=== PATIENT | female | born 1945 | race Caucasian/White ===

== ENCOUNTER → 2016-12-03 | Outpatient (CLI) | payer MEDICARE ==
[~2016-12-03] MED LIST: ALLE10TA2 PO; BENA25CA2 PO; BIOT50004 PO; CENT1TAB PO; CYCL10TA PO; HYDR-2808 PO; LEVO25TA5 PO; MELATONIN PO; NEUR300C PO; SYMB16INH INH; VITA-171 PO; VITA400C28 PO; [UNRECOGNIZED DRUG - OTHER] PO; [UNRECOGNIZED DRUG - OTHER] PO
--- NOTE | 2016-12-03 12:08 | REP ---
Right foot series: Four views. History: Foot injury. Findings: Overall mineralization pattern is normal. Achilles and plantar calcaneal spurring is noted. There is minimal midfoot spurring. Some bunion change is seen at the first MTP joint. No fracture or subluxation is seen. Impression: No fracture noted. Heel spurring. Signed by Karan Lockett MD 12/03/2016 02:05 P
== END ==
LOC: M WUC 10:25
PROVIDERS: ATTEND Physician Assistant
DX: M79.671 Pain in right foot (principal)

== ENCOUNTER → 2017-07-05 | Outpatient (CLI) | payer OTHER ==
--- NOTE | 2017-07-05 12:25 | REPMRS ---
Patient History The patient states she had a clinical breast exam in 07/12 Family history of breast cancer in maternal aunt at age 50 or over. 2 benign cyst aspirations of the left breast, 2005. Digital Woman Screen Mammo: July 05, 2017 - Exam #: [id number] Bilateral CC and MLO view(s) were taken. Technologist: Tami Ordonez, Technologist Prior study comparison: July 05, 2016, left breast digital mammo diagnostic unilateral, performed at [facility]. June 27, 2016, digital woman screen mammo performed at [facility]. FINDINGS: There are scattered fibroglandular densities. There is a fairly symmetric fibroglandular pattern in both breasts. There has been no interval development of masses, areas of architectural distortion or clusters of microcalcifications typical of malignancy. ASSESSMENT: BI-RADS/ACR category 2 mammogram. Benign finding(s). Recommendation Routine screening mammogram of both breasts in 1 year (for women over age 40). This mammogram was interpreted with the aid of an FDA-approved computer-aided dectection system. Electronically Signed By: Jh Elder MD 07/05/17 [id number]
== END ==
LOC: M WHC 10:41
PROVIDERS: ATTEND Physician Assistant
DX: Z12.31 Encounter for screening mammogram for malignant neoplasm of breast (principal)

== ENCOUNTER → 2019-04-24 | Outpatient (CLI) | payer MEDICARE ==
[~2019-04-24] MED LIST changes: -ALLE10TA2 PO; +LORA-753 PO
--- NOTE | 2019-04-24 15:16 | REPMRS ---
Patient History The patient states she had a clinical breast exam in 03/2019. Family history of breast cancer at age 50 or over in maternal aunt. 2 benign cyst aspirations of the left breast, 2005. No Hormone Replacement Therapy 3D TOMOSYNTHESIS WAS PERFORMED. Digital Woman Screen Mammo: April 24, 2019 - Exam #: [id number] Bilateral CC and MLO view(s) were taken. Technologist: Anyi Vela, Technologist Prior study comparison: July 05, 2017, digital woman screen mammo performed at [facility]. July 05, 2016, left breast digital mammo diagnostic unilateral, performed at [facility]. FINDINGS: There are scattered fibroglandular densities. There is a fairly symmetric fibroglandular pattern in both breasts. There has been no interval development of masses, areas of architectural distortion or clusters of microcalcifications typical of malignancy. Assessment: BI-RADS/ACR category 2 mammogram. Benign Findings. Recommendation Routine screening mammogram of both breasts in 1 year (for women over age 40). This mammogram was interpreted with the aid of an FDA-approved computer-aided dectection system. Electronically Signed By: Jh Elder MD 04/24/19 [id number]
== END ==
LOC: M WHC 14:12
PROVIDERS: ATTEND Nurse Practitioner Family
DX: Z12.31 Encounter for screening mammogram for malignant neoplasm of breast (principal); Z92.89 Personal history of other medical treatment
CPT/HCPCS: 77063; 77067; G0101

== ENCOUNTER → 2020-09-02 | Outpatient (CLI) | payer MEDICARE ==
[~2020-09-02] MED LIST changes: +CYCL-707 PO; -CYCL10TA PO; -HYDR-2808 PO; +HYDR-4429 PO
--- NOTE | 2020-09-07 16:42 | REP ---
CT CHEST WITHOUT CONTRAST HISTORY: Other nonspecific abnormal finding of lung field. COMPARISON: Chest x-ray 11/22/2019. CT study 12/06/2019. CT FINDINGS: There is no evidence of pleural or pericardial effusion. Scattered normal size mediastinal lymph nodes are seen unchanged. There is granulomatous lymph node calcification of the right hilus. There is a calcified granuloma in the right lower lobe. There are a few granulomatous calcifications in the spleen. Normal adrenal glands. Visualized upper abdominal structures are otherwise unremarkable. The bilateral lower lobe infiltrates seen on the 12/06/2019 prior study are improved. There is some pleural parenchymal fibrosis in each lung base, right a little more so than left. There is some lingular fibroatelectatic change unchanged from the prior study. There is a stable perifissural nodule in the minor fissure measuring 6 mm in diameter. There is some peripheral subpleural fibrosis in the apices. Areas of bronchiectasis and bronchial wall thickening are seen in the upper lobes bilaterally unchanged. No endobronchial disease is seen. IMPRESSION: Changes consistent with mild bronchiectasis. Improved inflammatory changes in the lower lobes. Fibrotic changes are noted. There is a stable perifissural nodule along the minor fissure. Old granulomatous changes. MTDD
== END ==
LOC: M RAD 13:34
PROVIDERS: ATTEND Physician Assistant
DX: R91.8 Other nonspecific abnormal finding of lung field (principal)

== ENCOUNTER → 2021-04-28 | Outpatient (CLI) | payer MEDICARE ==
--- NOTE | 2021-04-28 14:55 | REPMRS ---
Patient History The patient states she had a clinical breast exam in April2021. Family history of breast cancer at age 50 or over in maternal aunt. 2 benign cyst aspirations of the left breast, 2005. No Hormone Replacement Therapy Patient states no breast complaints. Patient has signed the [facility] history sheet. Digital Woman Screen Mammo: April 28, 2021 - Exam #: [id number] Bilateral CC and MLO view(s) were taken. Technologist: Tami Ordonez, Technologist Prior study comparison: April 24, 2019, bilateral digital woman screen mammo performed at [facility]. July 05, 2017, digital woman screen mammo performed at [facility]. FINDINGS: There are scattered fibroglandular densities. Screening. Digital screening (2D) mammography was performed bilaterally in the CC and MLO projections. Additionally, breast tomosynthesis (3D mammography) was performed bilaterally in the CC and MLO projections. Todays exam was compared to the prior exams. By history, the patient has no complaints of a palpable breast abnormality or other significant breast complaints. The breasts are unchanged in size and shape. There are no maddie-soft tissue densities or spiculated masses. There is no internal architectural distortion. Once again, stable benign appearing calcifications are seen.There are no suspicious maddie-calcific clusters. Skin thickening or nipple retraction is not present. IMPRESSION: BI-RADS Category 2- Benign Findings. There is no evidence of malignant alteration of the breasts. Followup examination recommended in one year. The Volpara volumetric breast density category is B, there are scattered areas of fibroglandular density. This mammogram was [facility],an FDA approved computer aided detection system for mammography. The lifetime Tyrer-Cuzick score is 3.7 % Negative x-ray reports should not delay surgical consultation if a dominant or clinically suspicious mass is present. Not all breast cancers can be identified by mammography. Therefore, we recommend that you continue to perform regular breast self-examination and physical examination and then promptly contact your physician of any concerns or changes. Adenosis and dense breasts may obscure an underlying neoplasm. Assessment: BI-RADS/ACR category 2 mammogram. Benign Findings. Recommendation Routine screening mammogram of both breasts in 1 year. Electronically Signed By: Philip Patterson DO 04/28/21 [id number]
== END ==
LOC: M WHC 13:42
PROVIDERS: ATTEND Nurse Practitioner Women's Health
DX: Z01.419 Encounter for gynecological examination (general) (routine) without abnormal findings (principal); Z12.31 Encounter for screening mammogram for malignant neoplasm of breast; Z86.018 Personal history of other benign neoplasm; R92.1 Mammographic calcification found on diagnostic imaging of breast
CPT/HCPCS: 77063; 77067; G0101

== ENCOUNTER → 2021-12-13 | Outpatient (CLI) | payer MEDICARE | LOC: M WUC 09:43 | PROVIDERS: ATTEND Physician Assistant | DX: J44.1 Chronic obstructive pulmonary disease with (acute) exacerbation (principal); R06.02 Shortness of breath; R53.83 Other fatigue ==

== ENCOUNTER 2022-03-13 18:42 | Inpatient (IN) | payer MEDICARE ==
[~2022-03-13] VITALS: Ht 165.1 cm; Wt 81.8 kg
[2022-03-13 19:46] LABS: VENOUS O2 SATURATION 96.3 % (60.0-80.0); VENOUS PARTIAL PRESSURE CO2 50.9 mmHg (38.0-50.0); VENOUS PH 7.402 UNITS (7.330-7.430); VENOUS TOTAL CO2 32.5 MEQ/L (24.0-28.0)
[2022-03-13 19:50] LABS: BASO % 0.2 % (0.0-1.0); EOS # 0.1 10^3/uL (0.0-0.5); HEMATOCRIT 37.2 % (36.0-47.0); HEMOGLOBIN 12.5 g/dl (12.0-15.5); LYMPH # 0.9 10^3/uL (1.5-5.0); LYMPH % 6.9 % (24.0-44.0); MEAN CORPUSCULAR HEMOGLOBIN 33.2 pg (27.0-33.0); MEAN CORPUSCULAR HGB CONC 33.6 g/dl (32.0-36.5); MEAN CORPUSCULAR VOLUME 98.7 fl (80.0-96.0); MONO # 0.5 10^3/uL (0.0-0.8); MONO % 3.9 % (2.0-8.0); NEUTROPHILS # 10.8 10^3/uL (1.5-8.5); NEUTROPHILS % 87.6 % (36.0-66.0); PLATELET COUNT, AUTOMATED 282 10^3/uL (150-450); RED BLOOD COUNT 3.77 10^6/uL (4.00-5.40); WHITE BLOOD COUNT 12.4 10^3/uL (4.0-10.0)
[2022-03-13] MEDS ORDERED: HYDR-4514 PO (19:58)
[2022-03-13 20:15] LABS: ALBUMIN 3.4 GM/DL (3.2-5.2); ALT/SGPT 23 U/L (12-78); BILIRUBIN,DIRECT 0.2 MG/DL (0.0-0.2); BILIRUBIN,TOTAL 0.5 MG/DL (0.2-1.0); BLOOD UREA NITROGEN 10 MG/DL (7-18); CALCIUM LEVEL 9.5 MG/DL (8.8-10.2); CARBON DIOXIDE LEVEL 30 MEQ/L (21-32); CHLORIDE LEVEL 102 MEQ/L (98-107); GLOMERULAR FILTRATION RATE > 60.0 (>39); GLUCOSE, FASTING 142 MG/DL (70-100); NT-PRO BNP 159 PG/ML (<450); POTASSIUM SERUM 3.9 MEQ/L (3.5-5.1); SODIUM LEVEL 138 MEQ/L (136-145); TOTAL PROTEIN 6.6 GM/DL (6.4-8.2)
[2022-03-13 20:17] LABS: MB/CK RELATIVE INDEX 3.45 (< OR =4)
[2022-03-13] MEDS: COMBIVENT RESPIMAT 100-20MCG INHALER 4GM INH SCH ×3 (20:33→21:19)
[2022-03-13 21:12] LABS: CK-MB VALUE MASS < 1.0 NG/ML (<3.6); CPK CREATINE PHOSPHOKINASE 32 U/L (26-192); MB/CK RELATIVE INDEX 3.12 (< OR =4)
[2022-03-13] MEDS ORDERED: VITA100093 PO (22:47)
[2022-03-13] MEDS ORDERED: ALBU8.5H INH (22:47)
[2022-03-13] MEDS ORDERED: MELA10CA6 PO (22:47)
[2022-03-13] MEDS ORDERED: IPRA0.00 NEB (22:47)
[2022-03-13] MEDS ORDERED: INCR1INH INH (22:49)
[2022-03-13] MEDS ORDERED: HOME MED LIST COMPLETE! XX SCH (22:50)
[2022-03-13] MEDS ORDERED: LevoFLOXacin 500 MG TABLET PO SCH (23:25)
[2022-03-13] MEDS ORDERED: ACETAMINOPHEN TAB 650MG DOSE (2X325MG) PO PRN (23:25)
[2022-03-13] MEDS ORDERED: NS 1,000 ML IV SCH (23:25)
[2022-03-13] MEDS ORDERED: CYCLOBENZAPRINE 10MG TABLET PO SCH (23:25)
[2022-03-13] MEDS ORDERED: ALBUTEROL 90 MCG/ACT 8GM HFA INHALER INH PRN (23:25)
[2022-03-13] MEDS: GABAPENTIN 300 MG CAP PO SCH (23:51)
[2022-03-14] MEDS: methylPREDNISolone 125MG 2ML VIAL IV SCH ×2 (00:11→08:00)
[2022-03-14] MEDS: IPRATROPIUM 0.5MG/ALBUTEROL 2.5MG INH SOL UD 3ML (DUONEB) NEB SCH ×3 (01:56→14:12)
[2022-03-14] MEDS ORDERED: LEVOTHYROXINE 25MCG TABLET (0.025MG) PO SCH (06:00)
[2022-03-14 07:27] LABS: BLOOD UREA NITROGEN 9 MG/DL (7-18); CALCIUM LEVEL 9.3 MG/DL (8.8-10.2); CARBON DIOXIDE LEVEL 31 MEQ/L (21-32); CHLORIDE LEVEL 104 MEQ/L (98-107); CREATININE FOR GFR 0.48 MG/DL (0.55-1.30); GLOMERULAR FILTRATION RATE > 60.0 (>39); GLUCOSE, FASTING 187 MG/DL (70-100); POTASSIUM SERUM 3.9 MEQ/L (3.5-5.1); SODIUM LEVEL 139 MEQ/L (136-145)
[2022-03-14 07:29] LABS: BASO % 0.1 % (0.0-1.0); HEMATOCRIT 36.3 % (36.0-47.0); HEMOGLOBIN 12.5 g/dl (12.0-15.5); LYMPH # 0.3 10^3/uL (1.5-5.0); LYMPH % 3.5 % (24.0-44.0); MEAN CORPUSCULAR HEMOGLOBIN 33.5 pg (27.0-33.0); MEAN CORPUSCULAR HGB CONC 34.4 g/dl (32.0-36.5); MEAN CORPUSCULAR VOLUME 97.3 fl (80.0-96.0); MONO # 0.1 10^3/uL (0.0-0.8); MONO % 0.5 % (2.0-8.0); NEUTROPHILS # 9.1 10^3/uL (1.5-8.5); NEUTROPHILS % 95.6 % (36.0-66.0); PLATELET COUNT, AUTOMATED 289 10^3/uL (150-450); RED BLOOD COUNT 3.73 10^6/uL (4.00-5.40); WHITE BLOOD COUNT 9.5 10^3/uL (4.0-10.0)
[2022-03-14] MEDS ORDERED: SYMBICORT 160/4.5MCG INHALER 6GM INH SCH (08:00)
[2022-03-14] MEDS: GABAPENTIN 300 MG CAP PO SCH (08:15)
[2022-03-14 08:40] VITALS: BP 156/89
[2022-03-14] MEDS ORDERED: HEPARIN SOD (PORCINE) 5000UNITS/ML 1ML VIAL/SYRINGE SC SCH (09:00)
[2022-03-14] MEDS ORDERED: PRED20TA PO (11:29)
[2022-03-14] MEDS ORDERED: LEVO500T4 PO (11:29)
[2022-03-14 14:00] VITALS: BP 164/90
[2022-03-14] MEDS ORDERED: PRED10TA2 PO (14:34)
[2022-03-14] MEDS ORDERED: LEVA12INH INH (14:34)
[2022-03-14] MEDS ORDERED: IPRA2IN NEB (14:34)
[2022-03-15] MEDS ORDERED: methylPREDNISolone 125MG 2ML VIAL IV SCH (09:00)
== END 2022-03-14 18:10 | disposition home or self-care (01) | DRG 189 ==
LOC: M ED 18:42 → EDBD 18:42 → M ED INP 23:22 → ENRESERV 03-14 08:04 → M MS5PR 03-14 08:40
PROVIDERS: ADMIT Internal Medicine; ATTEND Internal Medicine
DX: J96.21 Acute and chronic respiratory failure with hypoxia (principal); J44.1 Chronic obstructive pulmonary disease with (acute) exacerbation; E03.9 Hypothyroidism, unspecified; M54.59 Other low back pain; J47.9 Bronchiectasis, uncomplicated; J84.10 Pulmonary fibrosis, unspecified; Z79.899 Other long term (current) drug therapy; Z66 Do not resuscitate; Z87.891 Personal history of nicotine dependence; R91.1 Solitary pulmonary nodule

== ENCOUNTER 2022-04-24 05:22 | Inpatient (IN) | payer MEDICARE ==
[~2022-04-24] VITALS: Ht 165.1 cm; Wt 82.7 kg
[~2022-04-24 05:22] MED LIST changes: +ALBU8.5H INH; +GABAPENTIN 300 MG CAP PO ONE; +HYDR-4514 PO; +INCR1INH INH; +IPRA0.00 NEB; +IPRA2IN NEB; +LEVA12INH INH; +LEVO500T4 PO; +MELA10CA6 PO; +PRED10TA2 PO; +PRED20TA PO; +VITA100093 PO
[2022-04-24 05:44] LABS: BASO # 0.1 10^3/uL (0.0-0.2); BASO % 0.2 % (0.0-1.0); EOS # 0.1 10^3/uL (0.0-0.5); EOS % 0.2 % (0.0-3.0); HEMATOCRIT 40.2 % (36.0-47.0); HEMOGLOBIN 13.1 g/dl (12.0-15.5); LYMPH # 1.2 10^3/uL (1.5-5.0); LYMPH % 5.1 % (24.0-44.0); MEAN CORPUSCULAR HGB CONC 32.6 g/dl (32.0-36.5); MEAN CORPUSCULAR VOLUME 101.3 fl (80.0-96.0); MONO # 1.2 10^3/uL (0.0-0.8); MONO % 5.3 % (2.0-8.0); NEUTROPHILS # 20.2 10^3/uL (1.5-8.5); NEUTROPHILS % 88.8 % (36.0-66.0); PLATELET COUNT, AUTOMATED 309 10^3/uL (150-450); RED BLOOD COUNT 3.97 10^6/uL (4.00-5.40); WHITE BLOOD COUNT 22.8 10^3/uL (4.0-10.0)
[2022-04-24 06:14] LABS: ALBUMIN 3.7 GM/DL (3.2-5.2); ALT/SGPT 25 U/L (12-78); BILIRUBIN,DIRECT 0.1 MG/DL (0.0-0.2); BILIRUBIN,TOTAL 0.3 MG/DL (0.2-1.0); BLOOD UREA NITROGEN 10 MG/DL (7-18); CALCIUM LEVEL 9.9 MG/DL (8.8-10.2); CARBON DIOXIDE LEVEL 38 MEQ/L (21-32); CHLORIDE LEVEL 102 MEQ/L (98-107); CK-MB VALUE MASS 4.7 NG/ML (<3.6); CREATININE FOR GFR 0.54 MG/DL (0.55-1.30); GLOMERULAR FILTRATION RATE > 60.0 (>39); GLUCOSE, FASTING 145 MG/DL (70-100); MB/CK RELATIVE INDEX 5.6 (< OR =4); NT-PRO BNP 224 PG/ML (<450); POTASSIUM SERUM 4.2 MEQ/L (3.5-5.1); SODIUM LEVEL 143 MEQ/L (136-145); TOTAL PROTEIN 7.5 GM/DL (6.4-8.2)
[2022-04-24] MEDS ORDERED: IPRATROPIUM 0.5MG/ALBUTEROL 2.5MG INH SOL UD 3ML (DUONEB) NEB ONE (06:20)
[2022-04-24] MEDS ORDERED: NS 500 ML IV ONE (06:20)
[2022-04-24 06:41] LABS: ABG BASE EXCESS 5.9 (-2.0-2.0); ABG HCO3 32.9 MEQ/L (22.0-26.0); ABG O2 SATURATION 87.1 % (95.0-99.0); ABG PARTIAL PRESSURE CO2 58.2 mmHg (35.0-45.0); ABG PARTIAL PRESSURE O2 51.1 mmHg (75.0-100.0); ABG STANDARD HCO3 29.6 MEQ/L (22.0-26.0); ABG TOTAL CO2 34.7 MEQ/L (23.0-31.0)
[2022-04-24] MEDS ORDERED: ISOVUE-370 76% 100ML VIAL As Ordered ONE (06:42)
[2022-04-24 07:09] LABS: CK-MB VALUE MASS 4.5 NG/ML (<3.6); MB/CK RELATIVE INDEX 5.06 (< OR =4)
[2022-04-24] MEDS ORDERED: LevoFLOXacin IV 750 MG in IV 1 EA IV ONE (08:20)
[2022-04-24] MEDS ORDERED: LEVALBUTEROL 1.25 MG/0.5 ML CONCENTRATE NEB INH PRN (09:10)
[2022-04-24 10:00] VITALS: BP 138/82
[2022-04-24] MEDS ORDERED: IPRA2IN NEB (10:23)
[2022-04-24] MEDS ORDERED: LEVA1.25 NEB (10:23)
[2022-04-24] MEDS ORDERED: HOME MED LIST COMPLETE! XX SCH (10:25)
[2022-04-24 10:30] VITALS: BP 138/72
[2022-04-24 10:33] LABS: THYROID STIMULATING HORMONE 0.898 uIU/ML (0.358-3.740); THYROXINE (T4) 10.4 UG/DL (4.5-12.0)
[2022-04-24] MEDS ORDERED: methylPREDNISolone 125MG 2ML VIAL IV ONE (10:45)
[2022-04-24] MEDS: LEVALBUTEROL 1.25 MG/0.5 ML CONCENTRATE NEB INH SCH ×3 (11:21→19:40)
[2022-04-24] MEDS: BUDESONIDE 180MCG INHALER (PULMICORT FLEXHALER) INH SCH ×2 (11:43→19:41)
[2022-04-24] MEDS: ISOSORBIDE DIN. (ISORDIL) 20 MG TAB PO SCH ×2 (12:00→18:11)
[2022-04-24] MEDS ORDERED: ENOXAPARIN 40MG/0.4ML SYRINGE (J1650 PER 10MG) SC ONE (12:30)
[2022-04-24] MEDS: guaiFENesin ER 600 MG TAB PO SCH ×2 (12:41→21:02)
[2022-04-24] MEDS: OMEPRAZOLE 20MG CAP PO SCH (12:41)
[2022-04-24] MEDS: LACTOBACILLUS ACIDOPHILUS CAP (BACID) PO SCH ×3 (12:41→21:02)
[2022-04-24] MEDS ORDERED: **hydrALAZINE HCL** 25 MG TAB PO PRN (12:55)
[2022-04-24] MEDS ORDERED: ANEXSIA, NORCO 7.5MG/325MG TABLET(HYDROCODONE/APAP) PO ONE (13:30)
[2022-04-24] MEDS ORDERED: cloNIDine 0.2 MG TAB PO ONE (13:30)
[2022-04-24 14:00] VITALS: BP 134/78
[2022-04-24] MEDS: VITAMIN D 1,000 INTERNATIONAL UNITS TABLET PO SCH (14:16)
[2022-04-24] MEDS ORDERED: GABAPENTIN 300 MG CAP PO ONE (14:25)
[2022-04-24] MEDS: methylPREDNISolone 125MG 2ML VIAL IV SCH (18:11)
[2022-04-24 20:21] VITALS: BP 115/63
[2022-04-24] MEDS: LORATADINE 10 MG TAB PO SCH (21:02)
[2022-04-24] MEDS: GABAPENTIN 300 MG CAP PO SCH (21:02)
[2022-04-24] MEDS: CYCLOBENZAPRINE 10MG TABLET PO SCH (21:02)
[2022-04-25] MEDS: ISOSORBIDE DIN. (ISORDIL) 20 MG TAB PO SCH ×5 (00:32→23:57)
[2022-04-25] MEDS: methylPREDNISolone 125MG 2ML VIAL IV SCH ×3 (02:35→18:35)
[2022-04-25] MEDS: LEVALBUTEROL 1.25 MG/0.5 ML CONCENTRATE NEB INH SCH ×7 (04:00→23:38)
[2022-04-25 05:11] VITALS: BP 124/86
[2022-04-25] MEDS: LevoFLOXacin 750 MG TABLET PO SCH (06:00)
[2022-04-25] MEDS: LEVOTHYROXINE 25MCG TABLET (0.025MG) PO SCH (06:00)
[2022-04-25] MEDS: BUDESONIDE 180MCG INHALER (PULMICORT FLEXHALER) INH SCH ×3 (07:50→19:51)
[2022-04-25] MEDS: LACTOBACILLUS ACIDOPHILUS CAP (BACID) PO SCH ×4 (08:15→20:09)
[2022-04-25] MEDS: GABAPENTIN 300 MG CAP PO SCH ×3 (08:15→20:09)
[2022-04-25] MEDS: guaiFENesin ER 600 MG TAB PO SCH ×2 (08:15→20:09)
[2022-04-25] MEDS: VITAMIN D 1,000 INTERNATIONAL UNITS TABLET PO SCH (08:15)
[2022-04-25] MEDS: ENOXAPARIN 40MG/0.4ML SYRINGE (J1650 PER 10MG) SC SCH (08:16)
[2022-04-25] MEDS: OMEPRAZOLE 20MG CAP PO SCH (08:16)
[2022-04-25 13:29] LABS: BASO % 0.1 % (0.0-1.0); HEMATOCRIT 36.3 % (36.0-47.0); HEMOGLOBIN 11.7 g/dl (12.0-15.5); LYMPH # 0.6 10^3/uL (1.5-5.0); LYMPH % 2.5 % (24.0-44.0); MEAN CORPUSCULAR HGB CONC 32.2 g/dl (32.0-36.5); MEAN CORPUSCULAR VOLUME 99.2 fl (80.0-96.0); MONO # 0.8 10^3/uL (0.0-0.8); MONO % 3.4 % (2.0-8.0); NEUTROPHILS # 20.8 10^3/uL (1.5-8.5); NEUTROPHILS % 92.9 % (36.0-66.0); PLATELET COUNT, AUTOMATED 373 10^3/uL (150-450); RED BLOOD COUNT 3.66 10^6/uL (4.00-5.40); WHITE BLOOD COUNT 22.4 10^3/uL (4.0-10.0)
[2022-04-25 13:48] LABS: BLOOD UREA NITROGEN 15 MG/DL (7-18); CALCIUM LEVEL 9.3 MG/DL (8.8-10.2); CARBON DIOXIDE LEVEL 35 MEQ/L (21-32); CHLORIDE LEVEL 98 MEQ/L (98-107); CREATININE FOR GFR 0.84 MG/DL (0.55-1.30); GLOMERULAR FILTRATION RATE > 60.0 (>39); GLUCOSE, FASTING 130 MG/DL (70-100); POTASSIUM SERUM 3.5 MEQ/L (3.5-5.1); SODIUM LEVEL 136 MEQ/L (136-145)
[2022-04-25 14:00] VITALS: BP 144/71
[2022-04-25 19:55] VITALS: BP 143/75
[2022-04-25] MEDS: CYCLOBENZAPRINE 10MG TABLET PO SCH (20:09)
[2022-04-25] MEDS: LORATADINE 10 MG TAB PO SCH (20:09)
[2022-04-26] MEDS: methylPREDNISolone 125MG 2ML VIAL IV SCH ×3 (03:21→19:14)
[2022-04-26] MEDS: LEVALBUTEROL 1.25 MG/0.5 ML CONCENTRATE NEB INH SCH ×5 (04:49→19:33)
[2022-04-26 06:02] VITALS: BP 134/65
[2022-04-26] MEDS: LevoFLOXacin 750 MG TABLET PO SCH (06:36)
[2022-04-26] MEDS: ISOSORBIDE DIN. (ISORDIL) 20 MG TAB PO SCH (06:36)
[2022-04-26] MEDS: LEVOTHYROXINE 25MCG TABLET (0.025MG) PO SCH (06:36)
[2022-04-26] MEDS: BUDESONIDE 180MCG INHALER (PULMICORT FLEXHALER) INH SCH ×2 (07:18→19:33)
[2022-04-26] MEDS: ENOXAPARIN 40MG/0.4ML SYRINGE (J1650 PER 10MG) SC SCH (10:03)
[2022-04-26] MEDS: guaiFENesin ER 600 MG TAB PO SCH ×2 (10:04→20:21)
[2022-04-26] MEDS: LACTOBACILLUS ACIDOPHILUS CAP (BACID) PO SCH ×4 (10:04→20:20)
[2022-04-26] MEDS: VITAMIN D 1,000 INTERNATIONAL UNITS TABLET PO SCH (10:05)
[2022-04-26] MEDS: GABAPENTIN 300 MG CAP PO SCH ×3 (10:05→20:21)
[2022-04-26] MEDS: OMEPRAZOLE 20MG CAP PO SCH (10:06)
[2022-04-26 14:00] VITALS: BP 158/79
[2022-04-26 20:10] VITALS: BP 155/80
[2022-04-26] MEDS: LORATADINE 10 MG TAB PO SCH (20:20)
[2022-04-26] MEDS: CYCLOBENZAPRINE 10MG TABLET PO SCH (20:20)
[2022-04-26] MEDS: ANEXSIA, NORCO 7.5MG/325MG TABLET(HYDROCODONE/APAP) PO PRN (20:21)
[2022-04-27] MEDS: LEVALBUTEROL 1.25 MG/0.5 ML CONCENTRATE NEB INH SCH ×7 (00:05→23:54)
[2022-04-27] MEDS: methylPREDNISolone 125MG 2ML VIAL IV SCH ×3 (04:02→21:19)
[2022-04-27] MEDS: LEVOTHYROXINE 25MCG TABLET (0.025MG) PO SCH (05:59)
[2022-04-27] MEDS: LevoFLOXacin 750 MG TABLET PO SCH (05:59)
[2022-04-27 06:00] VITALS: BP 147/79
[2022-04-27 07:23] LABS: HEMATOCRIT 38.8 % (36.0-47.0); HEMOGLOBIN 12.4 g/dl (12.0-15.5); MEAN CORPUSCULAR HEMOGLOBIN 32.1 pg (27.0-33.0); MEAN CORPUSCULAR VOLUME 100.5 fl (80.0-96.0); PLATELET COUNT, AUTOMATED 394 10^3/uL (150-450); RED BLOOD COUNT 3.86 10^6/uL (4.00-5.40); WHITE BLOOD COUNT 18.4 10^3/uL (4.0-10.0)
[2022-04-27 07:31] LABS: BLOOD UREA NITROGEN 19 MG/DL (7-18); CALCIUM LEVEL 9.7 MG/DL (8.8-10.2); CARBON DIOXIDE LEVEL 33 MEQ/L (21-32); CHLORIDE LEVEL 101 MEQ/L (98-107); CREATININE FOR GFR 0.71 MG/DL (0.55-1.30); GLOMERULAR FILTRATION RATE > 60.0 (>39); GLUCOSE, FASTING 152 MG/DL (70-100); POTASSIUM SERUM 3.6 MEQ/L (3.5-5.1); SODIUM LEVEL 140 MEQ/L (136-145)
[2022-04-27] MEDS: BUDESONIDE 180MCG INHALER (PULMICORT FLEXHALER) INH SCH ×2 (07:33→21:14)
[2022-04-27] MEDS: VITAMIN D 1,000 INTERNATIONAL UNITS TABLET PO SCH (08:29)
[2022-04-27] MEDS: guaiFENesin ER 600 MG TAB PO SCH ×2 (08:29→21:17)
[2022-04-27] MEDS: LACTOBACILLUS ACIDOPHILUS CAP (BACID) PO SCH ×4 (08:29→21:16)
[2022-04-27] MEDS: GABAPENTIN 300 MG CAP PO SCH ×3 (08:30→21:17)
[2022-04-27] MEDS: ENOXAPARIN 40MG/0.4ML SYRINGE (J1650 PER 10MG) SC SCH (08:30)
[2022-04-27] MEDS: OMEPRAZOLE 20MG CAP PO SCH (08:30)
[2022-04-27 14:00] VITALS: BP 140/68
[2022-04-27 20:00] VITALS: BP 157/86
[2022-04-27 21:01] VITALS: BP 164/84
[2022-04-27] MEDS ORDERED: **hydrALAZINE** 10 MG TAB PO PRN (21:10)
[2022-04-27] MEDS: LORATADINE 10 MG TAB PO SCH (21:17)
[2022-04-27] MEDS: CYCLOBENZAPRINE 10MG TABLET PO SCH (21:17)
[2022-04-27] MEDS: ANEXSIA, NORCO 7.5MG/325MG TABLET(HYDROCODONE/APAP) PO PRN (21:19)
[2022-04-28 00:34] VITALS: BP_SYST 152; BP_SYST 157; BP_DIAS 74; BP_DIAS 86
[2022-04-28] MEDS: LEVALBUTEROL 1.25 MG/0.5 ML CONCENTRATE NEB INH SCH ×6 (03:38→23:48)
[2022-04-28 05:17] VITALS: BP 155/86
[2022-04-28] MEDS: LEVOTHYROXINE 25MCG TABLET (0.025MG) PO SCH (05:33)
[2022-04-28 06:23] LABS: HEMATOCRIT 37.6 % (36.0-47.0); HEMOGLOBIN 12.4 g/dl (12.0-15.5); MEAN CORPUSCULAR HEMOGLOBIN 32.9 pg (27.0-33.0); MEAN CORPUSCULAR VOLUME 99.7 fl (80.0-96.0); PLATELET COUNT, AUTOMATED 332 10^3/uL (150-450); RED BLOOD COUNT 3.77 10^6/uL (4.00-5.40); WHITE BLOOD COUNT 13.1 10^3/uL (4.0-10.0)
[2022-04-28 06:42] LABS: INR 0.9; PROTHROMBIN TIME 12.6 SECONDS (12.7-14.5)
[2022-04-28 06:43] LABS: PARTIAL THROMBOPLASTIN TIME 25.8 SECONDS (25.9-37.0)
[2022-04-28 06:52] LABS: BLOOD UREA NITROGEN 19 MG/DL (7-18); CALCIUM LEVEL 8.7 MG/DL (8.8-10.2); CARBON DIOXIDE LEVEL 33 MEQ/L (21-32); CHLORIDE LEVEL 99 MEQ/L (98-107); CREATININE FOR GFR 0.77 MG/DL (0.55-1.30); GLOMERULAR FILTRATION RATE > 60.0 (>39); GLUCOSE, FASTING 170 MG/DL (70-100); POTASSIUM SERUM 3.9 MEQ/L (3.5-5.1); SODIUM LEVEL 138 MEQ/L (136-145)
[2022-04-28] MEDS: BUDESONIDE 180MCG INHALER (PULMICORT FLEXHALER) INH SCH ×2 (07:32→20:23)
[2022-04-28] MEDS: GABAPENTIN 300 MG CAP PO SCH ×3 (07:49→20:12)
[2022-04-28] MEDS: VITAMIN D 1,000 INTERNATIONAL UNITS TABLET PO SCH (07:49)
[2022-04-28] MEDS: OMEPRAZOLE 20MG CAP PO SCH (07:49)
[2022-04-28] MEDS: guaiFENesin ER 600 MG TAB PO SCH ×2 (07:49→20:12)
[2022-04-28] MEDS: LACTOBACILLUS ACIDOPHILUS CAP (BACID) PO SCH ×4 (07:49→20:11)
[2022-04-28] MEDS: methylPREDNISolone 125MG 2ML VIAL IV SCH (07:50)
[2022-04-28] MEDS: ENOXAPARIN 40MG/0.4ML SYRINGE (J1650 PER 10MG) SC SCH (07:51)
[2022-04-28 10:15] VITALS: BP 150/74
[2022-04-28] MEDS ORDERED: CEPACOL LOZENGE PO PRN (12:20)
[2022-04-28] MEDS: NYSTATIN 500,000 U/5 ML SUSP UDC PO SCH ×2 (12:46→17:06)
[2022-04-28 14:00] VITALS: BP 146/74
[2022-04-28 19:33] VITALS: BP 150/82
[2022-04-28] MEDS: LORATADINE 10 MG TAB PO SCH (20:11)
[2022-04-28] MEDS: predniSONE 20 MG TAB PO SCH (20:11)
[2022-04-28] MEDS: CYCLOBENZAPRINE 10MG TABLET PO SCH (20:12)
[2022-04-28] MEDS: ANEXSIA, NORCO 7.5MG/325MG TABLET(HYDROCODONE/APAP) PO PRN (20:13)
[2022-04-29] MEDS: NYSTATIN 500,000 U/5 ML SUSP UDC PO SCH ×3 (00:52→12:16)
[2022-04-29] MEDS: LEVALBUTEROL 1.25 MG/0.5 ML CONCENTRATE NEB INH SCH ×4 (05:07→15:27)
[2022-04-29 05:09] VITALS: BP_SYST 154; BP_SYST 160; BP_DIAS 82; BP_DIAS 94
[2022-04-29] MEDS: LEVOTHYROXINE 25MCG TABLET (0.025MG) PO SCH (05:50)
[2022-04-29 07:20] LABS: HEMATOCRIT 37.8 % (36.0-47.0); HEMOGLOBIN 12.6 g/dl (12.0-15.5); MEAN CORPUSCULAR HEMOGLOBIN 32.7 pg (27.0-33.0); MEAN CORPUSCULAR HGB CONC 33.3 g/dl (32.0-36.5); MEAN CORPUSCULAR VOLUME 98.2 fl (80.0-96.0); PLATELET COUNT, AUTOMATED 336 10^3/uL (150-450); RED BLOOD COUNT 3.85 10^6/uL (4.00-5.40); WHITE BLOOD COUNT 12.9 10^3/uL (4.0-10.0)
[2022-04-29 07:44] LABS: BLOOD UREA NITROGEN 19 MG/DL (7-18); CALCIUM LEVEL 9.2 MG/DL (8.8-10.2); CARBON DIOXIDE LEVEL 36 MEQ/L (21-32); CHLORIDE LEVEL 99 MEQ/L (98-107); CREATININE FOR GFR 0.61 MG/DL (0.55-1.30); GLOMERULAR FILTRATION RATE > 60.0 (>39); GLUCOSE, FASTING 134 MG/DL (70-100); POTASSIUM SERUM 3.7 MEQ/L (3.5-5.1); SODIUM LEVEL 140 MEQ/L (136-145)
[2022-04-29] MEDS: BUDESONIDE 180MCG INHALER (PULMICORT FLEXHALER) INH SCH (07:44)
[2022-04-29 09:10] VITALS: BP 159/86
[2022-04-29] MEDS: VITAMIN D 1,000 INTERNATIONAL UNITS TABLET PO SCH (09:10)
[2022-04-29] MEDS: predniSONE 20 MG TAB PO SCH (09:10)
[2022-04-29] MEDS: OMEPRAZOLE 20MG CAP PO SCH (09:10)
[2022-04-29] MEDS: GABAPENTIN 300 MG CAP PO SCH (09:10)
[2022-04-29] MEDS: LACTOBACILLUS ACIDOPHILUS CAP (BACID) PO SCH ×2 (09:10→12:16)
[2022-04-29] MEDS: guaiFENesin ER 600 MG TAB PO SCH (09:10)
[2022-04-29] MEDS: ENOXAPARIN 40MG/0.4ML SYRINGE (J1650 PER 10MG) SC SCH (09:11)
[2022-04-29] MEDS ORDERED: AMOX875T2 PO (12:41)
[2022-04-29] MEDS ORDERED: NYST50SS PO (12:41)
[2022-04-29] MEDS ORDERED: PRED20TA PO ×2 (12:41)
[2022-04-29] MEDS ORDERED: AMLO1TAB25 PO (12:41)
[2022-04-29 14:00] VITALS: BP 154/84
== END 2022-04-29 17:04 | disposition home health service (06) | DRG 191 ==
LOC: M ED 05:22 → M ED INP 08:59 → ENRESERV 10:00 → M MSPAV 10:30
PROVIDERS: ADMIT General Practice; ATTEND Family Medicine
DX: J44.1 Chronic obstructive pulmonary disease with (acute) exacerbation (principal); J96.11 Chronic respiratory failure with hypoxia; B37.0 Candidal stomatitis; J96.12 Chronic respiratory failure with hypercapnia; I16.0 Hypertensive urgency; I10 Essential (primary) hypertension; J84.10 Pulmonary fibrosis, unspecified; E03.9 Hypothyroidism, unspecified; Z79.899 Other long term (current) drug therapy; E66.9 Obesity, unspecified; Z68.30 Body mass index [BMI] 30.0-30.9, adult

== ENCOUNTER → 2023-01-12 | Outpatient (CLI) | payer OTHER ==
[~2023-01-12] MED LIST changes: +ACET650T61 PO; +AMLO1TAB25 PO; +AMOX875T2 PO; +BENA25CA4 PO; +DIGO0.123 PO; +DILT120C78 PO; +ELIQ5TAB PO; +FERR325T3 PO; -GABAPENTIN 300 MG CAP PO ONE; +LEVA1.25 NEB; +LEVO1TAB39 PO; -LEVO500T4 PO; +MAGN400C PO; +MUCI1TAB16 PO; +NYST-38 PO; +OYST1TAB PO; +SPIR-10 PO
== END ==
LOC: M PLAIMG 14:13
PROVIDERS: ATTEND Physician Assistant
DX: R91.8 Other nonspecific abnormal finding of lung field (principal)

== ENCOUNTER 2023-01-13 08:03 | Observation (INO) | payer OTHER ==
[~2023-01-13] VITALS: Ht 165.1 cm; Wt 83.9 kg
[~2023-01-13 08:03] MED LIST changes: -ACET650T61 PO; -BENA25CA4 PO; -DIGO0.123 PO; -DILT120C78 PO; -ELIQ5TAB PO; -FERR325T3 PO; -MAGN400C PO; -MUCI1TAB16 PO; -OYST1TAB PO; -SPIR-10 PO
[2023-01-13] MEDS ORDERED: DIGOXIN INJ 0.5 MG/2 ML AMP IV STA (08:15)
[2023-01-13] MEDS ORDERED: APIXABAN 5 MG TAB (ELIQUIS) PO ONE (08:15)
[2023-01-13] MEDS ORDERED: FUROSEMIDE 40MG/4ML VIAL IV ONE (08:15)
[2023-01-13 08:31] LABS: BASO # 0.1 10^3/uL (0.0-0.2); BASO % 0.3 % (0.0-1.0); EOS % 0.2 % (0.0-3.0); HEMATOCRIT 37.9 % (36.0-47.0); HEMOGLOBIN 12.1 g/dl (12.0-15.5); LYMPH # 0.9 10^3/uL (1.5-5.0); LYMPH % 4.3 % (24.0-44.0); MEAN CORPUSCULAR HEMOGLOBIN 31.9 pg (27.0-33.0); MEAN CORPUSCULAR HGB CONC 31.9 g/dl (32.0-36.5); MONO % 5.3 % (2.0-8.0); NEUTROPHILS # 17.5 10^3/uL (1.5-8.5); NEUTROPHILS % 89.3 % (36.0-66.0); PLATELET COUNT, AUTOMATED 442 10^3/uL (150-450); RED BLOOD COUNT 3.79 10^6/uL (4.00-5.40); WHITE BLOOD COUNT 19.6 10^3/uL (4.0-10.0)
[2023-01-13 08:32] LABS: ABG HCO3 28.4 MEQ/L (22.0-26.0); ABG O2 SATURATION 96.9 % (95.0-99.0); ABG PARTIAL PRESSURE CO2 57.6 mmHg (35.0-45.0); ABG PARTIAL PRESSURE O2 94.7 mmHg (75.0-100.0); ABG STANDARD HCO3 25.3 MEQ/L (22.0-26.0); ABG TOTAL CO2 30.1 MEQ/L (23.0-31.0)
[2023-01-13] MEDS: IPRATROPIUM 0.5MG/ALBUTEROL 2.5MG INH SOL UD 3ML (DUONEB) NEB PRN ×3 (08:37→09:58)
[2023-01-13 09:01] LABS: CK-MB VALUE MASS 2.4 NG/ML (<3.6)
[2023-01-13 09:03] LABS: ALBUMIN 3.6 G/DL (3.2-5.2); ALKALINE PHOSPHATASE 96 U/L (46-116); ALT/SGPT 16 U/L (7.0-40); AST/SGOT 18 U/L (<34); BILIRUBIN,DIRECT 0.2 MG/DL (<0.4); BILIRUBIN,TOTAL 0.5 MG/DL (0.3-1.2); BLOOD UREA NITROGEN 7 MG/DL (9-23); CALCIUM LEVEL 9.4 MG/DL (8.3-10.6); CARBON DIOXIDE LEVEL 34 MMOL/L (20-31); CHLORIDE LEVEL 95 MMOL/L (98-107); CREATININE FOR GFR 0.51 MG/DL (0.55-1.30); DIGOXIN LEVEL 0.6 NG/ML (0.8-2.0); GLOMERULAR FILTRATION RATE > 60.0 (>39); GLUCOSE, FASTING 159 MG/DL (74-106); POTASSIUM SERUM 4.3 MMOL/L (3.5-5.1); SODIUM LEVEL 135 MMOL/L (136-145); TOTAL PROTEIN 6.5 G/DL (5.7-8.2)
[2023-01-13 09:05] LABS: FREE T4 1.06 NG/DL (0.89-1.76)
[2023-01-13 09:06] LABS: THYROID STIMULATING HORMONE 3.811 uIU/ML (0.55-4.78)
[2023-01-13 09:07] LABS: CPK CREATINE PHOSPHOKINASE 68 U/L (34-145); MB/CK RELATIVE INDEX 3.52 (< OR =4)
[2023-01-13] MEDS ORDERED: cefTRIAXone SOD 1 GM in D5W MINI-BAG PLUS 50 ML IV ONE (09:25)
[2023-01-13] MEDS ORDERED: DOXYCYCLINE HYCLATE 100MG TABLET PO ONE (09:25)
[2023-01-13] MEDS ORDERED: ACET650T61 PO (10:31)
[2023-01-13] MEDS ORDERED: SPIR-10 PO (10:32)
[2023-01-13] MEDS ORDERED: BENA25CA4 PO (10:32)
[2023-01-13] MEDS ORDERED: MAGN400C PO (10:32)
[2023-01-13] MEDS ORDERED: MUCI1TAB16 PO (10:32)
[2023-01-13] MEDS ORDERED: DILT120C78 PO (10:32)
[2023-01-13] MEDS ORDERED: DIGO0.123 PO (10:32)
[2023-01-13] MEDS ORDERED: FERR325T3 PO (10:32)
[2023-01-13] MEDS ORDERED: OYST1TAB PO (10:32)
[2023-01-13] MEDS ORDERED: ELIQ5TAB PO (10:32)
[2023-01-13] MEDS ORDERED: HOME MED LIST COMPLETE! XX SCH (10:40)
[2023-01-13] MEDS: MULTIVITAMINS/MINERALS THERAP 1 TAB PO SCH (11:47)
[2023-01-13] MEDS: SPIRONOLACTONE 12.5MG PER 1/2 TABLET PO SCH (11:48)
[2023-01-13] MEDS: OYSTER SHELL CALCIUM 500 MG TAB PO SCH (11:48)
[2023-01-13] MEDS: guaiFENesin ER 600 MG TAB PO SCH ×2 (11:48→20:41)
[2023-01-13] MEDS: VITAMIN D 1,000 INTERNATIONAL UNITS TABLET PO SCH (11:49)
[2023-01-13] MEDS: MAGNESIUM OXIDE 400MG TAB (MAG-OX) PO SCH (11:49)
[2023-01-13] MEDS: methylPREDNISolone 40MG 1ML VIAL IV SCH ×2 (11:49→20:40)
[2023-01-13] MEDS: IPRATROPIUM 0.5MG/ALBUTEROL 2.5MG INH SOL UD 3ML (DUONEB) INH SCH ×4 (12:00→23:58)
[2023-01-13 12:11] LABS: INR 1.42; PROTHROMBIN TIME 17.6 SECONDS (12.5-14.5)
[2023-01-13 12:25] LABS: IRON (FE) 23 UG/DL (50-170); PERCENT SATURATION 8.6 % (13.2-45.0); TOTAL IRON BINDING CAPACITY 266 UG/DL (250-425)
[2023-01-13 12:27] LABS: FOLATE > 24.00 NG/ML (>5.4); MAGNESIUM LEVEL 1.6 MG/DL (1.8-2.4)
[2023-01-13 12:28] LABS: FERRITIN 997.5 NG/ML (7.3-270.7); VITAMIN B12 LEVEL 1018 PG/ML (211-911)
[2023-01-13 16:25] VITALS: BP 150/94
[2023-01-13] MEDS: GABAPENTIN 300 MG CAP PO SCH ×2 (17:40→20:41)
[2023-01-13] MEDS: SYMBICORT 160/4.5MCG INHALER 6GM INH SCH (20:22)
[2023-01-13] MEDS: APIXABAN 5 MG TAB (ELIQUIS) PO SCH (20:40)
[2023-01-13] MEDS: ACETAMINOPHEN 650MG ER TAB (TYLENOL ARTHRITIS) PO SCH (20:40)
[2023-01-13] MEDS: DOXYCYCLINE HYCLATE 100MG TABLET PO SCH (20:40)
[2023-01-13] MEDS: RAMELTEON 8 MG TAB (ROZEREM) PO SCH (20:41)
[2023-01-13] MEDS: CYCLOBENZAPRINE 10MG TABLET PO SCH (20:41)
[2023-01-13 20:42] VITALS: BP 144/64
[2023-01-14] VITALS (7 sets, daily range): BP systolic 117–141; BP diastolic 60–67; O2SAT 96
[2023-01-14] MEDS: IPRATROPIUM 0.5MG/ALBUTEROL 2.5MG INH SOL UD 3ML (DUONEB) INH SCH ×6 (04:08→23:45)
[2023-01-14 04:09] LABS: HEMOGLOBIN 11.1 g/dl (12.0-15.5); LYMPH # 0.6 10^3/uL (1.5-5.0); LYMPH % 5.1 % (24.0-44.0); MEAN CORPUSCULAR HEMOGLOBIN 31.4 pg (27.0-33.0); MEAN CORPUSCULAR HGB CONC 31.7 g/dl (32.0-36.5); MEAN CORPUSCULAR VOLUME 98.9 fl (80.0-96.0); MONO # 0.2 10^3/uL (0.0-0.8); MONO % 2.1 % (2.0-8.0); NEUTROPHILS # 10.6 10^3/uL (1.5-8.5); NEUTROPHILS % 92.4 % (36.0-66.0); PLATELET COUNT, AUTOMATED 365 10^3/uL (150-450); RED BLOOD COUNT 3.54 10^6/uL (4.00-5.40); WHITE BLOOD COUNT 11.5 10^3/uL (4.0-10.0)
[2023-01-14 04:53] LABS: BLOOD UREA NITROGEN 9 MG/DL (9-23); CARBON DIOXIDE LEVEL 38 MMOL/L (20-31); CHLORIDE LEVEL 94 MMOL/L (98-107); CREATININE FOR GFR 0.53 MG/DL (0.55-1.30); GLOMERULAR FILTRATION RATE > 60.0 (>39); GLUCOSE, FASTING 151 MG/DL (74-106); POTASSIUM SERUM 4.2 MMOL/L (3.5-5.1); SODIUM LEVEL 136 MMOL/L (136-145)
[2023-01-14] MEDS: methylPREDNISolone 40MG 1ML VIAL IV SCH ×2 (05:35→12:15)
[2023-01-14] MEDS: LEVOTHYROXINE 25MCG TABLET (0.025MG) PO SCH (05:35)
[2023-01-14] MEDS: SYMBICORT 160/4.5MCG INHALER 6GM INH SCH ×2 (07:54→20:45)
[2023-01-14] MEDS ORDERED: FERROUS SULFATE 325MG TAB PO SCH ×2 (09:00)
[2023-01-14] MEDS ORDERED: AZITHROMYCIN 250MG TABLET PO SCH (09:00)
[2023-01-14] MEDS ORDERED: ASCORBIC ACID 500 MG TAB PO SCH (09:00)
[2023-01-14] MEDS: DOXYCYCLINE HYCLATE 100MG TABLET PO SCH ×2 (09:09→20:25)
[2023-01-14] MEDS: OYSTER SHELL CALCIUM 500 MG TAB PO SCH (09:09)
[2023-01-14] MEDS: ACETAMINOPHEN 650MG ER TAB (TYLENOL ARTHRITIS) PO SCH ×2 (09:09→20:24)
[2023-01-14] MEDS: MULTIVITAMINS/MINERALS THERAP 1 TAB PO SCH (09:10)
[2023-01-14] MEDS: GABAPENTIN 300 MG CAP PO SCH ×3 (09:10→20:25)
[2023-01-14] MEDS: SPIRONOLACTONE 12.5MG PER 1/2 TABLET PO SCH (09:10)
[2023-01-14] MEDS: guaiFENesin ER 600 MG TAB PO SCH ×2 (09:10→20:25)
[2023-01-14] MEDS: MAGNESIUM OXIDE 400MG TAB (MAG-OX) PO SCH ×3 (09:11→20:25)
[2023-01-14] MEDS: APIXABAN 5 MG TAB (ELIQUIS) PO SCH ×2 (09:11→20:25)
[2023-01-14] MEDS: DIGOXIN 0.125 MG TAB PO SCH (09:11)
[2023-01-14] MEDS: VITAMIN D 1,000 INTERNATIONAL UNITS TABLET PO SCH (09:11)
[2023-01-14] MEDS ORDERED: cefTRIAXone SOD 1 GM in D5W MINI-BAG PLUS 50 ML IV SCH (10:00)
[2023-01-14] MEDS ORDERED: DOXYCYCLINE HYCLATE 100MG TABLET PO SCH (10:55)
[2023-01-14] MEDS ORDERED: DOXY100T PO (12:29)
[2023-01-14] MEDS ORDERED: ASCO50TA PO (12:29)
[2023-01-14] MEDS ORDERED: PRED20TA PO (12:29)
[2023-01-14] MEDS ORDERED: FERR325T3 PO (12:29)
[2023-01-14] MEDS: predniSONE 20 MG TAB PO SCH (15:19)
[2023-01-14] MEDS: CYCLOBENZAPRINE 10MG TABLET PO SCH (20:24)
[2023-01-14] MEDS: RAMELTEON 8 MG TAB (ROZEREM) PO SCH (20:25)
[2023-01-14] MEDS: AUGMENTIN 875 MG TAB PO SCH (20:25)
[2023-01-15] MEDS: IPRATROPIUM 0.5MG/ALBUTEROL 2.5MG INH SOL UD 3ML (DUONEB) INH SCH ×2 (03:19→07:54)
[2023-01-15 05:00] VITALS: BP 120/65
[2023-01-15] MEDS: LEVOTHYROXINE 25MCG TABLET (0.025MG) PO SCH (05:30)
[2023-01-15 06:58] LABS: BASO % 0.1 % (0.0-1.0); HEMATOCRIT 35.1 % (36.0-47.0); HEMOGLOBIN 11.2 g/dl (12.0-15.5); LYMPH # 0.6 10^3/uL (1.5-5.0); LYMPH % 3.6 % (24.0-44.0); MEAN CORPUSCULAR HEMOGLOBIN 31.5 pg (27.0-33.0); MEAN CORPUSCULAR HGB CONC 31.9 g/dl (32.0-36.5); MEAN CORPUSCULAR VOLUME 98.9 fl (80.0-96.0); MONO # 0.7 10^3/uL (0.0-0.8); MONO % 3.9 % (2.0-8.0); NEUTROPHILS # 16.1 10^3/uL (1.5-8.5); NEUTROPHILS % 91.4 % (36.0-66.0); PLATELET COUNT, AUTOMATED 413 10^3/uL (150-450); RED BLOOD COUNT 3.55 10^6/uL (4.00-5.40); WHITE BLOOD COUNT 17.6 10^3/uL (4.0-10.0)
[2023-01-15 07:26] VITALS: BP 142/62
[2023-01-15 07:29] LABS: BLOOD UREA NITROGEN 16 MG/DL (9-23); CALCIUM LEVEL 9.5 MG/DL (8.3-10.6); CARBON DIOXIDE LEVEL 37 MMOL/L (20-31); CHLORIDE LEVEL 90 MMOL/L (98-107); CREATININE FOR GFR 0.56 MG/DL (0.55-1.30); GLOMERULAR FILTRATION RATE > 60.0 (>39); GLUCOSE, FASTING 143 MG/DL (74-106); POTASSIUM SERUM 4.2 MMOL/L (3.5-5.1); SODIUM LEVEL 133 MMOL/L (136-145)
[2023-01-15] MEDS: SYMBICORT 160/4.5MCG INHALER 6GM INH SCH (07:54)
[2023-01-15] MEDS: AUGMENTIN 875 MG TAB PO SCH (08:28)
[2023-01-15] MEDS: OYSTER SHELL CALCIUM 500 MG TAB PO SCH (08:28)
[2023-01-15] MEDS: guaiFENesin ER 600 MG TAB PO SCH (08:28)
[2023-01-15] MEDS: MAGNESIUM OXIDE 400MG TAB (MAG-OX) PO SCH (08:28)
[2023-01-15] MEDS: VITAMIN D 1,000 INTERNATIONAL UNITS TABLET PO SCH (08:28)
[2023-01-15] MEDS: ACETAMINOPHEN 650MG ER TAB (TYLENOL ARTHRITIS) PO SCH (08:28)
[2023-01-15] MEDS: GABAPENTIN 300 MG CAP PO SCH (08:28)
[2023-01-15] MEDS: APIXABAN 5 MG TAB (ELIQUIS) PO SCH (08:28)
[2023-01-15] MEDS: DOXYCYCLINE HYCLATE 100MG TABLET PO SCH (08:28)
[2023-01-15 08:29] VITALS: BP 142/62
[2023-01-15] MEDS: SPIRONOLACTONE 12.5MG PER 1/2 TABLET PO SCH (08:29)
[2023-01-15] MEDS: predniSONE 20 MG TAB PO SCH (08:29)
[2023-01-15] MEDS: MULTIVITAMINS/MINERALS THERAP 1 TAB PO SCH (08:29)
[2023-01-15] MEDS: DIGOXIN 0.125 MG TAB PO SCH (08:29)
[2023-01-15] MEDS ORDERED: AMOX875T2 PO (09:44)
[2023-01-15] MEDS ORDERED: DOXY100T PO (09:44)
[2023-01-15] MEDS ORDERED: PRED20TA PO ×2 (09:44→10:44)
== END 2023-01-15 11:31 | disposition home health service (06) ==
LOC: EDBD 08:03 → M ED 08:03 → M ED INP 10:55 → ENRESERV 14:54 → M PCU 16:16
PROVIDERS: ADMIT Student in an Organized Health Care Education/Training Program; ATTEND Student in an Organized Health Care Education/Training Program
DX: J84.89 Other specified interstitial pulmonary diseases (principal); J44.1 Chronic obstructive pulmonary disease with (acute) exacerbation; J96.11 Chronic respiratory failure with hypoxia; I48.0 Paroxysmal atrial fibrillation; D50.9 Iron deficiency anemia, unspecified; E03.9 Hypothyroidism, unspecified; G90.09 Other idiopathic peripheral autonomic neuropathy; G47.00 Insomnia, unspecified; I10 Essential (primary) hypertension; E55.9 Vitamin D deficiency, unspecified; Z79.899 Other long term (current) drug therapy
CPT/HCPCS: 36415; 36600; 71045; 71046; 80048; 80076; 80162; 82550; 82553; 82607; 82728; 82746; 82803; 83550; 83605; 83735; 83880; 84145; 84439; 84443; 84484; 85025; 85610; 87040; 87070; 87077; 87186; 87205; 87486; 87581; 87633; 87798; 93005; 93041; 94640; 94760; 96365; 96366; 96375; 96376; 97161; 97165; 97530; 99285; G0378; J0696; J1160; J1940; J2920; J7512

== ENCOUNTER → 2023-02-24 | Outpatient (REF) | payer MEDICARE ==
[~2023-02-24] MED LIST changes: +ACET650T61 PO; +ASCO50TA PO; +BENA25CA4 PO; +DIGO0.123 PO; +DILT120C78 PO; +DOXY100T PO; +ELIQ5TAB PO; +FERR325T3 PO; +MAGN400C PO; +MUCI1TAB16 PO; +OYST1TAB PO; +SPIR-10 PO
== END ==
LOC: M LAB REF 17:40
PROVIDERS: ATTEND Internal Medicine Critical Care Medicine
DX: J15.1 Pneumonia due to Pseudomonas (principal)

== ENCOUNTER → 2023-03-03 | Outpatient (CLI) | payer MEDICARE | LOC: M PLAIMG 12:34 | PROVIDERS: ATTEND Internal Medicine Critical Care Medicine | DX: J15.1 Pneumonia due to Pseudomonas (principal); J47.9 Bronchiectasis, uncomplicated; J84.9 Interstitial pulmonary disease, unspecified; I51.7 Cardiomegaly; I70.0 Atherosclerosis of aorta; M51.34 Other intervertebral disc degeneration, thoracic region ==

== ENCOUNTER → 2023-03-13 | Outpatient (CLI) | payer MEDICARE | LOC: M PLAIMG 14:30 | PROVIDERS: ATTEND Physician Assistant | DX: R91.8 Other nonspecific abnormal finding of lung field (principal); I70.0 Atherosclerosis of aorta; I25.10 Atherosclerotic heart disease of native coronary artery without angina pectoris ==

== ENCOUNTER → 2023-03-28 | Outpatient (REF) | payer MEDICARE ==
[~2023-03-28] MED LIST changes: +PRED5TA PO
== END ==
LOC: M LAB REF 17:40
PROVIDERS: ATTEND Physician Assistant
DX: J43.1 Panlobular emphysema (principal)

== ENCOUNTER 2023-03-30 13:10 | Inpatient (IN) | payer MEDICARE ==
[~2023-03-30] VITALS: Ht 165.1 cm; Wt 79.1 kg
[~2023-03-30 13:10] MED LIST changes: -PRED5TA PO
[2023-03-30] MEDS ORDERED: DOXYCYCLINE HYCLATE 100MG TABLET PO ONE (16:15)
[2023-03-30] MEDS ORDERED: PIPERACILLIN/TAZOBACTAM SOD 4.5 GM in D5W MINI-BAG PLUS 50 ML IV ONE (16:15)
[2023-03-30 17:25] LABS: BASO % 0.2 % (0.0-1.0); EOS # 0.3 10^3/uL (0.0-0.5); EOS % 2.7 % (0.0-3.0); HEMATOCRIT 40.5 % (36.0-47.0); HEMOGLOBIN 13.2 g/dl (12.0-15.5); LYMPH # 1.6 10^3/uL (1.5-5.0); LYMPH % 14.5 % (24.0-44.0); MEAN CORPUSCULAR HEMOGLOBIN 33.2 pg (27.0-33.0); MEAN CORPUSCULAR HGB CONC 32.6 g/dl (32.0-36.5); MEAN CORPUSCULAR VOLUME 101.8 fl (80.0-96.0); MONO # 0.7 10^3/uL (0.0-0.8); MONO % 6.3 % (2.0-8.0); NEUTROPHILS # 8.4 10^3/uL (1.5-8.5); NEUTROPHILS % 75.6 % (36.0-66.0); PLATELET COUNT, AUTOMATED 409 10^3/uL (150-450); RED BLOOD COUNT 3.98 10^6/uL (4.00-5.40); WHITE BLOOD COUNT 11.1 10^3/uL (4.0-10.0)
[2023-03-30] MEDS: NS 1,000 ML IV SCH ×2 (17:43→17:46)
[2023-03-30 17:56] LABS: ALKALINE PHOSPHATASE 78 U/L (46-116); ALT/SGPT 23 U/L (7.0-40); AST/SGOT 27 U/L (<34); BILIRUBIN,DIRECT 0.1 MG/DL (<0.4); BILIRUBIN,TOTAL 0.4 MG/DL (0.3-1.2); BLOOD UREA NITROGEN 9 MG/DL (9-23); CARBON DIOXIDE LEVEL 39 MMOL/L (20-31); CHLORIDE LEVEL 93 MMOL/L (98-107); CREATININE FOR GFR 0.63 MG/DL (0.55-1.30); GLOMERULAR FILTRATION RATE > 60.0 (>39); GLUCOSE, FASTING 97 MG/DL (74-106); RSV AMPLIFICATION NEGATIVE (NEGATIVE); SODIUM LEVEL 136 MMOL/L (136-145); TOTAL PROTEIN 7.5 G/DL (5.7-8.2)
[2023-03-30] MEDS ORDERED: ACETAMINOPHEN TAB 650MG DOSE (2X325MG) PO PRN (19:15)
[2023-03-30] MEDS ORDERED: IPRATROPIUM 0.5MG/ALBUTEROL 2.5MG INH SOL UD 3ML (DUONEB) NEB PRN (19:15)
[2023-03-30] MEDS ORDERED: INCR1INH INH (20:20)
[2023-03-30] MEDS ORDERED: LEVO1TAB39 PO (20:20)
[2023-03-30] MEDS ORDERED: PRED5TA PO (20:20)
[2023-03-30] MEDS ORDERED: HOME MED LIST COMPLETE! XX SCH (20:25)
[2023-03-30] MEDS ORDERED: RAMELTEON 8 MG TAB (ROZEREM) PO PRN (21:00)
[2023-03-30 21:36] VITALS: BP 147/80
[2023-03-30] MEDS: SYMBICORT 160/4.5MCG INHALER 6GM INH SCH (21:57)
[2023-03-30] MEDS: CYCLOBENZAPRINE 10MG TABLET PO SCH (22:13)
[2023-03-30] MEDS: guaiFENesin ER 600 MG TAB PO SCH (22:14)
[2023-03-30] MEDS: diphenhydrAMINE 25MG CAP PO SCH (22:14)
[2023-03-30] MEDS: APIXABAN 5 MG TAB (ELIQUIS) PO SCH (22:14)
[2023-03-30] MEDS: GABAPENTIN 300 MG CAP PO SCH (22:14)
[2023-03-30 22:53] LABS: VENOUS BASE EXCESS 5.4 (-2.0-2.0); VENOUS HCO3 33.6 MMOL/L (23.0-27.0); VENOUS O2 SATURATION 81.4 % (60.0-80.0); VENOUS PARTIAL PRESSURE CO2 68.6 mmHg (38.0-50.0); VENOUS PARTIAL PRESSURE O2 48.9 mmHg (30.0-50.0); VENOUS PH 7.308 UNITS (7.330-7.430); VENOUS TOTAL CO2 35.7 MMOL/L (24.0-28.0)
[2023-03-30] MEDS: PIPERACILLIN/TAZOBACTAM SOD 4.5 GM in D5W MINI-BAG PLUS 50 ML IV SCH (23:50)
[2023-03-31] MEDS: PIPERACILLIN/TAZOBACTAM SOD 4.5 GM in D5W MINI-BAG PLUS 50 ML IV SCH ×4 (05:32→23:30)
[2023-03-31] MEDS: LEVOTHYROXINE 25MCG TABLET (0.025MG) PO SCH (05:32)
[2023-03-31 06:00] VITALS: BP 105/63
[2023-03-31 06:18] LABS: HEMATOCRIT 34.9 % (36.0-47.0); HEMOGLOBIN 11.3 g/dl (12.0-15.5); MEAN CORPUSCULAR HEMOGLOBIN 33.1 pg (27.0-33.0); MEAN CORPUSCULAR HGB CONC 32.4 g/dl (32.0-36.5); MEAN CORPUSCULAR VOLUME 102.3 fl (80.0-96.0); PLATELET COUNT, AUTOMATED 321 10^3/uL (150-450); RED BLOOD COUNT 3.41 10^6/uL (4.00-5.40); WHITE BLOOD COUNT 8.7 10^3/uL (4.0-10.0)
[2023-03-31 07:14] LABS: ALBUMIN 3.1 G/DL (3.2-5.2); ALKALINE PHOSPHATASE 63 U/L (46-116); ALT/SGPT 21 U/L (7.0-40); AST/SGOT 20 U/L (<34); BILIRUBIN,TOTAL 0.3 MG/DL (0.3-1.2); BLOOD UREA NITROGEN 8 MG/DL (9-23); CALCIUM LEVEL 8.7 MG/DL (8.3-10.6); CARBON DIOXIDE LEVEL > 40.0 MMOL/L (20-31); CHLORIDE LEVEL 100 MMOL/L (98-107); CREATININE FOR GFR 0.63 MG/DL (0.55-1.30); GLOMERULAR FILTRATION RATE > 60.0 (>39); GLUCOSE, FASTING 101 MG/DL (74-106); MAGNESIUM LEVEL 1.8 MG/DL (1.8-2.4); POTASSIUM SERUM 4.2 MMOL/L (3.5-5.1); SODIUM LEVEL 140 MMOL/L (136-145); TOTAL PROTEIN 5.8 G/DL (5.7-8.2)
[2023-03-31] MEDS: TIOTROPIUM INHALER/CAPSULE (SPIRIVA) INH SCH (07:41)
[2023-03-31] MEDS: SYMBICORT 160/4.5MCG INHALER 6GM INH SCH ×2 (07:41→19:41)
[2023-03-31 08:57] VITALS: BP 116/60
[2023-03-31] MEDS: DIGOXIN 0.125 MG TAB PO SCH (08:59)
[2023-03-31] MEDS: APIXABAN 5 MG TAB (ELIQUIS) PO SCH ×2 (08:59→21:16)
[2023-03-31] MEDS: SPIRONOLACTONE 12.5MG PER 1/2 TABLET PO SCH (08:59)
[2023-03-31] MEDS: PANTOPRAZOLE 20 MG TAB PO SCH (08:59)
[2023-03-31] MEDS: guaiFENesin ER 600 MG TAB PO SCH ×2 (08:59→21:14)
[2023-03-31] MEDS: OYSTER SHELL CALCIUM 500 MG TAB PO SCH (08:59)
[2023-03-31] MEDS: predniSONE 5 MG TAB PO SCH (08:59)
[2023-03-31] MEDS: GABAPENTIN 300 MG CAP PO SCH ×3 (08:59→21:16)
[2023-03-31] MEDS: MULTIVITAMINS/MINERALS THERAP 1 TAB PO SCH (09:00)
[2023-03-31] MEDS: VITAMIN D 1,000 INTERNATIONAL UNITS TABLET PO SCH (09:00)
[2023-03-31] MEDS: MAGNESIUM OXIDE 400MG TAB (MAG-OX) PO SCH (09:02)
[2023-03-31 14:00] VITALS: BP 112/63
[2023-03-31] MEDS ORDERED: LIDOCAINE 1% MDV 20ML VIAL As Ordered ONE (15:09)
[2023-03-31] MEDS ORDERED: SODIUM CHLORIDE 0.9% INJ 10 ML SYR IV PRN (15:45)
[2023-03-31] MEDS ORDERED: SODIUM CHLORIDE 0.9% INJ 10 ML SYR IV SCH (15:45)
[2023-03-31] MEDS: SODIUM CHLORIDE 0.9% INJ 10 ML SYR IV SCH (18:45)
[2023-03-31 20:00] VITALS: BP 122/74
[2023-03-31] MEDS: CYCLOBENZAPRINE 10MG TABLET PO SCH (21:14)
[2023-03-31] MEDS: diphenhydrAMINE 25MG CAP PO SCH (21:15)
[2023-04-01] MEDS: SODIUM CHLORIDE 0.9% INJ 10 ML SYR IV SCH ×2 (05:20→17:08)
[2023-04-01 05:39] VITALS: BP 125/73
[2023-04-01] MEDS: LEVOTHYROXINE 25MCG TABLET (0.025MG) PO SCH (05:52)
[2023-04-01] MEDS: PIPERACILLIN/TAZOBACTAM SOD 4.5 GM in D5W MINI-BAG PLUS 50 ML IV SCH ×3 (05:52→17:08)
[2023-04-01 06:40] LABS: BASO % 0.4 % (0.0-1.0); EOS # 0.2 10^3/uL (0.0-0.5); EOS % 2.6 % (0.0-3.0); HEMOGLOBIN 11.3 g/dl (12.0-15.5); LYMPH # 1.3 10^3/uL (1.5-5.0); LYMPH % 16.7 % (24.0-44.0); MEAN CORPUSCULAR HGB CONC 31.4 g/dl (32.0-36.5); MEAN CORPUSCULAR VOLUME 105.3 fl (80.0-96.0); MONO # 0.6 10^3/uL (0.0-0.8); MONO % 7.8 % (2.0-8.0); NEUTROPHILS # 5.6 10^3/uL (1.5-8.5); NEUTROPHILS % 71.6 % (36.0-66.0); PLATELET COUNT, AUTOMATED 328 10^3/uL (150-450); RED BLOOD COUNT 3.42 10^6/uL (4.00-5.40); WHITE BLOOD COUNT 7.8 10^3/uL (4.0-10.0)
[2023-04-01 07:10] LABS: BLOOD UREA NITROGEN 7 MG/DL (9-23); CALCIUM LEVEL 8.6 MG/DL (8.3-10.6); CARBON DIOXIDE LEVEL > 40.0 MMOL/L (20-31); CHLORIDE LEVEL 98 MMOL/L (98-107); CREATININE FOR GFR 0.63 MG/DL (0.55-1.30); GLOMERULAR FILTRATION RATE > 60.0 (>39); GLUCOSE, FASTING 108 MG/DL (74-106); MAGNESIUM LEVEL 1.9 MG/DL (1.8-2.4); SODIUM LEVEL 141 MMOL/L (136-145)
[2023-04-01] MEDS: SYMBICORT 160/4.5MCG INHALER 6GM INH SCH ×2 (08:30→19:28)
[2023-04-01] MEDS: TIOTROPIUM INHALER/CAPSULE (SPIRIVA) INH SCH (08:30)
[2023-04-01 08:31] VITALS: O2SAT 95
[2023-04-01] MEDS: OYSTER SHELL CALCIUM 500 MG TAB PO SCH (09:04)
[2023-04-01] MEDS: guaiFENesin ER 600 MG TAB PO SCH ×2 (09:04→20:54)
[2023-04-01] MEDS: ANEXSIA, NORCO 7.5MG/325MG TABLET(HYDROCODONE/APAP) PO PRN ×2 (09:04→20:55)
[2023-04-01] MEDS: PANTOPRAZOLE 20 MG TAB PO SCH (09:04)
[2023-04-01] MEDS: predniSONE 5 MG TAB PO SCH (09:04)
[2023-04-01] MEDS: VITAMIN D 1,000 INTERNATIONAL UNITS TABLET PO SCH (09:04)
[2023-04-01] MEDS: SPIRONOLACTONE 12.5MG PER 1/2 TABLET PO SCH (09:04)
[2023-04-01] MEDS: APIXABAN 5 MG TAB (ELIQUIS) PO SCH ×2 (09:04→20:54)
[2023-04-01] MEDS: DIGOXIN 0.125 MG TAB PO SCH (09:05)
[2023-04-01] MEDS: MULTIVITAMINS/MINERALS THERAP 1 TAB PO SCH (09:05)
[2023-04-01] MEDS: GABAPENTIN 300 MG CAP PO SCH ×3 (09:05→20:52)
[2023-04-01] MEDS: MAGNESIUM OXIDE 400MG TAB (MAG-OX) PO SCH (09:05)
[2023-04-01] MEDS: SODIUM CHLORIDE 0.9% INJ 10 ML SYR IV PRN (13:59)
[2023-04-01] MEDS: diphenhydrAMINE 25MG CAP PO SCH (20:54)
[2023-04-01] MEDS: CYCLOBENZAPRINE 10MG TABLET PO SCH (22:05)
[2023-04-02] MEDS: PIPERACILLIN/TAZOBACTAM SOD 4.5 GM in D5W MINI-BAG PLUS 50 ML IV SCH ×4 (00:02→18:00)
[2023-04-02] MEDS: SODIUM CHLORIDE 0.9% INJ 10 ML SYR IV SCH ×2 (05:42→18:00)
[2023-04-02] MEDS: LEVOTHYROXINE 25MCG TABLET (0.025MG) PO SCH (05:42)
[2023-04-02 06:00] VITALS: BP 126/68
[2023-04-02 06:44] LABS: BASO % 0.5 % (0.0-1.0); EOS # 0.2 10^3/uL (0.0-0.5); EOS % 2.7 % (0.0-3.0); HEMATOCRIT 34.8 % (36.0-47.0); HEMOGLOBIN 10.9 g/dl (12.0-15.5); LYMPH # 1.6 10^3/uL (1.5-5.0); LYMPH % 18.1 % (24.0-44.0); MEAN CORPUSCULAR HEMOGLOBIN 32.7 pg (27.0-33.0); MEAN CORPUSCULAR HGB CONC 31.3 g/dl (32.0-36.5); MEAN CORPUSCULAR VOLUME 104.5 fl (80.0-96.0); MONO # 0.7 10^3/uL (0.0-0.8); MONO % 7.5 % (2.0-8.0); NEUTROPHILS % 69.9 % (36.0-66.0); PLATELET COUNT, AUTOMATED 314 10^3/uL (150-450); RED BLOOD COUNT 3.33 10^6/uL (4.00-5.40); WHITE BLOOD COUNT 8.6 10^3/uL (4.0-10.0)
[2023-04-02] MEDS: TIOTROPIUM INHALER/CAPSULE (SPIRIVA) INH SCH (07:16)
[2023-04-02] MEDS: SYMBICORT 160/4.5MCG INHALER 6GM INH SCH ×2 (07:16→20:04)
[2023-04-02 07:18] VITALS: O2SAT 95
[2023-04-02 07:22] LABS: BLOOD UREA NITROGEN 7 MG/DL (9-23); CALCIUM LEVEL 8.5 MG/DL (8.3-10.6); CARBON DIOXIDE LEVEL > 40.0 MMOL/L (20-31); CHLORIDE LEVEL 99 MMOL/L (98-107); CREATININE FOR GFR 0.71 MG/DL (0.55-1.30); GLOMERULAR FILTRATION RATE > 60.0 (>39); GLUCOSE, FASTING 95 MG/DL (74-106); MAGNESIUM LEVEL 1.9 MG/DL (1.8-2.4); POTASSIUM SERUM 3.8 MMOL/L (3.5-5.1); SODIUM LEVEL 142 MMOL/L (136-145)
[2023-04-02] MEDS: ANEXSIA, NORCO 7.5MG/325MG TABLET(HYDROCODONE/APAP) PO PRN ×2 (08:30→21:11)
[2023-04-02] MEDS: guaiFENesin ER 600 MG TAB PO SCH ×2 (08:30→21:09)
[2023-04-02] MEDS: predniSONE 5 MG TAB PO SCH (08:31)
[2023-04-02] MEDS: PANTOPRAZOLE 20 MG TAB PO SCH (08:31)
[2023-04-02] MEDS: MAGNESIUM OXIDE 400MG TAB (MAG-OX) PO SCH (08:31)
[2023-04-02] MEDS: MULTIVITAMINS/MINERALS THERAP 1 TAB PO SCH (08:31)
[2023-04-02] MEDS: APIXABAN 5 MG TAB (ELIQUIS) PO SCH ×2 (08:31→21:09)
[2023-04-02] MEDS: VITAMIN D 1,000 INTERNATIONAL UNITS TABLET PO SCH (08:31)
[2023-04-02] MEDS: OYSTER SHELL CALCIUM 500 MG TAB PO SCH (08:31)
[2023-04-02] MEDS: GABAPENTIN 300 MG CAP PO SCH ×3 (08:31→21:09)
[2023-04-02] MEDS: SPIRONOLACTONE 12.5MG PER 1/2 TABLET PO SCH (08:32)
[2023-04-02] MEDS: DIGOXIN 0.125 MG TAB PO SCH (08:32)
[2023-04-02] MEDS: LACTOBACILLUS ACIDOPHILUS CAP (BACID) PO SCH ×3 (13:02→21:09)
[2023-04-02] MEDS: SODIUM CHLORIDE 0.9% INJ 10 ML SYR IV PRN (14:38)
[2023-04-02] MEDS: diphenhydrAMINE 25MG CAP PO SCH (21:09)
[2023-04-02] MEDS: CYCLOBENZAPRINE 10MG TABLET PO SCH (21:09)
[2023-04-03] MEDS: PIPERACILLIN/TAZOBACTAM SOD 4.5 GM in D5W MINI-BAG PLUS 50 ML IV SCH ×2 (00:14→05:24)
[2023-04-03] MEDS: SODIUM CHLORIDE 0.9% INJ 10 ML SYR IV PRN (01:45)
[2023-04-03] MEDS: LEVOTHYROXINE 25MCG TABLET (0.025MG) PO SCH (05:23)
[2023-04-03] MEDS: SODIUM CHLORIDE 0.9% INJ 10 ML SYR IV SCH (05:23)
[2023-04-03 05:31] VITALS: BP 130/74
[2023-04-03] MEDS: SYMBICORT 160/4.5MCG INHALER 6GM INH SCH (06:21)
[2023-04-03] MEDS: TIOTROPIUM INHALER/CAPSULE (SPIRIVA) INH SCH (06:21)
[2023-04-03 06:43] LABS: BASO # 0.1 10^3/uL (0.0-0.2); BASO % 0.6 % (0.0-1.0); EOS # 0.2 10^3/uL (0.0-0.5); EOS % 2.7 % (0.0-3.0); HEMOGLOBIN 10.9 g/dl (12.0-15.5); LYMPH # 1.5 10^3/uL (1.5-5.0); LYMPH % 18.3 % (24.0-44.0); MEAN CORPUSCULAR HEMOGLOBIN 33.1 pg (27.0-33.0); MEAN CORPUSCULAR HGB CONC 31.1 g/dl (32.0-36.5); MEAN CORPUSCULAR VOLUME 106.4 fl (80.0-96.0); MONO # 0.6 10^3/uL (0.0-0.8); MONO % 7.2 % (2.0-8.0); NEUTROPHILS # 5.5 10^3/uL (1.5-8.5); NEUTROPHILS % 68.8 % (36.0-66.0); PLATELET COUNT, AUTOMATED 301 10^3/uL (150-450); RED BLOOD COUNT 3.29 10^6/uL (4.00-5.40)
[2023-04-03 07:09] LABS: BLOOD UREA NITROGEN 6 MG/DL (9-23); CALCIUM LEVEL 8.6 MG/DL (8.3-10.6); CARBON DIOXIDE LEVEL > 40.0 MMOL/L (20-31); CHLORIDE LEVEL 98 MMOL/L (98-107); CREATININE FOR GFR 0.63 MG/DL (0.55-1.30); GLOMERULAR FILTRATION RATE > 60.0 (>39); GLUCOSE, FASTING 139 MG/DL (74-106); POTASSIUM SERUM 3.8 MMOL/L (3.5-5.1); SODIUM LEVEL 139 MMOL/L (136-145)
[2023-04-03] MEDS: APIXABAN 5 MG TAB (ELIQUIS) PO SCH (08:56)
[2023-04-03] MEDS: GABAPENTIN 300 MG CAP PO SCH (08:56)
[2023-04-03] MEDS: guaiFENesin ER 600 MG TAB PO SCH (08:57)
[2023-04-03] MEDS: OYSTER SHELL CALCIUM 500 MG TAB PO SCH (08:57)
[2023-04-03] MEDS: MAGNESIUM OXIDE 400MG TAB (MAG-OX) PO SCH (08:57)
[2023-04-03] MEDS: MULTIVITAMINS/MINERALS THERAP 1 TAB PO SCH (08:57)
[2023-04-03] MEDS: LACTOBACILLUS ACIDOPHILUS CAP (BACID) PO SCH (08:57)
[2023-04-03] MEDS: VITAMIN D 1,000 INTERNATIONAL UNITS TABLET PO SCH (08:58)
[2023-04-03] MEDS: predniSONE 5 MG TAB PO SCH (08:58)
[2023-04-03 08:59] VITALS: BP 148/89
[2023-04-03] MEDS: DIGOXIN 0.125 MG TAB PO SCH (08:59)
[2023-04-03] MEDS: PANTOPRAZOLE 20 MG TAB PO SCH (09:01)
[2023-04-03] MEDS: SPIRONOLACTONE 12.5MG PER 1/2 TABLET PO SCH (09:30)
[2023-04-03] MEDS ORDERED: PANT20TA6 PO (10:49)
[2023-04-03] MEDS ORDERED: RISATAB3 PO (10:49)
[2023-04-04] MEDS ORDERED: PANT20TA6 PO (13:59)
[2023-04-04] MEDS ORDERED: BACI1CAP PO (13:59)
== END 2023-04-03 12:30 | disposition home health service (06) | DRG 178 ==
LOC: M ED 13:10 → M ED INP 19:11 → M MSPAV 21:30
PROVIDERS: ADMIT Internal Medicine; ATTEND Internal Medicine
PROC: 05HB33Z Insertion of Infusion Device into Right Basilic Vein, Percutaneous Approach (ICD-10-PCS; principal; 2023-03-31 13:00)
DX: J15.1 Pneumonia due to Pseudomonas (principal); I48.20 Chronic atrial fibrillation, unspecified; J44.0 Chronic obstructive pulmonary disease with (acute) lower respiratory infection; J96.11 Chronic respiratory failure with hypoxia; Z66 Do not resuscitate; I10 Essential (primary) hypertension; M79.7 Fibromyalgia; M19.90 Unspecified osteoarthritis, unspecified site; E03.9 Hypothyroidism, unspecified; J84.111 Idiopathic interstitial pneumonia, not otherwise specified; Z79.01 Long term (current) use of anticoagulants; Z79.891 Long term (current) use of opiate analgesic; Z79.899 Other long term (current) drug therapy; Z20.822 Contact with and (suspected) exposure to COVID-19; Z90.79 Acquired absence of other genital organ(s); Z99.81 Dependence on supplemental oxygen

== ENCOUNTER 2023-04-04 10:29 | Inpatient (IN) | payer MEDICARE ==
[~2023-04-04] VITALS: Ht 165.1 cm; Wt 87.2 kg
[~2023-04-04 10:29] MED LIST changes: +PANT20TA6 PO; +PRED5TA PO; +RISATAB3 PO
[2023-04-04 11:24] LABS: BASO # 0.1 10^3/uL (0.0-0.2); BASO % 0.3 % (0.0-1.0); EOS # 0.1 10^3/uL (0.0-0.5); EOS % 0.4 % (0.0-3.0); HEMATOCRIT 35.7 % (36.0-47.0); HEMOGLOBIN 11.6 g/dl (12.0-15.5); LYMPH # 0.9 10^3/uL (1.5-5.0); LYMPH % 4.3 % (24.0-44.0); MEAN CORPUSCULAR HEMOGLOBIN 33.3 pg (27.0-33.0); MEAN CORPUSCULAR HGB CONC 32.5 g/dl (32.0-36.5); MEAN CORPUSCULAR VOLUME 102.6 fl (80.0-96.0); MONO % 4.7 % (2.0-8.0); NEUTROPHILS # 18.3 10^3/uL (1.5-8.5); NEUTROPHILS % 89.3 % (36.0-66.0); PLATELET COUNT, AUTOMATED 353 10^3/uL (150-450); RED BLOOD COUNT 3.48 10^6/uL (4.00-5.40); WHITE BLOOD COUNT 20.5 10^3/uL (4.0-10.0)
[2023-04-04] MEDS ORDERED: methylPREDNISolone 125MG 2ML VIAL IV ONE (11:30)
[2023-04-04 11:35] LABS: INR 1.27; PROTHROMBIN TIME 16.2 SECONDS (12.5-14.5)
[2023-04-04] MEDS: IPRATROPIUM 0.5MG/ALBUTEROL 2.5MG INH SOL UD 3ML (DUONEB) NEB PRN ×3 (11:43→11:57)
[2023-04-04 11:51] LABS: THYROXINE (T4) 8.9 UG/DL (4.5-10.9)
[2023-04-04 11:52] LABS: THYROID STIMULATING HORMONE 2.107 uIU/ML (0.55-4.78)
[2023-04-04 12:01] LABS: ALBUMIN 3.3 G/DL (3.2-5.2); ALKALINE PHOSPHATASE 71 U/L (46-116); ALT/SGPT 35 U/L (7.0-40); AST/SGOT 23 U/L (<34); BILIRUBIN,DIRECT 0.2 MG/DL (<0.4); BILIRUBIN,TOTAL 0.5 MG/DL (0.3-1.2); BLOOD UREA NITROGEN 11 MG/DL (9-23); CALCIUM LEVEL 9.2 MG/DL (8.3-10.6); CARBON DIOXIDE LEVEL > 40.0 MMOL/L (20-31); CHLORIDE LEVEL 95 MMOL/L (98-107); CREATININE FOR GFR 0.56 MG/DL (0.55-1.30); GLOMERULAR FILTRATION RATE > 60.0 (>39); GLUCOSE, FASTING 135 MG/DL (74-106); POTASSIUM SERUM 3.8 MMOL/L (3.5-5.1); SODIUM LEVEL 137 MMOL/L (136-145); TOTAL PROTEIN 6.1 G/DL (5.7-8.2)
[2023-04-04 12:41] LABS: VENOUS BASE EXCESS 6.7 (-2.0-2.0); VENOUS HCO3 35.4 MMOL/L (23.0-27.0); VENOUS O2 SATURATION 89.4 % (60.0-80.0); VENOUS PARTIAL PRESSURE CO2 72.4 mmHg (38.0-50.0); VENOUS PARTIAL PRESSURE O2 58.5 mmHg (30.0-50.0); VENOUS PH 7.307 UNITS (7.330-7.430); VENOUS STANDARD HCO3 30.4 MMOL/L; VENOUS TOTAL CO2 37.6 MMOL/L (24.0-28.0)
[2023-04-04] MEDS ORDERED: DIGOXIN 0.125 MG TAB PO ONE (13:45)
[2023-04-04] MEDS ORDERED: LEVALBUTEROL 1.25MG 0.5ML CONCENTRATE NEB INH PRN (13:45)
[2023-04-04] MEDS ORDERED: PANT20TA6 PO (13:59)
[2023-04-04] MEDS ORDERED: BACI1CAP PO (13:59)
[2023-04-04] MEDS ORDERED: DIGOXIN INJ 0.5 MG/2 ML AMP IV ONE (14:00)
[2023-04-04] MEDS ORDERED: HOME MED LIST COMPLETE! XX SCH (14:40)
[2023-04-04] MEDS: PIPERACILLIN/TAZOBACTAM SOD 3.375 GM in D5W MINI-BAG PLUS 50 ML IV SCH ×2 (15:12→20:31)
[2023-04-04] MEDS: methylPREDNISolone 40MG 1ML VIAL IV SCH ×2 (15:24→20:31)
[2023-04-04] MEDS ORDERED: SODIUM CHLORIDE 0.9% INJ 10 ML SYR IV PRN (15:35)
[2023-04-04] MEDS: LEVALBUTEROL 1.25MG 0.5ML CONCENTRATE NEB INH SCH ×2 (15:54→20:00)
[2023-04-04] MEDS ORDERED: diltiaZEM 125 MG in NS 100 ML IV SCH (17:00)
[2023-04-04 17:45] VITALS: BP 142/73
[2023-04-04] MEDS: SODIUM CHLORIDE 0.9% INJ 10 ML SYR IV SCH (18:31)
[2023-04-04] MEDS: SYMBICORT 160/4.5MCG INHALER 6GM INH SCH (20:00)
[2023-04-04 20:10] VITALS: BP 114/70
[2023-04-04] MEDS: guaiFENesin ER 600 MG TAB PO SCH (20:31)
[2023-04-04] MEDS: APIXABAN 5 MG TAB (ELIQUIS) PO SCH (20:32)
[2023-04-04] MEDS: diphenhydrAMINE 25MG CAP PO SCH (20:32)
[2023-04-04] MEDS: GABAPENTIN 300 MG CAP PO SCH (20:32)
[2023-04-04] MEDS: ACETAMINOPHEN 650MG ER TAB (TYLENOL ARTHRITIS) PO SCH (20:32)
[2023-04-04] MEDS: CYCLOBENZAPRINE 10MG TABLET PO SCH (20:34)
[2023-04-05 00:23] VITALS: BP 143/67
[2023-04-05] MEDS: methylPREDNISolone 40MG 1ML VIAL IV SCH ×4 (02:50→21:16)
[2023-04-05] MEDS: PIPERACILLIN/TAZOBACTAM SOD 3.375 GM in D5W MINI-BAG PLUS 50 ML IV SCH ×4 (02:50→20:58)
[2023-04-05] MEDS: LEVALBUTEROL 1.25MG 0.5ML CONCENTRATE NEB INH SCH ×3 (03:58→07:15)
[2023-04-05 04:49] VITALS: BP 138/72
[2023-04-05 05:36] LABS: BASO % 0.1 % (0.0-1.0); HEMATOCRIT 33.5 % (36.0-47.0); HEMOGLOBIN 10.7 g/dl (12.0-15.5); LYMPH # 0.5 10^3/uL (1.5-5.0); LYMPH % 4.1 % (24.0-44.0); MEAN CORPUSCULAR HEMOGLOBIN 32.7 pg (27.0-33.0); MEAN CORPUSCULAR HGB CONC 31.9 g/dl (32.0-36.5); MEAN CORPUSCULAR VOLUME 102.4 fl (80.0-96.0); MONO # 0.3 10^3/uL (0.0-0.8); MONO % 2.5 % (2.0-8.0); NEUTROPHILS % 92.1 % (36.0-66.0); PLATELET COUNT, AUTOMATED 321 10^3/uL (150-450); RED BLOOD COUNT 3.27 10^6/uL (4.00-5.40); WHITE BLOOD COUNT 11.9 10^3/uL (4.0-10.0)
[2023-04-05 05:57] LABS: DIGOXIN LEVEL 1.1 NG/ML (0.8-2.0)
[2023-04-05 05:58] LABS: BLOOD UREA NITROGEN 10 MG/DL (9-23); CARBON DIOXIDE LEVEL > 40.0 MMOL/L (20-31); CHLORIDE LEVEL 98 MMOL/L (98-107); CREATININE FOR GFR 0.55 MG/DL (0.55-1.30); GLOMERULAR FILTRATION RATE > 60.0 (>39); GLUCOSE, FASTING 161 MG/DL (74-106); POTASSIUM SERUM 4.2 MMOL/L (3.5-5.1); SODIUM LEVEL 139 MMOL/L (136-145)
[2023-04-05] MEDS: LEVOTHYROXINE 25MCG TABLET (0.025MG) PO SCH (06:17)
[2023-04-05] MEDS: SODIUM CHLORIDE 0.9% INJ 10 ML SYR IV SCH ×2 (06:19→18:54)
[2023-04-05] MEDS: SYMBICORT 160/4.5MCG INHALER 6GM INH SCH ×2 (07:15→20:30)
[2023-04-05 07:35] VITALS: BP 110/67
[2023-04-05] MEDS ORDERED: DIGOXIN 0.125 MG TAB PO SCH (09:00)
[2023-04-05] MEDS ORDERED: IPRATROPIUM 0.5MG/ALBUTEROL 2.5MG INH SOL UD 3ML (DUONEB) NEB PRN (09:05)
[2023-04-05] MEDS: SPIRONOLACTONE 12.5MG PER 1/2 TABLET PO SCH (09:41)
[2023-04-05] MEDS: ACETAMINOPHEN 650MG ER TAB (TYLENOL ARTHRITIS) PO SCH ×2 (09:42→21:15)
[2023-04-05] MEDS: GABAPENTIN 300 MG CAP PO SCH ×3 (09:42→21:15)
[2023-04-05] MEDS: APIXABAN 5 MG TAB (ELIQUIS) PO SCH ×2 (09:42→21:15)
[2023-04-05] MEDS: VITAMIN D 1,000 INTERNATIONAL UNITS TABLET PO SCH (09:43)
[2023-04-05] MEDS: MULTIVITAMINS/MINERALS THERAP 1 TAB PO SCH (09:43)
[2023-04-05] MEDS: guaiFENesin ER 600 MG TAB PO SCH ×2 (09:43→21:15)
[2023-04-05] MEDS: OYSTER SHELL CALCIUM 500 MG TAB PO SCH (09:43)
[2023-04-05] MEDS: PANTOPRAZOLE 20 MG TAB PO SCH (09:44)
[2023-04-05] MEDS: MAGNESIUM OXIDE 400MG TAB (MAG-OX) PO SCH (09:44)
[2023-04-05] MEDS: IPRATROPIUM 0.5MG/ALBUTEROL 2.5MG INH SOL UD 3ML (DUONEB) NEB SCH ×5 (09:50→23:15)
[2023-04-05 12:00] VITALS: BP_SYST 121; BP_SYST 126; BP_DIAS 73
[2023-04-05 20:28] VITALS: BP 138/87
[2023-04-05] MEDS: CYCLOBENZAPRINE 10MG TABLET PO SCH (21:15)
[2023-04-05] MEDS: diphenhydrAMINE 25MG CAP PO SCH (21:15)
[2023-04-05] MEDS: ANEXSIA, NORCO 7.5MG/325MG TABLET(HYDROCODONE/APAP) PO PRN (21:16)
[2023-04-05 23:35] VITALS: BP 143/88
[2023-04-06] MEDS: methylPREDNISolone 40MG 1ML VIAL IV SCH ×4 (02:19→20:51)
[2023-04-06] MEDS: PIPERACILLIN/TAZOBACTAM SOD 3.375 GM in D5W MINI-BAG PLUS 50 ML IV SCH ×4 (02:20→20:51)
[2023-04-06] MEDS: IPRATROPIUM 0.5MG/ALBUTEROL 2.5MG INH SOL UD 3ML (DUONEB) NEB SCH ×6 (03:24→22:42)
[2023-04-06] MEDS: LEVOTHYROXINE 25MCG TABLET (0.025MG) PO SCH (05:52)
[2023-04-06] MEDS: SODIUM CHLORIDE 0.9% INJ 10 ML SYR IV SCH ×2 (05:54→15:00)
[2023-04-06] MEDS ORDERED: DIGOXIN INJ 0.5 MG/2 ML AMP IV ONE (05:55)
[2023-04-06 06:00] VITALS: BP 129/93
[2023-04-06 06:26] LABS: BASO % 0.2 % (0.0-1.0); HEMATOCRIT 33.8 % (36.0-47.0); HEMOGLOBIN 10.7 g/dl (12.0-15.5); LYMPH # 0.4 10^3/uL (1.5-5.0); LYMPH % 2.6 % (24.0-44.0); MEAN CORPUSCULAR HEMOGLOBIN 32.8 pg (27.0-33.0); MEAN CORPUSCULAR HGB CONC 31.7 g/dl (32.0-36.5); MEAN CORPUSCULAR VOLUME 103.7 fl (80.0-96.0); MONO # 0.5 10^3/uL (0.0-0.8); MONO % 2.6 % (2.0-8.0); NEUTROPHILS # 15.8 10^3/uL (1.5-8.5); NEUTROPHILS % 92.9 % (36.0-66.0); PLATELET COUNT, AUTOMATED 336 10^3/uL (150-450); RED BLOOD COUNT 3.26 10^6/uL (4.00-5.40)
[2023-04-06 06:49] LABS: DIGOXIN LEVEL 0.8 NG/ML (0.8-2.0)
[2023-04-06 06:53] LABS: BLOOD UREA NITROGEN 14 MG/DL (9-23); CALCIUM LEVEL 8.7 MG/DL (8.3-10.6); CARBON DIOXIDE LEVEL > 40.0 MMOL/L (20-31); CHLORIDE LEVEL 96 MMOL/L (98-107); CREATININE FOR GFR 0.65 MG/DL (0.55-1.30); GLOMERULAR FILTRATION RATE > 60.0 (>39); GLUCOSE, FASTING 167 MG/DL (74-106); POTASSIUM SERUM 3.6 MMOL/L (3.5-5.1); SODIUM LEVEL 139 MMOL/L (136-145)
[2023-04-06] MEDS: SYMBICORT 160/4.5MCG INHALER 6GM INH SCH ×2 (07:29→19:43)
[2023-04-06] MEDS: ACETAMINOPHEN 650MG ER TAB (TYLENOL ARTHRITIS) PO SCH ×2 (08:37→20:52)
[2023-04-06] MEDS: GABAPENTIN 300 MG CAP PO SCH ×3 (08:37→20:52)
[2023-04-06] MEDS: OYSTER SHELL CALCIUM 500 MG TAB PO SCH (08:37)
[2023-04-06] MEDS: guaiFENesin ER 600 MG TAB PO SCH ×2 (08:37→20:52)
[2023-04-06] MEDS: APIXABAN 5 MG TAB (ELIQUIS) PO SCH ×2 (08:38→20:52)
[2023-04-06] MEDS: MULTIVITAMINS/MINERALS THERAP 1 TAB PO SCH (08:40)
[2023-04-06] MEDS: VITAMIN D 1,000 INTERNATIONAL UNITS TABLET PO SCH (08:40)
[2023-04-06] MEDS: MAGNESIUM OXIDE 400MG TAB (MAG-OX) PO SCH (08:40)
[2023-04-06] MEDS: SPIRONOLACTONE 12.5MG PER 1/2 TABLET PO SCH (08:42)
[2023-04-06] MEDS: PANTOPRAZOLE 20 MG TAB PO SCH (08:42)
[2023-04-06 14:00] VITALS: BP 138/82
[2023-04-06] MEDS: DIGOXIN INJ 0.5 MG/2 ML AMP IV SCH ×2 (16:35→22:26)
[2023-04-06 20:00] VITALS: BP 140/87
[2023-04-06] MEDS: diphenhydrAMINE 25MG CAP PO SCH (20:52)
[2023-04-06] MEDS: CYCLOBENZAPRINE 10MG TABLET PO SCH (20:52)
[2023-04-06] MEDS: ANEXSIA, NORCO 7.5MG/325MG TABLET(HYDROCODONE/APAP) PO PRN (20:56)
[2023-04-07] VITALS (16 sets, daily range): BP systolic 116–151; BP diastolic 57–87
[2023-04-07] MEDS: PIPERACILLIN/TAZOBACTAM SOD 3.375 GM in D5W MINI-BAG PLUS 50 ML IV SCH (01:21)
[2023-04-07] MEDS: methylPREDNISolone 40MG 1ML VIAL IV SCH ×3 (02:36→18:19)
[2023-04-07] MEDS: IPRATROPIUM 0.5MG/ALBUTEROL 2.5MG INH SOL UD 3ML (DUONEB) NEB SCH ×6 (02:57→23:04)
[2023-04-07] MEDS: LEVOTHYROXINE 25MCG TABLET (0.025MG) PO SCH (05:36)
[2023-04-07] MEDS: SODIUM CHLORIDE 0.9% INJ 10 ML SYR IV SCH ×2 (05:38→18:00)
[2023-04-07 06:37] LABS: BASO # 0.1 10^3/uL (0.0-0.2); BASO % 0.4 % (0.0-1.0); HEMOGLOBIN 11.2 g/dl (12.0-15.5); LYMPH # 0.3 10^3/uL (1.5-5.0); LYMPH % 2.3 % (24.0-44.0); MEAN CORPUSCULAR HEMOGLOBIN 33.3 pg (27.0-33.0); MEAN CORPUSCULAR VOLUME 104.2 fl (80.0-96.0); MONO # 0.5 10^3/uL (0.0-0.8); NEUTROPHILS # 13.3 10^3/uL (1.5-8.5); NEUTROPHILS % 89.9 % (36.0-66.0); PLATELET COUNT, AUTOMATED 324 10^3/uL (150-450); RED BLOOD COUNT 3.36 10^6/uL (4.00-5.40); WHITE BLOOD COUNT 14.8 10^3/uL (4.0-10.0)
[2023-04-07 07:03] LABS: DIGOXIN LEVEL 1.3 NG/ML (0.8-2.0)
[2023-04-07 07:04] LABS: BLOOD UREA NITROGEN 15 MG/DL (9-23); CALCIUM LEVEL 8.5 MG/DL (8.3-10.6); CARBON DIOXIDE LEVEL > 40.0 MMOL/L (20-31); CHLORIDE LEVEL 95 MMOL/L (98-107); CREATININE FOR GFR 0.62 MG/DL (0.55-1.30); GLOMERULAR FILTRATION RATE > 60.0 (>39); GLUCOSE, FASTING 158 MG/DL (74-106); POTASSIUM SERUM 3.9 MMOL/L (3.5-5.1); SODIUM LEVEL 141 MMOL/L (136-145)
[2023-04-07] MEDS: SYMBICORT 160/4.5MCG INHALER 6GM INH SCH ×2 (07:17→19:53)
[2023-04-07] MEDS ORDERED: DIGOXIN INJ 0.5 MG/2 ML AMP IV ONE (09:45)
[2023-04-07] MEDS ORDERED: MEROPENEM INJ 1 GM in NS 100 ML IV SCH (10:00)
[2023-04-07] MEDS: ACETAMINOPHEN 650MG ER TAB (TYLENOL ARTHRITIS) PO SCH ×2 (10:34→20:52)
[2023-04-07] MEDS: MEROPENEM INJ 1 GM in IV 1 EA IV SCH ×4 (10:34→17:39)
[2023-04-07] MEDS: guaiFENesin ER 600 MG TAB PO SCH ×2 (10:34→20:42)
[2023-04-07] MEDS: APIXABAN 5 MG TAB (ELIQUIS) PO SCH ×2 (10:35→20:41)
[2023-04-07] MEDS: MAGNESIUM OXIDE 400MG TAB (MAG-OX) PO SCH (10:35)
[2023-04-07] MEDS: VITAMIN D 1,000 INTERNATIONAL UNITS TABLET PO SCH (10:35)
[2023-04-07] MEDS: MULTIVITAMINS/MINERALS THERAP 1 TAB PO SCH (10:35)
[2023-04-07] MEDS: OYSTER SHELL CALCIUM 500 MG TAB PO SCH (10:35)
[2023-04-07] MEDS: GABAPENTIN 300 MG CAP PO SCH ×3 (10:35→20:41)
[2023-04-07] MEDS: PANTOPRAZOLE 20 MG TAB PO SCH (10:35)
[2023-04-07] MEDS ORDERED: diltiaZEM 125 MG in NS 100 ML IV SCH (14:05)
[2023-04-07] MEDS: diltiaZEM 125 MG in NS 100 ML IV SCH (14:45)
[2023-04-07] MEDS ORDERED: DIGOXIN INJ 0.5 MG/2 ML AMP IV SCH (16:15)
[2023-04-07] MEDS: TOBRAMYCIN INHAL 300 MG/5 ML SOLN INH SCH (19:54)
[2023-04-07] MEDS: CYCLOBENZAPRINE 10MG TABLET PO SCH (20:41)
[2023-04-07] MEDS: diphenhydrAMINE 25MG CAP PO SCH (20:42)
[2023-04-07] MEDS: ANEXSIA, NORCO 7.5MG/325MG TABLET(HYDROCODONE/APAP) PO PRN (20:42)
[2023-04-08] VITALS (17 sets, daily range): BP systolic 108–149; BP diastolic 55–76
[2023-04-08] MEDS: MEROPENEM INJ 1 GM in IV 1 EA IV SCH ×6 (01:25→17:12)
[2023-04-08] MEDS: diltiaZEM 125 MG in NS 100 ML IV SCH (02:56)
[2023-04-08] MEDS: methylPREDNISolone 40MG 1ML VIAL IV SCH ×3 (02:59→18:23)
[2023-04-08] MEDS: IPRATROPIUM 0.5MG/ALBUTEROL 2.5MG INH SOL UD 3ML (DUONEB) NEB SCH ×6 (03:09→23:17)
[2023-04-08] MEDS: SODIUM CHLORIDE 0.9% INJ 10 ML SYR IV SCH ×2 (05:52→17:15)
[2023-04-08] MEDS: LEVOTHYROXINE 25MCG TABLET (0.025MG) PO SCH (06:06)
[2023-04-08 06:23] LABS: BASO # 0.1 10^3/uL (0.0-0.2); BASO % 0.4 % (0.0-1.0); HEMATOCRIT 34.7 % (36.0-47.0); HEMOGLOBIN 11.1 g/dl (12.0-15.5); LYMPH # 0.3 10^3/uL (1.5-5.0); LYMPH % 2.1 % (24.0-44.0); MEAN CORPUSCULAR HEMOGLOBIN 33.4 pg (27.0-33.0); MEAN CORPUSCULAR VOLUME 104.5 fl (80.0-96.0); MONO # 0.6 10^3/uL (0.0-0.8); MONO % 3.9 % (2.0-8.0); NEUTROPHILS # 14.5 10^3/uL (1.5-8.5); NEUTROPHILS % 89.3 % (36.0-66.0); PLATELET COUNT, AUTOMATED 326 10^3/uL (150-450); RED BLOOD COUNT 3.32 10^6/uL (4.00-5.40); WHITE BLOOD COUNT 16.2 10^3/uL (4.0-10.0)
[2023-04-08 06:45] LABS: DIGOXIN LEVEL 1.1 NG/ML (0.8-2.0)
[2023-04-08 06:52] LABS: BLOOD UREA NITROGEN 20 MG/DL (9-23); CALCIUM LEVEL 8.9 MG/DL (8.3-10.6); CARBON DIOXIDE LEVEL > 40.0 MMOL/L (20-31); CHLORIDE LEVEL 96 MMOL/L (98-107); CREATININE FOR GFR 0.53 MG/DL (0.55-1.30); GLOMERULAR FILTRATION RATE > 60.0 (>39); GLUCOSE, FASTING 161 MG/DL (74-106); MAGNESIUM LEVEL 2.1 MG/DL (1.8-2.4); SODIUM LEVEL 140 MMOL/L (136-145)
[2023-04-08] MEDS: TOBRAMYCIN INHAL 300 MG/5 ML SOLN INH SCH ×2 (08:19→19:16)
[2023-04-08] MEDS: SYMBICORT 160/4.5MCG INHALER 6GM INH SCH ×2 (08:20→19:16)
[2023-04-08] MEDS: MAGNESIUM OXIDE 400MG TAB (MAG-OX) PO SCH (08:39)
[2023-04-08] MEDS: VITAMIN D 1,000 INTERNATIONAL UNITS TABLET PO SCH (08:39)
[2023-04-08] MEDS: APIXABAN 5 MG TAB (ELIQUIS) PO SCH ×2 (08:39→20:56)
[2023-04-08] MEDS: MULTIVITAMINS/MINERALS THERAP 1 TAB PO SCH (08:39)
[2023-04-08] MEDS: GABAPENTIN 300 MG CAP PO SCH ×3 (08:39→20:56)
[2023-04-08] MEDS: guaiFENesin ER 600 MG TAB PO SCH ×2 (08:39→20:56)
[2023-04-08] MEDS: ACETAMINOPHEN 650MG ER TAB (TYLENOL ARTHRITIS) PO SCH ×2 (08:40→20:56)
[2023-04-08] MEDS: PANTOPRAZOLE 20 MG TAB PO SCH (08:44)
[2023-04-08] MEDS: OYSTER SHELL CALCIUM 500 MG TAB PO SCH (09:00)
[2023-04-08] MEDS: DIGOXIN INJ 0.5 MG/2 ML AMP IV SCH ×2 (11:06→16:15)
[2023-04-08] MEDS: diphenhydrAMINE 25MG CAP PO SCH (20:56)
[2023-04-08] MEDS: CYCLOBENZAPRINE 10MG TABLET PO SCH (20:56)
[2023-04-08] MEDS: ANEXSIA, NORCO 7.5MG/325MG TABLET(HYDROCODONE/APAP) PO PRN (20:57)
[2023-04-09] VITALS (17 sets, daily range): BP systolic 126–146; BP diastolic 62–91; O2SAT 95–97
[2023-04-09] MEDS: MEROPENEM INJ 1 GM in IV 1 EA IV SCH ×6 (01:04→17:23)
[2023-04-09] MEDS: methylPREDNISolone 40MG 1ML VIAL IV SCH ×3 (03:00→18:51)
[2023-04-09] MEDS: IPRATROPIUM 0.5MG/ALBUTEROL 2.5MG INH SOL UD 3ML (DUONEB) NEB SCH ×6 (03:06→23:09)
[2023-04-09] MEDS: LEVOTHYROXINE 25MCG TABLET (0.025MG) PO SCH (06:20)
[2023-04-09] MEDS: SODIUM CHLORIDE 0.9% INJ 10 ML SYR IV SCH ×2 (06:22→17:24)
[2023-04-09 06:50] LABS: HEMATOCRIT 34.5 % (36.0-47.0); MEAN CORPUSCULAR HEMOGLOBIN 33.5 pg (27.0-33.0); MEAN CORPUSCULAR HGB CONC 31.9 g/dl (32.0-36.5); MEAN CORPUSCULAR VOLUME 105.2 fl (80.0-96.0); PLATELET COUNT, AUTOMATED 297 10^3/uL (150-450); RED BLOOD COUNT 3.28 10^6/uL (4.00-5.40); WHITE BLOOD COUNT 16.1 10^3/uL (4.0-10.0)
[2023-04-09 07:18] LABS: DIGOXIN LEVEL 1.3 NG/ML (0.8-2.0)
[2023-04-09 07:25] LABS: BLOOD UREA NITROGEN 19 MG/DL (9-23); CALCIUM LEVEL 8.8 MG/DL (8.3-10.6); CARBON DIOXIDE LEVEL > 40.0 MMOL/L (20-31); CHLORIDE LEVEL 96 MMOL/L (98-107); CREATININE FOR GFR 0.54 MG/DL (0.55-1.30); GLOMERULAR FILTRATION RATE > 60.0 (>39); GLUCOSE, FASTING 160 MG/DL (74-106); MAGNESIUM LEVEL 2.3 MG/DL (1.8-2.4); POTASSIUM SERUM 4.3 MMOL/L (3.5-5.1); SODIUM LEVEL 140 MMOL/L (136-145)
[2023-04-09 07:53] LABS: LYMPHOCYTES 3 % (16-44); METAMYELOCYTES 2 % (0-0); MONOCYTES 1 % (0-5); NEUTROPHILS 94 % (28-66); PLATELET ESTIMATE NORMAL (NORMAL)
[2023-04-09 07:54] LABS: ANISOCYTOSIS 1+; PLATELET CLUMPS SMALL AMT; POLYCHROMASIA 1+; TEAR DROP CELLS 1+
[2023-04-09] MEDS: TOBRAMYCIN INHAL 300 MG/5 ML SOLN INH SCH ×2 (08:21→20:29)
[2023-04-09] MEDS: SYMBICORT 160/4.5MCG INHALER 6GM INH SCH ×2 (08:22→20:08)
[2023-04-09] MEDS: GABAPENTIN 300 MG CAP PO SCH ×3 (08:53→20:16)
[2023-04-09] MEDS: MAGNESIUM OXIDE 400MG TAB (MAG-OX) PO SCH (08:53)
[2023-04-09] MEDS: VITAMIN D 1,000 INTERNATIONAL UNITS TABLET PO SCH (08:53)
[2023-04-09] MEDS: APIXABAN 5 MG TAB (ELIQUIS) PO SCH ×2 (08:53→20:16)
[2023-04-09] MEDS: ACETAMINOPHEN 650MG ER TAB (TYLENOL ARTHRITIS) PO SCH ×3 (08:54→20:21)
[2023-04-09] MEDS: guaiFENesin ER 600 MG TAB PO SCH ×2 (08:54→20:16)
[2023-04-09] MEDS: MULTIVITAMINS/MINERALS THERAP 1 TAB PO SCH (08:54)
[2023-04-09] MEDS: PANTOPRAZOLE 20 MG TAB PO SCH (08:54)
[2023-04-09] MEDS ORDERED: DIGOXIN INJ 0.5 MG/2 ML AMP IV ONE (10:00)
[2023-04-09] MEDS: OYSTER SHELL CALCIUM 500 MG TAB PO SCH (10:44)
[2023-04-09] MEDS: SPIRONOLACTONE 12.5MG PER 1/2 TABLET PO SCH (11:33)
[2023-04-09] MEDS: CYCLOBENZAPRINE 10MG TABLET PO SCH (20:16)
[2023-04-09] MEDS: diphenhydrAMINE 25MG CAP PO SCH (20:16)
[2023-04-09] MEDS: ANEXSIA, NORCO 7.5MG/325MG TABLET(HYDROCODONE/APAP) PO PRN (20:24)
[2023-04-09] MEDS ORDERED: MAGIC MOUTHWASH SUSPENSION BTL SS PRN (20:40)
[2023-04-09] MEDS: NYSTATIN 500,000U/5ML SUSP UDC SS SCH ×2 (21:23→23:35)
[2023-04-10] VITALS (31 sets, daily range): BP systolic 136–152; BP diastolic 72–81; O2SAT 88–98
[2023-04-10] MEDS: MEROPENEM INJ 1 GM in IV 1 EA IV SCH ×6 (00:05→17:14)
[2023-04-10] MEDS: methylPREDNISolone 40MG 1ML VIAL IV SCH ×3 (02:21→18:12)
[2023-04-10] MEDS: IPRATROPIUM 0.5MG/ALBUTEROL 2.5MG INH SOL UD 3ML (DUONEB) NEB SCH ×6 (03:03→23:22)
[2023-04-10] MEDS: NYSTATIN 500,000U/5ML SUSP UDC SS SCH ×3 (05:13→18:12)
[2023-04-10] MEDS: LEVOTHYROXINE 25MCG TABLET (0.025MG) PO SCH (05:13)
[2023-04-10] MEDS: SODIUM CHLORIDE 0.9% INJ 10 ML SYR IV SCH ×2 (05:14→18:12)
[2023-04-10 06:20] LABS: HEMATOCRIT 39.2 % (36.0-47.0); HEMOGLOBIN 12.2 g/dl (12.0-15.5); MEAN CORPUSCULAR HEMOGLOBIN 32.9 pg (27.0-33.0); MEAN CORPUSCULAR HGB CONC 31.1 g/dl (32.0-36.5); MEAN CORPUSCULAR VOLUME 105.7 fl (80.0-96.0); PLATELET COUNT, AUTOMATED 342 10^3/uL (150-450); RED BLOOD COUNT 3.71 10^6/uL (4.00-5.40); WHITE BLOOD COUNT 20.1 10^3/uL (4.0-10.0)
[2023-04-10 06:48] LABS: DIGOXIN LEVEL 1.2 NG/ML (0.8-2.0)
[2023-04-10 06:59] LABS: BLOOD UREA NITROGEN 21 MG/DL (9-23); CALCIUM LEVEL 8.8 MG/DL (8.3-10.6); CARBON DIOXIDE LEVEL > 40.0 MMOL/L (20-31); CHLORIDE LEVEL 96 MMOL/L (98-107); CREATININE FOR GFR 0.57 MG/DL (0.55-1.30); GLOMERULAR FILTRATION RATE > 60.0 (>39); GLUCOSE, FASTING 157 MG/DL (74-106); MAGNESIUM LEVEL 2.4 MG/DL (1.8-2.4); POTASSIUM SERUM 4.4 MMOL/L (3.5-5.1); SODIUM LEVEL 141 MMOL/L (136-145)
[2023-04-10 07:19] LABS: ANISOCYTOSIS 1+; ATYPICAL LYMPH 1 % (0-5); LYMPHOCYTES 2 % (16-44); MONOCYTES 4 % (0-5); MYELOCYTES 3 % (0-0); NEUTROPHILS 90 % (28-66); PLATELET ESTIMATE NORMAL (NORMAL); POIKILOCYTOSIS 1+; POLYCHROMASIA 1+
[2023-04-10] MEDS: SYMBICORT 160/4.5MCG INHALER 6GM INH SCH ×2 (07:23→20:11)
[2023-04-10] MEDS: TOBRAMYCIN INHAL 300 MG/5 ML SOLN INH SCH ×2 (07:24→20:10)
[2023-04-10] MEDS: SPIRONOLACTONE 12.5MG PER 1/2 TABLET PO SCH (08:59)
[2023-04-10] MEDS: APIXABAN 5 MG TAB (ELIQUIS) PO SCH ×2 (09:00→20:37)
[2023-04-10] MEDS: guaiFENesin ER 600 MG TAB PO SCH ×2 (09:00→20:37)
[2023-04-10] MEDS: OYSTER SHELL CALCIUM 500 MG TAB PO SCH (09:00)
[2023-04-10] MEDS: ACETAMINOPHEN 650MG ER TAB (TYLENOL ARTHRITIS) PO SCH ×2 (09:00→20:37)
[2023-04-10] MEDS: PANTOPRAZOLE 20 MG TAB PO SCH (09:01)
[2023-04-10] MEDS: MAGNESIUM OXIDE 400MG TAB (MAG-OX) PO SCH (09:01)
[2023-04-10] MEDS: GABAPENTIN 300 MG CAP PO SCH ×3 (09:01→20:37)
[2023-04-10] MEDS: MULTIVITAMINS/MINERALS THERAP 1 TAB PO SCH (09:01)
[2023-04-10] MEDS: VITAMIN D 1,000 INTERNATIONAL UNITS TABLET PO SCH (09:01)
[2023-04-10] MEDS: DIGOXIN 0.125 MG TAB PO SCH (11:04)
[2023-04-10] MEDS ORDERED: NYSTATIN 500,000U/5ML SUSP UDC PO SCH (12:00)
[2023-04-10] MEDS: ANEXSIA, NORCO 7.5MG/325MG TABLET(HYDROCODONE/APAP) PO PRN (20:37)
[2023-04-10] MEDS: diphenhydrAMINE 25MG CAP PO SCH (20:37)
[2023-04-10] MEDS: CYCLOBENZAPRINE 10MG TABLET PO SCH (20:37)
[2023-04-11] VITALS (28 sets, daily range): BP systolic 129–158; BP diastolic 70–82; O2SAT 90–99
[2023-04-11] MEDS: NYSTATIN 500,000U/5ML SUSP UDC SS SCH ×4 (01:03→16:57)
[2023-04-11] MEDS: MEROPENEM INJ 1 GM in IV 1 EA IV SCH ×6 (01:03→18:59)
[2023-04-11] MEDS: methylPREDNISolone 40MG 1ML VIAL IV SCH (02:44)
[2023-04-11] MEDS: IPRATROPIUM 0.5MG/ALBUTEROL 2.5MG INH SOL UD 3ML (DUONEB) NEB SCH ×6 (03:09→23:06)
[2023-04-11] MEDS: LEVOTHYROXINE 25MCG TABLET (0.025MG) PO SCH (05:31)
[2023-04-11] MEDS: SODIUM CHLORIDE 0.9% INJ 10 ML SYR IV SCH ×2 (05:31→20:35)
[2023-04-11 06:14] LABS: HEMATOCRIT 37.4 % (36.0-47.0); HEMOGLOBIN 11.7 g/dl (12.0-15.5); MEAN CORPUSCULAR HEMOGLOBIN 33.1 pg (27.0-33.0); MEAN CORPUSCULAR HGB CONC 31.3 g/dl (32.0-36.5); MEAN CORPUSCULAR VOLUME 105.9 fl (80.0-96.0); PLATELET COUNT, AUTOMATED 270 10^3/uL (150-450); RED BLOOD COUNT 3.53 10^6/uL (4.00-5.40); WHITE BLOOD COUNT 18.9 10^3/uL (4.0-10.0)
[2023-04-11 06:40] LABS: BLOOD UREA NITROGEN 19 MG/DL (9-23); CALCIUM LEVEL 8.6 MG/DL (8.3-10.6); CARBON DIOXIDE LEVEL > 40.0 MMOL/L (20-31); CHLORIDE LEVEL 96 MMOL/L (98-107); CREATININE FOR GFR 0.52 MG/DL (0.55-1.30); GLOMERULAR FILTRATION RATE > 60.0 (>39); GLUCOSE, FASTING 165 MG/DL (74-106); MAGNESIUM LEVEL 2.4 MG/DL (1.8-2.4); POTASSIUM SERUM 4.4 MMOL/L (3.5-5.1); SODIUM LEVEL 140 MMOL/L (136-145)
[2023-04-11 06:46] LABS: LYMPHOCYTES 3 % (16-44); MONOCYTES 3 % (0-5); MYELOCYTES 2 % (0-0); NEUTROPHILS 91 % (28-66)
[2023-04-11 06:47] LABS: ANISOCYTOSIS 1+; PLATELET ESTIMATE NORMAL (NORMAL); POIKILOCYTOSIS 1+
[2023-04-11] MEDS: SYMBICORT 160/4.5MCG INHALER 6GM INH SCH ×2 (07:22→21:08)
[2023-04-11] MEDS: TOBRAMYCIN INHAL 300 MG/5 ML SOLN INH SCH ×2 (07:22→21:46)
[2023-04-11] MEDS: guaiFENesin ER 600 MG TAB PO SCH ×2 (08:54→20:36)
[2023-04-11] MEDS: VITAMIN D 1,000 INTERNATIONAL UNITS TABLET PO SCH (08:54)
[2023-04-11] MEDS: MULTIVITAMINS/MINERALS THERAP 1 TAB PO SCH (08:54)
[2023-04-11] MEDS: ACETAMINOPHEN 650MG ER TAB (TYLENOL ARTHRITIS) PO SCH ×2 (08:54→20:42)
[2023-04-11] MEDS: MAGNESIUM OXIDE 400MG TAB (MAG-OX) PO SCH (08:55)
[2023-04-11] MEDS: DIGOXIN 0.125 MG TAB PO SCH (08:55)
[2023-04-11] MEDS: SPIRONOLACTONE 12.5MG PER 1/2 TABLET PO SCH (08:55)
[2023-04-11] MEDS: APIXABAN 5 MG TAB (ELIQUIS) PO SCH ×2 (08:55→20:41)
[2023-04-11] MEDS: GABAPENTIN 300 MG CAP PO SCH ×3 (08:55→20:36)
[2023-04-11] MEDS: PANTOPRAZOLE 20 MG TAB PO SCH (08:57)
[2023-04-11] MEDS: predniSONE 20 MG TAB PO SCH (08:58)
[2023-04-11] MEDS: OYSTER SHELL CALCIUM 500 MG TAB PO SCH (09:59)
[2023-04-11 15:10] LABS: BODY FLUID CULTURE Not indicated. (.); LEGIONELLA ANTIGEN URINE Negative (Negative); ORGANISM ID Not indicated. (.); SPECIMEN SOURCE Urine (.); URINE STREP PNEUMONIAE ANTIGEN Negative (Negative)
[2023-04-11] MEDS: diphenhydrAMINE 25MG CAP PO SCH (20:41)
[2023-04-11] MEDS: CYCLOBENZAPRINE 10MG TABLET PO SCH (20:41)
[2023-04-11] MEDS: ANEXSIA, NORCO 7.5MG/325MG TABLET(HYDROCODONE/APAP) PO PRN (20:41)
[2023-04-12] VITALS (19 sets, daily range): BP systolic 125–155; BP diastolic 58–87; O2SAT 86–100
[2023-04-12] MEDS: NYSTATIN 500,000U/5ML SUSP UDC SS SCH ×5 (00:32→23:44)
[2023-04-12] MEDS: MEROPENEM INJ 1 GM in IV 1 EA IV SCH ×3 (00:33→08:47)
[2023-04-12] MEDS: IPRATROPIUM 0.5MG/ALBUTEROL 2.5MG INH SOL UD 3ML (DUONEB) NEB SCH ×5 (03:57→21:33)
[2023-04-12] MEDS: SODIUM CHLORIDE 0.9% INJ 10 ML SYR IV SCH ×2 (05:41→17:28)
[2023-04-12] MEDS: LEVOTHYROXINE 25MCG TABLET (0.025MG) PO SCH (05:41)
[2023-04-12 06:09] LABS: HEMOGLOBIN 11.4 g/dl (12.0-15.5); MEAN CORPUSCULAR HEMOGLOBIN 33.3 pg (27.0-33.0); MEAN CORPUSCULAR HGB CONC 31.7 g/dl (32.0-36.5); MEAN CORPUSCULAR VOLUME 105.3 fl (80.0-96.0); PLATELET COUNT, AUTOMATED 251 10^3/uL (150-450); RED BLOOD COUNT 3.42 10^6/uL (4.00-5.40); WHITE BLOOD COUNT 15.4 10^3/uL (4.0-10.0)
[2023-04-12 06:45] LABS: BLOOD UREA NITROGEN 19 MG/DL (9-23); CALCIUM LEVEL 8.6 MG/DL (8.3-10.6); CARBON DIOXIDE LEVEL > 40.0 MMOL/L (20-31); CHLORIDE LEVEL 96 MMOL/L (98-107); CREATININE FOR GFR 0.54 MG/DL (0.55-1.30); GLOMERULAR FILTRATION RATE > 60.0 (>39); GLUCOSE, FASTING 124 MG/DL (74-106); POTASSIUM SERUM 4.3 MMOL/L (3.5-5.1); SODIUM LEVEL 140 MMOL/L (136-145)
[2023-04-12 07:11] LABS: ATYPICAL LYMPH 2 % (0-5); LYMPHOCYTES 3 % (16-44); MONOCYTES 8 % (0-5); MYELOCYTES 1 % (0-0); NEUTROPHILS 86 % (28-66); PLATELET ESTIMATE NORMAL (NORMAL)
[2023-04-12 07:12] LABS: ANISOCYTOSIS 1+; POLYCHROMASIA 1+
[2023-04-12] MEDS: TOBRAMYCIN INHAL 300 MG/5 ML SOLN INH SCH ×2 (07:52→21:43)
[2023-04-12] MEDS: SYMBICORT 160/4.5MCG INHALER 6GM INH SCH ×2 (07:52→21:33)
[2023-04-12] MEDS: ACETAMINOPHEN 650MG ER TAB (TYLENOL ARTHRITIS) PO SCH ×2 (08:47→20:12)
[2023-04-12] MEDS: MAGNESIUM OXIDE 400MG TAB (MAG-OX) PO SCH (08:47)
[2023-04-12] MEDS: SPIRONOLACTONE 12.5MG PER 1/2 TABLET PO SCH (08:47)
[2023-04-12] MEDS: MULTIVITAMINS/MINERALS THERAP 1 TAB PO SCH (08:47)
[2023-04-12] MEDS: DIGOXIN 0.125 MG TAB PO SCH (08:48)
[2023-04-12] MEDS: guaiFENesin ER 600 MG TAB PO SCH ×2 (08:48→20:10)
[2023-04-12] MEDS: predniSONE 20 MG TAB PO SCH (08:48)
[2023-04-12] MEDS: GABAPENTIN 300 MG CAP PO SCH ×3 (08:48→20:11)
[2023-04-12] MEDS: PANTOPRAZOLE 20 MG TAB PO SCH (08:48)
[2023-04-12] MEDS: OYSTER SHELL CALCIUM 500 MG TAB PO SCH (08:49)
[2023-04-12] MEDS: APIXABAN 5 MG TAB (ELIQUIS) PO SCH ×2 (08:49→20:11)
[2023-04-12] MEDS: VITAMIN D 1,000 INTERNATIONAL UNITS TABLET PO SCH (08:49)
[2023-04-12] MEDS: diphenhydrAMINE 25MG CAP PO SCH (20:11)
[2023-04-12] MEDS: CYCLOBENZAPRINE 10MG TABLET PO SCH (20:12)
[2023-04-12] MEDS: ANEXSIA, NORCO 7.5MG/325MG TABLET(HYDROCODONE/APAP) PO PRN (20:17)
[2023-04-13] MEDS: IPRATROPIUM 0.5MG/ALBUTEROL 2.5MG INH SOL UD 3ML (DUONEB) NEB SCH ×4 (00:34→11:05)
[2023-04-13 05:00] VITALS: BP 149/80
[2023-04-13] MEDS: NYSTATIN 500,000U/5ML SUSP UDC SS SCH ×2 (06:21→12:00)
[2023-04-13] MEDS: SODIUM CHLORIDE 0.9% INJ 10 ML SYR IV SCH (06:22)
[2023-04-13] MEDS: LEVOTHYROXINE 25MCG TABLET (0.025MG) PO SCH (06:22)
[2023-04-13] MEDS: TOBRAMYCIN INHAL 300 MG/5 ML SOLN INH SCH (07:25)
[2023-04-13] MEDS: SYMBICORT 160/4.5MCG INHALER 6GM INH SCH (07:25)
[2023-04-13 08:23] VITALS: BP 138/82
[2023-04-13] MEDS: MULTIVITAMINS/MINERALS THERAP 1 TAB PO SCH (08:23)
[2023-04-13] MEDS: MAGNESIUM OXIDE 400MG TAB (MAG-OX) PO SCH (08:23)
[2023-04-13] MEDS: GABAPENTIN 300 MG CAP PO SCH (08:23)
[2023-04-13] MEDS: VITAMIN D 1,000 INTERNATIONAL UNITS TABLET PO SCH (08:23)
[2023-04-13] MEDS: OYSTER SHELL CALCIUM 500 MG TAB PO SCH (08:23)
[2023-04-13] MEDS: APIXABAN 5 MG TAB (ELIQUIS) PO SCH (08:23)
[2023-04-13] MEDS: predniSONE 20 MG TAB PO SCH (08:24)
[2023-04-13] MEDS: ACETAMINOPHEN 650MG ER TAB (TYLENOL ARTHRITIS) PO SCH (08:24)
[2023-04-13] MEDS: guaiFENesin ER 600 MG TAB PO SCH (08:24)
[2023-04-13] MEDS: SPIRONOLACTONE 12.5MG PER 1/2 TABLET PO SCH (08:24)
[2023-04-13] MEDS: DIGOXIN 0.125 MG TAB PO SCH (08:24)
[2023-04-13] MEDS: PANTOPRAZOLE 20 MG TAB PO SCH (08:24)
[2023-04-13] MEDS ORDERED: PRED10TA2 PO (10:50)
== END 2023-04-13 15:15 | disposition home or self-care (01) | DRG 177 ==
LOC: M ED 10:29 → EDBD 10:29 → M ED INP 13:41 → M PCU 17:51 → M MSPAV 04-05 23:39 → UNDODISIN 04-07 14:05 → M ICU 04-07 14:20 → M PCU 04-09 02:03 → M MSPAV 04-12 17:14
PROVIDERS: ADMIT General Practice; ATTEND Internal Medicine
DX: J15.1 Pneumonia due to Pseudomonas (principal); G93.41 Metabolic encephalopathy; J96.11 Chronic respiratory failure with hypoxia; I48.20 Chronic atrial fibrillation, unspecified; J44.1 Chronic obstructive pulmonary disease with (acute) exacerbation; B37.0 Candidal stomatitis; J84.116 Cryptogenic organizing pneumonia; E03.9 Hypothyroidism, unspecified; I10 Essential (primary) hypertension; Z79.899 Other long term (current) drug therapy; E83.42 Hypomagnesemia; Z99.81 Dependence on supplemental oxygen; Z79.52 Long term (current) use of systemic steroids; M19.90 Unspecified osteoarthritis, unspecified site; Z87.891 Personal history of nicotine dependence; G62.9 Polyneuropathy, unspecified

== ENCOUNTER 2023-05-10 13:50 | Inpatient (IN) | payer MEDICARE ==
[~2023-05-10] VITALS: Ht 165.1 cm; Wt 76.7 kg
[~2023-05-10 13:50] MED LIST changes: +BACI1CAP PO
[2023-05-10] MEDS ORDERED: methylPREDNISolone 125MG 2ML VIAL IV ONE (14:30)
[2023-05-10] MEDS ORDERED: IPRATROPIUM 0.5MG/ALBUTEROL 2.5MG INH SOL UD 3ML (DUONEB) NEB ONE (14:30)
[2023-05-10 14:44] LABS: VENOUS BASE EXCESS 9.2 (-2.0-2.0); VENOUS HCO3 38.5 MMOL/L (23.0-27.0); VENOUS O2 SATURATION 58.1 % (60.0-80.0); VENOUS PARTIAL PRESSURE CO2 78.5 mmHg (38.0-50.0); VENOUS PARTIAL PRESSURE O2 32.5 mmHg (30.0-50.0); VENOUS PH 7.309 UNITS (7.330-7.430); VENOUS STANDARD HCO3 31.9 MMOL/L
[2023-05-10 14:50] LABS: BASO # 0.1 10^3/uL (0.0-0.2); BASO % 0.3 % (0.0-1.0); EOS # 0.1 10^3/uL (0.0-0.5); EOS % 0.5 % (0.0-3.0); HEMATOCRIT 36.6 % (36.0-47.0); HEMOGLOBIN 12.1 g/dl (12.0-15.5); LYMPH # 0.8 10^3/uL (1.5-5.0); LYMPH % 4.2 % (24.0-44.0); MEAN CORPUSCULAR HEMOGLOBIN 33.7 pg (27.0-33.0); MEAN CORPUSCULAR HGB CONC 33.1 g/dl (32.0-36.5); MEAN CORPUSCULAR VOLUME 101.9 fl (80.0-96.0); MONO # 0.7 10^3/uL (0.0-0.8); NEUTROPHILS # 16.4 10^3/uL (1.5-8.5); NEUTROPHILS % 90.2 % (36.0-66.0); PLATELET COUNT, AUTOMATED 390 10^3/uL (150-450); RED BLOOD COUNT 3.59 10^6/uL (4.00-5.40); WHITE BLOOD COUNT 18.1 10^3/uL (4.0-10.0)
[2023-05-10 15:09] LABS: ABG BASE EXCESS 9.3 (-2.0-2.0); ABG O2 SATURATION 93.3 % (95.0-99.0); ABG PARTIAL PRESSURE CO2 52.8 mmHg (35.0-45.0); ABG STANDARD HCO3 32.9 MMOL/L. (22.0-26.0); ABG TOTAL CO2 36.6 MMOL/L (23.0-31.0); ABG pH (ARTERIAL) 7.439 UNITS (7.350-7.450)
[2023-05-10 15:26] LABS: ALBUMIN 3.8 G/DL (3.2-5.2); ALKALINE PHOSPHATASE 76 U/L (46-116); ALT/SGPT 20 U/L (7.0-40); AST/SGOT 12 U/L (<34); BILIRUBIN,DIRECT 0.1 MG/DL (<0.4); BILIRUBIN,TOTAL 0.4 MG/DL (0.3-1.2); BLOOD UREA NITROGEN 10 MG/DL (9-23); CALCIUM LEVEL 9.8 MG/DL (8.3-10.6); CARBON DIOXIDE LEVEL 35 MMOL/L (20-31); CHLORIDE LEVEL 93 MMOL/L (98-107); CREATININE FOR GFR 0.66 MG/DL (0.55-1.30); GLOMERULAR FILTRATION RATE > 60.0 (>39); GLUCOSE, FASTING 104 MG/DL (74-106); POTASSIUM SERUM 4.4 MMOL/L (3.5-5.1); SODIUM LEVEL 135 MMOL/L (136-145); TOTAL PROTEIN 6.9 G/DL (5.7-8.2)
[2023-05-10 15:27] LABS: THYROID STIMULATING HORMONE 4.652 uIU/ML (0.55-4.78)
[2023-05-10] MEDS ORDERED: PIPERACILLIN/TAZOBACTAM SOD 3.375 GM in D5W MINI-BAG PLUS 50 ML IV ONE (15:50)
[2023-05-10] MEDS ORDERED: ACETAMINOPHEN TAB 650MG DOSE (2X325MG) PO PRN (16:40)
[2023-05-10] MEDS ORDERED: LEVALBUTEROL HFA 45MCG/ACT 15GM INHALER INH PRN (17:05)
[2023-05-10] MEDS ORDERED: DILT180C78 PO (17:23)
[2023-05-10] MEDS ORDERED: HOME MED LIST COMPLETE! XX SCH (17:25)
[2023-05-10 18:00] VITALS: BP 140/77; TEMP 98.6; O2SAT 91
[2023-05-10 18:10] LABS: INR 1.3; PROTHROMBIN TIME 16.4 SECONDS (12.5-14.5)
[2023-05-10 18:11] LABS: PARTIAL THROMBOPLASTIN TIME 32.3 SECONDS (24.8-34.2)
[2023-05-10] MEDS: MEROPENEM INJ 1 GM in IV 1 EA IV SCH (18:52)
[2023-05-10] MEDS: LACTOBACILLUS ACIDOPHILUS CAP (BACID) PO SCH (18:53)
[2023-05-10] MEDS: CYCLOBENZAPRINE 10MG TABLET PO SCH (19:47)
[2023-05-10] MEDS: APIXABAN 5 MG TAB (ELIQUIS) PO SCH (19:47)
[2023-05-10] MEDS: ANEXSIA, NORCO 7.5MG/325MG TABLET(HYDROCODONE/APAP) PO PRN (19:47)
[2023-05-10] MEDS: guaiFENesin ER 600 MG TAB PO SCH (19:47)
[2023-05-10] MEDS: GABAPENTIN 300 MG CAP PO SCH (19:48)
[2023-05-10 20:00] VITALS: BP 121/71; TEMP 98.1; O2SAT 92
[2023-05-11] MEDS: MEROPENEM INJ 1 GM in IV 1 EA IV SCH ×3 (02:15→17:28)
[2023-05-11] MEDS: LEVOTHYROXINE 25MCG TABLET (0.025MG) PO SCH (05:48)
[2023-05-11 05:56] VITALS: BP 110/70; TEMP 97.3; O2SAT 96
[2023-05-11 07:15] LABS: HEMATOCRIT 33.7 % (36.0-47.0); HEMOGLOBIN 11.1 g/dl (12.0-15.5); MEAN CORPUSCULAR HEMOGLOBIN 33.4 pg (27.0-33.0); MEAN CORPUSCULAR HGB CONC 32.9 g/dl (32.0-36.5); MEAN CORPUSCULAR VOLUME 101.5 fl (80.0-96.0); PLATELET COUNT, AUTOMATED 373 10^3/uL (150-450); RED BLOOD COUNT 3.32 10^6/uL (4.00-5.40); WHITE BLOOD COUNT 12.3 10^3/uL (4.0-10.0)
[2023-05-11 07:42] LABS: ALBUMIN 3.3 G/DL (3.2-5.2); ALKALINE PHOSPHATASE 68 U/L (46-116); ALT/SGPT 17 U/L (7.0-40); AST/SGOT < 8 U/L (<34); BILIRUBIN,TOTAL 0.3 MG/DL (0.3-1.2); BLOOD UREA NITROGEN 9 MG/DL (9-23); CALCIUM LEVEL 9.6 MG/DL (8.3-10.6); CARBON DIOXIDE LEVEL 38 MMOL/L (20-31); CHLORIDE LEVEL 96 MMOL/L (98-107); CREATININE FOR GFR 0.55 MG/DL (0.55-1.30); GLOMERULAR FILTRATION RATE > 60.0 (>39); GLUCOSE, FASTING 138 MG/DL (74-106); POTASSIUM SERUM 4.4 MMOL/L (3.5-5.1); SODIUM LEVEL 137 MMOL/L (136-145); TOTAL PROTEIN 6.3 G/DL (5.7-8.2)
[2023-05-11] MEDS: SYMBICORT 160/4.5MCG INHALER 6GM INH SCH ×2 (07:55→20:41)
[2023-05-11] MEDS: LEVALBUTEROL HFA 45MCG/ACT 15GM INHALER INH SCH ×4 (07:56→20:45)
[2023-05-11 08:48] VITALS: BP 124/64
[2023-05-11] MEDS: OYSTER SHELL CALCIUM 500 MG TAB PO SCH (08:51)
[2023-05-11] MEDS: APIXABAN 5 MG TAB (ELIQUIS) PO SCH ×2 (08:51→20:08)
[2023-05-11] MEDS: SPIRONOLACTONE 12.5MG PER 1/2 TABLET PO SCH (08:52)
[2023-05-11] MEDS: DIGOXIN 0.125 MG TAB PO SCH (08:52)
[2023-05-11] MEDS: LACTOBACILLUS ACIDOPHILUS CAP (BACID) PO SCH ×2 (08:52→17:24)
[2023-05-11] MEDS: guaiFENesin ER 600 MG TAB PO SCH ×2 (08:52→20:09)
[2023-05-11] MEDS: dilTIAZem **CD** 180MG CAP PO SCH (08:52)
[2023-05-11] MEDS: GABAPENTIN 300 MG CAP PO SCH ×3 (08:52→20:09)
[2023-05-11] MEDS: VITAMIN D 1,000 INTERNATIONAL UNITS TABLET PO SCH (08:52)
[2023-05-11] MEDS: MULTIVITAMINS/MINERALS THERAP 1 TAB PO SCH (08:52)
[2023-05-11] MEDS: MAGNESIUM OXIDE 400MG TAB (MAG-OX) PO SCH (08:52)
[2023-05-11] MEDS ORDERED: predniSONE 20 MG TAB PO SCH (09:00)
[2023-05-11] MEDS ORDERED: ENOXAPARIN 40MG/0.4ML SYRINGE (J1650 PER 10MG) SC SCH (09:00)
[2023-05-11 14:00] VITALS: BP 113/47; TEMP 97.9; O2SAT 96
[2023-05-11] MEDS: CYCLOBENZAPRINE 10MG TABLET PO SCH (20:08)
[2023-05-11] MEDS: ANEXSIA, NORCO 7.5MG/325MG TABLET(HYDROCODONE/APAP) PO PRN (20:10)
[2023-05-11] MEDS: TOBRAMYCIN INHAL 300 MG/5 ML SOLN INH SCH (20:45)
[2023-05-11 21:00] VITALS: BP 125/81; TEMP 97.5; O2SAT 94
[2023-05-12] MEDS: MEROPENEM INJ 1 GM in IV 1 EA IV SCH ×2 (02:03→08:59)
[2023-05-12 06:00] VITALS: BP 104/56; TEMP 97.2; O2SAT 96
[2023-05-12 06:20] LABS: HEMATOCRIT 31.1 % (36.0-47.0); MEAN CORPUSCULAR HGB CONC 32.2 g/dl (32.0-36.5); MEAN CORPUSCULAR VOLUME 102.6 fl (80.0-96.0); PLATELET COUNT, AUTOMATED 361 10^3/uL (150-450); RED BLOOD COUNT 3.03 10^6/uL (4.00-5.40); WHITE BLOOD COUNT 16.4 10^3/uL (4.0-10.0)
[2023-05-12] MEDS: LEVOTHYROXINE 25MCG TABLET (0.025MG) PO SCH (06:20)
[2023-05-12 06:46] LABS: ALBUMIN 3.1 G/DL (3.2-5.2); ALKALINE PHOSPHATASE 58 U/L (46-116); ALT/SGPT 19 U/L (7.0-40); AST/SGOT 11 U/L (<34); BILIRUBIN,TOTAL 0.2 MG/DL (0.3-1.2); BLOOD UREA NITROGEN 12 MG/DL (9-23); CALCIUM LEVEL 8.5 MG/DL (8.3-10.6); CARBON DIOXIDE LEVEL 38 MMOL/L (20-31); CHLORIDE LEVEL 98 MMOL/L (98-107); CREATININE FOR GFR 0.56 MG/DL (0.55-1.30); GLOMERULAR FILTRATION RATE > 60.0 (>39); GLUCOSE, FASTING 164 MG/DL (74-106); POTASSIUM SERUM 4.1 MMOL/L (3.5-5.1); SODIUM LEVEL 137 MMOL/L (136-145); TOTAL PROTEIN 5.6 G/DL (5.7-8.2)
[2023-05-12] MEDS: LEVALBUTEROL HFA 45MCG/ACT 15GM INHALER INH SCH ×4 (07:36→20:36)
[2023-05-12] MEDS: SYMBICORT 160/4.5MCG INHALER 6GM INH SCH ×2 (07:36→20:37)
[2023-05-12] MEDS: TOBRAMYCIN INHAL 300 MG/5 ML SOLN INH SCH ×2 (07:36→20:37)
[2023-05-12] MEDS: LACTOBACILLUS ACIDOPHILUS CAP (BACID) PO SCH ×2 (08:51→16:58)
[2023-05-12] MEDS: MULTIVITAMINS/MINERALS THERAP 1 TAB PO SCH (08:51)
[2023-05-12] MEDS: OYSTER SHELL CALCIUM 500 MG TAB PO SCH (08:51)
[2023-05-12] MEDS: MAGNESIUM OXIDE 400MG TAB (MAG-OX) PO SCH (08:59)
[2023-05-12] MEDS: OMEPRAZOLE 20MG CAP PO SCH (08:59)
[2023-05-12] MEDS: guaiFENesin ER 600 MG TAB PO SCH ×2 (08:59→20:14)
[2023-05-12] MEDS: VITAMIN D 1,000 INTERNATIONAL UNITS TABLET PO SCH (08:59)
[2023-05-12] MEDS: APIXABAN 5 MG TAB (ELIQUIS) PO SCH ×2 (08:59→20:14)
[2023-05-12] MEDS: DIGOXIN 0.125 MG TAB PO SCH (09:00)
[2023-05-12] MEDS: GABAPENTIN 300 MG CAP PO SCH ×3 (09:00→20:14)
[2023-05-12] MEDS: SPIRONOLACTONE 12.5MG PER 1/2 TABLET PO SCH (09:00)
[2023-05-12] MEDS ORDERED: predniSONE 20 MG TAB PO SCH (09:00)
[2023-05-12 10:09] VITALS: BP 117/60
[2023-05-12] MEDS: dilTIAZem **CD** 180MG CAP PO SCH (10:10)
[2023-05-12 14:00] VITALS: BP 117/60; TEMP 98.6; O2SAT 94
[2023-05-12] MEDS: CEFTOLOZANE/TAZOBACTAM 3 GM in D5W 100 ML IV SCH (16:58)
[2023-05-12] MEDS: CYCLOBENZAPRINE 10MG TABLET PO SCH (20:14)
[2023-05-12] MEDS: ANEXSIA, NORCO 7.5MG/325MG TABLET(HYDROCODONE/APAP) PO PRN (20:19)
[2023-05-12 21:56] VITALS: BP 122/63; TEMP 97.9; O2SAT 97
[2023-05-13] MEDS: CEFTOLOZANE/TAZOBACTAM 3 GM in D5W 100 ML IV SCH ×4 (00:45→23:26)
[2023-05-13] MEDS: LEVOTHYROXINE 25MCG TABLET (0.025MG) PO SCH (05:15)
[2023-05-13 06:00] VITALS: BP 122/59; TEMP 98.1; O2SAT 97
[2023-05-13 06:09] LABS: HEMATOCRIT 32.7 % (36.0-47.0); HEMOGLOBIN 10.4 g/dl (12.0-15.5); MEAN CORPUSCULAR HEMOGLOBIN 33.2 pg (27.0-33.0); MEAN CORPUSCULAR HGB CONC 31.8 g/dl (32.0-36.5); MEAN CORPUSCULAR VOLUME 104.5 fl (80.0-96.0); PLATELET COUNT, AUTOMATED 355 10^3/uL (150-450); RED BLOOD COUNT 3.13 10^6/uL (4.00-5.40); WHITE BLOOD COUNT 12.9 10^3/uL (4.0-10.0)
[2023-05-13 06:30] LABS: ALBUMIN 3.3 G/DL (3.2-5.2); ALKALINE PHOSPHATASE 60 U/L (46-116); ALT/SGPT 36 U/L (7.0-40); AST/SGOT 18 U/L (<34); BILIRUBIN,TOTAL 0.2 MG/DL (0.3-1.2); BLOOD UREA NITROGEN 12 MG/DL (9-23); CALCIUM LEVEL 9.3 MG/DL (8.3-10.6); CARBON DIOXIDE LEVEL 40 MMOL/L (20-31); CHLORIDE LEVEL 98 MMOL/L (98-107); CREATININE FOR GFR 0.54 MG/DL (0.55-1.30); GLOMERULAR FILTRATION RATE > 60.0 (>39); GLUCOSE, FASTING 137 MG/DL (74-106); POTASSIUM SERUM 4.1 MMOL/L (3.5-5.1); SODIUM LEVEL 139 MMOL/L (136-145); TOTAL PROTEIN 5.7 G/DL (5.7-8.2)
[2023-05-13] MEDS: LEVALBUTEROL HFA 45MCG/ACT 15GM INHALER INH SCH ×4 (08:10→20:43)
[2023-05-13] MEDS: TOBRAMYCIN INHAL 300 MG/5 ML SOLN INH SCH ×2 (08:10→20:43)
[2023-05-13] MEDS: SYMBICORT 160/4.5MCG INHALER 6GM INH SCH ×2 (08:10→20:43)
[2023-05-13] MEDS: APIXABAN 5 MG TAB (ELIQUIS) PO SCH ×2 (09:21→20:22)
[2023-05-13] MEDS: SPIRONOLACTONE 12.5MG PER 1/2 TABLET PO SCH (09:21)
[2023-05-13] MEDS: MAGNESIUM OXIDE 400MG TAB (MAG-OX) PO SCH (09:22)
[2023-05-13] MEDS: predniSONE 20 MG TAB PO SCH (09:22)
[2023-05-13] MEDS: dilTIAZem **CD** 180MG CAP PO SCH (09:22)
[2023-05-13] MEDS: DIGOXIN 0.125 MG TAB PO SCH (09:22)
[2023-05-13] MEDS: OYSTER SHELL CALCIUM 500 MG TAB PO SCH (09:22)
[2023-05-13] MEDS: OMEPRAZOLE 20MG CAP PO SCH (09:22)
[2023-05-13] MEDS: GABAPENTIN 300 MG CAP PO SCH ×3 (09:22→20:22)
[2023-05-13] MEDS: guaiFENesin ER 600 MG TAB PO SCH ×2 (09:22→20:22)
[2023-05-13] MEDS: LACTOBACILLUS ACIDOPHILUS CAP (BACID) PO SCH ×2 (09:23→17:03)
[2023-05-13] MEDS: MULTIVITAMINS/MINERALS THERAP 1 TAB PO SCH (09:23)
[2023-05-13] MEDS: VITAMIN D 1,000 INTERNATIONAL UNITS TABLET PO SCH (09:23)
[2023-05-13] MEDS: NYSTATIN 500,000U/5ML SUSP UDC SS SCH ×3 (12:48→23:26)
[2023-05-13 14:00] VITALS: BP 127/67; TEMP 97.9; O2SAT 93
[2023-05-13] MEDS: CYCLOBENZAPRINE 10MG TABLET PO SCH (20:22)
[2023-05-13] MEDS: ANEXSIA, NORCO 7.5MG/325MG TABLET(HYDROCODONE/APAP) PO PRN (20:35)
[2023-05-13 21:32] VITALS: BP 139/75; TEMP 98.1; O2SAT 95
[2023-05-14 05:10] VITALS: BP 142/77; TEMP 97.9; O2SAT 95
[2023-05-14] MEDS: NYSTATIN 500,000U/5ML SUSP UDC SS SCH ×4 (05:26→23:31)
[2023-05-14] MEDS: LEVOTHYROXINE 25MCG TABLET (0.025MG) PO SCH (05:27)
[2023-05-14 06:50] LABS: HEMATOCRIT 32.7 % (36.0-47.0); HEMOGLOBIN 10.4 g/dl (12.0-15.5); MEAN CORPUSCULAR HEMOGLOBIN 33.5 pg (27.0-33.0); MEAN CORPUSCULAR HGB CONC 31.8 g/dl (32.0-36.5); MEAN CORPUSCULAR VOLUME 105.5 fl (80.0-96.0); PLATELET COUNT, AUTOMATED 357 10^3/uL (150-450); WHITE BLOOD COUNT 11.9 10^3/uL (4.0-10.0)
[2023-05-14 07:13] LABS: ALBUMIN 3.1 G/DL (3.2-5.2); ALKALINE PHOSPHATASE 58 U/L (46-116); ALT/SGPT 43 U/L (7.0-40); AST/SGOT 19 U/L (<34); BILIRUBIN,TOTAL 0.2 MG/DL (0.3-1.2); BLOOD UREA NITROGEN 12 MG/DL (9-23); CALCIUM LEVEL 8.6 MG/DL (8.3-10.6); CARBON DIOXIDE LEVEL 39 MMOL/L (20-31); CHLORIDE LEVEL 98 MMOL/L (98-107); CREATININE FOR GFR 0.61 MG/DL (0.55-1.30); GLOMERULAR FILTRATION RATE > 60.0 (>39); GLUCOSE, FASTING 83 MG/DL (74-106); POTASSIUM SERUM 4.1 MMOL/L (3.5-5.1); SODIUM LEVEL 141 MMOL/L (136-145); TOTAL PROTEIN 5.5 G/DL (5.7-8.2)
[2023-05-14] MEDS: SYMBICORT 160/4.5MCG INHALER 6GM INH SCH ×2 (07:38→19:52)
[2023-05-14] MEDS: LEVALBUTEROL HFA 45MCG/ACT 15GM INHALER INH SCH ×4 (07:38→19:52)
[2023-05-14] MEDS: TOBRAMYCIN INHAL 300 MG/5 ML SOLN INH SCH ×2 (07:38→19:52)
[2023-05-14] MEDS: guaiFENesin ER 600 MG TAB PO SCH ×2 (09:06→19:56)
[2023-05-14] MEDS: LACTOBACILLUS ACIDOPHILUS CAP (BACID) PO SCH ×2 (09:06→16:57)
[2023-05-14] MEDS: MULTIVITAMINS/MINERALS THERAP 1 TAB PO SCH (09:06)
[2023-05-14] MEDS: GABAPENTIN 300 MG CAP PO SCH ×3 (09:06→19:56)
[2023-05-14] MEDS: MAGNESIUM OXIDE 400MG TAB (MAG-OX) PO SCH (09:06)
[2023-05-14] MEDS: OYSTER SHELL CALCIUM 500 MG TAB PO SCH (09:06)
[2023-05-14] MEDS: predniSONE 20 MG TAB PO SCH (09:07)
[2023-05-14] MEDS: dilTIAZem **CD** 180MG CAP PO SCH (09:07)
[2023-05-14] MEDS: VITAMIN D 1,000 INTERNATIONAL UNITS TABLET PO SCH (09:07)
[2023-05-14] MEDS: APIXABAN 5 MG TAB (ELIQUIS) PO SCH ×2 (09:09→19:56)
[2023-05-14] MEDS: SPIRONOLACTONE 12.5MG PER 1/2 TABLET PO SCH (09:09)
[2023-05-14] MEDS: CEFTOLOZANE/TAZOBACTAM 3 GM in D5W 100 ML IV SCH ×3 (09:09→23:31)
[2023-05-14] MEDS: DIGOXIN 0.125 MG TAB PO SCH (09:09)
[2023-05-14] MEDS: OMEPRAZOLE 20MG CAP PO SCH (09:09)
[2023-05-14 14:00] VITALS: BP 137/75; TEMP 98.1; O2SAT 98
[2023-05-14 19:41] VITALS: BP 141/73; TEMP 97.9; O2SAT 95
[2023-05-14] MEDS: CYCLOBENZAPRINE 10MG TABLET PO SCH (19:57)
[2023-05-14] MEDS: ANEXSIA, NORCO 7.5MG/325MG TABLET(HYDROCODONE/APAP) PO PRN (19:59)
[2023-05-15 05:13] VITALS: BP 121/74; TEMP 97; O2SAT 98
[2023-05-15] MEDS: NYSTATIN 500,000U/5ML SUSP UDC SS SCH ×4 (05:27→23:33)
[2023-05-15] MEDS: LEVOTHYROXINE 25MCG TABLET (0.025MG) PO SCH (05:28)
[2023-05-15 06:09] LABS: HEMATOCRIT 32.6 % (36.0-47.0); HEMOGLOBIN 10.3 g/dl (12.0-15.5); MEAN CORPUSCULAR HEMOGLOBIN 33.4 pg (27.0-33.0); MEAN CORPUSCULAR HGB CONC 31.6 g/dl (32.0-36.5); MEAN CORPUSCULAR VOLUME 105.8 fl (80.0-96.0); PLATELET COUNT, AUTOMATED 343 10^3/uL (150-450); RED BLOOD COUNT 3.08 10^6/uL (4.00-5.40); WHITE BLOOD COUNT 13.6 10^3/uL (4.0-10.0)
[2023-05-15 06:36] LABS: ALBUMIN 3.2 G/DL (3.2-5.2); ALKALINE PHOSPHATASE 60 U/L (46-116); ALT/SGPT 38 U/L (7.0-40); AST/SGOT 13 U/L (<34); BILIRUBIN,TOTAL 0.2 MG/DL (0.3-1.2); BLOOD UREA NITROGEN 16 MG/DL (9-23); CALCIUM LEVEL 8.9 MG/DL (8.3-10.6); CARBON DIOXIDE LEVEL 40 MMOL/L (20-31); CHLORIDE LEVEL 97 MMOL/L (98-107); CREATININE FOR GFR 0.55 MG/DL (0.55-1.30); GLOMERULAR FILTRATION RATE > 60.0 (>39); GLUCOSE, FASTING 92 MG/DL (74-106); POTASSIUM SERUM 3.9 MMOL/L (3.5-5.1); SODIUM LEVEL 139 MMOL/L (136-145); TOTAL PROTEIN 5.6 G/DL (5.7-8.2)
[2023-05-15] MEDS: TOBRAMYCIN INHAL 300 MG/5 ML SOLN INH SCH ×2 (07:51→20:43)
[2023-05-15] MEDS: SYMBICORT 160/4.5MCG INHALER 6GM INH SCH ×2 (07:51→20:43)
[2023-05-15] MEDS: LEVALBUTEROL HFA 45MCG/ACT 15GM INHALER INH SCH ×4 (07:55→20:43)
[2023-05-15] MEDS: APIXABAN 5 MG TAB (ELIQUIS) PO SCH ×2 (08:02→21:44)
[2023-05-15] MEDS: LACTOBACILLUS ACIDOPHILUS CAP (BACID) PO SCH ×2 (08:02→16:55)
[2023-05-15] MEDS: OYSTER SHELL CALCIUM 500 MG TAB PO SCH (08:02)
[2023-05-15] MEDS: GABAPENTIN 300 MG CAP PO SCH ×3 (08:02→21:44)
[2023-05-15] MEDS: MAGNESIUM OXIDE 400MG TAB (MAG-OX) PO SCH (08:02)
[2023-05-15] MEDS: predniSONE 20 MG TAB PO SCH (08:02)
[2023-05-15] MEDS: guaiFENesin ER 600 MG TAB PO SCH ×2 (08:02→21:44)
[2023-05-15] MEDS: OMEPRAZOLE 20MG CAP PO SCH (08:02)
[2023-05-15] MEDS: SPIRONOLACTONE 12.5MG PER 1/2 TABLET PO SCH (08:02)
[2023-05-15] MEDS: MULTIVITAMINS/MINERALS THERAP 1 TAB PO SCH (08:02)
[2023-05-15] MEDS: VITAMIN D 1,000 INTERNATIONAL UNITS TABLET PO SCH (08:03)
[2023-05-15] MEDS: CEFTOLOZANE/TAZOBACTAM 3 GM in D5W 100 ML IV SCH ×3 (08:03→23:33)
[2023-05-15] MEDS: DIGOXIN 0.125 MG TAB PO SCH (08:04)
[2023-05-15] MEDS: dilTIAZem 120MG **CD** CAPSULE PO SCH (08:04)
[2023-05-15 14:00] VITALS: BP 122/71; TEMP 97.5; O2SAT 98
[2023-05-15 20:35] VITALS: BP 127/69; TEMP 97.9; O2SAT 98
[2023-05-15] MEDS: CYCLOBENZAPRINE 10MG TABLET PO SCH (21:44)
[2023-05-15] MEDS: ANEXSIA, NORCO 7.5MG/325MG TABLET(HYDROCODONE/APAP) PO PRN (21:47)
[2023-05-16 05:59] LABS: HEMATOCRIT 32.7 % (36.0-47.0); HEMOGLOBIN 10.4 g/dl (12.0-15.5); MEAN CORPUSCULAR HEMOGLOBIN 33.2 pg (27.0-33.0); MEAN CORPUSCULAR HGB CONC 31.8 g/dl (32.0-36.5); MEAN CORPUSCULAR VOLUME 104.5 fl (80.0-96.0); PLATELET COUNT, AUTOMATED 334 10^3/uL (150-450); RED BLOOD COUNT 3.13 10^6/uL (4.00-5.40); WHITE BLOOD COUNT 11.3 10^3/uL (4.0-10.0)
[2023-05-16] MEDS: LEVOTHYROXINE 25MCG TABLET (0.025MG) PO SCH (06:37)
[2023-05-16] MEDS: NYSTATIN 500,000U/5ML SUSP UDC SS SCH ×4 (06:37→23:15)
[2023-05-16 06:40] VITALS: BP 122/65; TEMP 97.5; O2SAT 98
[2023-05-16 06:43] LABS: ALBUMIN 2.9 G/DL (3.2-5.2); ALKALINE PHOSPHATASE 54 U/L (46-116); ALT/SGPT 31 U/L (7.0-40); AST/SGOT 10 U/L (<34); BILIRUBIN,TOTAL 0.2 MG/DL (0.3-1.2); BLOOD UREA NITROGEN 15 MG/DL (9-23); CALCIUM LEVEL 8.4 MG/DL (8.3-10.6); CARBON DIOXIDE LEVEL > 40.0 MMOL/L (20-31); CHLORIDE LEVEL 98 MMOL/L (98-107); GLOMERULAR FILTRATION RATE > 60.0 (>39); GLUCOSE, FASTING 84 MG/DL (74-106); POTASSIUM SERUM 4.1 MMOL/L (3.5-5.1); SODIUM LEVEL 141 MMOL/L (136-145); TOTAL PROTEIN 5.2 G/DL (5.7-8.2)
[2023-05-16] MEDS: SYMBICORT 160/4.5MCG INHALER 6GM INH SCH ×2 (07:45→20:08)
[2023-05-16] MEDS: LEVALBUTEROL HFA 45MCG/ACT 15GM INHALER INH SCH ×4 (07:45→20:08)
[2023-05-16] MEDS: CEFTOLOZANE/TAZOBACTAM 3 GM in D5W 100 ML IV SCH ×3 (09:28→23:15)
[2023-05-16] MEDS: MULTIVITAMINS/MINERALS THERAP 1 TAB PO SCH (09:29)
[2023-05-16] MEDS: LACTOBACILLUS ACIDOPHILUS CAP (BACID) PO SCH ×2 (09:29→17:10)
[2023-05-16] MEDS: guaiFENesin ER 600 MG TAB PO SCH ×2 (09:29→21:13)
[2023-05-16] MEDS: predniSONE 20 MG TAB PO SCH (09:29)
[2023-05-16] MEDS: VITAMIN D 1,000 INTERNATIONAL UNITS TABLET PO SCH (09:29)
[2023-05-16] MEDS: APIXABAN 5 MG TAB (ELIQUIS) PO SCH ×2 (09:29→21:13)
[2023-05-16 09:31] VITALS: BP 114/60
[2023-05-16] MEDS: OYSTER SHELL CALCIUM 500 MG TAB PO SCH (09:31)
[2023-05-16] MEDS: DIGOXIN 0.125 MG TAB PO SCH (09:31)
[2023-05-16] MEDS: MAGNESIUM OXIDE 400MG TAB (MAG-OX) PO SCH (09:31)
[2023-05-16] MEDS: dilTIAZem 120MG **CD** CAPSULE PO SCH (09:31)
[2023-05-16] MEDS: GABAPENTIN 300 MG CAP PO SCH ×3 (09:31→21:13)
[2023-05-16] MEDS: OMEPRAZOLE 20MG CAP PO SCH (09:31)
[2023-05-16] MEDS: SPIRONOLACTONE 12.5MG PER 1/2 TABLET PO SCH (09:31)
[2023-05-16] MEDS: TOBRAMYCIN INHAL 300 MG/5 ML SOLN INH SCH ×2 (11:47→20:08)
[2023-05-16 14:00] VITALS: BP 130/68; TEMP 97.1; O2SAT 97
[2023-05-16] MEDS: CYCLOBENZAPRINE 10MG TABLET PO SCH (21:13)
[2023-05-16] MEDS: ANEXSIA, NORCO 7.5MG/325MG TABLET(HYDROCODONE/APAP) PO PRN (21:14)
[2023-05-17 05:51] VITALS: BP 106/64; TEMP 96.8; O2SAT 99
[2023-05-17] MEDS: NYSTATIN 500,000U/5ML SUSP UDC SS SCH ×4 (05:56→23:00)
[2023-05-17] MEDS: LEVOTHYROXINE 25MCG TABLET (0.025MG) PO SCH (05:56)
[2023-05-17 06:25] LABS: HEMATOCRIT 33.4 % (36.0-47.0); HEMOGLOBIN 10.3 g/dl (12.0-15.5); MEAN CORPUSCULAR HEMOGLOBIN 32.8 pg (27.0-33.0); MEAN CORPUSCULAR HGB CONC 30.8 g/dl (32.0-36.5); MEAN CORPUSCULAR VOLUME 106.4 fl (80.0-96.0); PLATELET COUNT, AUTOMATED 342 10^3/uL (150-450); RED BLOOD COUNT 3.14 10^6/uL (4.00-5.40); WHITE BLOOD COUNT 11.8 10^3/uL (4.0-10.0)
[2023-05-17 07:01] LABS: ALKALINE PHOSPHATASE 55 U/L (46-116); ALT/SGPT 31 U/L (7.0-40); AST/SGOT 9 U/L (<34); BILIRUBIN,TOTAL 0.2 MG/DL (0.3-1.2); BLOOD UREA NITROGEN 15 MG/DL (9-23); CALCIUM LEVEL 9.2 MG/DL (8.3-10.6); CARBON DIOXIDE LEVEL > 40.0 MMOL/L (20-31); CHLORIDE LEVEL 98 MMOL/L (98-107); CREATININE FOR GFR 0.56 MG/DL (0.55-1.30); GLOMERULAR FILTRATION RATE > 60.0 (>39); GLUCOSE, FASTING 97 MG/DL (74-106); POTASSIUM SERUM 4.1 MMOL/L (3.5-5.1); SODIUM LEVEL 140 MMOL/L (136-145); TOTAL PROTEIN 5.4 G/DL (5.7-8.2)
[2023-05-17] MEDS: LEVALBUTEROL HFA 45MCG/ACT 15GM INHALER INH SCH ×4 (07:41→19:22)
[2023-05-17] MEDS: TOBRAMYCIN INHAL 300 MG/5 ML SOLN INH SCH ×2 (07:42→19:21)
[2023-05-17] MEDS: SYMBICORT 160/4.5MCG INHALER 6GM INH SCH ×2 (07:42→19:21)
[2023-05-17] MEDS: predniSONE 20 MG TAB PO SCH (08:49)
[2023-05-17] MEDS: CEFTOLOZANE/TAZOBACTAM 3 GM in D5W 100 ML IV SCH ×3 (08:49→23:00)
[2023-05-17] MEDS: APIXABAN 5 MG TAB (ELIQUIS) PO SCH ×2 (08:50→20:35)
[2023-05-17] MEDS: OYSTER SHELL CALCIUM 500 MG TAB PO SCH (08:50)
[2023-05-17] MEDS: SPIRONOLACTONE 12.5MG PER 1/2 TABLET PO SCH (08:50)
[2023-05-17] MEDS: MAGNESIUM OXIDE 400MG TAB (MAG-OX) PO SCH (08:50)
[2023-05-17] MEDS: guaiFENesin ER 600 MG TAB PO SCH ×2 (08:50→20:35)
[2023-05-17] MEDS: OMEPRAZOLE 20MG CAP PO SCH (08:50)
[2023-05-17] MEDS: DIGOXIN 0.125 MG TAB PO SCH (08:50)
[2023-05-17] MEDS: MULTIVITAMINS/MINERALS THERAP 1 TAB PO SCH (08:50)
[2023-05-17] MEDS: LACTOBACILLUS ACIDOPHILUS CAP (BACID) PO SCH ×2 (08:50→17:02)
[2023-05-17] MEDS: VITAMIN D 1,000 INTERNATIONAL UNITS TABLET PO SCH (08:50)
[2023-05-17] MEDS: GABAPENTIN 300 MG CAP PO SCH ×3 (08:50→20:35)
[2023-05-17] MEDS: dilTIAZem 120MG **CD** CAPSULE PO SCH (08:51)
[2023-05-17 14:00] VITALS: BP 111/61; TEMP 97.9; O2SAT 96
[2023-05-17 20:00] VITALS: BP 127/61; TEMP 98.2; O2SAT 97
[2023-05-17] MEDS: ANEXSIA, NORCO 7.5MG/325MG TABLET(HYDROCODONE/APAP) PO PRN (20:35)
[2023-05-17] MEDS: CYCLOBENZAPRINE 10MG TABLET PO SCH (20:35)
[2023-05-18] MEDS: NYSTATIN 500,000U/5ML SUSP UDC SS SCH ×2 (05:28→11:39)
[2023-05-18] MEDS: LEVOTHYROXINE 25MCG TABLET (0.025MG) PO SCH (05:28)
[2023-05-18 06:00] VITALS: BP 123/62; TEMP 98.1; O2SAT 99
[2023-05-18 06:08] LABS: HEMATOCRIT 35.8 % (36.0-47.0); HEMOGLOBIN 11.3 g/dl (12.0-15.5); MEAN CORPUSCULAR HEMOGLOBIN 33.5 pg (27.0-33.0); MEAN CORPUSCULAR HGB CONC 31.6 g/dl (32.0-36.5); MEAN CORPUSCULAR VOLUME 106.2 fl (80.0-96.0); PLATELET COUNT, AUTOMATED 370 10^3/uL (150-450); RED BLOOD COUNT 3.37 10^6/uL (4.00-5.40); WHITE BLOOD COUNT 12.9 10^3/uL (4.0-10.0)
[2023-05-18 07:01] LABS: ALBUMIN 3.4 G/DL (3.2-5.2); ALKALINE PHOSPHATASE 59 U/L (46-116); ALT/SGPT 32 U/L (7.0-40); AST/SGOT < 8 U/L (<34); BILIRUBIN,TOTAL 0.3 MG/DL (0.3-1.2); BLOOD UREA NITROGEN 15 MG/DL (9-23); CALCIUM LEVEL 9.6 MG/DL (8.3-10.6); CARBON DIOXIDE LEVEL > 40.0 MMOL/L (20-31); CHLORIDE LEVEL 96 MMOL/L (98-107); GLOMERULAR FILTRATION RATE > 60.0 (>39); GLUCOSE, FASTING 89 MG/DL (74-106); POTASSIUM SERUM 4.2 MMOL/L (3.5-5.1); SODIUM LEVEL 139 MMOL/L (136-145); TOTAL PROTEIN 6.1 G/DL (5.7-8.2)
[2023-05-18] MEDS: SYMBICORT 160/4.5MCG INHALER 6GM INH SCH (07:31)
[2023-05-18] MEDS: LEVALBUTEROL HFA 45MCG/ACT 15GM INHALER INH SCH ×3 (07:31→14:17)
[2023-05-18] MEDS: TOBRAMYCIN INHAL 300 MG/5 ML SOLN INH SCH ×2 (08:00→13:53)
[2023-05-18] MEDS: CEFTOLOZANE/TAZOBACTAM 3 GM in D5W 100 ML IV SCH ×2 (08:14→14:01)
[2023-05-18] MEDS: predniSONE 20 MG TAB PO SCH (08:15)
[2023-05-18] MEDS: SPIRONOLACTONE 12.5MG PER 1/2 TABLET PO SCH (08:15)
[2023-05-18] MEDS: MAGNESIUM OXIDE 400MG TAB (MAG-OX) PO SCH (08:15)
[2023-05-18] MEDS: MULTIVITAMINS/MINERALS THERAP 1 TAB PO SCH (08:15)
[2023-05-18] MEDS: LACTOBACILLUS ACIDOPHILUS CAP (BACID) PO SCH (08:15)
[2023-05-18] MEDS: GABAPENTIN 300 MG CAP PO SCH ×2 (08:15→16:11)
[2023-05-18] MEDS: OYSTER SHELL CALCIUM 500 MG TAB PO SCH (08:15)
[2023-05-18] MEDS: VITAMIN D 1,000 INTERNATIONAL UNITS TABLET PO SCH (08:15)
[2023-05-18] MEDS: OMEPRAZOLE 20MG CAP PO SCH (08:15)
[2023-05-18] MEDS: dilTIAZem 120MG **CD** CAPSULE PO SCH (08:16)
[2023-05-18] MEDS: guaiFENesin ER 600 MG TAB PO SCH (08:16)
[2023-05-18] MEDS: APIXABAN 5 MG TAB (ELIQUIS) PO SCH (08:16)
[2023-05-18] MEDS: DIGOXIN 0.125 MG TAB PO SCH (08:16)
[2023-05-18] MEDS ORDERED: PRED5TA PO (09:03)
[2023-05-18] MEDS ORDERED: CARD120C3 PO (09:03)
[2023-05-18] MEDS ORDERED: OMEP-173 PO (09:03)
[2023-05-18 14:00] VITALS: BP 124/59; TEMP 98.1; O2SAT 96
== END 2023-05-18 17:59 | disposition home or self-care (01) | DRG 177 ==
LOC: M ED 13:50 → M ED INP 16:39 → M MSPAV 18:09
PROVIDERS: ADMIT Internal Medicine; ATTEND Family Medicine
DX: J15.1 Pneumonia due to Pseudomonas (principal); J96.21 Acute and chronic respiratory failure with hypoxia; J44.1 Chronic obstructive pulmonary disease with (acute) exacerbation; I48.20 Chronic atrial fibrillation, unspecified; J44.0 Chronic obstructive pulmonary disease with (acute) lower respiratory infection; J84.89 Other specified interstitial pulmonary diseases; I10 Essential (primary) hypertension; E03.9 Hypothyroidism, unspecified; J84.111 Idiopathic interstitial pneumonia, not otherwise specified; Z99.81 Dependence on supplemental oxygen; Z87.891 Personal history of nicotine dependence; M19.90 Unspecified osteoarthritis, unspecified site; Z79.899 Other long term (current) drug therapy

== ENCOUNTER 2023-06-02 01:25 | Emergency (ER) | payer MEDICARE ==
[~2023-06-02] VITALS: Ht 165.1 cm; Wt 75.0 kg
[~2023-06-02 01:25] MED LIST changes: +CARD120C3 PO; +DILT180C78 PO; +OMEP-173 PO
[2023-06-02] MEDS ORDERED: OXYMETAZOLINE 0.05% NASAL SPRAY (AFRIN) ONE (02:00)
[2023-06-02 03:48] VITALS: O2SAT 98
[2023-06-02 05:48] VITALS: BP 125/72; TEMP 98.4
[2023-06-03] MEDS ORDERED: [UNRECOGNIZED DRUG - CODE] NEB (16:32)
== END 2023-06-02 05:50 | disposition home or self-care (01) ==
LOC: M ED 01:25 → EDBD 01:25 → M ED 05:50
DX: R04.0 Epistaxis (principal); J44.9 Chronic obstructive pulmonary disease, unspecified; Z99.81 Dependence on supplemental oxygen; Z79.899 Other long term (current) drug therapy; Z79.01 Long term (current) use of anticoagulants

== ENCOUNTER 2023-06-03 09:06 | Inpatient (IN) | payer MEDICARE ==
[~2023-06-03] VITALS: Ht 165.1 cm; Wt 76.3 kg
[2023-06-03] VITALS (7 sets, daily range): BP systolic 113–134; BP diastolic 53–66; TEMP 98.3–99.4; O2SAT 93–96
[2023-06-03] MEDS: TOBRAMYCIN INHAL 300 MG/5 ML SOLN INH SCH ×2 (08:00→20:55)
[2023-06-03] MEDS ORDERED: ALBUTEROL SULFATE 2.5MG/0.5ML INH NEB SOLN INH ONE (09:25)
[2023-06-03] MEDS ORDERED: IPRATROPIUM 0.5MG/ALBUTEROL 2.5MG INH SOL UD 3ML (DUONEB) NEB ONE (09:25)
[2023-06-03 09:49] LABS: BASO % 0.1 % (0.0-1.0); EOS % 0.1 % (0.0-3.0); HEMATOCRIT 33.5 % (36.0-47.0); HEMOGLOBIN 11.3 g/dl (12.0-15.5); LYMPH # 0.3 10^3/uL (1.5-5.0); LYMPH % 2.1 % (24.0-44.0); MEAN CORPUSCULAR HEMOGLOBIN 33.2 pg (27.0-33.0); MEAN CORPUSCULAR HGB CONC 33.7 g/dl (32.0-36.5); MEAN CORPUSCULAR VOLUME 98.5 fl (80.0-96.0); MONO # 0.5 10^3/uL (0.0-0.8); NEUTROPHILS # 12.3 10^3/uL (1.5-8.5); NEUTROPHILS % 93.4 % (36.0-66.0); PLATELET COUNT, AUTOMATED 368 10^3/uL (150-450); WHITE BLOOD COUNT 13.2 10^3/uL (4.0-10.0)
[2023-06-03 09:54] LABS: ABG BASE EXCESS 5.2 (-2.0-2.0); ABG HCO3 33.8 MMOL/L (22.0-26.0); ABG O2 SATURATION 98.2 % (95.0-99.0); ABG PARTIAL PRESSURE O2 125.7 mmHg (75.0-100.0); ABG STANDARD HCO3 29.2 MMOL/L. (22.0-26.0); ABG pH (ARTERIAL) 7.289 UNITS (7.350-7.450)
[2023-06-03 09:55] LABS: ABG PARTIAL PRESSURE CO2 72.1 mmHg (35.0-45.0)
[2023-06-03] MEDS ORDERED: CEFEPIME HCL 2 GM in D5W MINI-BAG PLUS 50 ML IV ONE (09:55)
[2023-06-03 10:24] LABS: CK-MB VALUE MASS 5.7 NG/ML (<3.6)
[2023-06-03 10:26] LABS: CPK CREATINE PHOSPHOKINASE 84 U/L (34-145); MB/CK RELATIVE INDEX 6.78 (< OR =4)
[2023-06-03 10:27] LABS: ALBUMIN 3.5 G/DL (3.2-5.2); ALKALINE PHOSPHATASE 71 U/L (46-116); ALT/SGPT < 9 U/L (7.0-40); AST/SGOT < 8 U/L (<34); BILIRUBIN,DIRECT 0.1 MG/DL (<0.4); BILIRUBIN,TOTAL 0.4 MG/DL (0.3-1.2); BLOOD UREA NITROGEN 23 MG/DL (9-23); CALCIUM LEVEL 9.8 MG/DL (8.3-10.6); CARBON DIOXIDE LEVEL 36 MMOL/L (20-31); CHLORIDE LEVEL 91 MMOL/L (98-107); CREATININE FOR GFR 0.56 MG/DL (0.55-1.30); GLOMERULAR FILTRATION RATE > 60.0 (>39); GLUCOSE, FASTING 154 MG/DL (74-106); POTASSIUM SERUM 4.5 MMOL/L (3.5-5.1); SODIUM LEVEL 131 MMOL/L (136-145); TOTAL PROTEIN 6.6 G/DL (5.7-8.2)
[2023-06-03 10:28] LABS: THYROID STIMULATING HORMONE 2.131 uIU/ML (0.55-4.78); THYROXINE (T4) 8.7 UG/DL (4.5-10.9)
[2023-06-03] MEDS: LORazepam 2 MG/ML 1ML VIAL IV STA ×2 (10:31→11:08)
[2023-06-03] MEDS ORDERED: MED REC CURRENTLY UNOBTAINABLE XX SCH (11:20)
[2023-06-03] MEDS ORDERED: MED REC IN PROGRESS XX SCH (11:20)
[2023-06-03 11:40] LABS: CK-MB VALUE MASS 5.1 NG/ML (<3.6)
[2023-06-03 11:41] LABS: MB/CK RELATIVE INDEX 6.07 (< OR =4)
[2023-06-03] MEDS: IPRATROPIUM 0.5MG/ALBUTEROL 2.5MG INH SOL UD 3ML (DUONEB) NEB SCH ×3 (12:00→20:55)
[2023-06-03] MEDS ORDERED: METOPROLOL 5 MG/5 ML VIAL IV SCH (12:00)
[2023-06-03] MEDS: methylPREDNISolone 125MG 2ML VIAL IV SCH ×2 (13:03→20:07)
[2023-06-03] MEDS: FUROSEMIDE 20MG/2ML VIAL IV SCH ×2 (13:06→23:39)
[2023-06-03 14:03] LABS: ABG BASE EXCESS 6.7 (-2.0-2.0); ABG O2 SATURATION 68.6 % (95.0-99.0); ABG PARTIAL PRESSURE CO2 49.9 mmHg (35.0-45.0); ABG TOTAL CO2 33.5 MMOL/L (23.0-31.0); ABG pH (ARTERIAL) 7.425 UNITS (7.350-7.450)
[2023-06-03 14:35] LABS: ABG BASE EXCESS 8.4 (-2.0-2.0); ABG O2 SATURATION 95.4 % (95.0-99.0); ABG PARTIAL PRESSURE CO2 51.3 mmHg (35.0-45.0); ABG PARTIAL PRESSURE O2 76.4 mmHg (75.0-100.0); ABG STANDARD HCO3 32.2 MMOL/L. (22.0-26.0); ABG TOTAL CO2 35.6 MMOL/L (23.0-31.0); ABG pH (ARTERIAL) 7.439 UNITS (7.350-7.450)
[2023-06-03] MEDS ORDERED: [UNRECOGNIZED DRUG - CODE] NEB (16:32)
[2023-06-03] MEDS ORDERED: HOME MED LIST COMPLETE! XX SCH (16:35)
[2023-06-03 16:41] LABS: DIGOXIN LEVEL 1.4 NG/ML (0.8-2.0)
[2023-06-03] MEDS: METOPROLOL TART 12.5 MG PER 1/2 TAB PO SCH ×2 (17:08→23:39)
[2023-06-03] MEDS: CEFEPIME HCL 2 GM in D5W MINI-BAG PLUS 50 ML IV SCH (17:09)
[2023-06-03] MEDS ORDERED: ENOXAPARIN 80MG/0.8ML SYRINGE (J1650 PER 10MG) SC SCH (18:00)
[2023-06-03] MEDS: APIXABAN 5 MG TAB (ELIQUIS) PO SCH (20:06)
[2023-06-03] MEDS ORDERED: SODIUM CHLORIDE NASAL 0.65% SPRAY BTL (OCEAN) PRN (20:50)
[2023-06-04] VITALS (19 sets, daily range): BP systolic 119–138; BP diastolic 58–80; TEMP 97.9–98.1; O2SAT 81–98
[2023-06-04] MEDS: CEFEPIME HCL 2 GM in D5W MINI-BAG PLUS 50 ML IV SCH ×3 (01:21→18:18)
[2023-06-04] MEDS: methylPREDNISolone 125MG 2ML VIAL IV SCH ×3 (04:10→20:21)
[2023-06-04 04:37] LABS: HEMOGLOBIN 10.3 g/dl (12.0-15.5); MEAN CORPUSCULAR HEMOGLOBIN 32.9 pg (27.0-33.0); MEAN CORPUSCULAR HGB CONC 34.3 g/dl (32.0-36.5); MEAN CORPUSCULAR VOLUME 95.8 fl (80.0-96.0); PLATELET COUNT, AUTOMATED 362 10^3/uL (150-450); RED BLOOD COUNT 3.13 10^6/uL (4.00-5.40); WHITE BLOOD COUNT 10.3 10^3/uL (4.0-10.0)
[2023-06-04 05:04] LABS: ALBUMIN 3.3 G/DL (3.2-5.2); ALKALINE PHOSPHATASE 60 U/L (46-116); ALT/SGPT 16 U/L (7.0-40); AST/SGOT 10 U/L (<34); BILIRUBIN,TOTAL 0.3 MG/DL (0.3-1.2); BLOOD UREA NITROGEN 18 MG/DL (9-23); CALCIUM LEVEL 8.6 MG/DL (8.3-10.6); CARBON DIOXIDE LEVEL 39 MMOL/L (20-31); CHLORIDE LEVEL 88 MMOL/L (98-107); CREATININE FOR GFR 0.56 MG/DL (0.55-1.30); GLOMERULAR FILTRATION RATE > 60.0 (>39); GLUCOSE, FASTING 157 MG/DL (74-106); POTASSIUM SERUM 4.2 MMOL/L (3.5-5.1); SODIUM LEVEL 130 MMOL/L (136-145); TOTAL PROTEIN 6.2 G/DL (5.7-8.2)
[2023-06-04] MEDS: METOPROLOL TART 12.5 MG PER 1/2 TAB PO SCH (05:12)
[2023-06-04] MEDS: LEVOTHYROXINE 25MCG TABLET (0.025MG) PO SCH (05:12)
[2023-06-04] MEDS: IPRATROPIUM 0.5MG/ALBUTEROL 2.5MG INH SOL UD 3ML (DUONEB) NEB SCH ×4 (07:25→19:19)
[2023-06-04] MEDS: TOBRAMYCIN INHAL 300 MG/5 ML SOLN INH SCH ×2 (07:25→19:19)
[2023-06-04] MEDS ORDERED: SPIRONOLACTONE 12.5MG PER 1/2 TABLET PO SCH (09:00)
[2023-06-04] MEDS ORDERED: PANTOPRAZOLE 40MG VIAL IV SCH (09:00)
[2023-06-04] MEDS: APIXABAN 5 MG TAB (ELIQUIS) PO SCH ×2 (09:17→20:21)
[2023-06-04] MEDS: PANTOPRAZOLE 40MG TAB (PROTONIX) PO SCH (09:40)
[2023-06-04] MEDS: FUROSEMIDE 20MG/2ML VIAL IV SCH (12:14)
[2023-06-04] MEDS: DIGOXIN 0.125 MG TAB PO SCH (12:15)
[2023-06-04] MEDS: MAGNESIUM OXIDE 400MG TAB (MAG-OX) PO SCH (12:16)
[2023-06-04] MEDS: dilTIAZem 30 MG TAB PO SCH ×2 (12:16→18:21)
[2023-06-04] MEDS: SYMBICORT 160/4.5MCG INHALER 6GM INH SCH ×2 (14:54→19:19)
[2023-06-04] MEDS: GABAPENTIN 300 MG CAP PO SCH ×2 (16:16→20:21)
[2023-06-04] MEDS: LACTOBACILLUS ACIDOPHILUS CAP (BACID) PO SCH (18:20)
[2023-06-04] MEDS: guaiFENesin ER 600 MG TAB PO SCH (20:19)
[2023-06-04] MEDS: CYCLOBENZAPRINE 10MG TABLET PO SCH (20:21)
[2023-06-04] MEDS: ANEXSIA, NORCO 7.5MG/325MG TABLET(HYDROCODONE/APAP) PO PRN (20:43)
[2023-06-05] MEDS: IPRATROPIUM 0.5MG/ALBUTEROL 2.5MG INH SOL UD 3ML (DUONEB) NEB SCH ×7 (00:11→23:49)
[2023-06-05] MEDS: FUROSEMIDE 20MG/2ML VIAL IV SCH (01:40)
[2023-06-05] MEDS: dilTIAZem 30 MG TAB PO SCH ×4 (01:42→18:06)
[2023-06-05] MEDS: CEFEPIME HCL 2 GM in D5W MINI-BAG PLUS 50 ML IV SCH ×3 (01:43→18:05)
[2023-06-05] MEDS: methylPREDNISolone 125MG 2ML VIAL IV SCH ×3 (04:53→21:43)
[2023-06-05 05:52] LABS: ABG BASE EXCESS 9.7 (-2.0-2.0); ABG HCO3 35.5 MMOL/L (22.0-26.0); ABG O2 SATURATION 97.9 % (95.0-99.0); ABG PARTIAL PRESSURE CO2 54.1 mmHg (35.0-45.0); ABG PARTIAL PRESSURE O2 108.2 mmHg (75.0-100.0); ABG STANDARD HCO3 33.4 MMOL/L. (22.0-26.0); ABG TOTAL CO2 37.2 MMOL/L (23.0-31.0); ABG pH (ARTERIAL) 7.435 UNITS (7.350-7.450)
[2023-06-05] MEDS: LEVOTHYROXINE 25MCG TABLET (0.025MG) PO SCH (05:52)
[2023-06-05 06:00] VITALS: BP 127/52; TEMP 97.7; O2SAT 94
[2023-06-05 06:28] LABS: HEMATOCRIT 31.9 % (36.0-47.0); MEAN CORPUSCULAR HEMOGLOBIN 33.1 pg (27.0-33.0); MEAN CORPUSCULAR HGB CONC 34.5 g/dl (32.0-36.5); MEAN CORPUSCULAR VOLUME 96.1 fl (80.0-96.0); PLATELET COUNT, AUTOMATED 416 10^3/uL (150-450); RED BLOOD COUNT 3.32 10^6/uL (4.00-5.40)
[2023-06-05 07:00] LABS: ALBUMIN 3.5 G/DL (3.2-5.2); ALKALINE PHOSPHATASE 61 U/L (46-116); ALT/SGPT < 9 U/L (7.0-40); AST/SGOT 15 U/L (<34); BILIRUBIN,TOTAL 0.3 MG/DL (0.3-1.2); BLOOD UREA NITROGEN 23 MG/DL (9-23); CALCIUM LEVEL 8.9 MG/DL (8.3-10.6); CARBON DIOXIDE LEVEL 36 MMOL/L (20-31); CHLORIDE LEVEL 82 MMOL/L (98-107); CREATININE FOR GFR 0.71 MG/DL (0.55-1.30); GLOMERULAR FILTRATION RATE > 60.0 (>39); GLUCOSE, FASTING 160 MG/DL (74-106); POTASSIUM SERUM 3.9 MMOL/L (3.5-5.1); SODIUM LEVEL 126 MMOL/L (136-145); TOTAL PROTEIN 6.3 G/DL (5.7-8.2)
[2023-06-05] MEDS: TOBRAMYCIN INHAL 300 MG/5 ML SOLN INH SCH ×2 (08:00→20:00)
[2023-06-05] MEDS: SYMBICORT 160/4.5MCG INHALER 6GM INH SCH ×2 (08:33→20:02)
[2023-06-05] MEDS ORDERED: LEVOTHYROXINE 25MCG TABLET (0.025MG) PO SCH (09:00)
[2023-06-05] MEDS: LACTOBACILLUS ACIDOPHILUS CAP (BACID) PO SCH ×2 (09:36→18:06)
[2023-06-05] MEDS: guaiFENesin ER 600 MG TAB PO SCH ×2 (09:36→21:44)
[2023-06-05] MEDS: GABAPENTIN 300 MG CAP PO SCH ×3 (09:36→21:44)
[2023-06-05] MEDS: PANTOPRAZOLE 40MG TAB (PROTONIX) PO SCH (09:37)
[2023-06-05] MEDS: MAGNESIUM OXIDE 400MG TAB (MAG-OX) PO SCH (09:39)
[2023-06-05] MEDS: DIGOXIN 0.125 MG TAB PO SCH (09:39)
[2023-06-05] MEDS: APIXABAN 5 MG TAB (ELIQUIS) PO SCH ×2 (09:39→21:43)
[2023-06-05 10:33] LABS: OSMOLALITY URINE 369 MOSM/KG (50-1400)
[2023-06-05 10:44] LABS: SODIUM,RANDOM URINE < 10 MMOL/L
[2023-06-05] MEDS: FUROSEMIDE 40MG/4ML VIAL IV SCH (13:18)
[2023-06-05 14:00] VITALS: BP 127/74; TEMP 97.5; O2SAT 94
[2023-06-05 20:50] VITALS: BP 112/61; TEMP 96.8; O2SAT 85
[2023-06-05 20:51] VITALS: O2SAT 92
[2023-06-05] MEDS: CYCLOBENZAPRINE 10MG TABLET PO SCH (21:43)
[2023-06-05] MEDS: ANEXSIA, NORCO 7.5MG/325MG TABLET(HYDROCODONE/APAP) PO PRN (21:44)
[2023-06-05] MEDS: LEVALBUTEROL HFA 45MCG/ACT 15GM INHALER INH PRN (23:52)
[2023-06-06] VITALS (8 sets, daily range): BP systolic 102–140; BP diastolic 61–81; TEMP 97.2–98.1; O2SAT 91–98
[2023-06-06] MEDS: FUROSEMIDE 40MG/4ML VIAL IV SCH ×2 (01:13→12:04)
[2023-06-06] MEDS: dilTIAZem 30 MG TAB PO SCH ×4 (01:13→17:06)
[2023-06-06] MEDS: CEFEPIME HCL 2 GM in D5W MINI-BAG PLUS 50 ML IV SCH ×2 (01:13→09:11)
[2023-06-06] MEDS: LEVALBUTEROL HFA 45MCG/ACT 15GM INHALER INH PRN ×2 (03:52→20:09)
[2023-06-06] MEDS: IPRATROPIUM 0.5MG/ALBUTEROL 2.5MG INH SOL UD 3ML (DUONEB) NEB SCH ×4 (03:54→20:00)
[2023-06-06] MEDS: methylPREDNISolone 125MG 2ML VIAL IV SCH ×3 (05:41→21:14)
[2023-06-06] MEDS: LEVOTHYROXINE 25MCG TABLET (0.025MG) PO SCH (05:42)
[2023-06-06 05:56] LABS: HEMATOCRIT 30.1 % (36.0-47.0); HEMOGLOBIN 10.4 g/dl (12.0-15.5); MEAN CORPUSCULAR HEMOGLOBIN 33.3 pg (27.0-33.0); MEAN CORPUSCULAR HGB CONC 34.6 g/dl (32.0-36.5); MEAN CORPUSCULAR VOLUME 96.5 fl (80.0-96.0); PLATELET COUNT, AUTOMATED 368 10^3/uL (150-450); RED BLOOD COUNT 3.12 10^6/uL (4.00-5.40); WHITE BLOOD COUNT 16.1 10^3/uL (4.0-10.0)
[2023-06-06 06:25] LABS: ALBUMIN 3.2 G/DL (3.2-5.2); ALKALINE PHOSPHATASE 58 U/L (46-116); ALT/SGPT 27 U/L (7.0-40); AST/SGOT 12 U/L (<34); BILIRUBIN,TOTAL 0.3 MG/DL (0.3-1.2); BLOOD UREA NITROGEN 30 MG/DL (9-23); CALCIUM LEVEL 10.2 MG/DL (8.3-10.6); CARBON DIOXIDE LEVEL > 40.0 MMOL/L (20-31); CHLORIDE LEVEL 85 MMOL/L (98-107); CREATININE FOR GFR 0.79 MG/DL (0.55-1.30); GLOMERULAR FILTRATION RATE > 60.0 (>39); GLUCOSE, FASTING 182 MG/DL (74-106); SODIUM LEVEL 129 MMOL/L (136-145); TOTAL PROTEIN 5.9 G/DL (5.7-8.2)
[2023-06-06] MEDS: TOBRAMYCIN INHAL 300 MG/5 ML SOLN INH SCH ×2 (08:00→20:09)
[2023-06-06] MEDS: SYMBICORT 160/4.5MCG INHALER 6GM INH SCH ×2 (08:13→20:09)
[2023-06-06] MEDS: GABAPENTIN 300 MG CAP PO SCH ×3 (09:09→21:15)
[2023-06-06] MEDS: guaiFENesin ER 600 MG TAB PO SCH ×2 (09:09→21:15)
[2023-06-06] MEDS: LACTOBACILLUS ACIDOPHILUS CAP (BACID) PO SCH ×2 (09:09→17:05)
[2023-06-06] MEDS: MAGNESIUM OXIDE 400MG TAB (MAG-OX) PO SCH (09:09)
[2023-06-06] MEDS: PANTOPRAZOLE 40MG TAB (PROTONIX) PO SCH (09:10)
[2023-06-06] MEDS: APIXABAN 5 MG TAB (ELIQUIS) PO SCH ×2 (09:10→21:15)
[2023-06-06] MEDS: DIGOXIN 0.125 MG TAB PO SCH (09:10)
[2023-06-06] MEDS ORDERED: TOLVAPTAN 7.5 MG HALF-TAB PO ONE (11:25)
[2023-06-06] MEDS: NYSTATIN 500,000U/5ML SUSP UDC SS SCH ×2 (19:55→21:15)
[2023-06-06 20:34] LABS: PROCALCITONIN 0.06 ng/ml
[2023-06-06] MEDS ORDERED: dilTIAZem 30 MG TAB PO ONE (21:00)
[2023-06-06] MEDS: CYCLOBENZAPRINE 10MG TABLET PO SCH (21:15)
[2023-06-06] MEDS: CEFDINIR 300 MG CAP (OMNICEF) PO SCH (21:15)
[2023-06-06] MEDS: ANEXSIA, NORCO 7.5MG/325MG TABLET(HYDROCODONE/APAP) PO PRN (21:16)
[2023-06-06 21:52] LABS: C REACTIVE PROTEIN QUANTITATIV 1.2 MG/DL (<1.0)
[2023-06-06] MEDS: LEVALBUTEROL 1.25MG/3ML NEB SOLN INH SCH (23:42)
[2023-06-06] MEDS: IPRATROPIUM 0.02% SOLN 0.5MG 2.5ML NEB INH SCH (23:42)
[2023-06-07] MEDS: FLUTICASONE PROP 0.05% NASAL SPRAY 16 GM (FLONASE) NARES SCH ×3 (01:03→22:17)
[2023-06-07] MEDS: dilTIAZem 30 MG TAB PO SCH ×2 (01:04→05:43)
[2023-06-07] MEDS: FUROSEMIDE 40MG/4ML VIAL IV SCH (01:04)
[2023-06-07 02:00] VITALS: BP 129/78; TEMP 97.3; O2SAT 95
[2023-06-07] MEDS: LEVALBUTEROL 1.25MG/3ML NEB SOLN INH SCH ×5 (04:30→21:31)
[2023-06-07] MEDS: IPRATROPIUM 0.02% SOLN 0.5MG 2.5ML NEB INH SCH ×5 (04:30→21:31)
[2023-06-07 05:37] VITALS: BP 121/68; TEMP 97.2; O2SAT 92
[2023-06-07] MEDS: LEVOTHYROXINE 25MCG TABLET (0.025MG) PO SCH (05:43)
[2023-06-07] MEDS: methylPREDNISolone 125MG 2ML VIAL IV SCH (05:43)
[2023-06-07 06:10] LABS: HEMATOCRIT 34.8 % (36.0-47.0); HEMOGLOBIN 11.6 g/dl (12.0-15.5); MEAN CORPUSCULAR HGB CONC 33.3 g/dl (32.0-36.5); MEAN CORPUSCULAR VOLUME 98.9 fl (80.0-96.0); PLATELET COUNT, AUTOMATED 422 10^3/uL (150-450); RED BLOOD COUNT 3.52 10^6/uL (4.00-5.40); WHITE BLOOD COUNT 20.7 10^3/uL (4.0-10.0)
[2023-06-07 06:47] LABS: DIGOXIN LEVEL 0.9 NG/ML (0.8-2.0)
[2023-06-07 06:51] LABS: ALBUMIN 3.6 G/DL (3.2-5.2); ALKALINE PHOSPHATASE 66 U/L (46-116); ALT/SGPT 36 U/L (7.0-40); AST/SGOT 11 U/L (<34); BILIRUBIN,TOTAL 0.3 MG/DL (0.3-1.2); BLOOD UREA NITROGEN 42 MG/DL (9-23); CALCIUM LEVEL 10.6 MG/DL (8.3-10.6); CARBON DIOXIDE LEVEL > 40.0 MMOL/L (20-31); CHLORIDE LEVEL 84 MMOL/L (98-107); CREATININE FOR GFR 0.95 MG/DL (0.55-1.30); GLOMERULAR FILTRATION RATE > 60.0 (>39); GLUCOSE, FASTING 165 MG/DL (74-106); MAGNESIUM LEVEL 2.1 MG/DL (1.8-2.4); POTASSIUM SERUM 3.6 MMOL/L (3.5-5.1); SODIUM LEVEL 134 MMOL/L (136-145); TOTAL PROTEIN 6.6 G/DL (5.7-8.2)
[2023-06-07] MEDS: NYSTATIN 500,000U/5ML SUSP UDC SS SCH ×4 (08:13→22:17)
[2023-06-07] MEDS: MAGNESIUM OXIDE 400MG TAB (MAG-OX) PO SCH (08:14)
[2023-06-07] MEDS: PANTOPRAZOLE 40MG TAB (PROTONIX) PO SCH (08:14)
[2023-06-07] MEDS: LACTOBACILLUS ACIDOPHILUS CAP (BACID) PO SCH ×2 (08:14→18:40)
[2023-06-07] MEDS: CEFDINIR 300 MG CAP (OMNICEF) PO SCH (08:14)
[2023-06-07] MEDS: GABAPENTIN 300 MG CAP PO SCH ×3 (08:14→22:17)
[2023-06-07] MEDS: guaiFENesin ER 600 MG TAB PO SCH ×2 (08:14→22:17)
[2023-06-07] MEDS: DIGOXIN 0.125 MG TAB PO SCH (08:14)
[2023-06-07] MEDS: APIXABAN 5 MG TAB (ELIQUIS) PO SCH ×2 (08:14→22:17)
[2023-06-07 09:08] LABS: PROCALCITONIN 0.07 ng/ml
[2023-06-07] MEDS: SYMBICORT 160/4.5MCG INHALER 6GM INH SCH ×2 (09:40→21:34)
[2023-06-07] MEDS: TOBRAMYCIN INHAL 300 MG/5 ML SOLN INH SCH ×2 (09:41→21:31)
[2023-06-07 10:00] VITALS: BP 126/68; TEMP 98.1; O2SAT 93
[2023-06-07 10:18] LABS: ERYTHROCYTE SEDIMENTATION RATE 15 mm/hr (0-30)
[2023-06-07] MEDS: DIGOXIN INJ 0.5 MG/2 ML AMP IV SCH ×2 (12:57→18:40)
[2023-06-07 14:00] VITALS: BP 121/71; TEMP 97.8; O2SAT 98
[2023-06-07 18:00] VITALS: BP 125/79; TEMP 98.1; O2SAT 93
[2023-06-07 20:55] VITALS: BP 112/62; TEMP 97.5; O2SAT 93
[2023-06-07] MEDS ORDERED: methylPREDNISolone 40MG 1ML VIAL IV SCH (21:00)
[2023-06-07] MEDS ORDERED: dilTIAZem 120MG **CD** CAPSULE PO SCH (21:00)
[2023-06-07] MEDS: CYCLOBENZAPRINE 10MG TABLET PO SCH (22:17)
[2023-06-07] MEDS: ANEXSIA, NORCO 7.5MG/325MG TABLET(HYDROCODONE/APAP) PO PRN (22:18)
[2023-06-08] VITALS (7 sets, daily range): BP systolic 113–123; BP diastolic 48–73; TEMP 97–98.7; O2SAT 92–95
[2023-06-08] MEDS: LEVALBUTEROL 1.25MG/3ML NEB SOLN INH SCH ×7 (00:02→23:58)
[2023-06-08] MEDS: IPRATROPIUM 0.02% SOLN 0.5MG 2.5ML NEB INH SCH ×7 (00:02→23:58)
[2023-06-08 05:48] LABS: VENOUS BASE EXCESS 14.7 (-2.0-2.0); VENOUS HCO3 43.6 MMOL/L (23.0-27.0); VENOUS O2 SATURATION 76.9 % (60.0-80.0); VENOUS PARTIAL PRESSURE CO2 78.2 mmHg (38.0-50.0); VENOUS PARTIAL PRESSURE O2 45.1 mmHg (30.0-50.0); VENOUS PH 7.364 UNITS (7.330-7.430)
[2023-06-08 05:59] LABS: HEMATOCRIT 36.8 % (36.0-47.0); HEMOGLOBIN 11.8 g/dl (12.0-15.5); MEAN CORPUSCULAR HEMOGLOBIN 32.9 pg (27.0-33.0); MEAN CORPUSCULAR HGB CONC 32.1 g/dl (32.0-36.5); MEAN CORPUSCULAR VOLUME 102.5 fl (80.0-96.0); PLATELET COUNT, AUTOMATED 410 10^3/uL (150-450); RED BLOOD COUNT 3.59 10^6/uL (4.00-5.40); WHITE BLOOD COUNT 21.5 10^3/uL (4.0-10.0)
[2023-06-08] MEDS: LEVOTHYROXINE 25MCG TABLET (0.025MG) PO SCH (06:05)
[2023-06-08 06:37] LABS: DIGOXIN LEVEL 1.7 NG/ML (0.8-2.0)
[2023-06-08 06:39] LABS: ALBUMIN 3.3 G/DL (3.2-5.2); ALKALINE PHOSPHATASE 62 U/L (46-116); ALT/SGPT 29 U/L (7.0-40); AST/SGOT < 8 U/L (<34); BILIRUBIN,TOTAL 0.3 MG/DL (0.3-1.2); BLOOD UREA NITROGEN 48 MG/DL (9-23); CALCIUM LEVEL 10.5 MG/DL (8.3-10.6); CARBON DIOXIDE LEVEL > 40.0 MMOL/L (20-31); CHLORIDE LEVEL 87 MMOL/L (98-107); CREATININE FOR GFR 0.95 MG/DL (0.55-1.30); GLOMERULAR FILTRATION RATE > 60.0 (>39); GLUCOSE, FASTING 161 MG/DL (74-106); POTASSIUM SERUM 4.2 MMOL/L (3.5-5.1); SODIUM LEVEL 136 MMOL/L (136-145)
[2023-06-08] MEDS ORDERED: dilTIAZem 60 MG TAB PO ONE (07:00)
[2023-06-08] MEDS ORDERED: MIDODRINE 5 MG TAB PO ONE ×2 (07:00→11:15)
[2023-06-08] MEDS: TOBRAMYCIN INHAL 300 MG/5 ML SOLN INH SCH ×2 (07:51→20:00)
[2023-06-08] MEDS: SYMBICORT 160/4.5MCG INHALER 6GM INH SCH ×3 (07:51→20:00)
[2023-06-08] MEDS: guaiFENesin ER 600 MG TAB PO SCH ×2 (08:17→22:35)
[2023-06-08] MEDS: TORSEMIDE 20 MG TAB PO SCH (08:17)
[2023-06-08] MEDS: NYSTATIN 500,000U/5ML SUSP UDC SS SCH ×4 (08:17→22:35)
[2023-06-08] MEDS: PANTOPRAZOLE 40MG TAB (PROTONIX) PO SCH (08:18)
[2023-06-08] MEDS: DIGOXIN 0.125 MG TAB PO SCH (08:18)
[2023-06-08] MEDS: LACTOBACILLUS ACIDOPHILUS CAP (BACID) PO SCH ×2 (08:18→17:36)
[2023-06-08] MEDS: GABAPENTIN 300 MG CAP PO SCH ×3 (08:18→22:35)
[2023-06-08] MEDS: APIXABAN 5 MG TAB (ELIQUIS) PO SCH (08:18)
[2023-06-08] MEDS: predniSONE 20 MG TAB PO SCH (08:18)
[2023-06-08] MEDS: MAGNESIUM OXIDE 400MG TAB (MAG-OX) PO SCH (08:18)
[2023-06-08] MEDS: FLUTICASONE PROP 0.05% NASAL SPRAY 16 GM (FLONASE) NARES SCH (08:19)
[2023-06-08] MEDS: dilTIAZem 60 MG TAB PO SCH ×3 (12:04→22:37)
[2023-06-08] MEDS ORDERED: SODIUM CHLORIDE 0.9% NASAL GEL 15GM (AYR) PRN (12:20)
[2023-06-08] MEDS ORDERED: OXYMETAZOLINE 0.05% NASAL SPRAY (AFRIN) ONE ×2 (16:00→20:20)
[2023-06-08] MEDS: CYCLOBENZAPRINE 10MG TABLET PO SCH (22:35)
[2023-06-08] MEDS: ANEXSIA, NORCO 7.5MG/325MG TABLET(HYDROCODONE/APAP) PO PRN (22:38)
[2023-06-09] VITALS (8 sets, daily range): BP systolic 113–133; BP diastolic 46–99; TEMP 97.2–98.6; O2SAT 86–94
[2023-06-09] MEDS: IPRATROPIUM 0.02% SOLN 0.5MG 2.5ML NEB INH SCH ×5 (04:01→20:01)
[2023-06-09] MEDS: LEVALBUTEROL 1.25MG/3ML NEB SOLN INH SCH ×5 (04:01→20:01)
[2023-06-09 06:15] LABS: HEMATOCRIT 35.1 % (36.0-47.0); HEMOGLOBIN 11.3 g/dl (12.0-15.5); MEAN CORPUSCULAR HGB CONC 32.2 g/dl (32.0-36.5); MEAN CORPUSCULAR VOLUME 102.6 fl (80.0-96.0); PLATELET COUNT, AUTOMATED 380 10^3/uL (150-450); RED BLOOD COUNT 3.42 10^6/uL (4.00-5.40); WHITE BLOOD COUNT 18.2 10^3/uL (4.0-10.0)
[2023-06-09] MEDS: LEVOTHYROXINE 25MCG TABLET (0.025MG) PO SCH (06:17)
[2023-06-09] MEDS: dilTIAZem 60 MG TAB PO SCH (06:17)
[2023-06-09 06:43] LABS: DIGOXIN LEVEL 1.2 NG/ML (0.8-2.0)
[2023-06-09 06:44] LABS: BLOOD UREA NITROGEN 59 MG/DL (9-23); CALCIUM LEVEL 9.2 MG/DL (8.3-10.6); CARBON DIOXIDE LEVEL > 40.0 MMOL/L (20-31); CHLORIDE LEVEL 88 MMOL/L (98-107); CREATININE FOR GFR 1.01 MG/DL (0.55-1.30); GLOMERULAR FILTRATION RATE 56.6 (>39); GLUCOSE, FASTING 125 MG/DL (74-106); POTASSIUM SERUM 3.9 MMOL/L (3.5-5.1); SODIUM LEVEL 136 MMOL/L (136-145)
[2023-06-09] MEDS ORDERED: DIGOXIN INJ 0.5 MG/2 ML AMP IV STA (06:44)
[2023-06-09] MEDS ORDERED: MIDODRINE 5 MG TAB PO ONE (07:00)
[2023-06-09] MEDS: SYMBICORT 160/4.5MCG INHALER 6GM INH SCH ×2 (07:25→20:01)
[2023-06-09] MEDS: TOBRAMYCIN INHAL 300 MG/5 ML SOLN INH SCH ×2 (07:25→20:13)
[2023-06-09 07:56] LABS: ATYPICAL LYMPH 1 % (0-5); EOSINOPHILS 1 % (0-3); LYMPHOCYTES 7 % (16-44); METAMYELOCYTES 1 % (0-0); MONOCYTES 10 % (0-5); MYELOCYTES 5 % (0-0); NEUTROPHILS 73 % (28-66)
[2023-06-09 07:59] LABS: PLATELET ESTIMATE NORMAL (NORMAL)
[2023-06-09] MEDS: PANTOPRAZOLE 40MG TAB (PROTONIX) PO SCH ×2 (09:00→09:10)
[2023-06-09] MEDS: guaiFENesin ER 600 MG TAB PO SCH ×3 (09:00→20:48)
[2023-06-09] MEDS: NYSTATIN 500,000U/5ML SUSP UDC SS SCH ×4 (09:09→20:48)
[2023-06-09] MEDS: TORSEMIDE 20 MG TAB PO SCH (09:10)
[2023-06-09] MEDS: MAGNESIUM OXIDE 400MG TAB (MAG-OX) PO SCH (09:10)
[2023-06-09] MEDS: GABAPENTIN 300 MG CAP PO SCH ×3 (09:10→20:48)
[2023-06-09] MEDS: LACTOBACILLUS ACIDOPHILUS CAP (BACID) PO SCH ×2 (09:10→17:03)
[2023-06-09] MEDS: DIGOXIN 0.125 MG TAB PO SCH (09:11)
[2023-06-09] MEDS: MIDODRINE 5 MG TAB PO SCH ×3 (09:11→15:27)
[2023-06-09] MEDS: predniSONE 20 MG TAB PO SCH (09:11)
[2023-06-09] MEDS ORDERED: dilTIAZem 120MG **CD** CAPSULE PO ONE (12:25)
[2023-06-09] MEDS ORDERED: dilTIAZem 60 MG TAB PO ONE (12:35)
[2023-06-09] MEDS: CYCLOBENZAPRINE 10MG TABLET PO SCH (20:50)
[2023-06-09] MEDS ORDERED: dilTIAZem 60 MG TAB PO SCH (21:00)
[2023-06-09] MEDS ORDERED: dilTIAZem **CD** 180MG CAP PO SCH (21:00)
[2023-06-09] MEDS: ANEXSIA, NORCO 7.5MG/325MG TABLET(HYDROCODONE/APAP) PO PRN (21:32)
[2023-06-10] VITALS (7 sets, daily range): BP systolic 107–130; BP diastolic 56–72; TEMP 97–98.2; O2SAT 91–98
[2023-06-10] MEDS: IPRATROPIUM 0.02% SOLN 0.5MG 2.5ML NEB INH SCH ×5 (01:21→15:21)
[2023-06-10] MEDS: LEVALBUTEROL 1.25MG/3ML NEB SOLN INH SCH ×7 (01:21→22:58)
[2023-06-10] MEDS: LEVOTHYROXINE 25MCG TABLET (0.025MG) PO SCH (05:47)
[2023-06-10 06:34] LABS: HEMATOCRIT 35.2 % (36.0-47.0); HEMOGLOBIN 11.5 g/dl (12.0-15.5); MEAN CORPUSCULAR HEMOGLOBIN 33.1 pg (27.0-33.0); MEAN CORPUSCULAR HGB CONC 32.7 g/dl (32.0-36.5); MEAN CORPUSCULAR VOLUME 101.4 fl (80.0-96.0); PLATELET COUNT, AUTOMATED 364 10^3/uL (150-450); RED BLOOD COUNT 3.47 10^6/uL (4.00-5.40); WHITE BLOOD COUNT 18.3 10^3/uL (4.0-10.0)
[2023-06-10 07:09] LABS: DIGOXIN LEVEL 1.4 NG/ML (0.8-2.0)
[2023-06-10 07:11] LABS: BLOOD UREA NITROGEN 55 MG/DL (9-23); CALCIUM LEVEL 9.2 MG/DL (8.3-10.6); CARBON DIOXIDE LEVEL > 40.0 MMOL/L (20-31); CHLORIDE LEVEL 85 MMOL/L (98-107); CREATININE FOR GFR 0.86 MG/DL (0.55-1.30); GLOMERULAR FILTRATION RATE > 60.0 (>39); GLUCOSE, FASTING 106 MG/DL (74-106); POTASSIUM SERUM 3.9 MMOL/L (3.5-5.1); SODIUM LEVEL 136 MMOL/L (136-145)
[2023-06-10 07:17] LABS: ATYPICAL LYMPH 1 % (0-5); LYMPHOCYTES 9 % (16-44); METAMYELOCYTES 2 % (0-0); MONOCYTES 6 % (0-5); MYELOCYTES 9 % (0-0); NEUTROPHILS 72 % (28-66); PLATELET CLUMPS SMALL AMT; PLATELET ESTIMATE NORMAL (NORMAL)
[2023-06-10 07:18] LABS: POLYCHROMASIA 1+
[2023-06-10 07:20] LABS: OVALOCYTES 1+
[2023-06-10] MEDS: SYMBICORT 160/4.5MCG INHALER 6GM INH SCH ×2 (07:28→19:32)
[2023-06-10] MEDS: TOBRAMYCIN INHAL 300 MG/5 ML SOLN INH SCH ×2 (07:28→19:32)
[2023-06-10] MEDS ORDERED: dilTIAZem 60 MG TAB PO ONE (09:00)
[2023-06-10] MEDS: guaiFENesin ER 600 MG TAB PO SCH (09:00)
[2023-06-10] MEDS: DIGOXIN 0.125 MG TAB PO SCH (09:26)
[2023-06-10] MEDS: predniSONE 20 MG TAB PO SCH (09:27)
[2023-06-10] MEDS: LACTOBACILLUS ACIDOPHILUS CAP (BACID) PO SCH ×2 (09:27→17:42)
[2023-06-10] MEDS: TORSEMIDE 20 MG TAB PO SCH (09:27)
[2023-06-10] MEDS: GABAPENTIN 300 MG CAP PO SCH ×4 (09:27→22:35)
[2023-06-10] MEDS: MIDODRINE 5 MG TAB PO SCH ×3 (09:27→17:42)
[2023-06-10] MEDS: MAGNESIUM OXIDE 400MG TAB (MAG-OX) PO SCH (09:27)
[2023-06-10] MEDS: PANTOPRAZOLE 40MG TAB (PROTONIX) PO SCH (09:28)
[2023-06-10] MEDS: NYSTATIN 500,000U/5ML SUSP UDC SS SCH ×4 (09:28→22:35)
[2023-06-10] MEDS ORDERED: DIGOXIN INJ 0.5 MG/2 ML AMP IV ONE (12:15)
[2023-06-10] MEDS ORDERED: ACETAMINOPHEN 325MG/10.15ML UDC GT PRN (12:25)
[2023-06-10] MEDS: ACETAMINOPHEN 325MG/10.15ML UDC PO PRN (13:00)
[2023-06-10] MEDS: dilTIAZem 60 MG TAB PO SCH ×2 (14:58→22:36)
[2023-06-10] MEDS ORDERED: NITROGLYCERIN 0.4MG SUBL TABLET SL PRN (16:00)
[2023-06-10 17:09] LABS: CK-MB VALUE MASS < 1.0 NG/ML (<3.6)
[2023-06-10 17:10] LABS: CPK CREATINE PHOSPHOKINASE 20 U/L (34-145)
[2023-06-10] MEDS: CYCLOBENZAPRINE 10MG TABLET PO SCH (22:35)
[2023-06-10] MEDS: guaiFENesin DM LIQ 10ML UD PO PRN (22:36)
[2023-06-10] MEDS: ANEXSIA, NORCO 7.5MG/325MG TABLET(HYDROCODONE/APAP) PO PRN (22:36)
[2023-06-11 02:00] VITALS: BP 124/58; TEMP 98.4; O2SAT 89
[2023-06-11] MEDS: LEVALBUTEROL 1.25MG/3ML NEB SOLN INH SCH ×5 (03:17→19:52)
[2023-06-11 05:09] VITALS: BP 130/82; TEMP 97.7; O2SAT 91
[2023-06-11] MEDS: LEVOTHYROXINE 25MCG TABLET (0.025MG) PO SCH (05:35)
[2023-06-11] MEDS: dilTIAZem 60 MG TAB PO SCH ×3 (05:35→21:55)
[2023-06-11] MEDS: guaiFENesin DM LIQ 10ML UD PO PRN ×2 (05:35→21:54)
[2023-06-11 06:36] LABS: VENOUS BASE EXCESS 20.6 (-2.0-2.0); VENOUS HCO3 48.3 MMOL/L (23.0-27.0); VENOUS O2 SATURATION 93.5 % (60.0-80.0); VENOUS PARTIAL PRESSURE CO2 69.3 mmHg (38.0-50.0); VENOUS PARTIAL PRESSURE O2 68.6 mmHg (30.0-50.0); VENOUS PH 7.461 UNITS (7.330-7.430); VENOUS TOTAL CO2 50.4 MMOL/L (24.0-28.0)
[2023-06-11 06:44] LABS: HEMOGLOBIN 11.7 g/dl (12.0-15.5); MEAN CORPUSCULAR HEMOGLOBIN 32.9 pg (27.0-33.0); MEAN CORPUSCULAR HGB CONC 32.5 g/dl (32.0-36.5); MEAN CORPUSCULAR VOLUME 101.1 fl (80.0-96.0); PLATELET COUNT, AUTOMATED 311 10^3/uL (150-450); RED BLOOD COUNT 3.56 10^6/uL (4.00-5.40); WHITE BLOOD COUNT 20.6 10^3/uL (4.0-10.0)
[2023-06-11] MEDS ORDERED: DIGOXIN INJ 0.5 MG/2 ML AMP IV ONE (07:00)
[2023-06-11 07:09] LABS: DIGOXIN LEVEL 1.4 NG/ML (0.8-2.0)
[2023-06-11 07:10] LABS: BLOOD UREA NITROGEN 52 MG/DL (9-23); CALCIUM LEVEL 9.6 MG/DL (8.3-10.6); CARBON DIOXIDE LEVEL > 40.0 MMOL/L (20-31); CHLORIDE LEVEL 85 MMOL/L (98-107); CREATININE FOR GFR 0.88 MG/DL (0.55-1.30); GLOMERULAR FILTRATION RATE > 60.0 (>39); GLUCOSE, FASTING 123 MG/DL (74-106); POTASSIUM SERUM 4.2 MMOL/L (3.5-5.1); SODIUM LEVEL 137 MMOL/L (136-145)
[2023-06-11 07:33] LABS: ATYPICAL LYMPH 1 % (0-5); EOSINOPHILS 2 % (0-3); LYMPHOCYTES 10 % (16-44); METAMYELOCYTES 3 % (0-0); MONOCYTES 6 % (0-5); MYELOCYTES 3 % (0-0); NEUTROPHILS 74 % (28-66)
[2023-06-11 07:35] LABS: PLATELET CLUMPS SMALL AMT; PLATELET ESTIMATE NORMAL (NORMAL)
[2023-06-11 07:36] LABS: POLYCHROMASIA 1+
[2023-06-11 07:52] VITALS: BP 110/58; O2SAT 88
[2023-06-11] MEDS: LACTOBACILLUS ACIDOPHILUS CAP (BACID) PO SCH ×2 (07:52→16:55)
[2023-06-11] MEDS: MIDODRINE 5 MG TAB PO SCH ×3 (07:52→16:55)
[2023-06-11] MEDS: ACETAMINOPHEN 325MG/10.15ML UDC PO PRN (08:02)
[2023-06-11] MEDS: SYMBICORT 160/4.5MCG INHALER 6GM INH SCH ×2 (08:13→19:52)
[2023-06-11 10:07] LABS: CK-MB VALUE MASS < 1.0 NG/ML (<3.6)
[2023-06-11 10:08] LABS: C REACTIVE PROTEIN QUANTITATIV < 0.40 MG/DL (<1.0); CPK CREATINE PHOSPHOKINASE 22 U/L (34-145); MB/CK RELATIVE INDEX 4.54 (< OR =4)
[2023-06-11 10:15] LABS: PROCALCITONIN 0.19 ng/ml
[2023-06-11] MEDS ORDERED: ISOVUE-370 76% 100ML VIAL As Ordered ONE (10:48)
[2023-06-11] MEDS: GABAPENTIN 300 MG CAP PO SCH ×3 (10:52→21:53)
[2023-06-11] MEDS: DIGOXIN 0.125 MG TAB PO SCH (10:52)
[2023-06-11] MEDS: MAGNESIUM OXIDE 400MG TAB (MAG-OX) PO SCH (10:52)
[2023-06-11] MEDS: NYSTATIN 500,000U/5ML SUSP UDC SS SCH ×4 (10:52→21:53)
[2023-06-11] MEDS: predniSONE 20 MG TAB PO SCH (10:52)
[2023-06-11] MEDS: TORSEMIDE 20 MG TAB PO SCH (10:53)
[2023-06-11] MEDS: PANTOPRAZOLE 40MG VIAL IV SCH (10:57)
[2023-06-11] MEDS: TOBRAMYCIN INHAL 300 MG/5 ML SOLN INH SCH ×2 (11:38→20:06)
[2023-06-11 14:00] VITALS: BP 110/60; TEMP 97.5; O2SAT 93
[2023-06-11 21:29] VITALS: BP 134/62; TEMP 98.1; O2SAT 91
[2023-06-11] MEDS: CYCLOBENZAPRINE 10MG TABLET PO SCH (21:53)
[2023-06-11] MEDS: ANEXSIA, NORCO 7.5MG/325MG TABLET(HYDROCODONE/APAP) PO PRN (21:56)
[2023-06-12] MEDS: LEVALBUTEROL 1.25MG/3ML NEB SOLN INH SCH ×6 (00:14→19:15)
[2023-06-12 01:41] VITALS: BP 130/60; TEMP 97.5; O2SAT 91
[2023-06-12 05:43] LABS: HEMATOCRIT 34.2 % (36.0-47.0); HEMOGLOBIN 11.2 g/dl (12.0-15.5); MEAN CORPUSCULAR HEMOGLOBIN 32.6 pg (27.0-33.0); MEAN CORPUSCULAR HGB CONC 32.7 g/dl (32.0-36.5); MEAN CORPUSCULAR VOLUME 99.4 fl (80.0-96.0); PLATELET COUNT, AUTOMATED 279 10^3/uL (150-450); RED BLOOD COUNT 3.44 10^6/uL (4.00-5.40); WHITE BLOOD COUNT 17.2 10^3/uL (4.0-10.0)
[2023-06-12 05:50] VITALS: BP 114/58; TEMP 98.1; O2SAT 91
[2023-06-12] MEDS: LEVOTHYROXINE 25MCG TABLET (0.025MG) PO SCH (06:10)
[2023-06-12] MEDS: dilTIAZem 60 MG TAB PO SCH ×3 (06:11→21:54)
[2023-06-12 06:23] LABS: DIGOXIN LEVEL 1.9 NG/ML (0.8-2.0)
[2023-06-12 06:30] LABS: PROCALCITONIN 0.17 ng/ml
[2023-06-12 06:34] LABS: BLOOD UREA NITROGEN 44 MG/DL (9-23); CALCIUM LEVEL 9.1 MG/DL (8.3-10.6); CARBON DIOXIDE LEVEL > 40.0 MMOL/L (20-31); CHLORIDE LEVEL 85 MMOL/L (98-107); CREATININE FOR GFR 0.86 MG/DL (0.55-1.30); GLOMERULAR FILTRATION RATE > 60.0 (>39); GLUCOSE, FASTING 103 MG/DL (74-106); POTASSIUM SERUM 4.1 MMOL/L (3.5-5.1); SODIUM LEVEL 135 MMOL/L (136-145)
[2023-06-12 06:55] LABS: LYMPHOCYTES 6 % (16-44); METAMYELOCYTES 1 % (0-0); MONOCYTES 6 % (0-5); MYELOCYTES 7 % (0-0); NEUTROPHILS 78 % (28-66); PLATELET ESTIMATE NORMAL (NORMAL)
[2023-06-12 06:56] LABS: STOMATOCYTES 1+
[2023-06-12 07:31] LABS: ERYTHROCYTE SEDIMENTATION RATE 5 mm/hr (0-30)
[2023-06-12] MEDS: TOBRAMYCIN INHAL 300 MG/5 ML SOLN INH SCH ×2 (07:49→19:15)
[2023-06-12] MEDS: SYMBICORT 160/4.5MCG INHALER 6GM INH SCH ×2 (07:49→19:15)
[2023-06-12] MEDS: PANTOPRAZOLE 40MG VIAL IV SCH (09:32)
[2023-06-12] MEDS: NYSTATIN 500,000U/5ML SUSP UDC SS SCH ×4 (09:32→21:53)
[2023-06-12] MEDS: GABAPENTIN 300 MG CAP PO SCH ×3 (09:33→21:53)
[2023-06-12] MEDS: LACTOBACILLUS ACIDOPHILUS CAP (BACID) PO SCH ×2 (09:33→16:55)
[2023-06-12] MEDS: MAGNESIUM OXIDE 400MG TAB (MAG-OX) PO SCH (09:36)
[2023-06-12] MEDS: TORSEMIDE 20 MG TAB PO SCH (09:36)
[2023-06-12] MEDS: predniSONE 20 MG TAB PO SCH (09:36)
[2023-06-12] MEDS: MIDODRINE 5 MG TAB PO SCH ×3 (09:36→16:55)
[2023-06-12 14:00] VITALS: BP 110/50; TEMP 97; O2SAT 90
[2023-06-12] MEDS: CYCLOBENZAPRINE 10MG TABLET PO SCH (21:53)
[2023-06-12] MEDS: ANEXSIA, NORCO 7.5MG/325MG TABLET(HYDROCODONE/APAP) PO PRN (21:59)
[2023-06-12 22:00] VITALS: TEMP 97.9; O2SAT 91
[2023-06-13] VITALS (7 sets, daily range): BP systolic 118–130; BP diastolic 50–63; TEMP 97.5–98.8; O2SAT 89–99
[2023-06-13] MEDS: LEVALBUTEROL 1.25MG/3ML NEB SOLN INH SCH ×7 (00:12→23:13)
[2023-06-13] MEDS: dilTIAZem 60 MG TAB PO SCH ×3 (05:25→21:08)
[2023-06-13] MEDS: LEVOTHYROXINE 25MCG TABLET (0.025MG) PO SCH (05:26)
[2023-06-13 05:49] LABS: HEMATOCRIT 32.4 % (36.0-47.0); HEMOGLOBIN 10.6 g/dl (12.0-15.5); MEAN CORPUSCULAR HEMOGLOBIN 32.9 pg (27.0-33.0); MEAN CORPUSCULAR HGB CONC 32.7 g/dl (32.0-36.5); MEAN CORPUSCULAR VOLUME 100.6 fl (80.0-96.0); PLATELET COUNT, AUTOMATED 259 10^3/uL (150-450); RED BLOOD COUNT 3.22 10^6/uL (4.00-5.40)
[2023-06-13 06:12] LABS: BLOOD UREA NITROGEN 36 MG/DL (9-23); CARBON DIOXIDE LEVEL > 40.0 MMOL/L (20-31); CHLORIDE LEVEL 86 MMOL/L (98-107); CREATININE FOR GFR 0.75 MG/DL (0.55-1.30); DIGOXIN LEVEL 1.2 NG/ML (0.8-2.0); GLOMERULAR FILTRATION RATE > 60.0 (>39); GLUCOSE, FASTING 103 MG/DL (74-106); POTASSIUM SERUM 3.7 MMOL/L (3.5-5.1); SODIUM LEVEL 137 MMOL/L (136-145)
[2023-06-13 06:39] LABS: EOSINOPHILS 1 % (0-3); LYMPHOCYTES 8 % (16-44); MONOCYTES 6 % (0-5); MYELOCYTES 4 % (0-0); NEUTROPHILS 80 % (28-66); PLATELET ESTIMATE NORMAL (NORMAL)
[2023-06-13] MEDS: LACTOBACILLUS ACIDOPHILUS CAP (BACID) PO SCH ×2 (08:40→17:43)
[2023-06-13] MEDS: MIDODRINE 5 MG TAB PO SCH ×3 (08:40→15:32)
[2023-06-13] MEDS: TORSEMIDE 20 MG TAB PO SCH (08:40)
[2023-06-13] MEDS: predniSONE 20 MG TAB PO SCH (08:40)
[2023-06-13] MEDS: MAGNESIUM OXIDE 400MG TAB (MAG-OX) PO SCH (08:40)
[2023-06-13] MEDS: GABAPENTIN 300 MG CAP PO SCH ×3 (08:40→21:07)
[2023-06-13] MEDS: PANTOPRAZOLE 40MG VIAL IV SCH (08:40)
[2023-06-13] MEDS: NYSTATIN 500,000U/5ML SUSP UDC SS SCH ×4 (08:40→21:07)
[2023-06-13] MEDS: TOBRAMYCIN INHAL 300 MG/5 ML SOLN INH SCH ×2 (09:25→19:41)
[2023-06-13] MEDS: SYMBICORT 160/4.5MCG INHALER 6GM INH SCH ×2 (09:25→19:41)
[2023-06-13] MEDS: CYCLOBENZAPRINE 10MG TABLET PO SCH (21:07)
[2023-06-13] MEDS: ANEXSIA, NORCO 7.5MG/325MG TABLET(HYDROCODONE/APAP) PO PRN (21:07)
[2023-06-14] MEDS: LEVALBUTEROL 1.25MG/3ML NEB SOLN INH SCH ×6 (03:37→23:08)
[2023-06-14 05:22] VITALS: TEMP 98.1; O2SAT 93
[2023-06-14] MEDS: dilTIAZem 60 MG TAB PO SCH ×3 (05:22→21:05)
[2023-06-14] MEDS: LEVOTHYROXINE 25MCG TABLET (0.025MG) PO SCH (05:22)
[2023-06-14] MEDS: SYMBICORT 160/4.5MCG INHALER 6GM INH SCH ×2 (07:49→19:14)
[2023-06-14] MEDS: TOBRAMYCIN INHAL 300 MG/5 ML SOLN INH SCH ×2 (07:49→19:13)
[2023-06-14 07:51] VITALS: O2SAT 91
[2023-06-14 07:59] LABS: HEMATOCRIT 33.4 % (36.0-47.0); HEMOGLOBIN 10.8 g/dl (12.0-15.5); MEAN CORPUSCULAR HEMOGLOBIN 33.4 pg (27.0-33.0); MEAN CORPUSCULAR HGB CONC 32.3 g/dl (32.0-36.5); MEAN CORPUSCULAR VOLUME 103.4 fl (80.0-96.0); PLATELET COUNT, AUTOMATED 278 10^3/uL (150-450); RED BLOOD COUNT 3.23 10^6/uL (4.00-5.40); WHITE BLOOD COUNT 18.5 10^3/uL (4.0-10.0)
[2023-06-14 08:27] LABS: BLOOD UREA NITROGEN 39 MG/DL (9-23); CALCIUM LEVEL 9.2 MG/DL (8.3-10.6); CARBON DIOXIDE LEVEL > 40.0 MMOL/L (20-31); CHLORIDE LEVEL 86 MMOL/L (98-107); CREATININE FOR GFR 0.82 MG/DL (0.55-1.30); GLOMERULAR FILTRATION RATE > 60.0 (>39); GLUCOSE, FASTING 118 MG/DL (74-106); POTASSIUM SERUM 3.4 MMOL/L (3.5-5.1); SODIUM LEVEL 137 MMOL/L (136-145)
[2023-06-14] MEDS: TORSEMIDE 20 MG TAB PO SCH (09:00)
[2023-06-14] MEDS: GABAPENTIN 300 MG CAP PO SCH ×3 (09:02→20:54)
[2023-06-14] MEDS: LACTOBACILLUS ACIDOPHILUS CAP (BACID) PO SCH ×2 (09:02→16:56)
[2023-06-14] MEDS: PANTOPRAZOLE 40MG VIAL IV SCH (09:02)
[2023-06-14] MEDS: NYSTATIN 500,000U/5ML SUSP UDC SS SCH ×4 (09:02→20:55)
[2023-06-14] MEDS: MAGNESIUM OXIDE 400MG TAB (MAG-OX) PO SCH (09:03)
[2023-06-14] MEDS: MIDODRINE 5 MG TAB PO SCH ×3 (09:04→16:50)
[2023-06-14 09:55] LABS: LYMPHOCYTES 5 % (16-44); METAMYELOCYTES 1 % (0-0); MONOCYTES 7 % (0-5); MYELOCYTES 2 % (0-0); NEUTROPHILS 83 % (28-66)
[2023-06-14 09:56] LABS: PLATELET ESTIMATE NORMAL (NORMAL)
[2023-06-14 14:00] VITALS: TEMP 97.7; O2SAT 94
[2023-06-14 20:00] VITALS: BP 116/54; TEMP 98.4; O2SAT 96
[2023-06-14] MEDS: CYCLOBENZAPRINE 10MG TABLET PO SCH (20:53)
[2023-06-14] MEDS: ANEXSIA, NORCO 7.5MG/325MG TABLET(HYDROCODONE/APAP) PO PRN (20:54)
[2023-06-15] MEDS: LEVALBUTEROL 1.25MG/3ML NEB SOLN INH SCH ×6 (03:10→23:34)
[2023-06-15 06:00] VITALS: BP 116/56; TEMP 98.2; O2SAT 92
[2023-06-15] MEDS: dilTIAZem 60 MG TAB PO SCH ×3 (06:08→21:11)
[2023-06-15] MEDS: LEVOTHYROXINE 25MCG TABLET (0.025MG) PO SCH (06:09)
[2023-06-15 06:14] LABS: BASO % 0.3 % (0.0-1.0); EOS # 0.1 10^3/uL (0.0-0.5); EOS % 0.9 % (0.0-3.0); HEMOGLOBIN 10.8 g/dl (12.0-15.5); LYMPH # 1.6 10^3/uL (1.5-5.0); LYMPH % 10.8 % (24.0-44.0); MEAN CORPUSCULAR HEMOGLOBIN 34.2 pg (27.0-33.0); MEAN CORPUSCULAR HGB CONC 33.8 g/dl (32.0-36.5); MEAN CORPUSCULAR VOLUME 101.3 fl (80.0-96.0); MONO % 6.6 % (2.0-8.0); NEUTROPHILS # 11.4 10^3/uL (1.5-8.5); NEUTROPHILS % 76.8 % (36.0-66.0); PLATELET COUNT, AUTOMATED 284 10^3/uL (150-450); RED BLOOD COUNT 3.16 10^6/uL (4.00-5.40); WHITE BLOOD COUNT 14.9 10^3/uL (4.0-10.0)
[2023-06-15 06:45] LABS: DIGOXIN LEVEL 0.7 NG/ML (0.8-2.0)
[2023-06-15 06:49] LABS: BLOOD UREA NITROGEN 36 MG/DL (9-23); CARBON DIOXIDE LEVEL > 40.0 MMOL/L (20-31); CHLORIDE LEVEL 87 MMOL/L (98-107); CREATININE FOR GFR 0.76 MG/DL (0.55-1.30); GLOMERULAR FILTRATION RATE > 60.0 (>39); GLUCOSE, FASTING 83 MG/DL (74-106); POTASSIUM SERUM 3.4 MMOL/L (3.5-5.1); SODIUM LEVEL 135 MMOL/L (136-145)
[2023-06-15] MEDS: SYMBICORT 160/4.5MCG INHALER 6GM INH SCH ×2 (07:20→20:32)
[2023-06-15] MEDS: TORSEMIDE 20 MG TAB PO SCH (08:21)
[2023-06-15] MEDS: PANTOPRAZOLE 40MG VIAL IV SCH (08:21)
[2023-06-15] MEDS: LACTOBACILLUS ACIDOPHILUS CAP (BACID) PO SCH ×2 (08:21→18:52)
[2023-06-15] MEDS: NYSTATIN 500,000U/5ML SUSP UDC SS SCH ×2 (08:21→12:43)
[2023-06-15] MEDS: MIDODRINE 5 MG TAB PO SCH ×3 (08:21→15:18)
[2023-06-15] MEDS: MAGNESIUM OXIDE 400MG TAB (MAG-OX) PO SCH (08:21)
[2023-06-15] MEDS: GABAPENTIN 300 MG CAP PO SCH ×3 (08:21→21:06)
[2023-06-15 08:22] VITALS: BP 114/63
[2023-06-15] MEDS ORDERED: TUBERCULIN PPD 5 UNITS/0.1 ML ID ONE (11:00)
[2023-06-15] MEDS: TOBRAMYCIN INHAL 300 MG/5 ML SOLN INH SCH ×2 (11:27→20:32)
[2023-06-15 14:00] VITALS: BP 119/63; TEMP 97.7; O2SAT 92
[2023-06-15 17:00] VITALS: BP_SYST 118; BP_SYST 121; BP_SYST 123; BP_DIAS 60; BP_DIAS 62; BP_DIAS 64
[2023-06-15] MEDS ORDERED: BISACODYL 5MG TAB PO PRN (20:10)
[2023-06-15] MEDS ORDERED: POTASSIUM CHLORIDE 10MEQ SR TABLET PO ONE (20:15)
[2023-06-15 20:33] VITALS: O2SAT 94
[2023-06-15] MEDS ORDERED: RAMELTEON 8 MG TAB (ROZEREM) PO ONE (21:00)
[2023-06-15] MEDS: CYCLOBENZAPRINE 10MG TABLET PO SCH (21:06)
[2023-06-15] MEDS: SENNA 8.6 MG TAB (SENOKOT) PO SCH (21:06)
[2023-06-15] MEDS: DOCUSATE SODIUM 100MG CAPSULE PO SCH (21:06)
[2023-06-15] MEDS: ANEXSIA, NORCO 7.5MG/325MG TABLET(HYDROCODONE/APAP) PO PRN (21:10)
[2023-06-16] MEDS: LEVALBUTEROL 1.25MG/3ML NEB SOLN INH SCH ×6 (03:25→23:30)
[2023-06-16 05:02] VITALS: BP 118/62; TEMP 99.1; O2SAT 89
[2023-06-16] MEDS: LEVOTHYROXINE 25MCG TABLET (0.025MG) PO SCH (05:27)
[2023-06-16] MEDS: dilTIAZem 60 MG TAB PO SCH ×3 (05:28→21:31)
[2023-06-16 06:14] LABS: BASO # 0.1 10^3/uL (0.0-0.2); BASO % 0.2 % (0.0-1.0); EOS # 0.1 10^3/uL (0.0-0.5); EOS % 0.4 % (0.0-3.0); HEMATOCRIT 31.2 % (36.0-47.0); HEMOGLOBIN 10.4 g/dl (12.0-15.5); MEAN CORPUSCULAR HEMOGLOBIN 33.7 pg (27.0-33.0); MEAN CORPUSCULAR HGB CONC 33.3 g/dl (32.0-36.5); MONO % 4.1 % (2.0-8.0); NEUTROPHILS # 22.6 10^3/uL (1.5-8.5); PLATELET COUNT, AUTOMATED 263 10^3/uL (150-450); RED BLOOD COUNT 3.09 10^6/uL (4.00-5.40); WHITE BLOOD COUNT 25.4 10^3/uL (4.0-10.0)
[2023-06-16 06:47] LABS: BLOOD UREA NITROGEN 38 MG/DL (9-23); CALCIUM LEVEL 8.9 MG/DL (8.3-10.6); CARBON DIOXIDE LEVEL > 40.0 MMOL/L (20-31); CHLORIDE LEVEL 88 MMOL/L (98-107); CREATININE FOR GFR 0.88 MG/DL (0.55-1.30); GLOMERULAR FILTRATION RATE > 60.0 (>39); GLUCOSE, FASTING 145 MG/DL (74-106); POTASSIUM SERUM 3.7 MMOL/L (3.5-5.1); SODIUM LEVEL 137 MMOL/L (136-145)
[2023-06-16] MEDS: SYMBICORT 160/4.5MCG INHALER 6GM INH SCH ×2 (07:13→20:23)
[2023-06-16] MEDS: TOBRAMYCIN INHAL 300 MG/5 ML SOLN INH SCH ×2 (07:13→20:22)
[2023-06-16] MEDS: MIDODRINE 5 MG TAB PO SCH ×3 (08:22→15:00)
[2023-06-16] MEDS: SENNA 8.6 MG TAB (SENOKOT) PO SCH ×2 (08:22→21:27)
[2023-06-16] MEDS: MAGNESIUM OXIDE 400MG TAB (MAG-OX) PO SCH (08:22)
[2023-06-16] MEDS: LACTOBACILLUS ACIDOPHILUS CAP (BACID) PO SCH ×2 (08:22→18:33)
[2023-06-16] MEDS: GABAPENTIN 300 MG CAP PO SCH ×3 (08:22→21:27)
[2023-06-16 08:23] VITALS: BP 117/61
[2023-06-16] MEDS: DOCUSATE SODIUM 100MG CAPSULE PO SCH ×2 (08:23→21:27)
[2023-06-16 08:28] VITALS: TEMP 98.2
[2023-06-16] MEDS: PANTOPRAZOLE 40MG TAB (PROTONIX) PO SCH (11:19)
[2023-06-16 11:20] VITALS: BP 115/54; TEMP 97.9
[2023-06-16 12:10] LABS: PROCALCITONIN 0.13 ng/ml
[2023-06-16 12:38] LABS: BASO % 0.2 % (0.0-1.0); EOS # 0.1 10^3/uL (0.0-0.5); EOS % 0.4 % (0.0-3.0); HEMATOCRIT 30.8 % (36.0-47.0); LYMPH # 0.9 10^3/uL (1.5-5.0); LYMPH % 4.2 % (24.0-44.0); MEAN CORPUSCULAR HEMOGLOBIN 33.2 pg (27.0-33.0); MEAN CORPUSCULAR HGB CONC 32.5 g/dl (32.0-36.5); MEAN CORPUSCULAR VOLUME 102.3 fl (80.0-96.0); MONO % 4.6 % (2.0-8.0); NEUTROPHILS # 19.6 10^3/uL (1.5-8.5); NEUTROPHILS % 88.5 % (36.0-66.0); PLATELET COUNT, AUTOMATED 264 10^3/uL (150-450); RED BLOOD COUNT 3.01 10^6/uL (4.00-5.40); WHITE BLOOD COUNT 22.1 10^3/uL (4.0-10.0)
[2023-06-16 20:27] VITALS: O2SAT 92
[2023-06-16] MEDS: CYCLOBENZAPRINE 10MG TABLET PO SCH (21:27)
[2023-06-17] MEDS: LEVALBUTEROL 1.25MG/3ML NEB SOLN INH SCH ×6 (04:19→23:08)
[2023-06-17 06:00] VITALS: BP 111/81; TEMP 97.2; O2SAT 93
[2023-06-17] MEDS: LEVOTHYROXINE 25MCG TABLET (0.025MG) PO SCH (06:31)
[2023-06-17] MEDS: dilTIAZem 60 MG TAB PO SCH ×3 (06:33→21:02)
[2023-06-17] MEDS: TOBRAMYCIN INHAL 300 MG/5 ML SOLN INH SCH ×2 (07:43→19:39)
[2023-06-17] MEDS: SYMBICORT 160/4.5MCG INHALER 6GM INH SCH ×2 (07:43→19:39)
[2023-06-17 08:06] LABS: BASO % 0.1 % (0.0-1.0); EOS # 0.1 10^3/uL (0.0-0.5); EOS % 0.7 % (0.0-3.0); HEMATOCRIT 29.4 % (36.0-47.0); HEMOGLOBIN 9.6 g/dl (12.0-15.5); LYMPH % 6.1 % (24.0-44.0); MEAN CORPUSCULAR HEMOGLOBIN 33.1 pg (27.0-33.0); MEAN CORPUSCULAR HGB CONC 32.7 g/dl (32.0-36.5); MEAN CORPUSCULAR VOLUME 101.4 fl (80.0-96.0); MONO # 0.9 10^3/uL (0.0-0.8); MONO % 5.6 % (2.0-8.0); NEUTROPHILS # 13.8 10^3/uL (1.5-8.5); NEUTROPHILS % 85.9 % (36.0-66.0); PLATELET COUNT, AUTOMATED 242 10^3/uL (150-450); WHITE BLOOD COUNT 16.1 10^3/uL (4.0-10.0)
[2023-06-17] MEDS: LACTOBACILLUS ACIDOPHILUS CAP (BACID) PO SCH ×2 (08:13→18:50)
[2023-06-17] MEDS: MAGNESIUM OXIDE 400MG TAB (MAG-OX) PO SCH (08:13)
[2023-06-17] MEDS: PANTOPRAZOLE 40MG TAB (PROTONIX) PO SCH (08:13)
[2023-06-17] MEDS: DOCUSATE SODIUM 100MG CAPSULE PO SCH ×2 (08:13→19:47)
[2023-06-17] MEDS: GABAPENTIN 300 MG CAP PO SCH ×3 (08:13→21:02)
[2023-06-17] MEDS: MIDODRINE 5 MG TAB PO SCH ×3 (08:14→16:20)
[2023-06-17] MEDS: SENNA 8.6 MG TAB (SENOKOT) PO SCH ×2 (08:14→19:47)
[2023-06-17] MEDS: TORSEMIDE 20 MG TAB PO SCH (09:00)
[2023-06-17] MEDS ORDERED: PPD DOCUMENTATION ENTRY MISC XX SCH (11:00)
[2023-06-17 20:59] VITALS: BP 152/75; TEMP 98.1; O2SAT 94
[2023-06-17] MEDS: CYCLOBENZAPRINE 10MG TABLET PO SCH (21:02)
[2023-06-17] MEDS: ANEXSIA, NORCO 7.5MG/325MG TABLET(HYDROCODONE/APAP) PO PRN (21:16)
[2023-06-18] MEDS: LEVALBUTEROL 1.25MG/3ML NEB SOLN INH SCH ×6 (03:03→23:43)
[2023-06-18] MEDS: LEVOTHYROXINE 25MCG TABLET (0.025MG) PO SCH (05:37)
[2023-06-18] MEDS: dilTIAZem 60 MG TAB PO SCH ×4 (05:37→22:22)
[2023-06-18 06:00] VITALS: BP 146/76; TEMP 97.5; O2SAT 95
[2023-06-18] MEDS: TOBRAMYCIN INHAL 300 MG/5 ML SOLN INH SCH ×2 (07:51→20:30)
[2023-06-18] MEDS: SYMBICORT 160/4.5MCG INHALER 6GM INH SCH ×2 (07:58→20:30)
[2023-06-18] MEDS: MIDODRINE 5 MG TAB PO SCH ×3 (08:04→16:07)
[2023-06-18] MEDS: MAGNESIUM OXIDE 400MG TAB (MAG-OX) PO SCH (08:04)
[2023-06-18] MEDS: LACTOBACILLUS ACIDOPHILUS CAP (BACID) PO SCH ×2 (08:04→18:24)
[2023-06-18] MEDS: DOCUSATE SODIUM 100MG CAPSULE PO SCH ×2 (08:04→20:07)
[2023-06-18] MEDS: PANTOPRAZOLE 40MG TAB (PROTONIX) PO SCH (08:04)
[2023-06-18 08:35] LABS: BASO % 0.1 % (0.0-1.0); EOS # 0.1 10^3/uL (0.0-0.5); EOS % 0.9 % (0.0-3.0); HEMATOCRIT 28.9 % (36.0-47.0); HEMOGLOBIN 9.4 g/dl (12.0-15.5); LYMPH # 1.1 10^3/uL (1.5-5.0); LYMPH % 7.7 % (24.0-44.0); MEAN CORPUSCULAR HEMOGLOBIN 32.8 pg (27.0-33.0); MEAN CORPUSCULAR HGB CONC 32.5 g/dl (32.0-36.5); MEAN CORPUSCULAR VOLUME 100.7 fl (80.0-96.0); MONO % 7.2 % (2.0-8.0); NEUTROPHILS # 11.4 10^3/uL (1.5-8.5); NEUTROPHILS % 82.4 % (36.0-66.0); PLATELET COUNT, AUTOMATED 254 10^3/uL (150-450); RED BLOOD COUNT 2.87 10^6/uL (4.00-5.40); WHITE BLOOD COUNT 13.8 10^3/uL (4.0-10.0)
[2023-06-18] MEDS: SENNA 8.6 MG TAB (SENOKOT) PO SCH ×2 (09:00→20:07)
[2023-06-18] MEDS: GABAPENTIN 300 MG CAP PO SCH ×3 (09:10→20:19)
[2023-06-18] MEDS: TORSEMIDE 20 MG TAB PO SCH (10:25)
[2023-06-18] MEDS: CYCLOBENZAPRINE 10MG TABLET PO SCH (20:19)
[2023-06-18] MEDS: ANEXSIA, NORCO 7.5MG/325MG TABLET(HYDROCODONE/APAP) PO PRN (20:20)
[2023-06-19] MEDS: LEVALBUTEROL 1.25MG/3ML NEB SOLN INH SCH ×5 (03:06→21:41)
[2023-06-19 05:10] VITALS: BP 109/56; TEMP 97; O2SAT 93
[2023-06-19] MEDS: dilTIAZem 60 MG TAB PO SCH ×3 (05:14→21:26)
[2023-06-19] MEDS: LEVOTHYROXINE 25MCG TABLET (0.025MG) PO SCH (05:14)
[2023-06-19] MEDS: TOBRAMYCIN INHAL 300 MG/5 ML SOLN INH SCH ×2 (07:23→21:41)
[2023-06-19] MEDS: SYMBICORT 160/4.5MCG INHALER 6GM INH SCH ×2 (07:23→21:41)
[2023-06-19] MEDS: TORSEMIDE 20 MG TAB PO SCH (08:48)
[2023-06-19] MEDS: SENNA 8.6 MG TAB (SENOKOT) PO SCH ×2 (08:49→21:20)
[2023-06-19] MEDS: DOCUSATE SODIUM 100MG CAPSULE PO SCH ×2 (08:49→21:20)
[2023-06-19] MEDS: LACTOBACILLUS ACIDOPHILUS CAP (BACID) PO SCH ×2 (08:49→17:10)
[2023-06-19] MEDS: GABAPENTIN 300 MG CAP PO SCH ×3 (08:50→21:20)
[2023-06-19] MEDS: MIDODRINE 5 MG TAB PO SCH ×3 (08:50→17:11)
[2023-06-19] MEDS: MAGNESIUM OXIDE 400MG TAB (MAG-OX) PO SCH (08:50)
[2023-06-19] MEDS: PANTOPRAZOLE 40MG TAB (PROTONIX) PO SCH (08:50)
[2023-06-19] MEDS: CYCLOBENZAPRINE 10MG TABLET PO SCH (21:20)
[2023-06-19] MEDS: ANEXSIA, NORCO 7.5MG/325MG TABLET(HYDROCODONE/APAP) PO PRN (21:30)
[2023-06-20] MEDS: LEVALBUTEROL 1.25MG/3ML NEB SOLN INH SCH ×6 (03:50→21:11)
[2023-06-20 06:00] VITALS: BP 117/68; TEMP 97.9; O2SAT 95
[2023-06-20] MEDS: dilTIAZem 60 MG TAB PO SCH ×3 (06:16→22:02)
[2023-06-20] MEDS: LEVOTHYROXINE 25MCG TABLET (0.025MG) PO SCH (06:16)
[2023-06-20] MEDS: TOBRAMYCIN INHAL 300 MG/5 ML SOLN INH SCH ×2 (08:46→21:11)
[2023-06-20] MEDS: SYMBICORT 160/4.5MCG INHALER 6GM INH SCH ×2 (08:48→21:11)
[2023-06-20] MEDS: LACTOBACILLUS ACIDOPHILUS CAP (BACID) PO SCH ×2 (08:54→17:10)
[2023-06-20] MEDS: GABAPENTIN 300 MG CAP PO SCH ×3 (08:55→21:59)
[2023-06-20] MEDS: MIDODRINE 5 MG TAB PO SCH ×3 (08:55→17:09)
[2023-06-20] MEDS: DOCUSATE SODIUM 100MG CAPSULE PO SCH ×2 (08:55→21:00)
[2023-06-20] MEDS: TORSEMIDE 20 MG TAB PO SCH (08:55)
[2023-06-20] MEDS: MAGNESIUM OXIDE 400MG TAB (MAG-OX) PO SCH (08:55)
[2023-06-20] MEDS: SENNA 8.6 MG TAB (SENOKOT) PO SCH ×2 (08:55→21:59)
[2023-06-20] MEDS: PANTOPRAZOLE 40MG TAB (PROTONIX) PO SCH (08:55)
[2023-06-20] MEDS: CYCLOBENZAPRINE 10MG TABLET PO SCH (21:59)
[2023-06-20] MEDS: ANEXSIA, NORCO 7.5MG/325MG TABLET(HYDROCODONE/APAP) PO PRN (22:06)
[2023-06-21] MEDS: LEVALBUTEROL 1.25MG/3ML NEB SOLN INH SCH ×6 (00:23→21:23)
[2023-06-21] MEDS: LEVOTHYROXINE 25MCG TABLET (0.025MG) PO SCH (05:52)
[2023-06-21] MEDS: dilTIAZem 60 MG TAB PO SCH ×3 (05:53→22:02)
[2023-06-21 06:00] VITALS: BP 126/67; TEMP 97.7; O2SAT 90
[2023-06-21] MEDS: TOBRAMYCIN INHAL 300 MG/5 ML SOLN INH SCH (08:10)
[2023-06-21] MEDS: SYMBICORT 160/4.5MCG INHALER 6GM INH SCH ×2 (08:10→21:23)
[2023-06-21] MEDS: MIDODRINE 5 MG TAB PO SCH ×3 (09:48→17:26)
[2023-06-21] MEDS: TORSEMIDE 20 MG TAB PO SCH (09:48)
[2023-06-21] MEDS: GABAPENTIN 300 MG CAP PO SCH ×3 (09:48→22:02)
[2023-06-21] MEDS: LACTOBACILLUS ACIDOPHILUS CAP (BACID) PO SCH ×2 (09:48→17:26)
[2023-06-21] MEDS: DOCUSATE SODIUM 100MG CAPSULE PO SCH ×2 (09:48→22:02)
[2023-06-21] MEDS: PANTOPRAZOLE 40MG TAB (PROTONIX) PO SCH (09:48)
[2023-06-21] MEDS: SENNA 8.6 MG TAB (SENOKOT) PO SCH ×2 (09:49→22:02)
[2023-06-21] MEDS: MAGNESIUM OXIDE 400MG TAB (MAG-OX) PO SCH (09:49)
[2023-06-21] MEDS: predniSONE 5 MG TAB PO SCH (13:44)
[2023-06-21] MEDS: CYCLOBENZAPRINE 10MG TABLET PO SCH (22:02)
[2023-06-21] MEDS: ANEXSIA, NORCO 7.5MG/325MG TABLET(HYDROCODONE/APAP) PO PRN (22:03)
[2023-06-22] MEDS: TOBRAMYCIN INHAL 300 MG/5 ML SOLN INH SCH ×3 (00:30→21:17)
[2023-06-22] MEDS: LEVALBUTEROL 1.25MG/3ML NEB SOLN INH SCH ×7 (00:30→21:13)
[2023-06-22 05:30] VITALS: BP 122/63; TEMP 97.2; O2SAT 91
[2023-06-22] MEDS: LEVOTHYROXINE 25MCG TABLET (0.025MG) PO SCH (05:35)
[2023-06-22] MEDS: dilTIAZem 60 MG TAB PO SCH ×3 (05:36→21:20)
[2023-06-22 06:51] VITALS: O2SAT 95
[2023-06-22] MEDS: SYMBICORT 160/4.5MCG INHALER 6GM INH SCH ×2 (07:37→21:13)
[2023-06-22] MEDS: LACTOBACILLUS ACIDOPHILUS CAP (BACID) PO SCH ×2 (08:38→17:14)
[2023-06-22] MEDS: PANTOPRAZOLE 40MG TAB (PROTONIX) PO SCH (08:38)
[2023-06-22] MEDS: MAGNESIUM OXIDE 400MG TAB (MAG-OX) PO SCH (08:38)
[2023-06-22] MEDS: SENNA 8.6 MG TAB (SENOKOT) PO SCH ×2 (08:38→19:58)
[2023-06-22] MEDS: DOCUSATE SODIUM 100MG CAPSULE PO SCH ×2 (08:38→19:58)
[2023-06-22] MEDS: predniSONE 5 MG TAB PO SCH (08:38)
[2023-06-22] MEDS: MIDODRINE 5 MG TAB PO SCH ×3 (08:38→17:15)
[2023-06-22] MEDS: TORSEMIDE 20 MG TAB PO SCH (08:39)
[2023-06-22] MEDS: GABAPENTIN 300 MG CAP PO SCH ×3 (08:39→19:59)
[2023-06-22] MEDS: CYCLOBENZAPRINE 10MG TABLET PO SCH (19:59)
[2023-06-23] MEDS: LEVALBUTEROL 1.25MG/3ML NEB SOLN INH SCH ×4 (00:02→11:20)
[2023-06-23 01:23] VITALS: O2SAT 92
[2023-06-23] MEDS: LEVOTHYROXINE 25MCG TABLET (0.025MG) PO SCH (05:35)
[2023-06-23] MEDS: dilTIAZem 60 MG TAB PO SCH ×3 (05:35→21:10)
[2023-06-23 05:36] VITALS: BP 101/75; TEMP 97.5; O2SAT 90
[2023-06-23] MEDS: SYMBICORT 160/4.5MCG INHALER 6GM INH SCH ×2 (07:41→19:46)
[2023-06-23] MEDS: TOBRAMYCIN INHAL 300 MG/5 ML SOLN INH SCH ×2 (07:41→19:45)
[2023-06-23] MEDS: GABAPENTIN 300 MG CAP PO SCH ×3 (09:15→21:10)
[2023-06-23] MEDS: predniSONE 5 MG TAB PO SCH (09:15)
[2023-06-23] MEDS: SENNA 8.6 MG TAB (SENOKOT) PO SCH ×2 (09:15→21:00)
[2023-06-23] MEDS: DOCUSATE SODIUM 100MG CAPSULE PO SCH ×2 (09:15→21:00)
[2023-06-23] MEDS: LACTOBACILLUS ACIDOPHILUS CAP (BACID) PO SCH ×2 (09:15→17:06)
[2023-06-23] MEDS: PANTOPRAZOLE 40MG TAB (PROTONIX) PO SCH (09:15)
[2023-06-23] MEDS: MAGNESIUM OXIDE 400MG TAB (MAG-OX) PO SCH (09:16)
[2023-06-23] MEDS: TORSEMIDE 20 MG TAB PO SCH (09:16)
[2023-06-23] MEDS: MIDODRINE 5 MG TAB PO SCH ×3 (09:28→17:06)
[2023-06-23 10:23] VITALS: O2SAT 94
[2023-06-23] MEDS: LEVALBUTEROL 1.25MG 0.5ML CONCENTRATE NEB INH SCH ×3 (15:39→23:37)
[2023-06-23 19:47] VITALS: O2SAT 93
[2023-06-23 21:00] VITALS: O2SAT 95
[2023-06-23] MEDS: CYCLOBENZAPRINE 10MG TABLET PO SCH (21:10)
[2023-06-23] MEDS: ANEXSIA, NORCO 7.5MG/325MG TABLET(HYDROCODONE/APAP) PO PRN (21:10)
[2023-06-24] MEDS: LEVALBUTEROL 1.25MG 0.5ML CONCENTRATE NEB INH SCH ×6 (03:12→23:38)
[2023-06-24 05:09] VITALS: BP 120/74; TEMP 97.2; O2SAT 92
[2023-06-24] MEDS: dilTIAZem 60 MG TAB PO SCH ×3 (05:17→21:13)
[2023-06-24] MEDS: LEVOTHYROXINE 25MCG TABLET (0.025MG) PO SCH (05:18)
[2023-06-24] MEDS: TOBRAMYCIN INHAL 300 MG/5 ML SOLN INH SCH ×2 (07:48→21:07)
[2023-06-24] MEDS: SYMBICORT 160/4.5MCG INHALER 6GM INH SCH ×2 (07:48→21:06)
[2023-06-24] MEDS: MIDODRINE 5 MG TAB PO SCH ×3 (09:02→17:06)
[2023-06-24] MEDS: DOCUSATE SODIUM 100MG CAPSULE PO SCH ×2 (09:02→20:26)
[2023-06-24] MEDS: LACTOBACILLUS ACIDOPHILUS CAP (BACID) PO SCH ×2 (09:02→17:07)
[2023-06-24] MEDS: MAGNESIUM OXIDE 400MG TAB (MAG-OX) PO SCH (09:03)
[2023-06-24] MEDS: predniSONE 5 MG TAB PO SCH (09:03)
[2023-06-24] MEDS: SENNA 8.6 MG TAB (SENOKOT) PO SCH ×2 (09:03→20:26)
[2023-06-24] MEDS: PANTOPRAZOLE 40MG TAB (PROTONIX) PO SCH (09:03)
[2023-06-24] MEDS: GABAPENTIN 300 MG CAP PO SCH ×3 (09:03→20:20)
[2023-06-24] MEDS: TORSEMIDE 20 MG TAB PO SCH (09:03)
[2023-06-24] MEDS: CYCLOBENZAPRINE 10MG TABLET PO SCH (20:20)
[2023-06-24 20:47] VITALS: O2SAT 94
[2023-06-24] MEDS: ANEXSIA, NORCO 7.5MG/325MG TABLET(HYDROCODONE/APAP) PO PRN (21:14)
[2023-06-25] MEDS: LEVALBUTEROL 1.25MG 0.5ML CONCENTRATE NEB INH SCH ×6 (03:13→23:15)
[2023-06-25] MEDS: LEVOTHYROXINE 25MCG TABLET (0.025MG) PO SCH (04:49)
[2023-06-25] MEDS: dilTIAZem 60 MG TAB PO SCH ×3 (04:50→20:47)
[2023-06-25 05:44] VITALS: BP 134/87; TEMP 97.7; O2SAT 92
[2023-06-25 06:30] LABS: BASO % 0.4 % (0.0-1.0); EOS # 0.3 10^3/uL (0.0-0.5); EOS % 2.5 % (0.0-3.0); HEMATOCRIT 29.4 % (36.0-47.0); HEMOGLOBIN 9.5 g/dl (12.0-15.5); LYMPH # 1.2 10^3/uL (1.5-5.0); LYMPH % 11.2 % (24.0-44.0); MEAN CORPUSCULAR HEMOGLOBIN 32.6 pg (27.0-33.0); MEAN CORPUSCULAR HGB CONC 32.3 g/dl (32.0-36.5); MONO # 0.7 10^3/uL (0.0-0.8); MONO % 6.1 % (2.0-8.0); NEUTROPHILS # 8.6 10^3/uL (1.5-8.5); NEUTROPHILS % 79.3 % (36.0-66.0); PLATELET COUNT, AUTOMATED 323 10^3/uL (150-450); RED BLOOD COUNT 2.91 10^6/uL (4.00-5.40); WHITE BLOOD COUNT 10.8 10^3/uL (4.0-10.0)
[2023-06-25 07:00] LABS: ERYTHROCYTE SEDIMENTATION RATE 22 mm/hr (0-30)
[2023-06-25 07:01] LABS: BLOOD UREA NITROGEN 15 MG/DL (9-23); CALCIUM LEVEL 8.4 MG/DL (8.3-10.6); CARBON DIOXIDE LEVEL > 40.0 MMOL/L (20-31); CHLORIDE LEVEL 90 MMOL/L (98-107); CREATININE FOR GFR 0.81 MG/DL (0.55-1.30); GLOMERULAR FILTRATION RATE > 60.0 (>39); GLUCOSE, FASTING 82 MG/DL (74-106); SODIUM LEVEL 138 MMOL/L (136-145)
[2023-06-25] MEDS: SYMBICORT 160/4.5MCG INHALER 6GM INH SCH ×2 (07:16→19:27)
[2023-06-25] MEDS: TOBRAMYCIN INHAL 300 MG/5 ML SOLN INH SCH ×2 (07:17→19:27)
[2023-06-25] MEDS: LACTOBACILLUS ACIDOPHILUS CAP (BACID) PO SCH ×2 (08:50→17:36)
[2023-06-25] MEDS: MIDODRINE 5 MG TAB PO SCH ×3 (08:51→17:35)
[2023-06-25] MEDS: GABAPENTIN 300 MG CAP PO SCH ×3 (08:51→20:46)
[2023-06-25] MEDS: predniSONE 5 MG TAB PO SCH (08:51)
[2023-06-25] MEDS: SENNA 8.6 MG TAB (SENOKOT) PO SCH ×2 (08:51→21:00)
[2023-06-25] MEDS: DOCUSATE SODIUM 100MG CAPSULE PO SCH ×2 (08:51→21:00)
[2023-06-25] MEDS: MAGNESIUM OXIDE 400MG TAB (MAG-OX) PO SCH (08:52)
[2023-06-25] MEDS: TORSEMIDE 20 MG TAB PO SCH (08:52)
[2023-06-25] MEDS: PANTOPRAZOLE 40MG TAB (PROTONIX) PO SCH (08:52)
[2023-06-25 17:35] VITALS: BP 146/91
[2023-06-25] MEDS: CYCLOBENZAPRINE 10MG TABLET PO SCH (20:46)
[2023-06-25] MEDS: ANEXSIA, NORCO 7.5MG/325MG TABLET(HYDROCODONE/APAP) PO PRN (20:48)
[2023-06-25 22:00] VITALS: BP 144/87; TEMP 97.9; O2SAT 98
[2023-06-26] MEDS: LEVALBUTEROL 1.25MG 0.5ML CONCENTRATE NEB INH SCH ×2 (04:02→07:37)
[2023-06-26 05:14] VITALS: BP 139/84
[2023-06-26] MEDS: dilTIAZem 60 MG TAB PO SCH (05:14)
[2023-06-26] MEDS: LEVOTHYROXINE 25MCG TABLET (0.025MG) PO SCH (05:14)
[2023-06-26 05:15] VITALS: BP 139/84; TEMP 97.9; O2SAT 94
[2023-06-26] MEDS: SYMBICORT 160/4.5MCG INHALER 6GM INH SCH (07:37)
[2023-06-26] MEDS: TOBRAMYCIN INHAL 300 MG/5 ML SOLN INH SCH (07:37)
[2023-06-26] MEDS: GABAPENTIN 300 MG CAP PO SCH (08:29)
[2023-06-26] MEDS: LACTOBACILLUS ACIDOPHILUS CAP (BACID) PO SCH (08:29)
[2023-06-26] MEDS: MIDODRINE 5 MG TAB PO SCH (08:29)
[2023-06-26] MEDS: DOCUSATE SODIUM 100MG CAPSULE PO SCH (08:29)
[2023-06-26] MEDS: PANTOPRAZOLE 40MG TAB (PROTONIX) PO SCH (08:29)
[2023-06-26] MEDS: TORSEMIDE 20 MG TAB PO SCH (08:30)
[2023-06-26] MEDS: MAGNESIUM OXIDE 400MG TAB (MAG-OX) PO SCH (08:30)
[2023-06-26] MEDS: SENNA 8.6 MG TAB (SENOKOT) PO SCH (08:30)
[2023-06-26] MEDS: predniSONE 5 MG TAB PO SCH (08:30)
[2023-06-26] MEDS ORDERED: NEUR300C PO (09:25)
[2023-06-26] MEDS ORDERED: SYMB16INH INH (09:25)
[2023-06-26] MEDS ORDERED: HYDR-4514 PO (09:25)
[2023-06-26] MEDS ORDERED: DILT60TA PO (09:25)
[2023-06-26] MEDS ORDERED: GUAISYP5 PO (09:25)
[2023-06-26] MEDS ORDERED: SENN-188 PO (09:25)
[2023-06-26] MEDS ORDERED: PANT40TA29 PO (09:25)
[2023-06-26] MEDS ORDERED: LEVA1.25 NEB (09:25)
[2023-06-26] MEDS ORDERED: IPRA2IN NEB (09:25)
[2023-06-26] MEDS ORDERED: MAGN400C PO (09:25)
[2023-06-26] MEDS ORDERED: VITA100093 PO (09:25)
[2023-06-26] MEDS ORDERED: PRED5TA PO (09:25)
[2023-06-26] MEDS ORDERED: MELA10CA6 PO (09:25)
[2023-06-26] MEDS ORDERED: TORS20TA2 PO (09:25)
[2023-06-26] MEDS ORDERED: LEVO25TA5 PO (09:25)
[2023-06-26] MEDS ORDERED: MIDO5TA PO (09:25)
[2023-06-26] MEDS ORDERED: CYCL-707 PO (09:25)
== END 2023-06-26 10:27 | DRG 291 ==
LOC: M ED 09:06 → EDBD 09:06 → M ED INP 11:15 → ENRESERV 11:30 → M ICU 12:11 → M MSPAV 06-04 18:30
PROVIDERS: ADMIT Internal Medicine Pulmonary Disease; ATTEND Family Medicine
DX: I11.0 Hypertensive heart disease with heart failure (principal); J96.21 Acute and chronic respiratory failure with hypoxia; J96.22 Acute and chronic respiratory failure with hypercapnia; I50.43 Acute on chronic combined systolic (congestive) and diastolic (congestive) heart failure; J44.1 Chronic obstructive pulmonary disease with (acute) exacerbation; I48.20 Chronic atrial fibrillation, unspecified; J44.0 Chronic obstructive pulmonary disease with (acute) lower respiratory infection; E87.1 Hypo-osmolality and hyponatremia; E87.29 Other acidosis; E03.9 Hypothyroidism, unspecified; M19.90 Unspecified osteoarthritis, unspecified site; I27.20 Pulmonary hypertension, unspecified; I27.81 Cor pulmonale (chronic); B96.1 Klebsiella pneumoniae [K. pneumoniae] as the cause of diseases classified elsewhere; M48.00 Spinal stenosis, site unspecified; K76.0 Fatty (change of) liver, not elsewhere classified; R91.8 Other nonspecific abnormal finding of lung field; R04.0 Epistaxis; R13.10 Dysphagia, unspecified; Z90.79 Acquired absence of other genital organ(s); Z87.891 Personal history of nicotine dependence; Z99.81 Dependence on supplemental oxygen; Z79.01 Long term (current) use of anticoagulants; Z79.890 Hormone replacement therapy; Z79.899 Other long term (current) drug therapy; Z20.822 Contact with and (suspected) exposure to COVID-19

== ENCOUNTER 2023-06-28 14:14 | Emergency (ER) | payer MEDICARE ==
[~2023-06-28] VITALS: Ht 165.1 cm; Wt 79.2 kg
[~2023-06-28 14:14] MED LIST changes: +DILT60TA PO; +GUAISYP5 PO; +MIDO5TA PO; +PANT40TA29 PO; +SENN-188 PO; +TORS20TA2 PO; +[UNRECOGNIZED DRUG - CODE] NEB
[2023-06-28 14:38] VITALS: TEMP 97.9
[2023-06-28] MEDS ORDERED: COMBIVENT RESPIMAT 100-20MCG INHALER 4GM INH STA (14:38)
[2023-06-28 15:23] LABS: BASO % 0.3 % (0.0-1.0); EOS # 0.1 10^3/uL (0.0-0.5); EOS % 1.2 % (0.0-3.0); HEMATOCRIT 29.2 % (36.0-47.0); HEMOGLOBIN 9.6 g/dl (12.0-15.5); LYMPH # 0.4 10^3/uL (1.5-5.0); LYMPH % 3.5 % (24.0-44.0); MEAN CORPUSCULAR HGB CONC 32.9 g/dl (32.0-36.5); MEAN CORPUSCULAR VOLUME 100.3 fl (80.0-96.0); MONO # 0.5 10^3/uL (0.0-0.8); MONO % 4.1 % (2.0-8.0); NEUTROPHILS # 10.2 10^3/uL (1.5-8.5); NEUTROPHILS % 90.3 % (36.0-66.0); PLATELET COUNT, AUTOMATED 351 10^3/uL (150-450); RED BLOOD COUNT 2.91 10^6/uL (4.00-5.40); WHITE BLOOD COUNT 11.3 10^3/uL (4.0-10.0)
[2023-06-28 15:25] LABS: INR 0.97; PROTHROMBIN TIME 13.1 SECONDS (12.5-14.5)
[2023-06-28 15:26] LABS: PARTIAL THROMBOPLASTIN TIME 24.6 SECONDS (24.8-34.2)
[2023-06-28 15:44] LABS: LIPASE 31 U/L (12-53)
[2023-06-28 15:46] LABS: ALBUMIN 3.6 G/DL (3.2-5.2); ALKALINE PHOSPHATASE 71 U/L (46-116); ALT/SGPT 21 U/L (7.0-40); AST/SGOT 8 U/L (<34); BILIRUBIN,DIRECT 0.1 MG/DL (<0.4); BILIRUBIN,TOTAL 0.4 MG/DL (0.3-1.2); CK-MB VALUE MASS < 1.0 NG/ML (<3.6); CPK CREATINE PHOSPHOKINASE 27 U/L (34-145)
[2023-06-28 15:47] LABS: THYROID STIMULATING HORMONE 11.307 uIU/ML (0.55-4.78)
[2023-06-28 15:48] LABS: FREE T4 0.85 NG/DL (0.89-1.76)
[2023-06-28] MEDS ORDERED: ISOVUE-370 76% 100ML VIAL As Ordered ONE ×2 (16:22→16:42)
[2023-06-28 18:02] LABS: CK-MB VALUE MASS < 1.0 NG/ML (<3.6)
[2023-06-28 18:04] LABS: CPK CREATINE PHOSPHOKINASE 30 U/L (34-145); MB/CK RELATIVE INDEX 3.33 (< OR =4)
[2023-06-28 20:00] VITALS: BP 113/71; O2SAT 97
== END 2023-06-28 20:17 | disposition home or self-care (01) ==
LOC: M ED 14:14 → EDBD 14:14 → M ED 20:17
DX: R07.9 Chest pain, unspecified (principal); R91.8 Other nonspecific abnormal finding of lung field; I48.91 Unspecified atrial fibrillation; I10 Essential (primary) hypertension; E03.9 Hypothyroidism, unspecified; J44.9 Chronic obstructive pulmonary disease, unspecified; M79.7 Fibromyalgia; Z79.899 Other long term (current) drug therapy
CPT/HCPCS: 71045; 71275; 80047; 80076; 82550; 82553; 83690; 83880; 84439; 84443; 84484; 85025; 85610; 85730; 87040; 93005; 93041; 94640; 94760; 99285; Q9967

== ENCOUNTER 2023-07-03 16:33 | Observation (INO) | payer MEDICARE ==
[~2023-07-03] VITALS: Ht 165.1 cm; Wt 81.0 kg
[2023-07-03 18:16] LABS: BASO % 0.2 % (0.0-1.0); EOS # 0.1 10^3/uL (0.0-0.5); EOS % 0.7 % (0.0-3.0); HEMATOCRIT 31.4 % (36.0-47.0); LYMPH # 0.5 10^3/uL (1.5-5.0); LYMPH % 4.6 % (24.0-44.0); MEAN CORPUSCULAR HEMOGLOBIN 32.2 pg (27.0-33.0); MEAN CORPUSCULAR HGB CONC 31.8 g/dl (32.0-36.5); MONO # 0.6 10^3/uL (0.0-0.8); NEUTROPHILS # 8.9 10^3/uL (1.5-8.5); NEUTROPHILS % 87.4 % (36.0-66.0); PLATELET COUNT, AUTOMATED 385 10^3/uL (150-450); RED BLOOD COUNT 3.11 10^6/uL (4.00-5.40); WHITE BLOOD COUNT 10.2 10^3/uL (4.0-10.0)
[2023-07-03 18:46] LABS: CPK CREATINE PHOSPHOKINASE 25 U/L (34-145)
[2023-07-03 18:48] LABS: ALBUMIN 3.7 G/DL (3.2-5.2); ALKALINE PHOSPHATASE 75 U/L (46-116); ALT/SGPT 17 U/L (7.0-40); AST/SGOT < 8 U/L (<34); BILIRUBIN,DIRECT 0.2 MG/DL (<0.4); BILIRUBIN,TOTAL 0.4 MG/DL (0.3-1.2); BLOOD UREA NITROGEN 17 MG/DL (9-23); CALCIUM LEVEL 9.3 MG/DL (8.3-10.6); CARBON DIOXIDE LEVEL > 40.0 MMOL/L (20-31); CHLORIDE LEVEL 91 MMOL/L (98-107); CK-MB VALUE MASS < 1.0 NG/ML (<3.6); CREATININE FOR GFR 1.21 MG/DL (0.55-1.30); GLOMERULAR FILTRATION RATE 45.9 (>39); GLUCOSE, FASTING 104 MG/DL (74-106); POTASSIUM SERUM 5.3 MMOL/L (3.5-5.1); SODIUM LEVEL 133 MMOL/L (136-145); TOTAL PROTEIN 6.6 G/DL (5.7-8.2)
[2023-07-03] MEDS ORDERED: FUROSEMIDE 100MG/10ML VIAL IV ONE (20:10)
[2023-07-03] MEDS ORDERED: ISOVUE-370 76% 100ML VIAL As Ordered ONE (20:21)
[2023-07-03 20:45] LABS: CK-MB VALUE MASS < 1.0 NG/ML (<3.6)
[2023-07-03 21:13] LABS: RSV AMPLIFICATION NEGATIVE (NEGATIVE)
[2023-07-03 22:12] LABS: ALBUMIN 3.6 G/DL (3.2-5.2); ALKALINE PHOSPHATASE 71 U/L (46-116); ALT/SGPT 18 U/L (7.0-40); AST/SGOT 8 U/L (<34); BILIRUBIN,TOTAL 0.4 MG/DL (0.3-1.2); BLOOD UREA NITROGEN 16 MG/DL (9-23); CALCIUM LEVEL 9.2 MG/DL (8.3-10.6); CARBON DIOXIDE LEVEL 38 MMOL/L (20-31); CHLORIDE LEVEL 92 MMOL/L (98-107); CPK CREATINE PHOSPHOKINASE 27 U/L (34-145); CREATININE FOR GFR 1.13 MG/DL (0.55-1.30); GLOMERULAR FILTRATION RATE 49.7 (>39); GLUCOSE, FASTING 108 MG/DL (74-106); MAGNESIUM LEVEL 2.2 MG/DL (1.8-2.4); POTASSIUM SERUM 5.3 MMOL/L (3.5-5.1); SODIUM LEVEL 133 MMOL/L (136-145); TOTAL PROTEIN 6.2 G/DL (5.7-8.2)
[2023-07-04] MEDS ORDERED: ALBUTEROL SULFATE 2.5MG/0.5ML INH NEB SOLN NEB PRN (01:00)
[2023-07-04] MEDS ORDERED: ACETAMINOPHEN TAB 650MG DOSE (2X325MG) PO PRN (01:00)
[2023-07-04] MEDS: IPRATROPIUM 0.5MG/ALBUTEROL 2.5MG INH SOL UD 3ML (DUONEB) NEB SCH ×2 (01:51→07:17)
[2023-07-04 02:30] LABS: ABG BASE EXCESS 13.8 (-2.0-2.0); ABG HCO3 40.7 MMOL/L (22.0-26.0); ABG O2 SATURATION 98.1 % (95.0-99.0); ABG STANDARD HCO3 37.6 MMOL/L. (22.0-26.0); ABG TOTAL CO2 42.6 MMOL/L (23.0-31.0); ABG pH (ARTERIAL) 7.421 UNITS (7.350-7.450)
[2023-07-04] MEDS ORDERED: LEVOTHYROXINE 25MCG TABLET (0.025MG) PO SCH (06:00)
[2023-07-04 06:13] LABS: BLOOD UREA NITROGEN 18 MG/DL (9-23); CALCIUM LEVEL 9.6 MG/DL (8.3-10.6); CARBON DIOXIDE LEVEL > 40.0 MMOL/L (20-31); CHLORIDE LEVEL 89 MMOL/L (98-107); CREATININE FOR GFR 1.14 MG/DL (0.55-1.30); GLOMERULAR FILTRATION RATE 49.2 (>39); GLUCOSE, FASTING 101 MG/DL (74-106); MAGNESIUM LEVEL 2.4 MG/DL (1.8-2.4); POTASSIUM SERUM 4.3 MMOL/L (3.5-5.1); SODIUM LEVEL 136 MMOL/L (136-145)
[2023-07-04] MEDS ORDERED: CVS10CAP7 PO (06:16)
[2023-07-04] MEDS ORDERED: SYMB16INH INH (06:16)
[2023-07-04] MEDS ORDERED: POTA-150 PO (06:16)
[2023-07-04] MEDS ORDERED: TORS20TA2 PO ×2 (06:16→13:51)
[2023-07-04] MEDS ORDERED: SPIR50TA4 PO (06:16)
[2023-07-04] MEDS ORDERED: DILT60TA PO (06:16)
[2023-07-04] MEDS ORDERED: MIDO5TA PO (06:16)
[2023-07-04] MEDS ORDERED: GABA-282 PO (06:16)
[2023-07-04] MEDS ORDERED: SODIGEL NARES (06:16)
[2023-07-04] MEDS ORDERED: CYCL-707 PO (06:16)
[2023-07-04] MEDS ORDERED: VITA100093 PO (06:16)
[2023-07-04] MEDS ORDERED: MAGN400T35 PO (06:16)
[2023-07-04] MEDS ORDERED: LEVA1.2525 INH (06:16)
[2023-07-04] MEDS ORDERED: SYNT25TA PO (06:16)
[2023-07-04] MEDS ORDERED: [UNRECOGNIZED DRUG - CODE] INH (06:16)
[2023-07-04] MEDS ORDERED: GUAISYP5 PO (06:16)
[2023-07-04] MEDS ORDERED: PRED10TA2 PO (06:16)
[2023-07-04] MEDS ORDERED: HYDR-4514 PO (06:16)
[2023-07-04] MEDS ORDERED: IPRA2IN INH ×2 (06:16)
[2023-07-04] MEDS ORDERED: PANT40TA29 PO (06:16)
[2023-07-04] MEDS ORDERED: SENN8.6T58 PO (06:16)
[2023-07-04] MEDS ORDERED: HOME MED LIST COMPLETE! XX SCH (06:20)
[2023-07-04] MEDS: LEVALBUTEROL 1.25MG 0.5ML CONCENTRATE NEB INH SCH ×2 (08:00→20:20)
[2023-07-04] MEDS: IPRATROPIUM 0.02% SOLN 0.5MG 2.5ML NEB INH SCH ×2 (08:00→20:21)
[2023-07-04] MEDS ORDERED: FUROSEMIDE 40MG/4ML VIAL IV SCH (09:00)
[2023-07-04] MEDS ORDERED: predniSONE 5 MG TAB PO SCH (09:00)
[2023-07-04] MEDS: HEPARIN SOD (PORCINE) 5000UNITS/ML 1ML VIAL/SYRINGE SC SCH ×2 (09:26→20:48)
[2023-07-04] MEDS ORDERED: ANEXSIA, NORCO 7.5MG/325MG TABLET(HYDROCODONE/APAP) PO PRN (09:40)
[2023-07-04] MEDS ORDERED: IPRATROPIUM 0.02% SOLN 0.5MG 2.5ML NEB INH PRN (09:40)
[2023-07-04] MEDS ORDERED: SENNA 8.6 MG TAB (SENOKOT) PO PRN (09:40)
[2023-07-04] MEDS ORDERED: guaiFENesin DM LIQ 10ML UD PO PRN (09:40)
[2023-07-04] MEDS: SPIRONOLACTONE 50 MG TAB PO SCH (10:46)
[2023-07-04] MEDS: PANTOPRAZOLE 40MG TAB (PROTONIX) PO SCH (10:46)
[2023-07-04] MEDS: MAGNESIUM OXIDE 400MG TAB (MAG-OX) PO SCH (10:46)
[2023-07-04] MEDS: GABAPENTIN 300 MG CAP PO SCH ×3 (10:47→20:51)
[2023-07-04] MEDS: VITAMIN D 1,000 INTERNATIONAL UNITS TABLET PO SCH (10:47)
[2023-07-04] MEDS: SYMBICORT 160/4.5MCG INHALER 6GM INH SCH ×2 (11:38→20:20)
[2023-07-04] MEDS: MIDODRINE 5 MG TAB PO SCH ×2 (12:27→16:52)
[2023-07-04] MEDS: dilTIAZem 60 MG TAB PO SCH ×2 (12:28→20:51)
[2023-07-04] MEDS ORDERED: predniSONE 5 MG TAB PO ONE (12:30)
[2023-07-04 14:41] LABS: BASO % 0.3 % (0.0-1.0); EOS # 0.2 10^3/uL (0.0-0.5); EOS % 1.3 % (0.0-3.0); HEMATOCRIT 33.3 % (36.0-47.0); HEMOGLOBIN 10.8 g/dl (12.0-15.5); LYMPH # 0.6 10^3/uL (1.5-5.0); LYMPH % 4.7 % (24.0-44.0); MEAN CORPUSCULAR HGB CONC 32.4 g/dl (32.0-36.5); MEAN CORPUSCULAR VOLUME 98.5 fl (80.0-96.0); MONO # 0.9 10^3/uL (0.0-0.8); MONO % 7.6 % (2.0-8.0); NEUTROPHILS # 10.2 10^3/uL (1.5-8.5); NEUTROPHILS % 84.9 % (36.0-66.0); PLATELET COUNT, AUTOMATED 442 10^3/uL (150-450); RED BLOOD COUNT 3.38 10^6/uL (4.00-5.40)
[2023-07-04 15:40] VITALS: BP 121/77; TEMP 97.9; O2SAT 90
[2023-07-04] MEDS: TORSEMIDE 20 MG TAB PO SCH (16:53)
[2023-07-04 20:00] VITALS: BP 123/75; TEMP 97.7; O2SAT 90
[2023-07-04] MEDS: SODIUM CHLORIDE 0.9% NASAL GEL 15GM (AYR) SCH (20:51)
[2023-07-04] MEDS ORDERED: CYCLOBENZAPRINE 10MG TABLET PO SCH (21:00)
[2023-07-05 05:30] VITALS: BP 117/69
[2023-07-05] MEDS: dilTIAZem 60 MG TAB PO SCH (05:30)
[2023-07-05 05:33] VITALS: BP 116/68; TEMP 97.9; O2SAT 93
[2023-07-05] MEDS ORDERED: LEVOTHYROXINE 50MCG TABLET (0.05MG) PO SCH (06:00)
[2023-07-05 06:17] LABS: BASO % 0.4 % (0.0-1.0); EOS # 0.2 10^3/uL (0.0-0.5); EOS % 2.7 % (0.0-3.0); HEMATOCRIT 31.8 % (36.0-47.0); HEMOGLOBIN 10.4 g/dl (12.0-15.5); LYMPH # 0.9 10^3/uL (1.5-5.0); LYMPH % 10.9 % (24.0-44.0); MEAN CORPUSCULAR HEMOGLOBIN 32.2 pg (27.0-33.0); MEAN CORPUSCULAR HGB CONC 32.7 g/dl (32.0-36.5); MEAN CORPUSCULAR VOLUME 98.5 fl (80.0-96.0); MONO # 0.9 10^3/uL (0.0-0.8); MONO % 10.5 % (2.0-8.0); NEUTROPHILS # 6.3 10^3/uL (1.5-8.5); NEUTROPHILS % 74.2 % (36.0-66.0); PLATELET COUNT, AUTOMATED 384 10^3/uL (150-450); RED BLOOD COUNT 3.23 10^6/uL (4.00-5.40); WHITE BLOOD COUNT 8.5 10^3/uL (4.0-10.0)
[2023-07-05 06:34] LABS: BLOOD UREA NITROGEN 18 MG/DL (9-23); CALCIUM LEVEL 9.1 MG/DL (8.3-10.6); CARBON DIOXIDE LEVEL > 40.0 MMOL/L (20-31); CHLORIDE LEVEL 85 MMOL/L (98-107); CREATININE FOR GFR 1.24 MG/DL (0.55-1.30); GLOMERULAR FILTRATION RATE 44.7 (>39); GLUCOSE, FASTING 97 MG/DL (74-106); MAGNESIUM LEVEL 2.2 MG/DL (1.8-2.4); POTASSIUM SERUM 3.9 MMOL/L (3.5-5.1); SODIUM LEVEL 132 MMOL/L (136-145)
[2023-07-05] MEDS: LEVALBUTEROL 1.25MG 0.5ML CONCENTRATE NEB INH SCH (07:24)
[2023-07-05] MEDS: IPRATROPIUM 0.02% SOLN 0.5MG 2.5ML NEB INH SCH (07:24)
[2023-07-05] MEDS: SYMBICORT 160/4.5MCG INHALER 6GM INH SCH (07:24)
[2023-07-05] MEDS: GABAPENTIN 300 MG CAP PO SCH (08:34)
[2023-07-05] MEDS: PANTOPRAZOLE 40MG TAB (PROTONIX) PO SCH (08:34)
[2023-07-05] MEDS: VITAMIN D 1,000 INTERNATIONAL UNITS TABLET PO SCH (08:35)
[2023-07-05] MEDS: TORSEMIDE 20 MG TAB PO SCH (08:35)
[2023-07-05] MEDS: MIDODRINE 5 MG TAB PO SCH ×2 (08:35→12:11)
[2023-07-05] MEDS: SPIRONOLACTONE 50 MG TAB PO SCH (08:36)
[2023-07-05] MEDS: HEPARIN SOD (PORCINE) 5000UNITS/ML 1ML VIAL/SYRINGE SC SCH (08:36)
[2023-07-05] MEDS: MAGNESIUM OXIDE 400MG TAB (MAG-OX) PO SCH (08:36)
[2023-07-05] MEDS: SODIUM CHLORIDE 0.9% NASAL GEL 15GM (AYR) SCH (08:36)
[2023-07-05] MEDS ORDERED: predniSONE 10MG TAB PO SCH (09:00)
[2023-07-05] MEDS ORDERED: LEVO50TA5 PO ×2 (11:41→14:41)
== END 2023-07-05 13:16 ==
LOC: M ED 16:33 → M ED INP 07-04 00:17 → ENRESERV 07-04 14:47 → M MSPAV 07-04 16:20
PROVIDERS: ADMIT Internal Medicine; ATTEND Internal Medicine
DX: R60.0 Localized edema (principal); E87.1 Hypo-osmolality and hyponatremia; E87.5 Hyperkalemia; E03.9 Hypothyroidism, unspecified; I48.91 Unspecified atrial fibrillation; I95.9 Hypotension, unspecified; J44.9 Chronic obstructive pulmonary disease, unspecified; G62.9 Polyneuropathy, unspecified; K21.9 Gastro-esophageal reflux disease without esophagitis; Z87.891 Personal history of nicotine dependence; Z99.81 Dependence on supplemental oxygen; Z79.52 Long term (current) use of systemic steroids; Z79.51 Long term (current) use of inhaled steroids; Z79.899 Other long term (current) drug therapy
CPT/HCPCS: 36415; 36600; 71045; 71275; 80048; 80053; 80076; 82550; 82553; 82803; 83735; 83880; 84484; 85025; 87631; 87635; 93005; 93306; 94640; 96372; 96374; 96375; 96376; 97161; 97165; 97530; 99285; G0378; J1120; J1940; J7512; Q9967

== ENCOUNTER → 2023-08-02 | Outpatient (REF) | payer MEDICARE ==
[~2023-08-02] MED LIST changes: +CVS10CAP7 PO; +GABA-282 PO; +IPRA2IN INH; +LEVA1.2525 INH; +LEVO50TA5 PO; +MAGN400T35 PO; +POTA-150 PO; +SENN8.6T58 PO; +SODIGEL NARES; +SPIR50TA4 PO; +SYNT25TA PO; +[UNRECOGNIZED DRUG - CODE] INH
[2023-08-02 09:41] LABS: ALBUMIN 3.5 G/DL (3.2-5.2); CALCIUM LEVEL 9.3 MG/DL (8.3-10.6); CREATININE FOR GFR 1.1 MG/DL (0.55-1.30); GLOMERULAR FILTRATION RATE 51.3 (>39); POTASSIUM SERUM 5.5 MMOL/L (3.5-5.1)
== END ==
PROVIDERS: ATTEND Internal Medicine Nephrology
DX: E87.1 Hypo-osmolality and hyponatremia (principal); I10 Essential (primary) hypertension; E87.6 Hypokalemia

== ENCOUNTER → 2023-08-08 | Outpatient (CLI) | payer MEDICARE ==
[2023-08-08 16:09] LABS: BASO # 0.1 10^3/uL (0.0-0.2); BASO % 0.3 % (0.0-1.0); EOS % 0.1 % (0.0-3.0); HEMATOCRIT 34.1 % (36.0-47.0); HEMOGLOBIN 11.5 g/dl (12.0-15.5); LYMPH # 0.5 10^3/uL (1.5-5.0); LYMPH % 2.4 % (24.0-44.0); MEAN CORPUSCULAR HEMOGLOBIN 32.1 pg (27.0-33.0); MEAN CORPUSCULAR HGB CONC 33.7 g/dl (32.0-36.5); MEAN CORPUSCULAR VOLUME 95.3 fl (80.0-96.0); MONO # 0.9 10^3/uL (0.0-0.8); MONO % 4.1 % (2.0-8.0); NEUTROPHILS # 20.6 10^3/uL (1.5-8.5); NEUTROPHILS % 91.6 % (36.0-66.0); PLATELET COUNT, AUTOMATED 455 10^3/uL (150-450); RED BLOOD COUNT 3.58 10^6/uL (4.00-5.40); WHITE BLOOD COUNT 22.5 10^3/uL (4.0-10.0)
[2023-08-08 16:37] LABS: ALBUMIN 3.9 G/DL (3.2-5.2); BILIRUBIN,TOTAL 0.3 MG/DL (0.3-1.2); CALCIUM LEVEL 9.7 MG/DL (8.3-10.6); CREATININE FOR GFR 1.13 MG/DL (0.55-1.30); GLOMERULAR FILTRATION RATE 49.7 (>39); POTASSIUM SERUM 5.8 MMOL/L (3.5-5.1); TOTAL PROTEIN 6.6 G/DL (5.7-8.2)
[2023-08-08 16:38] LABS: C REACTIVE PROTEIN QUANTITATIV 1.9 MG/DL (<1.0)
[2023-08-08 16:41] LABS: ERYTHROCYTE SEDIMENTATION RATE 40 mm/hr (0-30)
== END ==
LOC: M PLALAB 12:53
PROVIDERS: ATTEND Internal Medicine Infectious Disease
DX: R06.02 Shortness of breath (principal); A49.8 Other bacterial infections of unspecified site

== ENCOUNTER 2023-08-30 09:20 | Inpatient (IN) | payer MEDICARE, MEDICAID ==
[~2023-08-30] VITALS: Ht 165.1 cm; Wt 73.5 kg
[2023-08-30 10:11] LABS: BASO % 0.2 % (0.0-1.0); EOS # 0.2 10^3/uL (0.0-0.5); EOS % 1.3 % (0.0-3.0); HEMATOCRIT 34.2 % (36.0-47.0); HEMOGLOBIN 11.7 g/dl (12.0-15.5); LYMPH # 0.8 10^3/uL (1.5-5.0); MEAN CORPUSCULAR HEMOGLOBIN 31.9 pg (27.0-33.0); MEAN CORPUSCULAR HGB CONC 34.2 g/dl (32.0-36.5); MEAN CORPUSCULAR VOLUME 93.2 fl (80.0-96.0); MONO # 1.2 10^3/uL (0.0-0.8); MONO % 8.8 % (2.0-8.0); NEUTROPHILS % 82.7 % (36.0-66.0); PLATELET COUNT, AUTOMATED 364 10^3/uL (150-450); RED BLOOD COUNT 3.67 10^6/uL (4.00-5.40); WHITE BLOOD COUNT 13.3 10^3/uL (4.0-10.0)
[2023-08-30 10:54] LABS: CALCIUM LEVEL 9.5 MG/DL (8.3-10.6); CREATININE FOR GFR 0.99 MG/DL (0.55-1.30); FREE T4 1.14 NG/DL (0.89-1.76); GLOMERULAR FILTRATION RATE 57.9 (>39); MAGNESIUM LEVEL 2.1 MG/DL (1.8-2.4)
[2023-08-30 11:33] LABS: THYROID STIMULATING HORMONE 10.109 uIU/ML (0.55-4.78)
[2023-08-30] MEDS ORDERED: NS 500 ML IV ONE (11:45)
[2023-08-30 12:41] LABS: THYROID STIMULATING HORMONE 6.998 uIU/ML (0.55-4.78)
[2023-08-30 12:42] LABS: FREE T4 1.17 NG/DL (0.89-1.76)
[2023-08-30 13:16] LABS: CREATININE,RANDOM URINE 37.8 MG/DL
[2023-08-30] MEDS ORDERED: MED REC IN PROGRESS XX SCH (13:45)
[2023-08-30] MEDS ORDERED: LEVALBUTEROL 1.25MG 0.5ML CONCENTRATE NEB INH PRN (14:05)
[2023-08-30 14:57] LABS: BLOOD UREA NITROGEN 26 MG/DL (9-23); CARBON DIOXIDE LEVEL 37 MMOL/L (20-31); CHLORIDE LEVEL 91 MMOL/L (98-107); CREATININE FOR GFR 0.91 MG/DL (0.55-1.30); GLOMERULAR FILTRATION RATE > 60.0 (>39); GLUCOSE, FASTING 110 MG/DL (74-106); POTASSIUM SERUM 4.6 MMOL/L (3.5-5.1); SODIUM LEVEL 130 MMOL/L (136-145)
[2023-08-30] MEDS: LEVALBUTEROL 1.25MG 0.5ML CONCENTRATE NEB INH SCH ×2 (16:40→20:12)
[2023-08-30 17:55] VITALS: BP 132/70; TEMP 97.3; O2SAT 94
[2023-08-30 18:15] VITALS: BP_SYST 124; BP_SYST 129; BP_SYST 130; BP_DIAS 70; BP_DIAS 72; BP_DIAS 90
[2023-08-30] MEDS ORDERED: HOME MED LIST COMPLETE! XX SCH (18:55)
[2023-08-30] MEDS ORDERED: dilTIAZem 60 MG TAB PO ONE (19:00)
[2023-08-30] MEDS ORDERED: DIGOXIN INJ 0.5 MG/2 ML AMP IV STA (19:00)
[2023-08-30] MEDS ORDERED: LEVO50TA5 PO (19:00)
[2023-08-30] MEDS ORDERED: ELIQ2.5T PO (19:09)
[2023-08-30] MEDS ORDERED: PANT20TA6 PO (19:17)
[2023-08-30] MEDS ORDERED: ACET-907 PO (19:33)
[2023-08-30 20:05] LABS: C REACTIVE PROTEIN QUANTITATIV 5.9 MG/DL (<1.0)
[2023-08-30 20:07] LABS: CREATININE FOR GFR 1.04 MG/DL (0.55-1.30); GLOMERULAR FILTRATION RATE 54.7 (>39); POTASSIUM SERUM 4.9 MMOL/L (3.5-5.1)
[2023-08-30 20:14] LABS: PROCALCITONIN 0.16 ng/ml
[2023-08-30] MEDS: APIXABAN 5 MG TAB (ELIQUIS) PO SCH (20:44)
[2023-08-30 20:50] VITALS: BP 113/64; TEMP 97.5; O2SAT 95
[2023-08-30] MEDS ORDERED: CYCLOBENZAPRINE 10MG TABLET PO SCH (21:00)
[2023-08-30] MEDS: IPRATROPIUM HFA INHALER 12.9 GRAMS (ATROVENT HFA) INH SCH (21:26)
[2023-08-30] MEDS: dilTIAZem 60 MG TAB PO SCH (22:06)
[2023-08-30 22:13] VITALS: BP_SYST 128; BP_SYST 132; BP_SYST 136; BP_DIAS 71; BP_DIAS 72; BP_DIAS 73
[2023-08-31] VITALS (7 sets, daily range): BP systolic 105–152; BP diastolic 52–68; TEMP 97.3–97.7; O2SAT 93–99
[2023-08-31] MEDS ORDERED: ANEXSIA, NORCO 7.5MG/325MG TABLET(HYDROCODONE/APAP) PO ONE (00:15)
[2023-08-31] MEDS ORDERED: DIGOXIN INJ 0.5 MG/2 ML AMP IV ONE (01:00)
[2023-08-31 01:46] LABS: CALCIUM LEVEL 8.8 MG/DL (8.3-10.6); CREATININE FOR GFR 1.07 MG/DL (0.55-1.30); GLOMERULAR FILTRATION RATE 52.9 (>39); POTASSIUM SERUM 5.1 MMOL/L (3.5-5.1)
[2023-08-31] MEDS: dilTIAZem 60 MG TAB PO SCH ×5 (05:53→23:19)
[2023-08-31 07:06] LABS: BASO % 0.3 % (0.0-1.0); EOS # 0.2 10^3/uL (0.0-0.5); EOS % 1.6 % (0.0-3.0); HEMATOCRIT 34.3 % (36.0-47.0); HEMOGLOBIN 11.6 g/dl (12.0-15.5); MEAN CORPUSCULAR HEMOGLOBIN 31.7 pg (27.0-33.0); MEAN CORPUSCULAR HGB CONC 33.8 g/dl (32.0-36.5); MEAN CORPUSCULAR VOLUME 93.7 fl (80.0-96.0); MONO # 1.2 10^3/uL (0.0-0.8); MONO % 9.8 % (2.0-8.0); NEUTROPHILS # 9.5 10^3/uL (1.5-8.5); NEUTROPHILS % 78.5 % (36.0-66.0); PLATELET COUNT, AUTOMATED 353 10^3/uL (150-450); RED BLOOD COUNT 3.66 10^6/uL (4.00-5.40); WHITE BLOOD COUNT 12.1 10^3/uL (4.0-10.0)
[2023-08-31 07:22] LABS: CALCIUM LEVEL 9.2 MG/DL (8.3-10.6); GLOMERULAR FILTRATION RATE 57.2 (>39); POTASSIUM SERUM 4.9 MMOL/L (3.5-5.1)
[2023-08-31] MEDS: LEVALBUTEROL 1.25MG 0.5ML CONCENTRATE NEB INH SCH ×4 (07:25→20:06)
[2023-08-31] MEDS: MIDODRINE 5 MG TAB PO SCH ×3 (08:00→16:37)
[2023-08-31] MEDS ORDERED: DIGOXIN 0.125 MG TAB PO SCH (09:00)
[2023-08-31] MEDS: IPRATROPIUM HFA INHALER 12.9 GRAMS (ATROVENT HFA) INH SCH (09:00)
[2023-08-31] MEDS: DIGOXIN INJ 0.5 MG/2 ML AMP IV SCH ×3 (09:41→20:09)
[2023-08-31] MEDS: APIXABAN 5 MG TAB (ELIQUIS) PO SCH (09:41)
[2023-08-31] MEDS ORDERED: MOM 30ML SUSPENSION UDC PO PRN (11:30)
[2023-08-31] MEDS ORDERED: SENOKOT S TAB PO PRN (11:30)
[2023-08-31 14:03] LABS: BLOOD UREA NITROGEN 20 MG/DL (9-23); CALCIUM LEVEL 9.2 MG/DL (8.3-10.6); CARBON DIOXIDE LEVEL 34 MMOL/L (20-31); CHLORIDE LEVEL 90 MMOL/L (98-107); CREATININE FOR GFR 0.88 MG/DL (0.55-1.30); GLOMERULAR FILTRATION RATE > 60.0 (>39); GLUCOSE, FASTING 118 MG/DL (74-106); POTASSIUM SERUM 4.8 MMOL/L (3.5-5.1); SODIUM LEVEL 128 MMOL/L (136-145)
[2023-08-31] MEDS ORDERED: LEVALBUTEROL 1.25MG 0.5ML CONCENTRATE NEB INH PRN (14:25)
[2023-08-31] MEDS ORDERED: IPRATROPIUM 0.02% SOLN 0.5MG 2.5ML NEB INH PRN (14:25)
[2023-08-31] MEDS ORDERED: SENNA 8.6 MG TAB (SENOKOT) PO PRN (14:50)
[2023-08-31] MEDS ORDERED: TOLVAPTAN 7.5 MG HALF-TAB PO ONE (15:00)
[2023-08-31] MEDS: IPRATROPIUM 0.02% SOLN 0.5MG 2.5ML NEB INH SCH ×2 (15:05→20:06)
[2023-08-31] MEDS ORDERED: ISOVUE-370 76% 100ML VIAL As Ordered ONE (15:57)
[2023-08-31] MEDS ORDERED: LEVALBUTEROL 1.25MG 0.5ML CONCENTRATE NEB INH SCH (16:00)
[2023-08-31 16:23] LABS: IMMUNOGLOBULIN A 145.9 MG/DL (40-350); IMMUNOGLOBULIN G 526 MG/DL (650-1600); IMMUNOGLOBULIN M 22.1 MG/DL (50-300)
[2023-08-31] MEDS: predniSONE 10MG TAB PO SCH (16:37)
[2023-08-31] MEDS: VITAMIN D 1,000 INTERNATIONAL UNITS TABLET PO SCH (16:37)
[2023-08-31] MEDS ORDERED: AZITHROMYCIN 250MG TABLET PO ONE (18:00)
[2023-08-31 19:51] LABS: BLOOD UREA NITROGEN 19 MG/DL (9-23); CALCIUM LEVEL 9.4 MG/DL (8.3-10.6); CARBON DIOXIDE LEVEL 34 MMOL/L (20-31); CHLORIDE LEVEL 90 MMOL/L (98-107); CREATININE FOR GFR 0.86 MG/DL (0.55-1.30); GLOMERULAR FILTRATION RATE > 60.0 (>39); GLUCOSE, FASTING 131 MG/DL (74-106); POTASSIUM SERUM 5.1 MMOL/L (3.5-5.1); SODIUM LEVEL 128 MMOL/L (136-145)
[2023-08-31] MEDS: SYMBICORT 160/4.5MCG INHALER 6GM INH SCH (20:06)
[2023-08-31] MEDS: APIXABAN 2.5 MG TAB (ELIQUIS) PO SCH (20:11)
[2023-08-31] MEDS: PANTOPRAZOLE 20 MG TAB PO SCH (20:11)
[2023-09-01 02:02] LABS: BLOOD UREA NITROGEN 19 MG/DL (9-23); CALCIUM LEVEL 9.7 MG/DL (8.3-10.6); CARBON DIOXIDE LEVEL 34 MMOL/L (20-31); CHLORIDE LEVEL 94 MMOL/L (98-107); CREATININE FOR GFR 0.88 MG/DL (0.55-1.30); GLOMERULAR FILTRATION RATE > 60.0 (>39); GLUCOSE, FASTING 119 MG/DL (74-106); POTASSIUM SERUM 5.3 MMOL/L (3.5-5.1); SODIUM LEVEL 131 MMOL/L (136-145)
[2023-09-01] MEDS: LEVOTHYROXINE 50MCG TABLET (0.05MG) PO SCH (05:28)
[2023-09-01] MEDS: dilTIAZem 60 MG TAB PO SCH (05:28)
[2023-09-01 05:47] LABS: BASO % 0.3 % (0.0-1.0); EOS # 0.1 10^3/uL (0.0-0.5); EOS % 0.6 % (0.0-3.0); HEMATOCRIT 33.5 % (36.0-47.0); HEMOGLOBIN 11.5 g/dl (12.0-15.5); LYMPH # 0.7 10^3/uL (1.5-5.0); LYMPH % 6.3 % (24.0-44.0); MEAN CORPUSCULAR HEMOGLOBIN 31.9 pg (27.0-33.0); MEAN CORPUSCULAR HGB CONC 34.3 g/dl (32.0-36.5); MEAN CORPUSCULAR VOLUME 92.8 fl (80.0-96.0); MONO % 9.2 % (2.0-8.0); NEUTROPHILS % 82.7 % (36.0-66.0); PLATELET COUNT, AUTOMATED 321 10^3/uL (150-450); RED BLOOD COUNT 3.61 10^6/uL (4.00-5.40); WHITE BLOOD COUNT 10.9 10^3/uL (4.0-10.0)
[2023-09-01 06:00] VITALS: BP 134/66; TEMP 96.8; O2SAT 93
[2023-09-01 06:16] LABS: ALBUMIN 3.3 G/DL (3.2-5.2); ALKALINE PHOSPHATASE 86 U/L (46-116); ALT/SGPT 24 U/L (7.0-40); AST/SGOT 15 U/L (<34); BILIRUBIN,TOTAL 0.5 MG/DL (0.3-1.2); BLOOD UREA NITROGEN 18 MG/DL (9-23); CALCIUM LEVEL 9.9 MG/DL (8.3-10.6); CARBON DIOXIDE LEVEL 34 MMOL/L (20-31); CHLORIDE LEVEL 95 MMOL/L (98-107); CREATININE FOR GFR 0.84 MG/DL (0.55-1.30); DIGOXIN LEVEL 2.1 NG/ML (0.8-2.0); GLOMERULAR FILTRATION RATE > 60.0 (>39); GLUCOSE, FASTING 110 MG/DL (74-106); POTASSIUM SERUM 4.9 MMOL/L (3.5-5.1); SODIUM LEVEL 133 MMOL/L (136-145); TOTAL PROTEIN 6.2 G/DL (5.7-8.2)
[2023-09-01] MEDS: LEVALBUTEROL 1.25MG 0.5ML CONCENTRATE NEB INH SCH ×4 (07:52→20:44)
[2023-09-01] MEDS: IPRATROPIUM 0.02% SOLN 0.5MG 2.5ML NEB INH SCH ×4 (07:52→20:44)
[2023-09-01] MEDS: SYMBICORT 160/4.5MCG INHALER 6GM INH SCH ×2 (07:53→20:45)
[2023-09-01] MEDS: PANTOPRAZOLE 20 MG TAB PO SCH ×2 (08:44→20:25)
[2023-09-01] MEDS: VITAMIN D 1,000 INTERNATIONAL UNITS TABLET PO SCH (08:44)
[2023-09-01] MEDS: APIXABAN 2.5 MG TAB (ELIQUIS) PO SCH (08:44)
[2023-09-01] MEDS: predniSONE 10MG TAB PO SCH (08:44)
[2023-09-01] MEDS: MIDODRINE 5 MG TAB PO SCH ×3 (08:45→17:24)
[2023-09-01] MEDS: rifAMPin 150MG CAPSULE PO SCH (13:37)
[2023-09-01 14:00] VITALS: BP 111/72; TEMP 97.3; O2SAT 92
[2023-09-01 14:00] LABS: BLOOD UREA NITROGEN 21 MG/DL (9-23); CALCIUM LEVEL 9.5 MG/DL (8.3-10.6); CARBON DIOXIDE LEVEL 35 MMOL/L (20-31); CHLORIDE LEVEL 93 MMOL/L (98-107); CREATININE FOR GFR 0.92 MG/DL (0.55-1.30); GLOMERULAR FILTRATION RATE > 60.0 (>39); GLUCOSE, FASTING 119 MG/DL (74-106); POTASSIUM SERUM 5.2 MMOL/L (3.5-5.1); SODIUM LEVEL 131 MMOL/L (136-145)
[2023-09-01] MEDS ORDERED: IBUPROFEN 100MG 5ML ORAL SUSP UDC PO ONE (17:00)
[2023-09-01] MEDS: LACTOBACILLUS ACIDOPHILUS CAP (BACID) PO SCH ×2 (17:24→20:22)
[2023-09-01 19:44] LABS: BLOOD UREA NITROGEN 21 MG/DL (9-23); CALCIUM LEVEL 9.7 MG/DL (8.3-10.6); CARBON DIOXIDE LEVEL 34 MMOL/L (20-31); CHLORIDE LEVEL 91 MMOL/L (98-107); CREATININE FOR GFR 0.84 MG/DL (0.55-1.30); GLOMERULAR FILTRATION RATE > 60.0 (>39); GLUCOSE, FASTING 138 MG/DL (74-106); POTASSIUM SERUM 5.2 MMOL/L (3.5-5.1); SODIUM LEVEL 129 MMOL/L (136-145)
[2023-09-01] MEDS: GABAPENTIN 100 MG CAP PO SCH (20:23)
[2023-09-01] MEDS: ENOXAPARIN 80MG/0.8ML SYRINGE (J1650 PER 10MG) SC SCH (20:24)
[2023-09-01] MEDS: ACETAMINOPHEN 325 MG TAB PO PRN (20:24)
[2023-09-01] MEDS: dilTIAZem 120MG **CD** CAPSULE PO SCH (20:24)
[2023-09-01] MEDS ORDERED: AUGMENTIN 875 MG TAB PO SCH (21:00)
[2023-09-01] MEDS ORDERED: HYDROcodone/APAP LIQUID 7.5-325MG 15ML UDC (LORTAB ELIXIR) PO ONE (21:45)
[2023-09-01 22:00] VITALS: BP 119/70; TEMP 97.5; O2SAT 95
[2023-09-02] MEDS: LEVOTHYROXINE 50MCG TABLET (0.05MG) PO SCH (05:22)
[2023-09-02 06:24] VITALS: BP 115/68; TEMP 97.7; O2SAT 96
[2023-09-02 06:30] LABS: BASO % 0.3 % (0.0-1.0); EOS # 0.2 10^3/uL (0.0-0.5); EOS % 1.6 % (0.0-3.0); HEMATOCRIT 32.2 % (36.0-47.0); LYMPH % 8.9 % (24.0-44.0); MEAN CORPUSCULAR HEMOGLOBIN 31.8 pg (27.0-33.0); MEAN CORPUSCULAR HGB CONC 34.2 g/dl (32.0-36.5); MEAN CORPUSCULAR VOLUME 93.1 fl (80.0-96.0); MONO # 1.1 10^3/uL (0.0-0.8); NEUTROPHILS # 8.6 10^3/uL (1.5-8.5); NEUTROPHILS % 78.3 % (36.0-66.0); PLATELET COUNT, AUTOMATED 350 10^3/uL (150-450); RED BLOOD COUNT 3.46 10^6/uL (4.00-5.40); WHITE BLOOD COUNT 10.9 10^3/uL (4.0-10.0)
[2023-09-02] MEDS: IPRATROPIUM 0.02% SOLN 0.5MG 2.5ML NEB INH SCH ×4 (07:28→20:24)
[2023-09-02] MEDS: LEVALBUTEROL 1.25MG 0.5ML CONCENTRATE NEB INH SCH ×4 (07:28→20:24)
[2023-09-02] MEDS: SYMBICORT 160/4.5MCG INHALER 6GM INH SCH ×2 (07:29→20:24)
[2023-09-02 07:50] VITALS: BP 119/86
[2023-09-02] MEDS: ENOXAPARIN 80MG/0.8ML SYRINGE (J1650 PER 10MG) SC SCH ×2 (08:07→20:17)
[2023-09-02] MEDS: GABAPENTIN 100 MG CAP PO SCH ×3 (08:07→20:13)
[2023-09-02] MEDS: LACTOBACILLUS ACIDOPHILUS CAP (BACID) PO SCH ×4 (08:07→20:13)
[2023-09-02] MEDS: MIDODRINE 5 MG TAB PO SCH ×3 (08:07→15:45)
[2023-09-02] MEDS: VITAMIN D 1,000 INTERNATIONAL UNITS TABLET PO SCH (08:08)
[2023-09-02] MEDS: predniSONE 10MG TAB PO SCH (08:08)
[2023-09-02] MEDS: dilTIAZem 120MG **CD** CAPSULE PO SCH ×2 (08:08→20:13)
[2023-09-02] MEDS: PANTOPRAZOLE 20 MG TAB PO SCH ×2 (08:08→20:16)
[2023-09-02] MEDS ORDERED: ETHAMBUTOL 400MG TAB PO ONE (09:00)
[2023-09-02 12:07] VITALS: BP 116/67
[2023-09-02] MEDS ORDERED: DIGOXIN INJ 0.5 MG/2 ML AMP IV STA (12:07)
[2023-09-02] MEDS ORDERED: PATIROMER SORBITEX CALCIUM 8.4 GM POWDER PACKET (VELTASSA) PO ONE (13:00)
[2023-09-02] MEDS ORDERED: TOLVAPTAN 7.5 MG HALF-TAB PO ONE (13:00)
[2023-09-02 14:00] VITALS: BP 117/65; TEMP 97.2; O2SAT 96
[2023-09-02] MEDS: ACETAMINOPHEN 325 MG TAB PO PRN (15:53)
[2023-09-02] MEDS ORDERED: methylPREDNISolone 40MG 1ML VIAL IV ONE (16:00)
[2023-09-02] MEDS ORDERED: diphenhydrAMINE CREAM 30GM TOP PRN (16:00)
[2023-09-02] MEDS ORDERED: diphenhydrAMINE 25MG CAP PO ONE (16:00)
[2023-09-02] MEDS ORDERED: NALOXONE INJ 0.4MG/1ML VIAL IV PRN (16:35)
[2023-09-02] MEDS ORDERED: NORCO, ANEXSIA 5/325MG TABLET (HYDROcodone/ACETAMINOPHEN) PO ONE (16:35)
[2023-09-02 20:00] VITALS: BP 118/61; TEMP 96.8; O2SAT 95
[2023-09-02] MEDS: diphenhydrAMINE 25MG CAP PO PRN (20:14)
[2023-09-02] MEDS: NORCO, ANEXSIA 5/325MG TABLET (HYDROcodone/ACETAMINOPHEN) PO SCH (20:14)
[2023-09-02] MEDS: DICLOFENAC EPOLAMINE 1.3% PATCH TOP SCH (20:16)
[2023-09-03] VITALS (12 sets, daily range): BP systolic 113–128; BP diastolic 58–78; TEMP 96.8–97.5; O2SAT 88–98
[2023-09-03] MEDS: diphenhydrAMINE 25MG CAP PO PRN ×5 (02:08→22:12)
[2023-09-03] MEDS: LEVOTHYROXINE 50MCG TABLET (0.05MG) PO SCH (05:02)
[2023-09-03 05:47] LABS: BASO % 0.1 % (0.0-1.0); EOS % 0.2 % (0.0-3.0); HEMATOCRIT 31.4 % (36.0-47.0); HEMOGLOBIN 10.6 g/dl (12.0-15.5); LYMPH # 0.4 10^3/uL (1.5-5.0); LYMPH % 4.5 % (24.0-44.0); MEAN CORPUSCULAR HEMOGLOBIN 31.7 pg (27.0-33.0); MEAN CORPUSCULAR HGB CONC 33.8 g/dl (32.0-36.5); MONO # 0.9 10^3/uL (0.0-0.8); MONO % 9.8 % (2.0-8.0); NEUTROPHILS # 7.8 10^3/uL (1.5-8.5); NEUTROPHILS % 83.8 % (36.0-66.0); PLATELET COUNT, AUTOMATED 376 10^3/uL (150-450); RED BLOOD COUNT 3.34 10^6/uL (4.00-5.40); WHITE BLOOD COUNT 9.4 10^3/uL (4.0-10.0)
[2023-09-03 06:08] LABS: DIGOXIN LEVEL 1.3 NG/ML (0.8-2.0)
[2023-09-03] MEDS: SYMBICORT 160/4.5MCG INHALER 6GM INH SCH ×2 (08:05→19:45)
[2023-09-03] MEDS: LEVALBUTEROL 1.25MG 0.5ML CONCENTRATE NEB INH SCH ×4 (08:05→19:45)
[2023-09-03] MEDS: IPRATROPIUM 0.02% SOLN 0.5MG 2.5ML NEB INH SCH ×4 (08:05→19:45)
[2023-09-03] MEDS: DICLOFENAC EPOLAMINE 1.3% PATCH TOP SCH ×2 (08:07→20:07)
[2023-09-03] MEDS: ENOXAPARIN 80MG/0.8ML SYRINGE (J1650 PER 10MG) SC SCH ×2 (08:08→20:05)
[2023-09-03] MEDS: predniSONE 10MG TAB PO SCH (08:09)
[2023-09-03] MEDS: GABAPENTIN 100 MG CAP PO SCH ×3 (08:09→20:05)
[2023-09-03] MEDS: VITAMIN D 1,000 INTERNATIONAL UNITS TABLET PO SCH (08:09)
[2023-09-03] MEDS: LACTOBACILLUS ACIDOPHILUS CAP (BACID) PO SCH ×4 (08:09→20:05)
[2023-09-03] MEDS: dilTIAZem 120MG **CD** CAPSULE PO SCH ×2 (08:12→20:07)
[2023-09-03] MEDS: PANTOPRAZOLE 20 MG TAB PO SCH ×2 (08:12→20:06)
[2023-09-03] MEDS: MIDODRINE 5 MG TAB PO SCH ×3 (08:13→16:40)
[2023-09-03] MEDS ORDERED: DIGOXIN INJ 0.5 MG/2 ML AMP IV ONE ×2 (10:35→16:55)
[2023-09-03 11:11] LABS: ALBUMIN 3.2 G/DL (3.2-5.2); CALCIUM LEVEL 9.4 MG/DL (8.3-10.6); CREATININE FOR GFR 1.07 MG/DL (0.55-1.30); GLOMERULAR FILTRATION RATE 52.9 (>39); PHOSPHORUS LEVEL 4.6 MG/DL (2.4-5.1); POTASSIUM SERUM 5.3 MMOL/L (3.5-5.1)
[2023-09-03] MEDS: VANICREAM MOISTURIZING SKIN CREAM 113GM TUBE TOP SCH ×2 (11:12→20:08)
[2023-09-03] MEDS ORDERED: METOPROLOL TART 12.5 MG PER 1/2 TAB PO ONE (16:55)
[2023-09-03] MEDS: NORCO, ANEXSIA 5/325MG TABLET (HYDROcodone/ACETAMINOPHEN) PO SCH (20:06)
[2023-09-04] VITALS (8 sets, daily range): BP systolic 114–130; BP diastolic 58–66; TEMP 97.3; O2SAT 79–98
[2023-09-04] MEDS: diphenhydrAMINE 25MG CAP PO PRN ×5 (04:04→21:20)
[2023-09-04 05:59] LABS: BASO % 0.4 % (0.0-1.0); EOS # 0.2 10^3/uL (0.0-0.5); EOS % 2.1 % (0.0-3.0); HEMATOCRIT 32.2 % (36.0-47.0); HEMOGLOBIN 10.8 g/dl (12.0-15.5); LYMPH % 9.4 % (24.0-44.0); MEAN CORPUSCULAR HEMOGLOBIN 31.9 pg (27.0-33.0); MEAN CORPUSCULAR HGB CONC 33.5 g/dl (32.0-36.5); MONO # 0.8 10^3/uL (0.0-0.8); MONO % 8.2 % (2.0-8.0); NEUTROPHILS # 7.9 10^3/uL (1.5-8.5); NEUTROPHILS % 78.4 % (36.0-66.0); PLATELET COUNT, AUTOMATED 401 10^3/uL (150-450); RED BLOOD COUNT 3.39 10^6/uL (4.00-5.40); WHITE BLOOD COUNT 10.1 10^3/uL (4.0-10.0)
[2023-09-04] MEDS: LEVOTHYROXINE 50MCG TABLET (0.05MG) PO SCH (06:11)
[2023-09-04 06:27] LABS: DIGOXIN LEVEL 1.1 NG/ML (0.8-2.0)
[2023-09-04 06:28] LABS: ALBUMIN 3.3 G/DL (3.2-5.2); CALCIUM LEVEL 9.5 MG/DL (8.3-10.6); CREATININE FOR GFR 1.04 MG/DL (0.55-1.30); GLOMERULAR FILTRATION RATE 54.7 (>39); PHOSPHORUS LEVEL 4.1 MG/DL (2.4-5.1); POTASSIUM SERUM 5.1 MMOL/L (3.5-5.1)
[2023-09-04] MEDS: IPRATROPIUM 0.02% SOLN 0.5MG 2.5ML NEB INH SCH ×4 (07:36→20:49)
[2023-09-04] MEDS: LEVALBUTEROL 1.25MG 0.5ML CONCENTRATE NEB INH SCH ×4 (07:36→20:49)
[2023-09-04] MEDS: SYMBICORT 160/4.5MCG INHALER 6GM INH SCH ×2 (07:37→20:48)
[2023-09-04] MEDS: rifAMPin 150MG CAPSULE PO SCH (08:50)
[2023-09-04] MEDS: MIDODRINE 5 MG TAB PO SCH (08:50)
[2023-09-04] MEDS: LACTOBACILLUS ACIDOPHILUS CAP (BACID) PO SCH ×4 (08:50→21:20)
[2023-09-04] MEDS: AZITHROMYCIN 250MG TABLET PO SCH (08:50)
[2023-09-04] MEDS: ENOXAPARIN 80MG/0.8ML SYRINGE (J1650 PER 10MG) SC SCH ×2 (08:51→21:18)
[2023-09-04] MEDS: ETHAMBUTOL 400MG TAB PO SCH (08:51)
[2023-09-04] MEDS: GABAPENTIN 100 MG CAP PO SCH ×3 (08:51→21:20)
[2023-09-04] MEDS: predniSONE 10MG TAB PO SCH (08:51)
[2023-09-04] MEDS: dilTIAZem 120MG **CD** CAPSULE PO SCH ×2 (08:52→21:20)
[2023-09-04] MEDS: PANTOPRAZOLE 20 MG TAB PO SCH ×2 (08:53→21:19)
[2023-09-04] MEDS: VITAMIN D 1,000 INTERNATIONAL UNITS TABLET PO SCH (08:53)
[2023-09-04] MEDS: DICLOFENAC EPOLAMINE 1.3% PATCH TOP SCH ×2 (08:54→21:18)
[2023-09-04] MEDS: VANICREAM MOISTURIZING SKIN CREAM 113GM TUBE TOP SCH ×2 (08:55→21:21)
[2023-09-04] MEDS ORDERED: DIGOXIN INJ 0.5 MG/2 ML AMP IV STA (10:05)
[2023-09-04] MEDS ORDERED: METOPROLOL TART 25 MG TABLET PO ONE (10:05)
[2023-09-04] MEDS ORDERED: PATIROMER SORBITEX CALCIUM 8.4 GM POWDER PACKET (VELTASSA) PO ONE (11:00)
[2023-09-04] MEDS ORDERED: TOLVAPTAN 7.5 MG HALF-TAB PO ONE (11:00)
[2023-09-04] MEDS: NORCO, ANEXSIA 5/325MG TABLET (HYDROcodone/ACETAMINOPHEN) PO SCH (21:21)
[2023-09-05 01:26] VITALS: O2SAT 96
[2023-09-05] MEDS: diphenhydrAMINE 25MG CAP PO PRN ×4 (02:09→17:07)
[2023-09-05] MEDS: guaiFENesin DM LIQ 10ML UD PO PRN (02:11)
[2023-09-05 05:57] VITALS: BP 134/74; TEMP 97.2; O2SAT 97
[2023-09-05 05:57] LABS: BASO % 0.3 % (0.0-1.0); EOS # 0.2 10^3/uL (0.0-0.5); EOS % 1.8 % (0.0-3.0); HEMATOCRIT 31.8 % (36.0-47.0); HEMOGLOBIN 10.7 g/dl (12.0-15.5); LYMPH # 0.8 10^3/uL (1.5-5.0); LYMPH % 7.4 % (24.0-44.0); MEAN CORPUSCULAR HEMOGLOBIN 32.3 pg (27.0-33.0); MEAN CORPUSCULAR HGB CONC 33.6 g/dl (32.0-36.5); MEAN CORPUSCULAR VOLUME 96.1 fl (80.0-96.0); MONO # 1.1 10^3/uL (0.0-0.8); MONO % 9.8 % (2.0-8.0); NEUTROPHILS # 8.4 10^3/uL (1.5-8.5); PLATELET COUNT, AUTOMATED 362 10^3/uL (150-450); RED BLOOD COUNT 3.31 10^6/uL (4.00-5.40); WHITE BLOOD COUNT 10.7 10^3/uL (4.0-10.0)
[2023-09-05] MEDS: LEVOTHYROXINE 50MCG TABLET (0.05MG) PO SCH (06:17)
[2023-09-05 06:31] LABS: ALBUMIN 3.2 G/DL (3.2-5.2); BLOOD UREA NITROGEN 20 MG/DL (9-23); CALCIUM LEVEL 9.4 MG/DL (8.3-10.6); CARBON DIOXIDE LEVEL 33 MMOL/L (20-31); CHLORIDE LEVEL 95 MMOL/L (98-107); CREATININE FOR GFR 0.93 MG/DL (0.55-1.30); DIGOXIN LEVEL 1.3 NG/ML (0.8-2.0); GLOMERULAR FILTRATION RATE > 60.0 (>39); GLUCOSE, FASTING 99 MG/DL (74-106); PHOSPHORUS LEVEL 4.1 MG/DL (2.4-5.1); POTASSIUM SERUM 5.1 MMOL/L (3.5-5.1); SODIUM LEVEL 133 MMOL/L (136-145)
[2023-09-05] MEDS: SYMBICORT 160/4.5MCG INHALER 6GM INH SCH ×2 (07:53→20:43)
[2023-09-05] MEDS: LEVALBUTEROL 1.25MG 0.5ML CONCENTRATE NEB INH SCH ×4 (07:54→20:43)
[2023-09-05] MEDS: IPRATROPIUM 0.02% SOLN 0.5MG 2.5ML NEB INH SCH ×4 (07:54→20:43)
[2023-09-05] MEDS: DICLOFENAC EPOLAMINE 1.3% PATCH TOP SCH ×2 (08:46→21:06)
[2023-09-05] MEDS: DIGOXIN 0.125 MG TAB PO SCH (08:47)
[2023-09-05] MEDS: GABAPENTIN 100 MG CAP PO SCH ×3 (08:47→21:02)
[2023-09-05] MEDS: VITAMIN D 1,000 INTERNATIONAL UNITS TABLET PO SCH (08:47)
[2023-09-05] MEDS: LACTOBACILLUS ACIDOPHILUS CAP (BACID) PO SCH ×4 (08:47→21:01)
[2023-09-05] MEDS: predniSONE 10MG TAB PO SCH (08:47)
[2023-09-05] MEDS: dilTIAZem 120MG **CD** CAPSULE PO SCH ×2 (08:47→21:04)
[2023-09-05] MEDS: ENOXAPARIN 80MG/0.8ML SYRINGE (J1650 PER 10MG) SC SCH ×2 (08:48→21:05)
[2023-09-05] MEDS: PANTOPRAZOLE 20 MG TAB PO SCH ×2 (08:50→21:05)
[2023-09-05] MEDS: VANICREAM MOISTURIZING SKIN CREAM 113GM TUBE TOP SCH ×2 (08:51→21:06)
[2023-09-05] MEDS: HYDROCORTISONE 10 MG TAB PO SCH ×2 (12:20→21:01)
[2023-09-05 14:00] VITALS: BP 128/71; TEMP 97.5; O2SAT 95
[2023-09-05 15:07] LABS: IgG SERUM (part of Subclasses) 522 mg/dL (586-1602); IgG Subclass 1 284 mg/dL (248-810); IgG Subclass 2 135 mg/dL (130-555); IgG Subclass 3 92 mg/dL (15-102); IgG Subclass 4 21 mg/dL (2-96)
[2023-09-05 20:59] VITALS: BP 130/73; TEMP 97.2; O2SAT 98
[2023-09-05] MEDS: METOPROLOL TART 25 MG TABLET PO SCH (21:00)
[2023-09-05] MEDS: NORCO, ANEXSIA 5/325MG TABLET (HYDROcodone/ACETAMINOPHEN) PO SCH (21:02)
[2023-09-06] MEDS: LEVOTHYROXINE 50MCG TABLET (0.05MG) PO SCH (05:23)
[2023-09-06] MEDS: diphenhydrAMINE 25MG CAP PO PRN ×2 (05:23→18:10)
[2023-09-06 05:25] VITALS: BP 147/88; TEMP 97.3; O2SAT 91
[2023-09-06 06:06] LABS: BASO % 0.2 % (0.0-1.0); EOS # 0.2 10^3/uL (0.0-0.5); HEMATOCRIT 32.6 % (36.0-47.0); HEMOGLOBIN 10.7 g/dl (12.0-15.5); LYMPH # 1.2 10^3/uL (1.5-5.0); LYMPH % 12.4 % (24.0-44.0); MEAN CORPUSCULAR HEMOGLOBIN 31.7 pg (27.0-33.0); MEAN CORPUSCULAR HGB CONC 32.8 g/dl (32.0-36.5); MEAN CORPUSCULAR VOLUME 96.4 fl (80.0-96.0); MONO # 0.8 10^3/uL (0.0-0.8); MONO % 7.5 % (2.0-8.0); NEUTROPHILS # 7.6 10^3/uL (1.5-8.5); NEUTROPHILS % 76.2 % (36.0-66.0); PLATELET COUNT, AUTOMATED 363 10^3/uL (150-450); RED BLOOD COUNT 3.38 10^6/uL (4.00-5.40)
[2023-09-06 06:32] LABS: ALBUMIN 3.1 G/DL (3.2-5.2); BLOOD UREA NITROGEN 20 MG/DL (9-23); CALCIUM LEVEL 9.2 MG/DL (8.3-10.6); CARBON DIOXIDE LEVEL 35 MMOL/L (20-31); CHLORIDE LEVEL 95 MMOL/L (98-107); CREATININE FOR GFR 0.89 MG/DL (0.55-1.30); GLOMERULAR FILTRATION RATE > 60.0 (>39); GLUCOSE, FASTING 101 MG/DL (74-106); PHOSPHORUS LEVEL 4.1 MG/DL (2.4-5.1); POTASSIUM SERUM 4.8 MMOL/L (3.5-5.1); SODIUM LEVEL 134 MMOL/L (136-145)
[2023-09-06] MEDS: SYMBICORT 160/4.5MCG INHALER 6GM INH SCH ×2 (07:55→19:45)
[2023-09-06] MEDS: IPRATROPIUM 0.02% SOLN 0.5MG 2.5ML NEB INH SCH ×4 (07:55→19:44)
[2023-09-06] MEDS: LEVALBUTEROL 1.25MG 0.5ML CONCENTRATE NEB INH SCH ×4 (07:55→19:44)
[2023-09-06] MEDS: dilTIAZem 120MG **CD** CAPSULE PO SCH ×2 (08:18→20:03)
[2023-09-06] MEDS: ENOXAPARIN 80MG/0.8ML SYRINGE (J1650 PER 10MG) SC SCH ×2 (08:18→20:04)
[2023-09-06] MEDS: DICLOFENAC EPOLAMINE 1.3% PATCH TOP SCH ×2 (08:18→20:03)
[2023-09-06] MEDS: VANICREAM MOISTURIZING SKIN CREAM 113GM TUBE TOP SCH ×2 (08:18→20:04)
[2023-09-06] MEDS: LACTOBACILLUS ACIDOPHILUS CAP (BACID) PO SCH ×4 (08:18→20:03)
[2023-09-06] MEDS: GABAPENTIN 100 MG CAP PO SCH ×3 (08:18→20:03)
[2023-09-06] MEDS: PANTOPRAZOLE 20 MG TAB PO SCH ×2 (08:19→20:09)
[2023-09-06] MEDS: VITAMIN D 1,000 INTERNATIONAL UNITS TABLET PO SCH (08:19)
[2023-09-06] MEDS: predniSONE 10MG TAB PO SCH (08:19)
[2023-09-06] MEDS: HYDROCORTISONE 10 MG TAB PO SCH ×2 (08:19→20:03)
[2023-09-06] MEDS: DIGOXIN 0.125 MG TAB PO SCH (08:19)
[2023-09-06] MEDS: AZITHROMYCIN 250MG TABLET PO SCH (08:19)
[2023-09-06] MEDS: ETHAMBUTOL 400MG TAB PO SCH (08:19)
[2023-09-06] MEDS: METOPROLOL TART 25 MG TABLET PO SCH ×2 (08:20→20:02)
[2023-09-06 14:00] VITALS: BP 113/69; TEMP 97.3; O2SAT 92
[2023-09-06] MEDS: guaiFENesin DM LIQ 10ML UD PO PRN (17:13)
[2023-09-06 19:31] VITALS: BP 115/64; TEMP 97.7; O2SAT 92
[2023-09-06] MEDS: NORCO, ANEXSIA 5/325MG TABLET (HYDROcodone/ACETAMINOPHEN) PO SCH (20:03)
[2023-09-07 04:37] VITALS: BP 100/63; TEMP 97.5; O2SAT 92
[2023-09-07] MEDS: LEVOTHYROXINE 50MCG TABLET (0.05MG) PO SCH (05:36)
[2023-09-07] MEDS: diphenhydrAMINE 25MG CAP PO PRN ×3 (05:36→21:41)
[2023-09-07 06:26] LABS: BASO % 0.3 % (0.0-1.0); EOS # 0.2 10^3/uL (0.0-0.5); EOS % 1.7 % (0.0-3.0); HEMATOCRIT 29.7 % (36.0-47.0); HEMOGLOBIN 9.9 g/dl (12.0-15.5); LYMPH % 11.5 % (24.0-44.0); MEAN CORPUSCULAR HEMOGLOBIN 31.7 pg (27.0-33.0); MEAN CORPUSCULAR HGB CONC 33.3 g/dl (32.0-36.5); MEAN CORPUSCULAR VOLUME 95.2 fl (80.0-96.0); MONO # 0.8 10^3/uL (0.0-0.8); MONO % 8.8 % (2.0-8.0); NEUTROPHILS # 6.6 10^3/uL (1.5-8.5); PLATELET COUNT, AUTOMATED 347 10^3/uL (150-450); RED BLOOD COUNT 3.12 10^6/uL (4.00-5.40); WHITE BLOOD COUNT 8.7 10^3/uL (4.0-10.0)
[2023-09-07 06:36] LABS: ALBUMIN 2.8 G/DL (3.2-5.2); BLOOD UREA NITROGEN 22 MG/DL (9-23); CALCIUM LEVEL 8.8 MG/DL (8.3-10.6); CARBON DIOXIDE LEVEL 34 MMOL/L (20-31); CHLORIDE LEVEL 96 MMOL/L (98-107); CREATININE FOR GFR 0.89 MG/DL (0.55-1.30); DIGOXIN LEVEL 1.1 NG/ML (0.8-2.0); GLOMERULAR FILTRATION RATE > 60.0 (>39); GLUCOSE, FASTING 108 MG/DL (74-106); PHOSPHORUS LEVEL 3.5 MG/DL (2.4-5.1); POTASSIUM SERUM 4.5 MMOL/L (3.5-5.1); SODIUM LEVEL 134 MMOL/L (136-145)
[2023-09-07 07:45] VITALS: BP 110/63; TEMP 97.5; O2SAT 94
[2023-09-07] MEDS: IPRATROPIUM 0.02% SOLN 0.5MG 2.5ML NEB INH SCH ×4 (08:40→20:40)
[2023-09-07] MEDS: SYMBICORT 160/4.5MCG INHALER 6GM INH SCH ×2 (08:40→20:41)
[2023-09-07] MEDS: LEVALBUTEROL 1.25MG 0.5ML CONCENTRATE NEB INH SCH ×4 (08:41→20:40)
[2023-09-07] MEDS: ENOXAPARIN 80MG/0.8ML SYRINGE (J1650 PER 10MG) SC SCH ×2 (08:49→21:42)
[2023-09-07] MEDS: PANTOPRAZOLE 20 MG TAB PO SCH ×2 (08:50→21:41)
[2023-09-07] MEDS: DICLOFENAC EPOLAMINE 1.3% PATCH TOP SCH ×2 (08:50→21:41)
[2023-09-07] MEDS: predniSONE 10MG TAB PO SCH (08:51)
[2023-09-07] MEDS: HYDROCORTISONE 10 MG TAB PO SCH ×2 (08:51→21:40)
[2023-09-07] MEDS: dilTIAZem 120MG **CD** CAPSULE PO SCH ×2 (08:51→21:40)
[2023-09-07] MEDS: LACTOBACILLUS ACIDOPHILUS CAP (BACID) PO SCH ×4 (08:51→21:40)
[2023-09-07] MEDS: GABAPENTIN 100 MG CAP PO SCH ×3 (08:52→21:40)
[2023-09-07] MEDS: METOPROLOL TART 25 MG TABLET PO SCH ×2 (08:52→21:40)
[2023-09-07] MEDS: DIGOXIN 0.125 MG TAB PO SCH (08:52)
[2023-09-07] MEDS: VITAMIN D 1,000 INTERNATIONAL UNITS TABLET PO SCH (08:52)
[2023-09-07] MEDS: VANICREAM MOISTURIZING SKIN CREAM 113GM TUBE TOP SCH ×2 (09:43→21:42)
[2023-09-07 13:00] VITALS: BP 98/60; TEMP 97.3; O2SAT 92
[2023-09-07 14:19] VITALS: BP 96/62; TEMP 97.3; O2SAT 96
[2023-09-07] MEDS: guaiFENesin DM LIQ 10ML UD PO PRN (19:31)
[2023-09-07 21:33] VITALS: BP 130/64; TEMP 97.7; O2SAT 93
[2023-09-07] MEDS: NORCO, ANEXSIA 5/325MG TABLET (HYDROcodone/ACETAMINOPHEN) PO SCH (21:41)
[2023-09-08 01:35] VITALS: O2SAT 95
[2023-09-08] MEDS: LEVOTHYROXINE 50MCG TABLET (0.05MG) PO SCH (05:33)
[2023-09-08] MEDS: diphenhydrAMINE 25MG CAP PO PRN ×3 (05:35→20:40)
[2023-09-08 06:00] VITALS: BP 111/74; TEMP 97.5; O2SAT 95
[2023-09-08 06:17] LABS: BASO % 0.4 % (0.0-1.0); EOS # 0.2 10^3/uL (0.0-0.5); EOS % 1.9 % (0.0-3.0); HEMATOCRIT 29.2 % (36.0-47.0); HEMOGLOBIN 9.6 g/dl (12.0-15.5); LYMPH # 0.9 10^3/uL (1.5-5.0); MEAN CORPUSCULAR HEMOGLOBIN 31.5 pg (27.0-33.0); MEAN CORPUSCULAR HGB CONC 32.9 g/dl (32.0-36.5); MEAN CORPUSCULAR VOLUME 95.7 fl (80.0-96.0); MONO # 0.7 10^3/uL (0.0-0.8); MONO % 9.3 % (2.0-8.0); NEUTROPHILS # 5.8 10^3/uL (1.5-8.5); NEUTROPHILS % 74.1 % (36.0-66.0); PLATELET COUNT, AUTOMATED 342 10^3/uL (150-450); RED BLOOD COUNT 3.05 10^6/uL (4.00-5.40); WHITE BLOOD COUNT 7.8 10^3/uL (4.0-10.0)
[2023-09-08 06:47] LABS: ALBUMIN 2.8 G/DL (3.2-5.2); BLOOD UREA NITROGEN 17 MG/DL (9-23); CALCIUM LEVEL 8.7 MG/DL (8.3-10.6); CARBON DIOXIDE LEVEL 35 MMOL/L (20-31); CHLORIDE LEVEL 96 MMOL/L (98-107); CREATININE FOR GFR 0.84 MG/DL (0.55-1.30); GLOMERULAR FILTRATION RATE > 60.0 (>39); GLUCOSE, FASTING 101 MG/DL (74-106); MAGNESIUM LEVEL 2.1 MG/DL (1.8-2.4); PHOSPHORUS LEVEL 3.7 MG/DL (2.4-5.1); POTASSIUM SERUM 4.6 MMOL/L (3.5-5.1); SODIUM LEVEL 135 MMOL/L (136-145)
[2023-09-08] MEDS: IPRATROPIUM 0.02% SOLN 0.5MG 2.5ML NEB INH SCH ×4 (07:44→20:27)
[2023-09-08] MEDS: SYMBICORT 160/4.5MCG INHALER 6GM INH SCH ×2 (07:44→20:27)
[2023-09-08] MEDS: LEVALBUTEROL 1.25MG 0.5ML CONCENTRATE NEB INH SCH ×4 (07:44→20:27)
[2023-09-08] MEDS: DICLOFENAC EPOLAMINE 1.3% PATCH TOP SCH ×2 (09:26→20:25)
[2023-09-08] MEDS: AZITHROMYCIN 250MG TABLET PO SCH (09:26)
[2023-09-08] MEDS: DIGOXIN 0.125 MG TAB PO SCH (09:26)
[2023-09-08] MEDS: PANTOPRAZOLE 20 MG TAB PO SCH ×2 (09:26→21:00)
[2023-09-08] MEDS: ENOXAPARIN 80MG/0.8ML SYRINGE (J1650 PER 10MG) SC SCH ×2 (09:26→20:25)
[2023-09-08] MEDS: HYDROCORTISONE 10 MG TAB PO SCH ×2 (09:26→20:24)
[2023-09-08] MEDS: ETHAMBUTOL 400MG TAB PO SCH (09:27)
[2023-09-08] MEDS: VITAMIN D 1,000 INTERNATIONAL UNITS TABLET PO SCH (09:27)
[2023-09-08] MEDS: LACTOBACILLUS ACIDOPHILUS CAP (BACID) PO SCH ×4 (09:27→20:21)
[2023-09-08] MEDS: predniSONE 10MG TAB PO SCH (09:27)
[2023-09-08] MEDS: GABAPENTIN 100 MG CAP PO SCH ×3 (09:27→20:20)
[2023-09-08] MEDS: VANICREAM MOISTURIZING SKIN CREAM 113GM TUBE TOP SCH ×2 (09:28→20:24)
[2023-09-08] MEDS: dilTIAZem 120MG **CD** CAPSULE PO SCH ×2 (09:29→20:21)
[2023-09-08] MEDS: METOPROLOL TART 25 MG TABLET PO SCH ×2 (09:29→20:23)
[2023-09-08 14:00] VITALS: BP 103/61; TEMP 96.4; O2SAT 95
[2023-09-08] MEDS: NORCO, ANEXSIA 5/325MG TABLET (HYDROcodone/ACETAMINOPHEN) PO SCH (20:22)
[2023-09-08 22:00] VITALS: BP 123/67; TEMP 97.2; O2SAT 95
[2023-09-09 05:23] VITALS: BP 104/50; TEMP 96.8; O2SAT 98
[2023-09-09 06:18] LABS: BASO % 0.3 % (0.0-1.0); EOS # 0.1 10^3/uL (0.0-0.5); EOS % 1.9 % (0.0-3.0); HEMATOCRIT 28.6 % (36.0-47.0); HEMOGLOBIN 9.4 g/dl (12.0-15.5); LYMPH # 0.8 10^3/uL (1.5-5.0); MEAN CORPUSCULAR HEMOGLOBIN 31.5 pg (27.0-33.0); MEAN CORPUSCULAR HGB CONC 32.9 g/dl (32.0-36.5); MONO # 0.7 10^3/uL (0.0-0.8); MONO % 9.8 % (2.0-8.0); NEUTROPHILS # 5.7 10^3/uL (1.5-8.5); NEUTROPHILS % 75.1 % (36.0-66.0); PLATELET COUNT, AUTOMATED 324 10^3/uL (150-450); RED BLOOD COUNT 2.98 10^6/uL (4.00-5.40); WHITE BLOOD COUNT 7.5 10^3/uL (4.0-10.0)
[2023-09-09] MEDS: LEVOTHYROXINE 50MCG TABLET (0.05MG) PO SCH (06:21)
[2023-09-09 06:50] LABS: BLOOD UREA NITROGEN 16 MG/DL (9-23); CALCIUM LEVEL 8.7 MG/DL (8.3-10.6); CARBON DIOXIDE LEVEL 36 MMOL/L (20-31); CHLORIDE LEVEL 96 MMOL/L (98-107); CREATININE FOR GFR 0.77 MG/DL (0.55-1.30); GLOMERULAR FILTRATION RATE > 60.0 (>39); GLUCOSE, FASTING 88 MG/DL (74-106); MAGNESIUM LEVEL 2.2 MG/DL (1.8-2.4); POTASSIUM SERUM 4.5 MMOL/L (3.5-5.1); SODIUM LEVEL 135 MMOL/L (136-145)
[2023-09-09] MEDS: SYMBICORT 160/4.5MCG INHALER 6GM INH SCH ×2 (07:31→19:57)
[2023-09-09] MEDS: IPRATROPIUM 0.02% SOLN 0.5MG 2.5ML NEB INH SCH ×4 (07:32→19:57)
[2023-09-09] MEDS: LEVALBUTEROL 1.25MG 0.5ML CONCENTRATE NEB INH SCH ×4 (07:32→19:57)
[2023-09-09] MEDS: ENOXAPARIN 80MG/0.8ML SYRINGE (J1650 PER 10MG) SC SCH ×2 (09:01→20:51)
[2023-09-09] MEDS: predniSONE 10MG TAB PO SCH (09:04)
[2023-09-09] MEDS: GABAPENTIN 100 MG CAP PO SCH ×3 (09:05→20:50)
[2023-09-09] MEDS: dilTIAZem 120MG **CD** CAPSULE PO SCH ×2 (09:05→20:51)
[2023-09-09] MEDS: PANTOPRAZOLE 20 MG TAB PO SCH ×2 (09:06→21:27)
[2023-09-09] MEDS: METOPROLOL TART 25 MG TABLET PO SCH ×2 (09:06→20:44)
[2023-09-09] MEDS: DIGOXIN 0.125 MG TAB PO SCH (09:06)
[2023-09-09] MEDS: HYDROCORTISONE 10 MG TAB PO SCH ×2 (09:06→20:50)
[2023-09-09] MEDS: LACTOBACILLUS ACIDOPHILUS CAP (BACID) PO SCH ×4 (09:06→20:50)
[2023-09-09] MEDS: VANICREAM MOISTURIZING SKIN CREAM 113GM TUBE TOP SCH ×2 (09:08→20:52)
[2023-09-09] MEDS: VITAMIN D 1,000 INTERNATIONAL UNITS TABLET PO SCH (09:08)
[2023-09-09] MEDS: DICLOFENAC EPOLAMINE 1.3% PATCH TOP SCH ×2 (09:08→20:44)
[2023-09-09] MEDS: ACETAMINOPHEN 325 MG TAB PO PRN (09:22)
[2023-09-09 14:00] VITALS: BP 122/58; TEMP 96.4; O2SAT 93
[2023-09-09] MEDS: guaiFENesin DM LIQ 10ML UD PO PRN (16:38)
[2023-09-09] MEDS: NORCO, ANEXSIA 5/325MG TABLET (HYDROcodone/ACETAMINOPHEN) PO SCH (20:46)
[2023-09-09] MEDS: diphenhydrAMINE 25MG CAP PO PRN (20:50)
[2023-09-09 21:52] VITALS: BP 123/69; TEMP 96.8; O2SAT 97
[2023-09-10] MEDS: diphenhydrAMINE 25MG CAP PO PRN ×2 (05:17→19:45)
[2023-09-10] MEDS: LEVOTHYROXINE 50MCG TABLET (0.05MG) PO SCH (05:17)
[2023-09-10 05:55] LABS: BASO % 0.3 % (0.0-1.0); EOS # 0.2 10^3/uL (0.0-0.5); EOS % 1.7 % (0.0-3.0); HEMATOCRIT 28.4 % (36.0-47.0); HEMOGLOBIN 9.2 g/dl (12.0-15.5); LYMPH % 11.1 % (24.0-44.0); MEAN CORPUSCULAR HEMOGLOBIN 31.3 pg (27.0-33.0); MEAN CORPUSCULAR HGB CONC 32.4 g/dl (32.0-36.5); MEAN CORPUSCULAR VOLUME 96.6 fl (80.0-96.0); MONO # 0.8 10^3/uL (0.0-0.8); NEUTROPHILS # 6.6 10^3/uL (1.5-8.5); NEUTROPHILS % 76.2 % (36.0-66.0); PLATELET COUNT, AUTOMATED 328 10^3/uL (150-450); RED BLOOD COUNT 2.94 10^6/uL (4.00-5.40); WHITE BLOOD COUNT 8.7 10^3/uL (4.0-10.0)
[2023-09-10 06:00] VITALS: BP 100/53; TEMP 96.6; O2SAT 96
[2023-09-10 06:24] LABS: BLOOD UREA NITROGEN 16 MG/DL (9-23); CALCIUM LEVEL 8.6 MG/DL (8.3-10.6); CARBON DIOXIDE LEVEL 34 MMOL/L (20-31); CHLORIDE LEVEL 100 MMOL/L (98-107); CREATININE FOR GFR 0.85 MG/DL (0.55-1.30); GLOMERULAR FILTRATION RATE > 60.0 (>39); GLUCOSE, FASTING 94 MG/DL (74-106); MAGNESIUM LEVEL 2.1 MG/DL (1.8-2.4); POTASSIUM SERUM 4.5 MMOL/L (3.5-5.1); SODIUM LEVEL 137 MMOL/L (136-145)
[2023-09-10] MEDS: SYMBICORT 160/4.5MCG INHALER 6GM INH SCH ×2 (07:53→19:26)
[2023-09-10] MEDS: IPRATROPIUM 0.02% SOLN 0.5MG 2.5ML NEB INH SCH ×4 (07:53→19:26)
[2023-09-10] MEDS: LEVALBUTEROL 1.25MG 0.5ML CONCENTRATE NEB INH SCH ×4 (07:53→19:26)
[2023-09-10] MEDS: GABAPENTIN 100 MG CAP PO SCH ×3 (08:50→19:48)
[2023-09-10] MEDS: DICLOFENAC EPOLAMINE 1.3% PATCH TOP SCH ×2 (08:50→19:50)
[2023-09-10] MEDS: ENOXAPARIN 80MG/0.8ML SYRINGE (J1650 PER 10MG) SC SCH ×2 (08:50→19:48)
[2023-09-10] MEDS: HYDROCORTISONE 10 MG TAB PO SCH ×2 (08:50→19:45)
[2023-09-10] MEDS: VANICREAM MOISTURIZING SKIN CREAM 113GM TUBE TOP SCH ×2 (08:50→19:49)
[2023-09-10] MEDS: predniSONE 10MG TAB PO SCH (08:51)
[2023-09-10] MEDS: VITAMIN D 1,000 INTERNATIONAL UNITS TABLET PO SCH (08:51)
[2023-09-10] MEDS: LACTOBACILLUS ACIDOPHILUS CAP (BACID) PO SCH ×4 (08:51→19:46)
[2023-09-10] MEDS: PANTOPRAZOLE 20 MG TAB PO SCH ×2 (08:51→19:45)
[2023-09-10] MEDS: DIGOXIN 0.125 MG TAB PO SCH (09:14)
[2023-09-10] MEDS: dilTIAZem 120MG **CD** CAPSULE PO SCH ×2 (09:15→19:47)
[2023-09-10] MEDS: METOPROLOL TART 25 MG TABLET PO SCH ×2 (09:15→19:46)
[2023-09-10] MEDS: guaiFENesin DM LIQ 10ML UD PO PRN (12:51)
[2023-09-10 14:00] VITALS: BP 118/72; TEMP 96.6; O2SAT 95
[2023-09-10] MEDS: NORCO, ANEXSIA 5/325MG TABLET (HYDROcodone/ACETAMINOPHEN) PO SCH (19:48)
[2023-09-10 22:00] VITALS: BP 96/49; TEMP 97; O2SAT 97
[2023-09-10 23:00] VITALS: BP 120/74
[2023-09-11 05:43] LABS: BASO % 0.1 % (0.0-1.0); EOS # 0.1 10^3/uL (0.0-0.5); EOS % 1.5 % (0.0-3.0); HEMATOCRIT 29.4 % (36.0-47.0); HEMOGLOBIN 9.6 g/dl (12.0-15.5); LYMPH # 1.1 10^3/uL (1.5-5.0); LYMPH % 12.4 % (24.0-44.0); MEAN CORPUSCULAR HEMOGLOBIN 31.6 pg (27.0-33.0); MEAN CORPUSCULAR HGB CONC 32.7 g/dl (32.0-36.5); MEAN CORPUSCULAR VOLUME 96.7 fl (80.0-96.0); MONO # 0.7 10^3/uL (0.0-0.8); MONO % 7.7 % (2.0-8.0); NEUTROPHILS # 6.5 10^3/uL (1.5-8.5); NEUTROPHILS % 76.8 % (36.0-66.0); PLATELET COUNT, AUTOMATED 368 10^3/uL (150-450); RED BLOOD COUNT 3.04 10^6/uL (4.00-5.40); WHITE BLOOD COUNT 8.4 10^3/uL (4.0-10.0)
[2023-09-11 06:00] VITALS: BP 119/64; TEMP 97; O2SAT 94
[2023-09-11] MEDS: LEVOTHYROXINE 50MCG TABLET (0.05MG) PO SCH (06:11)
[2023-09-11 06:17] LABS: BLOOD UREA NITROGEN 15 MG/DL (9-23); CALCIUM LEVEL 8.6 MG/DL (8.3-10.6); CARBON DIOXIDE LEVEL 34 MMOL/L (20-31); CHLORIDE LEVEL 97 MMOL/L (98-107); CREATININE FOR GFR 0.78 MG/DL (0.55-1.30); GLOMERULAR FILTRATION RATE > 60.0 (>39); GLUCOSE, FASTING 91 MG/DL (74-106); POTASSIUM SERUM 4.2 MMOL/L (3.5-5.1); SODIUM LEVEL 135 MMOL/L (136-145)
[2023-09-11] MEDS: IPRATROPIUM 0.02% SOLN 0.5MG 2.5ML NEB INH SCH ×4 (07:51→20:26)
[2023-09-11] MEDS: LEVALBUTEROL 1.25MG 0.5ML CONCENTRATE NEB INH SCH ×4 (07:51→20:26)
[2023-09-11] MEDS: SYMBICORT 160/4.5MCG INHALER 6GM INH SCH ×2 (07:51→20:26)
[2023-09-11] MEDS: GABAPENTIN 100 MG CAP PO SCH ×3 (09:05→20:38)
[2023-09-11] MEDS: predniSONE 10MG TAB PO SCH (09:05)
[2023-09-11] MEDS: DICLOFENAC EPOLAMINE 1.3% PATCH TOP SCH ×2 (09:05→20:40)
[2023-09-11] MEDS: ENOXAPARIN 80MG/0.8ML SYRINGE (J1650 PER 10MG) SC SCH ×2 (09:05→20:38)
[2023-09-11] MEDS: DIGOXIN 0.125 MG TAB PO SCH (09:05)
[2023-09-11] MEDS: LACTOBACILLUS ACIDOPHILUS CAP (BACID) PO SCH ×4 (09:05→20:38)
[2023-09-11] MEDS: VITAMIN D 1,000 INTERNATIONAL UNITS TABLET PO SCH (09:05)
[2023-09-11] MEDS: VANICREAM MOISTURIZING SKIN CREAM 113GM TUBE TOP SCH ×2 (09:05→20:39)
[2023-09-11] MEDS: HYDROCORTISONE 10 MG TAB PO SCH ×2 (09:06→20:37)
[2023-09-11] MEDS: AZITHROMYCIN 250MG TABLET PO SCH (09:06)
[2023-09-11] MEDS: dilTIAZem 120MG **CD** CAPSULE PO SCH ×2 (09:06→20:38)
[2023-09-11] MEDS: ETHAMBUTOL 400MG TAB PO SCH (09:06)
[2023-09-11] MEDS: METOPROLOL TART 25 MG TABLET PO SCH ×2 (09:07→20:38)
[2023-09-11] MEDS: PANTOPRAZOLE 20 MG TAB PO SCH ×2 (09:09→20:44)
[2023-09-11] MEDS: diphenhydrAMINE 25MG CAP PO PRN ×2 (09:09→17:19)
[2023-09-11] MEDS: guaiFENesin DM LIQ 10ML UD PO PRN (09:09)
[2023-09-11 14:00] VITALS: BP 96/48; TEMP 97.2; O2SAT 93
[2023-09-11 20:00] VITALS: BP 126/59; TEMP 97.3; O2SAT 95
[2023-09-11 20:30] VITALS: BP 126/59
[2023-09-11 20:38] VITALS: BP 126/59
[2023-09-11] MEDS: NORCO, ANEXSIA 5/325MG TABLET (HYDROcodone/ACETAMINOPHEN) PO SCH (20:39)
[2023-09-12] MEDS: LEVOTHYROXINE 50MCG TABLET (0.05MG) PO SCH (05:37)
[2023-09-12 06:00] VITALS: BP 124/68; TEMP 97.2; O2SAT 93
[2023-09-12 06:08] LABS: BASO % 0.3 % (0.0-1.0); EOS # 0.1 10^3/uL (0.0-0.5); EOS % 1.5 % (0.0-3.0); HEMATOCRIT 29.4 % (36.0-47.0); HEMOGLOBIN 9.8 g/dl (12.0-15.5); LYMPH # 0.9 10^3/uL (1.5-5.0); LYMPH % 11.8 % (24.0-44.0); MEAN CORPUSCULAR HEMOGLOBIN 32.2 pg (27.0-33.0); MEAN CORPUSCULAR HGB CONC 33.3 g/dl (32.0-36.5); MEAN CORPUSCULAR VOLUME 96.7 fl (80.0-96.0); MONO # 0.6 10^3/uL (0.0-0.8); MONO % 7.9 % (2.0-8.0); NEUTROPHILS # 6.1 10^3/uL (1.5-8.5); NEUTROPHILS % 76.7 % (36.0-66.0); PLATELET COUNT, AUTOMATED 385 10^3/uL (150-450); RED BLOOD COUNT 3.04 10^6/uL (4.00-5.40); WHITE BLOOD COUNT 7.9 10^3/uL (4.0-10.0)
[2023-09-12 06:40] LABS: BLOOD UREA NITROGEN 16 MG/DL (9-23); CALCIUM LEVEL 8.9 MG/DL (8.3-10.6); CARBON DIOXIDE LEVEL 38 MMOL/L (20-31); CHLORIDE LEVEL 99 MMOL/L (98-107); CREATININE FOR GFR 0.73 MG/DL (0.55-1.30); GLOMERULAR FILTRATION RATE > 60.0 (>39); GLUCOSE, FASTING 89 MG/DL (74-106); POTASSIUM SERUM 4.7 MMOL/L (3.5-5.1); SODIUM LEVEL 139 MMOL/L (136-145)
[2023-09-12] MEDS: SYMBICORT 160/4.5MCG INHALER 6GM INH SCH (07:54)
[2023-09-12] MEDS: IPRATROPIUM 0.02% SOLN 0.5MG 2.5ML NEB INH SCH (07:54)
[2023-09-12] MEDS: LEVALBUTEROL 1.25MG 0.5ML CONCENTRATE NEB INH SCH (07:55)
[2023-09-12] MEDS ORDERED: HYDR-4468 PO ×2 (08:42)
[2023-09-12] MEDS ORDERED: ETHA1TAB2 PO (08:42)
[2023-09-12] MEDS ORDERED: CARD120C3 PO (08:42)
[2023-09-12] MEDS ORDERED: DIGO0.123 PO (08:42)
[2023-09-12] MEDS ORDERED: AZIT-12 PO (08:42)
[2023-09-12] MEDS ORDERED: METO1TAB87 PO (08:42)
[2023-09-12] MEDS: DICLOFENAC EPOLAMINE 1.3% PATCH TOP SCH (09:21)
[2023-09-12] MEDS: ENOXAPARIN 80MG/0.8ML SYRINGE (J1650 PER 10MG) SC SCH (09:21)
[2023-09-12] MEDS: dilTIAZem 120MG **CD** CAPSULE PO SCH (09:22)
[2023-09-12] MEDS: GABAPENTIN 100 MG CAP PO SCH (09:22)
[2023-09-12] MEDS: HYDROCORTISONE 10 MG TAB PO SCH (09:22)
[2023-09-12] MEDS: DIGOXIN 0.125 MG TAB PO SCH (09:22)
[2023-09-12] MEDS: predniSONE 10MG TAB PO SCH (09:22)
[2023-09-12] MEDS: LACTOBACILLUS ACIDOPHILUS CAP (BACID) PO SCH (09:22)
[2023-09-12] MEDS: METOPROLOL TART 25 MG TABLET PO SCH (09:23)
[2023-09-12] MEDS: VANICREAM MOISTURIZING SKIN CREAM 113GM TUBE TOP SCH (09:23)
[2023-09-12] MEDS: PANTOPRAZOLE 20 MG TAB PO SCH (09:23)
[2023-09-12] MEDS: VITAMIN D 1,000 INTERNATIONAL UNITS TABLET PO SCH (09:23)
[2023-09-12] MEDS: diphenhydrAMINE 25MG CAP PO PRN (09:27)
[2023-09-12] MEDS: guaiFENesin DM LIQ 10ML UD PO PRN (09:27)
[2023-09-12] MEDS ORDERED: GABA-282 PO (10:31)
[2023-09-12] MEDS ORDERED: DICL1PAT6 TOP (10:33)
[2023-09-12] MEDS ORDERED: SENN-52 PO (10:33)
[2023-09-12] MEDS ORDERED: RISATAB3 PO (10:33)
[2023-09-12] MEDS ORDERED: HYDR-3715 PO (10:33)
== END 2023-09-12 11:19 | DRG 309 ==
LOC: EDBD 09:20 → M ED 10:04 → M ED INP 13:44 → ENRESERV 16:20 → M MSPAV 18:06 → OBSVTOIN 09-06 13:11
PROVIDERS: ADMIT General Practice; ATTEND General Practice
DX: I48.20 Chronic atrial fibrillation, unspecified (principal); I50.32 Chronic diastolic (congestive) heart failure; J96.12 Chronic respiratory failure with hypercapnia; J96.11 Chronic respiratory failure with hypoxia; E87.29 Other acidosis; E87.1 Hypo-osmolality and hyponatremia; E27.40 Unspecified adrenocortical insufficiency; R55 Syncope and collapse; I27.20 Pulmonary hypertension, unspecified; I11.0 Hypertensive heart disease with heart failure; D64.9 Anemia, unspecified; K21.9 Gastro-esophageal reflux disease without esophagitis; I27.81 Cor pulmonale (chronic); I95.89 Other hypotension; M48.061 Spinal stenosis, lumbar region without neurogenic claudication; E03.9 Hypothyroidism, unspecified; M19.90 Unspecified osteoarthritis, unspecified site; J44.9 Chronic obstructive pulmonary disease, unspecified; Z79.01 Long term (current) use of anticoagulants; Z79.899 Other long term (current) drug therapy; B96.5 Pseudomonas (aeruginosa) (mallei) (pseudomallei) as the cause of diseases classified elsewhere; J47.9 Bronchiectasis, uncomplicated; Z87.891 Personal history of nicotine dependence; Z99.81 Dependence on supplemental oxygen; Z79.52 Long term (current) use of systemic steroids; R91.1 Solitary pulmonary nodule; L29.9 Pruritus, unspecified

== ENCOUNTER → 2023-09-13 | Outpatient (REF) ==
[~2023-09-13] MED LIST changes: +ACET-907 PO; +AZIT-12 PO; +DICL1PAT6 TOP; +ELIQ2.5T PO; +ETHA1TAB2 PO; +HYDR-3715 PO; +HYDR-4468 PO; +METO1TAB87 PO; +SENN-52 PO
[2023-09-13 10:50] LABS: HEMATOCRIT 30.3 % (36.0-47.0); HEMOGLOBIN 9.7 g/dl (12.0-15.5); MEAN CORPUSCULAR HEMOGLOBIN 31.6 pg (27.0-33.0); MEAN CORPUSCULAR VOLUME 98.7 fl (80.0-96.0); PLATELET COUNT, AUTOMATED 444 10^3/uL (150-450); RED BLOOD COUNT 3.07 10^6/uL (4.00-5.40); WHITE BLOOD COUNT 9.9 10^3/uL (4.0-10.0)
[2023-09-13 11:15] LABS: BLOOD UREA NITROGEN 14 MG/DL (9-23); CALCIUM LEVEL 8.8 MG/DL (8.3-10.6); CARBON DIOXIDE LEVEL 34 MMOL/L (20-31); CHLORIDE LEVEL 94 MMOL/L (98-107); CREATININE FOR GFR 0.79 MG/DL (0.55-1.30); GLOMERULAR FILTRATION RATE > 60.0 (>39); GLUCOSE, FASTING 123 MG/DL (74-106); POTASSIUM SERUM 3.9 MMOL/L (3.5-5.1); SODIUM LEVEL 136 MMOL/L (136-145)
== END ==
PROVIDERS: ATTEND Internal Medicine
DX: I48.91 Unspecified atrial fibrillation (principal)

== ENCOUNTER → 2023-09-19 | Outpatient (REF) | payer MEDICARE, MEDICAID | PROVIDERS: ATTEND Internal Medicine | DX: R05.9 Cough, unspecified (principal) ==

== ENCOUNTER → 2023-09-20 | Outpatient (REF) ==
[~2023-09-20] MED LIST changes: +AZIT500T5 PO; +BISA10SU4 PR; +CEFD300CAP PO; +DELS30LI8 PO; +DILT1TAB12 PO; +GUAI5EL PO; +METO25TA4 PO; +NYST-38 SS; +POTA-151 PO
[2023-09-20 11:40] LABS: HEMATOCRIT 30.2 % (36.0-47.0); HEMOGLOBIN 10.1 g/dl (12.0-15.5); MEAN CORPUSCULAR HEMOGLOBIN 31.7 pg (27.0-33.0); MEAN CORPUSCULAR HGB CONC 33.4 g/dl (32.0-36.5); MEAN CORPUSCULAR VOLUME 94.7 fl (80.0-96.0); PLATELET COUNT, AUTOMATED 326 10^3/uL (150-450); RED BLOOD COUNT 3.19 10^6/uL (4.00-5.40); WHITE BLOOD COUNT 8.9 10^3/uL (4.0-10.0)
[2023-09-20 12:09] LABS: CALCIUM LEVEL 8.4 MG/DL (8.3-10.6); CREATININE FOR GFR 1.16 MG/DL (0.55-1.30); GLOMERULAR FILTRATION RATE 48.2 (>39); POTASSIUM SERUM 3.2 MMOL/L (3.5-5.1)
== END ==
PROVIDERS: ATTEND Internal Medicine
DX: I48.91 Unspecified atrial fibrillation (principal)

== ENCOUNTER 2023-09-22 23:21 | Inpatient (IN) | payer MEDICARE, MEDICAID ==
[~2023-09-22] VITALS: Ht 165.1 cm; Wt 82.5 kg
[~2023-09-22 23:21] MED LIST changes: -AZIT500T5 PO; -BISA10SU4 PR; -CEFD300CAP PO; -DELS30LI8 PO; -DILT1TAB12 PO; -GUAI5EL PO; -METO25TA4 PO; -NYST-38 SS; -POTA-151 PO
[2023-09-22] MEDS ORDERED: methylPREDNISolone 125MG 2ML VIAL IV ONE (23:30)
[2023-09-22] MEDS ORDERED: IPRATROPIUM 0.5MG/ALBUTEROL 2.5MG INH SOL UD 3ML (DUONEB) NEB ONE (23:30)
[2023-09-22 23:52] LABS: ABG BASE EXCESS 6.5 (-2.0-2.0); ABG HCO3 31.3 MMOL/L (22.0-26.0); ABG O2 SATURATION 95.7 % (95.0-99.0); ABG PARTIAL PRESSURE CO2 46.1 mmHg (35.0-45.0); ABG PARTIAL PRESSURE O2 83.2 mmHg (75.0-100.0); ABG STANDARD HCO3 30.4 MMOL/L. (22.0-26.0); ABG TOTAL CO2 32.7 MMOL/L (23.0-31.0)
[2023-09-23] VITALS (54 sets, daily range): BP systolic 86–148; BP diastolic 50–91; TEMP 97–97.7; O2SAT 94–100
[2023-09-23 00:07] LABS: BASO % 0.2 % (0.0-1.0); EOS # 0.1 10^3/uL (0.0-0.5); EOS % 0.8 % (0.0-3.0); HEMATOCRIT 28.6 % (36.0-47.0); HEMOGLOBIN 9.8 g/dl (12.0-15.5); LYMPH # 0.3 10^3/uL (1.5-5.0); LYMPH % 2.2 % (24.0-44.0); MEAN CORPUSCULAR HEMOGLOBIN 31.7 pg (27.0-33.0); MEAN CORPUSCULAR HGB CONC 34.3 g/dl (32.0-36.5); MEAN CORPUSCULAR VOLUME 92.6 fl (80.0-96.0); MONO # 0.7 10^3/uL (0.0-0.8); MONO % 4.2 % (2.0-8.0); NEUTROPHILS # 14.2 10^3/uL (1.5-8.5); NEUTROPHILS % 91.3 % (36.0-66.0); PLATELET COUNT, AUTOMATED 334 10^3/uL (150-450); RED BLOOD COUNT 3.09 10^6/uL (4.00-5.40); WHITE BLOOD COUNT 15.6 10^3/uL (4.0-10.0)
[2023-09-23 00:16] LABS: INR 1.52; PROTHROMBIN TIME 17.9 SECONDS (12.5-14.5)
[2023-09-23 00:18] LABS: ALBUMIN 2.9 G/DL (3.2-5.2); ALKALINE PHOSPHATASE 48 U/L (46-116); ALT/SGPT 23 U/L (7.0-40); AST/SGOT 37 U/L (<34); BILIRUBIN,DIRECT 0.2 MG/DL (<0.4); BILIRUBIN,TOTAL 0.5 MG/DL (0.3-1.2); BLOOD UREA NITROGEN 25 MG/DL (9-23); CALCIUM LEVEL 8.7 MG/DL (8.3-10.6); CARBON DIOXIDE LEVEL 36 MMOL/L (20-31); CHLORIDE LEVEL 86 MMOL/L (98-107); CK-MB VALUE MASS < 1.0 NG/ML (<3.6); CPK CREATINE PHOSPHOKINASE 38 U/L (34-145); CREATININE FOR GFR 1.72 MG/DL (0.55-1.30); GLOMERULAR FILTRATION RATE 30.6 (>39); GLUCOSE, FASTING 152 MG/DL (74-106); MB/CK RELATIVE INDEX 2.63 (< OR =4); POTASSIUM SERUM 4.6 MMOL/L (3.5-5.1); SODIUM LEVEL 131 MMOL/L (136-145); TOTAL PROTEIN 5.6 G/DL (5.7-8.2)
[2023-09-23] MEDS ORDERED: ISOVUE-370 76% 100ML VIAL As Ordered ONE (00:52)
[2023-09-23 01:17] LABS: CK-MB VALUE MASS < 1.0 NG/ML (<3.6)
[2023-09-23 01:19] LABS: CPK CREATINE PHOSPHOKINASE < 15 U/L (34-145)
[2023-09-23] MEDS ORDERED: NS 1,000 ML IV ONE ×2 (02:05)
[2023-09-23] MEDS ORDERED: NS 500 ML IV ONE (02:25)
[2023-09-23] MEDS ORDERED: PIPERACILLIN/TAZOBACTAM SOD 4.5 GM in D5W MINI-BAG PLUS 50 ML IV ONE (02:25)
[2023-09-23] MEDS ORDERED: NS 1,000 ML IV SCH ×2 (04:05→04:30)
[2023-09-23] MEDS ORDERED: NOREPINEPHRINE 4MG IN D5 250ML 4 MG in IV 1 EA IV SCH ×4 (04:15→04:30)
[2023-09-23] MEDS ORDERED: ALBUTEROL SULFATE 2.5MG/0.5ML INH NEB SOLN NEB PRN (04:30)
[2023-09-23] MEDS ORDERED: HYDROCORTISONE 100MG/2ML VIAL IV STA (04:44)
[2023-09-23] MEDS ORDERED: GUAI5EL PO (05:24)
[2023-09-23] MEDS ORDERED: BISA10SU4 PR (05:24)
[2023-09-23] MEDS ORDERED: DILT1TAB12 PO (05:24)
[2023-09-23] MEDS ORDERED: SPIR50TA4 PO (05:24)
[2023-09-23] MEDS ORDERED: GABA-282 PO (05:24)
[2023-09-23] MEDS ORDERED: DIGO0.123 PO (05:24)
[2023-09-23] MEDS ORDERED: ETHA1TAB2 PO (05:24)
[2023-09-23] MEDS ORDERED: TORS20TA2 PO (05:24)
[2023-09-23] MEDS ORDERED: AZIT500T5 PO (05:24)
[2023-09-23] MEDS ORDERED: METO25TA4 PO (05:24)
[2023-09-23] MEDS ORDERED: POTA-151 PO (05:24)
[2023-09-23] MEDS ORDERED: HOME MED LIST COMPLETE! XX SCH (05:30)
[2023-09-23] MEDS: IPRATROPIUM 0.5MG/ALBUTEROL 2.5MG INH SOL UD 3ML (DUONEB) INH SCH ×3 (07:55→19:56)
[2023-09-23 09:22] LABS: HEMATOCRIT 26.7 % (36.0-47.0); HEMOGLOBIN 8.9 g/dl (12.0-15.5); MEAN CORPUSCULAR HEMOGLOBIN 31.6 pg (27.0-33.0); MEAN CORPUSCULAR HGB CONC 33.3 g/dl (32.0-36.5); MEAN CORPUSCULAR VOLUME 94.7 fl (80.0-96.0); PLATELET COUNT, AUTOMATED 269 10^3/uL (150-450); RED BLOOD COUNT 2.82 10^6/uL (4.00-5.40); WHITE BLOOD COUNT 10.9 10^3/uL (4.0-10.0)
[2023-09-23] MEDS: PANTOPRAZOLE 40MG VIAL IV SCH (09:25)
[2023-09-23] MEDS: DIGOXIN 0.125 MG TAB PO SCH (09:25)
[2023-09-23] MEDS: PIPERACILLIN/TAZOBACTAM SOD 4.5 GM in D5W MINI-BAG PLUS 50 ML IV SCH ×2 (09:25→17:22)
[2023-09-23 09:49] LABS: ALBUMIN 2.7 G/DL (3.2-5.2); BILIRUBIN,TOTAL 0.3 MG/DL (0.3-1.2); CALCIUM LEVEL 7.7 MG/DL (8.3-10.6); CREATININE FOR GFR 1.7 MG/DL (0.55-1.30); POTASSIUM SERUM 3.8 MMOL/L (3.5-5.1); TOTAL PROTEIN 5.3 G/DL (5.7-8.2)
[2023-09-23 10:12] LABS: PROCALCITONIN 1.01 ng/ml
[2023-09-23] MEDS: methylPREDNISolone 40MG 1ML VIAL IV SCH ×3 (10:17→23:47)
[2023-09-23] MEDS: LEVOTHYROXINE 50MCG TABLET (0.05MG) PO SCH (10:17)
[2023-09-23] MEDS: APIXABAN 2.5 MG TAB (ELIQUIS) PO SCH ×2 (10:17→21:11)
[2023-09-23] MEDS: INSULIN LISPRO (NovoLOG) PER UNIT SC SCH ×3 (12:56→21:00)
[2023-09-23] MEDS ORDERED: HYDROCORTISONE 100MG/2ML VIAL IV SCH (18:00)
[2023-09-24] VITALS (8 sets, daily range): BP systolic 100–164; BP diastolic 55–87; TEMP 97.2–98.2; O2SAT 88–98
[2023-09-24] MEDS: IPRATROPIUM 0.5MG/ALBUTEROL 2.5MG INH SOL UD 3ML (DUONEB) INH SCH ×2 (01:24→07:05)
[2023-09-24] MEDS: PIPERACILLIN/TAZOBACTAM SOD 4.5 GM in D5W MINI-BAG PLUS 50 ML IV SCH ×3 (01:51→17:44)
[2023-09-24] MEDS ORDERED: diphenhydrAMINE 25MG CAP PO ONE (04:40)
[2023-09-24] MEDS: LEVOTHYROXINE 50MCG TABLET (0.05MG) PO SCH (05:19)
[2023-09-24 05:29] LABS: HEMATOCRIT 25.2 % (36.0-47.0); HEMOGLOBIN 8.3 g/dl (12.0-15.5)
[2023-09-24 05:54] LABS: CALCIUM LEVEL 7.8 MG/DL (8.3-10.6); CREATININE FOR GFR 1.55 MG/DL (0.55-1.30); GLOMERULAR FILTRATION RATE 34.5 (>39); POTASSIUM SERUM 3.3 MMOL/L (3.5-5.1)
[2023-09-24] MEDS: INSULIN LISPRO (NovoLOG) PER UNIT SC SCH ×4 (08:19→20:40)
[2023-09-24] MEDS: PANTOPRAZOLE 40MG VIAL IV SCH (08:19)
[2023-09-24] MEDS: DIGOXIN 0.125 MG TAB PO SCH (08:19)
[2023-09-24] MEDS: APIXABAN 2.5 MG TAB (ELIQUIS) PO SCH ×2 (08:19→20:49)
[2023-09-24] MEDS: methylPREDNISolone 40MG 1ML VIAL IV SCH ×2 (08:19→16:33)
[2023-09-24] MEDS ORDERED: LEVALBUTEROL 1.25MG 0.5ML CONCENTRATE NEB INH PRN (08:50)
[2023-09-24] MEDS ORDERED: POTASSIUM CHL PWD 20MEQ PACKET PO ONE (10:00)
[2023-09-24] MEDS ORDERED: VANICREAM MOISTURIZING SKIN CREAM 113GM TUBE TOP PRN (10:05)
[2023-09-24] MEDS: SODIUM CHLORIDE 0.9% NASAL GEL 15GM (AYR) SCH ×2 (11:00→20:49)
[2023-09-24] MEDS: diphenhydrAMINE 25MG CAP PO PRN ×2 (12:44→20:49)
[2023-09-24] MEDS: LEVALBUTEROL 1.25MG 0.5ML CONCENTRATE NEB INH SCH ×2 (13:28→20:01)
[2023-09-24] MEDS: SYMBICORT 160/4.5MCG INHALER 6GM INH SCH (20:04)
[2023-09-24] MEDS: DEXTROMETHORPHAN 60MG/10ML SUSP 90ML BTL(DELSYM) PO SCH (20:49)
[2023-09-24] MEDS: LEVEMIR (INSULIN DETEMIR) 1 UNITS/0.01ML SC SCH (20:49)
[2023-09-25] MEDS: PIPERACILLIN/TAZOBACTAM SOD 4.5 GM in D5W MINI-BAG PLUS 50 ML IV SCH ×3 (02:25→17:52)
[2023-09-25] MEDS ORDERED: diphenhydrAMINE 25MG CAP PO ONE (02:30)
[2023-09-25] MEDS: LEVALBUTEROL 1.25MG 0.5ML CONCENTRATE NEB INH SCH ×6 (03:04→23:31)
[2023-09-25] MEDS: methylPREDNISolone 40MG 1ML VIAL IV SCH ×2 (04:01→17:52)
[2023-09-25 05:00] VITALS: BP 144/93; TEMP 97.9; O2SAT 95
[2023-09-25] MEDS: LEVOTHYROXINE 50MCG TABLET (0.05MG) PO SCH (05:47)
[2023-09-25] MEDS: dilTIAZem 60 MG TAB PO SCH ×3 (05:49→21:30)
[2023-09-25] MEDS: SYMBICORT 160/4.5MCG INHALER 6GM INH SCH ×2 (07:36→21:03)
[2023-09-25] MEDS ORDERED: ETHAMBUTOL 400MG TAB PO SCH (09:00)
[2023-09-25] MEDS ORDERED: AZITHROMYCIN 250MG TABLET PO SCH (09:00)
[2023-09-25] MEDS: INSULIN LISPRO (NovoLOG) PER UNIT SC SCH ×4 (09:07→20:21)
[2023-09-25] MEDS: DIGOXIN 0.125 MG TAB PO SCH (09:08)
[2023-09-25] MEDS: DEXTROMETHORPHAN 60MG/10ML SUSP 90ML BTL(DELSYM) PO SCH ×2 (09:08→21:17)
[2023-09-25] MEDS: PANTOPRAZOLE 40MG VIAL IV SCH (09:08)
[2023-09-25] MEDS: APIXABAN 2.5 MG TAB (ELIQUIS) PO SCH ×2 (09:08→20:26)
[2023-09-25 09:26] LABS: HEMATOCRIT 27.8 % (36.0-47.0); HEMOGLOBIN 9.4 g/dl (12.0-15.5); MEAN CORPUSCULAR HEMOGLOBIN 31.5 pg (27.0-33.0); MEAN CORPUSCULAR HGB CONC 33.8 g/dl (32.0-36.5); MEAN CORPUSCULAR VOLUME 93.3 fl (80.0-96.0); PLATELET COUNT, AUTOMATED 386 10^3/uL (150-450); RED BLOOD COUNT 2.98 10^6/uL (4.00-5.40); WHITE BLOOD COUNT 16.3 10^3/uL (4.0-10.0)
[2023-09-25 10:02] LABS: ALBUMIN 3.4 G/DL (3.2-5.2); BILIRUBIN,TOTAL 0.3 MG/DL (0.3-1.2); CALCIUM LEVEL 9.1 MG/DL (8.3-10.6); CREATININE FOR GFR 1.16 MG/DL (0.55-1.30); GLOMERULAR FILTRATION RATE 48.2 (>39); POTASSIUM SERUM 3.4 MMOL/L (3.5-5.1); TOTAL PROTEIN 6.1 G/DL (5.7-8.2)
[2023-09-25 11:24] VITALS: O2SAT 93
[2023-09-25 14:00] VITALS: BP 128/70; TEMP 97.9; O2SAT 97
[2023-09-25] MEDS ORDERED: ACETAMINOPHEN 500 MG TAB PO PRN (14:05)
[2023-09-25] MEDS: METOPROLOL TART 25 MG TABLET PO SCH ×2 (14:19→20:25)
[2023-09-25] MEDS: SODIUM CHLORIDE 0.9% NASAL GEL 15GM (AYR) SCH ×2 (14:24→20:25)
[2023-09-25] MEDS ORDERED: RAMELTEON 8 MG TAB (ROZEREM) PO PRN (19:05)
[2023-09-25] MEDS: LEVEMIR (INSULIN DETEMIR) 1 UNITS/0.01ML SC SCH (20:24)
[2023-09-25] MEDS: PANTOPRAZOLE 20 MG TAB PO SCH (20:26)
[2023-09-25 21:00] VITALS: BP 104/61; TEMP 97.7; O2SAT 97
[2023-09-25] MEDS ORDERED: GABAPENTIN 300 MG CAP PO SCH (21:00)
[2023-09-25] MEDS ORDERED: ANEXSIA, NORCO 7.5MG/325MG TABLET(HYDROCODONE/APAP) PO SCH (21:00)
[2023-09-25 21:03] VITALS: O2SAT 98
[2023-09-26] MEDS: PIPERACILLIN/TAZOBACTAM SOD 4.5 GM in D5W MINI-BAG PLUS 50 ML IV SCH (01:11)
[2023-09-26] MEDS: LEVALBUTEROL 1.25MG 0.5ML CONCENTRATE NEB INH SCH ×3 (03:07→11:02)
[2023-09-26] MEDS: methylPREDNISolone 40MG 1ML VIAL IV SCH (03:17)
[2023-09-26] MEDS: dilTIAZem 60 MG TAB PO SCH ×2 (05:31→14:10)
[2023-09-26] MEDS: LEVOTHYROXINE 50MCG TABLET (0.05MG) PO SCH (05:31)
[2023-09-26 06:00] VITALS: BP 135/72; TEMP 97.5; O2SAT 97
[2023-09-26 06:06] LABS: HEMATOCRIT 27.8 % (36.0-47.0); HEMOGLOBIN 9.2 g/dl (12.0-15.5); MEAN CORPUSCULAR HEMOGLOBIN 31.5 pg (27.0-33.0); MEAN CORPUSCULAR HGB CONC 33.1 g/dl (32.0-36.5); MEAN CORPUSCULAR VOLUME 95.2 fl (80.0-96.0); PLATELET COUNT, AUTOMATED 334 10^3/uL (150-450); RED BLOOD COUNT 2.92 10^6/uL (4.00-5.40); WHITE BLOOD COUNT 10.9 10^3/uL (4.0-10.0)
[2023-09-26 06:35] LABS: CALCIUM LEVEL 9.1 MG/DL (8.3-10.6); CREATININE FOR GFR 1.14 MG/DL (0.55-1.30); GLOMERULAR FILTRATION RATE 49.2 (>39); POTASSIUM SERUM 3.8 MMOL/L (3.5-5.1)
[2023-09-26] MEDS: SYMBICORT 160/4.5MCG INHALER 6GM INH SCH (06:58)
[2023-09-26] MEDS: SODIUM CHLORIDE 0.9% NASAL GEL 15GM (AYR) SCH (08:10)
[2023-09-26] MEDS: DIGOXIN 0.125 MG TAB PO SCH (08:11)
[2023-09-26] MEDS: APIXABAN 2.5 MG TAB (ELIQUIS) PO SCH (08:11)
[2023-09-26] MEDS: DEXTROMETHORPHAN 60MG/10ML SUSP 90ML BTL(DELSYM) PO SCH (08:11)
[2023-09-26] MEDS: INSULIN LISPRO (NovoLOG) PER UNIT SC SCH ×2 (08:12→12:27)
[2023-09-26] MEDS: METOPROLOL TART 25 MG TABLET PO SCH (08:13)
[2023-09-26] MEDS: PANTOPRAZOLE 20 MG TAB PO SCH (08:18)
[2023-09-26] MEDS ORDERED: predniSONE 20 MG TAB PO SCH (09:00)
[2023-09-26] MEDS ORDERED: CEFDINIR 300 MG CAP (OMNICEF) PO SCH (09:00)
[2023-09-26] MEDS ORDERED: ANEXSIA, NORCO 7.5MG/325MG TABLET(HYDROCODONE/APAP) PO SCH (09:00)
[2023-09-26] MEDS: NYSTATIN 500,000U/5ML SUSP UDC SS SCH ×2 (10:03→12:26)
[2023-09-26] MEDS ORDERED: CEFD300CAP PO (10:44)
[2023-09-26] MEDS ORDERED: DELS30LI8 PO (10:44)
[2023-09-26] MEDS ORDERED: NYST-38 SS (10:44)
[2023-09-26] MEDS ORDERED: PRED20TA PO (10:44)
[2023-09-26 14:10] VITALS: BP 124/74
== END 2023-09-26 14:23 | DRG 871 ==
LOC: EDBD 23:21 → M ED 23:21 → M ED INP 09-23 04:29 → M ICU 09-23 06:18 → M MSPAV 09-24 23:14
PROVIDERS: ADMIT Internal Medicine; ATTEND Internal Medicine
DX: A41.9 Sepsis, unspecified organism (principal); R65.21 Severe sepsis with septic shock; J15.1 Pneumonia due to Pseudomonas; J96.11 Chronic respiratory failure with hypoxia; N17.9 Acute kidney failure, unspecified; I48.20 Chronic atrial fibrillation, unspecified; I50.40 Unspecified combined systolic (congestive) and diastolic (congestive) heart failure; E87.3 Alkalosis; J44.1 Chronic obstructive pulmonary disease with (acute) exacerbation; E46 Unspecified protein-calorie malnutrition; E27.40 Unspecified adrenocortical insufficiency; N39.0 Urinary tract infection, site not specified; I13.0 Hypertensive heart and chronic kidney disease with heart failure and stage 1 through stage 4 chronic kidney disease, or unspecified chronic kidney disease; E87.1 Hypo-osmolality and hyponatremia; I27.20 Pulmonary hypertension, unspecified; E03.9 Hypothyroidism, unspecified; I27.81 Cor pulmonale (chronic); K21.9 Gastro-esophageal reflux disease without esophagitis; D64.9 Anemia, unspecified; J43.9 Emphysema, unspecified; N18.9 Chronic kidney disease, unspecified; R91.8 Other nonspecific abnormal finding of lung field; K76.0 Fatty (change of) liver, not elsewhere classified; Z99.81 Dependence on supplemental oxygen; M19.90 Unspecified osteoarthritis, unspecified site; Z79.01 Long term (current) use of anticoagulants; Z79.899 Other long term (current) drug therapy; Z79.52 Long term (current) use of systemic steroids; E87.6 Hypokalemia; L89.159 Pressure ulcer of sacral region, unspecified stage

== ENCOUNTER → 2023-09-25 | Outpatient (REF) | payer MEDICAID, MEDICARE ==
[~2023-09-25] MED LIST changes: +AZIT500T5 PO; +BISA10SU4 PR; +CEFD300CAP PO; +DELS30LI8 PO; +DILT1TAB12 PO; +GUAI5EL PO; +METO25TA4 PO; +NYST-38 SS; +POTA-151 PO
== END ==
PROVIDERS: ATTEND Internal Medicine
DX: I50.9 Heart failure, unspecified (principal); Z53.8 Procedure and treatment not carried out for other reasons

== ENCOUNTER → 2023-09-27 | Outpatient (REF) ==
[2023-09-27 11:25] LABS: ALBUMIN 2.9 G/DL (3.2-5.2); CALCIUM LEVEL 8.8 MG/DL (8.3-10.6); CREATININE FOR GFR 1.04 MG/DL (0.55-1.30); GLOMERULAR FILTRATION RATE 54.7 (>39); PHOSPHORUS LEVEL 3.1 MG/DL (2.4-5.1); POTASSIUM SERUM 3.6 MMOL/L (3.5-5.1)
== END ==
PROVIDERS: ATTEND Internal Medicine
DX: E87.1 Hypo-osmolality and hyponatremia (principal)

== ENCOUNTER → 2023-10-02 | Outpatient (REF) | payer MEDICARE, MEDICAID ==
[2023-10-02 11:32] LABS: HEMATOCRIT 33.6 % (36.0-47.0); HEMOGLOBIN 10.7 g/dl (12.0-15.5); MEAN CORPUSCULAR HEMOGLOBIN 31.5 pg (27.0-33.0); MEAN CORPUSCULAR HGB CONC 31.8 g/dl (32.0-36.5); MEAN CORPUSCULAR VOLUME 98.8 fl (80.0-96.0); PLATELET COUNT, AUTOMATED 312 10^3/uL (150-450); WHITE BLOOD COUNT 17.6 10^3/uL (4.0-10.0)
[2023-10-02 12:19] LABS: BLOOD UREA NITROGEN 23 MG/DL (9-23); CHLORIDE LEVEL 90 MMOL/L (98-107); CREATININE FOR GFR 0.88 MG/DL (0.55-1.30); GLOMERULAR FILTRATION RATE > 60.0 (>39); GLUCOSE, FASTING 88 MG/DL (74-106); POTASSIUM SERUM 3.9 MMOL/L (3.5-5.1); SODIUM LEVEL 136 MMOL/L (136-145)
[2023-10-02 12:20] LABS: CARBON DIOXIDE LEVEL > 40.0 MMOL/L (20-31)
== END ==
PROVIDERS: ATTEND Internal Medicine
DX: R19.7 Diarrhea, unspecified (principal)

== ENCOUNTER → 2023-10-11 | Outpatient (REF) ==
[~2023-10-11] MED LIST changes: -BIOT50004 PO; +BIOT5CAP8 PO
[2023-10-11 12:13] LABS: ALBUMIN 3.6 G/DL (3.2-5.2); CALCIUM LEVEL 9.4 MG/DL (8.3-10.6); CREATININE FOR GFR 1.24 MG/DL (0.55-1.30); GLOMERULAR FILTRATION RATE 44.7 (>39); PHOSPHORUS LEVEL 4.4 MG/DL (2.4-5.1); POTASSIUM SERUM 4.5 MMOL/L (3.5-5.1)
== END ==
PROVIDERS: ATTEND Internal Medicine
DX: E87.1 Hypo-osmolality and hyponatremia (principal)

== ENCOUNTER → 2023-10-16 | Outpatient (REF) | payer MEDICARE, MEDICAID ==
[~2023-10-16] MED LIST changes: +BIOT50004 PO; -BIOT5CAP8 PO
== END ==
PROVIDERS: ATTEND Internal Medicine
DX: I48.91 Unspecified atrial fibrillation (principal)

== ENCOUNTER → 2023-10-25 | Outpatient (REF) | payer MEDICARE, MEDICAID | PROVIDERS: ATTEND Internal Medicine | DX: E87.1 Hypo-osmolality and hyponatremia (principal); Z53.8 Procedure and treatment not carried out for other reasons ==

== ENCOUNTER → 2023-10-30 | Outpatient (REF) | payer MEDICARE, MEDICAID | LOC: M SFHCPLAZ 17:14 | PROVIDERS: ATTEND Internal Medicine Infectious Disease | DX: A31.0 Pulmonary mycobacterial infection (principal) ==

== ENCOUNTER → 2023-11-08 | Outpatient (REF) | payer MEDICARE, MEDICAID ==
[~2023-11-08] MED LIST changes: -BIOT50004 PO; +BIOT5CAP8 PO
[2023-11-08 12:22] LABS: BLOOD UREA NITROGEN 12 MG/DL (9-23); CARBON DIOXIDE LEVEL 38 MMOL/L (20-31); CHLORIDE LEVEL 92 MMOL/L (98-107); GLOMERULAR FILTRATION RATE > 60.0 (>39); GLUCOSE, FASTING 115 MG/DL (74-106); PHOSPHORUS LEVEL 3.8 MG/DL (2.4-5.1); POTASSIUM SERUM 4.4 MMOL/L (3.5-5.1); SODIUM LEVEL 135 MMOL/L (136-145)
[2023-11-08 16:23] LABS: APPEARANCE, URINE CLEAR (CLEAR); BACTERIA, URINE AUTO NEGATIVE (NEGATIVE); BILIRUBIN, URINE AUTO NEGATIVE (NEGATIVE); BLOOD, URINE BLOOD NEGATIVE (NEGATIVE); COLOR, URINE COLORLESS (YELLOW); GLUCOSE, URINE (UA) AUTO NEGATIVE (NEGATIVE); KETONE, URINE AUTO NEGATIVE (NEGATIVE); LEUKOCYTE ESTERASE, URINE AUTO 1+ (NEGATIVE); MUCUS, URINE SMALL (NEGATIVE); NITRITE, URINE AUTO NEGATIVE (NEGATIVE); PROTEIN, URINE AUTO NEGATIVE (NEGATIVE); RBC, URINE AUTO 1 /HPF (0-3); SPECIFIC GRAVITY URINE AUTO 1.004 (1.002-1.035); SQUAMOUS EPITHELIAL CELL UR AU 2 /HPF (0-6); UROBILINOGEN, URINE AUTO 0.2 mg/dL (0.0-2.0); WBC, URINE AUTO 3 /HPF (0-3)
== END ==
PROVIDERS: ATTEND Internal Medicine
DX: E87.1 Hypo-osmolality and hyponatremia (principal); R35.0 Frequency of micturition

== ENCOUNTER → 2023-12-13 | Outpatient (REF) | payer MEDICARE, MEDICAID ==
[2023-12-13 11:25] LABS: BASO % 0.2 % (0.0-1.0); EOS # 0.2 10^3/uL (0.0-0.5); EOS % 1.7 % (0.0-3.0); HEMATOCRIT 34.4 % (36.0-47.0); HEMOGLOBIN 11.3 g/dl (12.0-15.5); LYMPH # 1.1 10^3/uL (1.5-5.0); LYMPH % 7.9 % (24.0-44.0); MEAN CORPUSCULAR HEMOGLOBIN 32.7 pg (27.0-33.0); MEAN CORPUSCULAR HGB CONC 32.8 g/dl (32.0-36.5); MEAN CORPUSCULAR VOLUME 99.4 fl (80.0-96.0); MONO # 0.6 10^3/uL (0.0-0.8); NEUTROPHILS # 12.1 10^3/uL (1.5-8.5); NEUTROPHILS % 85.4 % (36.0-66.0); PLATELET COUNT, AUTOMATED 367 10^3/uL (150-450); RED BLOOD COUNT 3.46 10^6/uL (4.00-5.40); WHITE BLOOD COUNT 14.1 10^3/uL (4.0-10.0)
[2023-12-13 11:40] LABS: ALBUMIN 3.4 G/DL (3.2-5.2); ALKALINE PHOSPHATASE 44 U/L (46-116); ALT/SGPT 16 U/L (7.0-40); AST/SGOT 11 U/L (<34); BILIRUBIN,TOTAL 0.3 MG/DL (0.3-1.2); BLOOD UREA NITROGEN 16 MG/DL (9-23); CALCIUM LEVEL 9.2 MG/DL (8.3-10.6); CARBON DIOXIDE LEVEL 38 MMOL/L (20-31); CHLORIDE LEVEL 96 MMOL/L (98-107); CREATININE FOR GFR 0.92 MG/DL (0.55-1.30); GLOMERULAR FILTRATION RATE > 60.0 (>39); GLUCOSE, FASTING 168 MG/DL (74-106); SODIUM LEVEL 137 MMOL/L (136-145); TOTAL PROTEIN 5.9 G/DL (5.7-8.2)
[2023-12-13 12:00] LABS: ERYTHROCYTE SEDIMENTATION RATE 29 mm/hr (0-30)
== END ==
PROVIDERS: ATTEND Internal Medicine Infectious Disease
DX: A31.0 Pulmonary mycobacterial infection (principal)

== ENCOUNTER → 2023-12-29 | Outpatient (REF) | payer MEDICARE, MEDICAID ==
[~2023-12-29] MED LIST changes: +ANTI2TAB16 PO; +CETI10TA4 PO; +DIPH-435 PO; +HYDR-643 PO; +IPRA0.00 INH; +LEVA1.2519 INH; +LEVO1TAB40 PO; +ONDA-195 PO; +PANT-23 PO; +RIFA300C8 PO
[2023-12-29 08:20] LABS: BASO # 0.1 10^3/uL (0.0-0.2); BASO % 0.6 % (0.0-1.0); EOS # 0.2 10^3/uL (0.0-0.5); EOS % 2.4 % (0.0-3.0); HEMATOCRIT 33.3 % (36.0-47.0); HEMOGLOBIN 10.9 g/dl (12.0-15.5); LYMPH # 1.2 10^3/uL (1.5-5.0); LYMPH % 12.7 % (24.0-44.0); MEAN CORPUSCULAR HEMOGLOBIN 31.8 pg (27.0-33.0); MEAN CORPUSCULAR HGB CONC 32.7 g/dl (32.0-36.5); MEAN CORPUSCULAR VOLUME 97.1 fl (80.0-96.0); MONO # 0.6 10^3/uL (0.0-0.8); MONO % 6.3 % (2.0-8.0); NEUTROPHILS # 7.5 10^3/uL (1.5-8.5); NEUTROPHILS % 77.3 % (36.0-66.0); PLATELET COUNT, AUTOMATED 291 10^3/uL (150-450); RED BLOOD COUNT 3.43 10^6/uL (4.00-5.40); WHITE BLOOD COUNT 9.7 10^3/uL (4.0-10.0)
[2023-12-29 08:48] LABS: ALBUMIN 3.2 G/DL (3.2-5.2); BLOOD UREA NITROGEN 13 MG/DL (9-23); CALCIUM LEVEL 9.3 MG/DL (8.3-10.6); CARBON DIOXIDE LEVEL 40 MMOL/L (20-31); CHLORIDE LEVEL 97 MMOL/L (98-107); CREATININE FOR GFR 0.92 MG/DL (0.55-1.30); GLOMERULAR FILTRATION RATE > 60.0 (>39); GLUCOSE, FASTING 105 MG/DL (74-106); PHOSPHORUS LEVEL 5.9 MG/DL (2.4-5.1); POTASSIUM SERUM 3.9 MMOL/L (3.5-5.1); SODIUM LEVEL 140 MMOL/L (136-145)
== END ==
PROVIDERS: ATTEND Internal Medicine Nephrology
DX: I10 Essential (primary) hypertension (principal)

== ENCOUNTER 2024-01-08 21:27 | Emergency (ER) | payer MEDICARE, MEDICAID ==
[~2024-01-08] VITALS: Ht 165.1 cm; Wt 79.5 kg
[~2024-01-08 21:27] MED LIST changes: -ANTI2TAB16 PO; -CETI10TA4 PO; -DIPH-435 PO; -HYDR-643 PO; -IPRA0.00 INH; -LEVA1.2519 INH; -LEVO1TAB40 PO; -ONDA-195 PO; -PANT-23 PO; -RIFA300C8 PO
[2024-01-08 21:57] LABS: VENOUS BASE EXCESS 5.6 (-2.0-2.0); VENOUS HCO3 31.9 MMOL/L (23.0-27.0); VENOUS O2 SATURATION 87.8 % (60.0-80.0); VENOUS PARTIAL PRESSURE CO2 53.6 mmHg (38.0-50.0); VENOUS PARTIAL PRESSURE O2 53.7 mmHg (30.0-50.0); VENOUS PH 7.392 UNITS (7.330-7.430); VENOUS STANDARD HCO3 29.2 MMOL/L; VENOUS TOTAL CO2 33.5 MMOL/L (24.0-28.0)
[2024-01-08 22:04] LABS: BASO # 0.1 10^3/uL (0.0-0.2); BASO % 0.3 % (0.0-1.0); EOS # 0.1 10^3/uL (0.0-0.5); EOS % 0.9 % (0.0-3.0); HEMATOCRIT 36.6 % (36.0-47.0); HEMOGLOBIN 12.3 g/dl (12.0-15.5); LYMPH # 0.5 10^3/uL (1.5-5.0); LYMPH % 2.9 % (24.0-44.0); MEAN CORPUSCULAR HEMOGLOBIN 32.2 pg (27.0-33.0); MEAN CORPUSCULAR HGB CONC 33.6 g/dl (32.0-36.5); MEAN CORPUSCULAR VOLUME 95.8 fl (80.0-96.0); MONO # 0.8 10^3/uL (0.0-0.8); MONO % 4.9 % (2.0-8.0); NEUTROPHILS # 14.3 10^3/uL (1.5-8.5); NEUTROPHILS % 90.4 % (36.0-66.0); PLATELET COUNT, AUTOMATED 380 10^3/uL (150-450); RED BLOOD COUNT 3.82 10^6/uL (4.00-5.40); WHITE BLOOD COUNT 15.8 10^3/uL (4.0-10.0)
[2024-01-08 22:19] LABS: INR 1.43
[2024-01-08 22:25] LABS: CK-MB VALUE MASS 1.8 NG/ML (<3.6)
[2024-01-08 22:27] LABS: ALBUMIN 3.7 G/DL (3.2-5.2); BILIRUBIN,DIRECT 0.3 MG/DL (<0.4); BILIRUBIN,TOTAL 0.6 MG/DL (0.3-1.2); CALCIUM LEVEL 9.3 MG/DL (8.3-10.6); CREATININE FOR GFR 1.03 MG/DL (0.55-1.30); GLOMERULAR FILTRATION RATE 55.3 (>39); MB/CK RELATIVE INDEX 2.27 (< OR =4); POTASSIUM SERUM 4.5 MMOL/L (3.5-5.1); TOTAL PROTEIN 6.6 G/DL (5.7-8.2)
[2024-01-08] MEDS: ACETAMINOPHEN TAB 650MG DOSE (2X325MG) PO ONE (22:30)
[2024-01-08] MEDS: IBUPROFEN 600MG TAB PO ONE (22:45)
[2024-01-08] MEDS: guaiFENesin DM LIQ 10ML UD PO ONE (22:46)
[2024-01-08] MEDS: COMBIVENT RESPIMAT 100-20MCG INHALER 4GM INH STA (23:05)
[2024-01-09] MEDS: methylPREDNISolone 125MG 2ML VIAL IV ONE (00:26)
[2024-01-09 01:03] LABS: PROCALCITONIN 0.15 ng/ml
[2024-01-09 01:27] VITALS: O2SAT 97
[2024-01-09] MEDS: LevoFLOXacin 750 MG TABLET PO ONE (01:28)
[2024-01-09] MEDS ORDERED: LEVO1TAB40 PO (01:35)
[2024-01-09] MEDS ORDERED: PRED20TA PO (01:35)
[2024-01-09] MEDS ORDERED: ACET-907 PO (01:48)
[2024-01-09 02:00] VITALS: BP 118/55; TEMP 98.4; O2SAT 97
[2024-01-10] MEDS ORDERED: ANTI2TAB16 PO (06:48)
[2024-01-10] MEDS ORDERED: PRED20TA PO (06:48)
[2024-01-10] MEDS ORDERED: CETI10TA4 PO (06:48)
[2024-01-10] MEDS ORDERED: RIFA300C8 PO (06:48)
[2024-01-10] MEDS ORDERED: ONDA-195 PO (06:48)
[2024-01-10] MEDS ORDERED: DIPH-435 PO (06:48)
[2024-01-10] MEDS ORDERED: LEVO1TAB39 PO (06:48)
[2024-01-10] MEDS ORDERED: ACET-907 PO (06:48)
[2024-01-10] MEDS ORDERED: HYDR-643 PO (06:48)
[2024-01-10] MEDS ORDERED: PANT-23 PO (06:48)
[2024-01-10] MEDS ORDERED: LEVA1.2519 INH (06:48)
[2024-01-10] MEDS ORDERED: IPRA0.00 INH (06:48)
== END 2024-01-09 02:09 | disposition home or self-care (01) ==
LOC: M ED 21:27 → EDBD 21:27 → M ED 01-09 02:09
DX: J18.9 Pneumonia, unspecified organism (principal); B34.8 Other viral infections of unspecified site; J44.1 Chronic obstructive pulmonary disease with (acute) exacerbation; I48.91 Unspecified atrial fibrillation; I45.19 Other right bundle-branch block; I10 Essential (primary) hypertension; E03.9 Hypothyroidism, unspecified; K59.00 Constipation, unspecified; M79.7 Fibromyalgia; Z86.79 Personal history of other diseases of the circulatory system; Z79.01 Long term (current) use of anticoagulants; Z79.52 Long term (current) use of systemic steroids; Z79.2 Long term (current) use of antibiotics; Z79.83 Long term (current) use of bisphosphonates; Z79.899 Other long term (current) drug therapy
CPT/HCPCS: 71045; 80048; 80076; 81000; 81015; 82550; 82553; 82803; 83605; 83880; 84145; 84484; 85025; 85610; 87040; 87086; 87486; 87581; 87633; 87798; 93005; 93041; 94640; 94760; 96374; 99285; J2930

== ENCOUNTER → 2024-01-08 | Outpatient (REF) | payer MEDICARE, MEDICAID | PROVIDERS: ATTEND Internal Medicine Pulmonary Disease | DX: J47.9 Bronchiectasis, uncomplicated (principal); A31.0 Pulmonary mycobacterial infection ==

== ENCOUNTER 2024-01-10 04:19 | Inpatient (IN) | payer MEDICARE, MEDICAID ==
[~2024-01-10] VITALS: Ht 165.1 cm; Wt 79.0 kg
[~2024-01-10 04:19] MED LIST changes: +LEVO1TAB40 PO
[2024-01-10] MEDS: LEVALBUTEROL 1.25MG 0.5ML CONCENTRATE NEB NEB PRN (04:53)
[2024-01-10 04:57] LABS: BASO % 0.3 % (0.0-1.0); EOS # 0.3 10^3/uL (0.0-0.5); EOS % 1.7 % (0.0-3.0); HEMATOCRIT 37.5 % (36.0-47.0); HEMOGLOBIN 12.6 g/dl (12.0-15.5); LYMPH # 1.2 10^3/uL (1.5-5.0); MEAN CORPUSCULAR HEMOGLOBIN 32.6 pg (27.0-33.0); MEAN CORPUSCULAR HGB CONC 33.6 g/dl (32.0-36.5); MEAN CORPUSCULAR VOLUME 96.9 fl (80.0-96.0); MONO # 1.2 10^3/uL (0.0-0.8); MONO % 8.3 % (2.0-8.0); NEUTROPHILS # 11.8 10^3/uL (1.5-8.5); NEUTROPHILS % 80.9 % (36.0-66.0); PLATELET COUNT, AUTOMATED 394 10^3/uL (150-450); RED BLOOD COUNT 3.87 10^6/uL (4.00-5.40); WHITE BLOOD COUNT 14.5 10^3/uL (4.0-10.0)
[2024-01-10 05:00] LABS: ABG BASE EXCESS 2.7 (-2.0-2.0); ABG HCO3 30.5 MMOL/L (22.0-26.0); ABG O2 SATURATION 99.7 % (95.0-99.0); ABG PARTIAL PRESSURE O2 283.5 mmHg (75.0-100.0); ABG STANDARD HCO3 26.9 MMOL/L. (22.0-26.0); ABG TOTAL CO2 32.5 MMOL/L (23.0-31.0); ABG pH (ARTERIAL) 7.304 UNITS (7.350-7.450)
[2024-01-10 05:02] LABS: ABG PARTIAL PRESSURE CO2 62.9 mmHg (35.0-45.0)
[2024-01-10] MEDS: METOPROLOL 5 MG/5 ML VIAL IV SCH (05:11)
[2024-01-10 05:17] LABS: BILIRUBIN,DIRECT 0.1 MG/DL (<0.4); BILIRUBIN,TOTAL 0.3 MG/DL (0.3-1.2); CALCIUM LEVEL 9.1 MG/DL (8.3-10.6); CK-MB VALUE MASS 3.5 NG/ML (<3.6); CREATININE FOR GFR 1.2 MG/DL (0.55-1.30); GLOMERULAR FILTRATION RATE 46.4 (>39); POTASSIUM SERUM 4.8 MMOL/L (3.5-5.1); TOTAL PROTEIN 6.8 G/DL (5.7-8.2)
[2024-01-10 05:19] LABS: THYROID STIMULATING HORMONE 15.679 uIU/ML (0.55-4.78)
[2024-01-10 05:22] LABS: RSV AMPLIFICATION NEGATIVE (NEGATIVE)
[2024-01-10 05:29] LABS: PROCALCITONIN 0.26 ng/ml
[2024-01-10 05:44] LABS: MB/CK RELATIVE INDEX 2.59 (< OR =4)
[2024-01-10] MEDS: DIGOXIN INJ 0.5 MG/2 ML AMP IV STA (06:21)
[2024-01-10] MEDS ORDERED: LEVA1.2519 INH (06:48)
[2024-01-10] MEDS ORDERED: PRED20TA PO (06:48)
[2024-01-10] MEDS ORDERED: CETI10TA4 PO (06:48)
[2024-01-10] MEDS ORDERED: IPRA0.00 INH (06:48)
[2024-01-10] MEDS ORDERED: PANT-23 PO (06:48)
[2024-01-10] MEDS ORDERED: DIPH-435 PO (06:48)
[2024-01-10] MEDS ORDERED: RIFA300C8 PO (06:48)
[2024-01-10] MEDS ORDERED: ACET-907 PO (06:48)
[2024-01-10] MEDS ORDERED: HYDR-643 PO (06:48)
[2024-01-10] MEDS ORDERED: ONDA-195 PO (06:48)
[2024-01-10] MEDS ORDERED: LEVO1TAB39 PO (06:48)
[2024-01-10] MEDS ORDERED: ANTI2TAB16 PO (06:48)
[2024-01-10] MEDS ORDERED: HOME MED LIST COMPLETE! XX SCH (06:50)
[2024-01-10] MEDS ORDERED: IPRATROPIUM 0.02% SOLN 0.5MG 2.5ML NEB INH SCH (08:00)
[2024-01-10] MEDS ORDERED: LEVALBUTEROL 1.25MG 0.5ML CONCENTRATE NEB INH SCH (08:00)
[2024-01-10] MEDS ORDERED: CEPACOL LOZENGE PO PRN (08:25)
[2024-01-10] MEDS ORDERED: ACETAMINOPHEN TAB 650MG DOSE (2X325MG) PO PRN (08:25)
[2024-01-10] MEDS ORDERED: ISOVUE-370 76% 100ML VIAL As Ordered ONE (08:52)
[2024-01-10] MEDS: SODIUM CHLORIDE 0.9% NASAL GEL 15GM (AYR) SCH (09:00)
[2024-01-10] MEDS: DOCUSATE SODIUM 100MG CAPSULE PO SCH (09:00)
[2024-01-10] MEDS: PANTOPRAZOLE 40MG TAB (PROTONIX) PO SCH (09:00)
[2024-01-10] MEDS: MOM 30ML SUSPENSION UDC PO PRN (09:15)
[2024-01-10] MEDS: CEFEPIME HCL 2 GM in D5W MINI-BAG PLUS 50 ML IV SCH (09:16)
[2024-01-10] MEDS: NS 1,000 ML IV ONE (09:16)
[2024-01-10] MEDS: DOXYCYCLINE HYCLATE 100 MG in D5W MINI-BAG PLUS 100 ML IV SCH (10:24)
[2024-01-10] MEDS ORDERED: ACETAMINOPHEN 325 MG TAB PO PRN (10:50)
[2024-01-10] MEDS ORDERED: LOPERAMIDE 2 MG CAPLET PO PRN (10:50)
[2024-01-10] MEDS ORDERED: ONDANSETRON 4MG TAB PO PRN (10:50)
[2024-01-10] MEDS ORDERED: ANEXSIA, NORCO 7.5MG/325MG TABLET(HYDROCODONE/APAP) PO PRN (10:50)
[2024-01-10] MEDS ORDERED: IPRATROPIUM 0.5MG/ALBUTEROL 2.5MG INH SOL UD 3ML (DUONEB) INH PRN (10:50)
[2024-01-10] MEDS ORDERED: diphenhydrAMINE 25MG CAP PO PRN (10:50)
[2024-01-10 11:20] LABS: FREE T4 0.9 NG/DL (0.89-1.76)
[2024-01-10] MEDS: LEVOTHYROXINE 50MCG TABLET (0.05MG) PO SCH (11:32)
[2024-01-10] MEDS: predniSONE 20 MG TAB PO SCH (12:58)
[2024-01-10] MEDS: TORSEMIDE 20 MG TAB PO SCH (12:58)
[2024-01-10] MEDS: APIXABAN 5 MG TAB (ELIQUIS) PO SCH (12:59)
[2024-01-10] MEDS: VITAMIN D 1,000 INTERNATIONAL UNITS TABLET PO SCH (12:59)
[2024-01-10] MEDS: SPIRONOLACTONE 25 MG TAB PO SCH (13:00)
[2024-01-10] MEDS: METOPROLOL TART 25 MG TABLET PO SCH (13:00)
[2024-01-10] MEDS: LEVALBUTEROL 1.25MG 0.5ML CONCENTRATE NEB INH SCH (14:55)
[2024-01-10] MEDS: SYMBICORT 160/4.5MCG INHALER 6GM INH SCH (14:55)
[2024-01-10] MEDS: AZITHROMYCIN 250MG TABLET PO SCH (15:03)
[2024-01-10] MEDS: GABAPENTIN 300 MG CAP PO SCH (15:03)
[2024-01-10] MEDS: dilTIAZem 60 MG TAB PO SCH ×2 (15:04→22:01)
[2024-01-10] MEDS: CETIRIZINE (ZyrTEC) 10 MG TAB PO SCH (15:04)
[2024-01-10] MEDS: ETHAMBUTOL 400MG TAB PO SCH (18:40)
[2024-01-10 19:15] VITALS: BP 106/63; TEMP 98.2; O2SAT 93
[2024-01-10] MEDS ORDERED: AZITHROMYCIN INJ 500 MG, VIAL MATE ADAPTER 1 EACH in NS 250 ML IV SCH ×2 (21:00→22:00)
[2024-01-10 21:58] VITALS: BP 102/54
[2024-01-10] MEDS: guaiFENesin DM LIQ 10ML UD PO PRN (22:01)
[2024-01-10 23:04] VITALS: BP 104/60; TEMP 97.5; O2SAT 92
[2024-01-11] VITALS (15 sets, daily range): BP systolic 95–132; BP diastolic 44–81; TEMP 97.8–100.2; O2SAT 88–99
[2024-01-11 06:10] LABS: BASO % 0.1 % (0.0-1.0); EOS % 0.4 % (0.0-3.0); HEMATOCRIT 35.1 % (36.0-47.0); HEMOGLOBIN 11.5 g/dl (12.0-15.5); LYMPH # 0.4 10^3/uL (1.5-5.0); MEAN CORPUSCULAR HGB CONC 32.8 g/dl (32.0-36.5); MEAN CORPUSCULAR VOLUME 97.8 fl (80.0-96.0); MONO # 1.2 10^3/uL (0.0-0.8); MONO % 10.9 % (2.0-8.0); NEUTROPHILS # 9.1 10^3/uL (1.5-8.5); NEUTROPHILS % 83.9 % (36.0-66.0); PLATELET COUNT, AUTOMATED 303 10^3/uL (150-450); RED BLOOD COUNT 3.59 10^6/uL (4.00-5.40); WHITE BLOOD COUNT 10.9 10^3/uL (4.0-10.0)
[2024-01-11 06:36] LABS: CREATININE FOR GFR 0.98 MG/DL (0.55-1.30); GLOMERULAR FILTRATION RATE 58.6 (>39); MAGNESIUM LEVEL 2.4 MG/DL (1.8-2.4); POTASSIUM SERUM 4.5 MMOL/L (3.5-5.1)
[2024-01-11 08:50] LABS: ABG HCO3 36.1 MMOL/L (22.0-26.0); ABG O2 SATURATION 94.7 % (95.0-99.0); ABG PARTIAL PRESSURE O2 77.9 mmHg (75.0-100.0); ABG STANDARD HCO3 30.8 MMOL/L. (22.0-26.0); ABG TOTAL CO2 38.5 MMOL/L (23.0-31.0); ABG pH (ARTERIAL) 7.289 UNITS (7.350-7.450)
[2024-01-11] MEDS: DIGOXIN 0.125 MG TAB PO SCH (09:49)
[2024-01-11] MEDS: FUROSEMIDE 40MG/4ML VIAL IV ONE (10:59)
[2024-01-11] MEDS: dexmedeTOMidine 200 MCG in IV 1 EA IV SCH (11:30)
[2024-01-11 15:30] LABS: VENOUS BASE EXCESS 10.4 (-2.0-2.0); VENOUS HCO3 39.5 MMOL/L (23.0-27.0); VENOUS O2 SATURATION 97.5 % (60.0-80.0); VENOUS PARTIAL PRESSURE O2 106.1 mmHg (30.0-50.0); VENOUS PH 7.311 UNITS (7.330-7.430); VENOUS STANDARD HCO3 34.1 MMOL/L; VENOUS TOTAL CO2 41.9 MMOL/L (24.0-28.0)
[2024-01-12] VITALS (31 sets, daily range): BP systolic 90–130; BP diastolic 50–70; TEMP 97.4–98.4; O2SAT 83–97
[2024-01-12 04:51] LABS: HEMATOCRIT 30.2 % (36.0-47.0); HEMOGLOBIN 10.3 g/dl (12.0-15.5); MEAN CORPUSCULAR HEMOGLOBIN 32.9 pg (27.0-33.0); MEAN CORPUSCULAR HGB CONC 34.1 g/dl (32.0-36.5); MEAN CORPUSCULAR VOLUME 96.5 fl (80.0-96.0); PLATELET COUNT, AUTOMATED 240 10^3/uL (150-450); RED BLOOD COUNT 3.13 10^6/uL (4.00-5.40); WHITE BLOOD COUNT 7.7 10^3/uL (4.0-10.0)
[2024-01-12 05:13] LABS: CALCIUM LEVEL 8.8 MG/DL (8.3-10.6); CREATININE FOR GFR 1.06 MG/DL (0.55-1.30); GLOMERULAR FILTRATION RATE 53.5 (>39); MAGNESIUM LEVEL 2.5 MG/DL (1.8-2.4); POTASSIUM SERUM 4.1 MMOL/L (3.5-5.1)
[2024-01-12] MEDS: clonazePAM 0.5 MG TAB PO ONE (05:27)
[2024-01-12] MEDS: TORSEMIDE 20 MG TAB PO SCH (21:34)
[2024-01-12] MEDS: rifAMPin 150MG CAPSULE PO SCH (21:35)
[2024-01-12] MEDS ORDERED: PILL CUTTER 1 EACH XX ONE (23:10)
[2024-01-12] MEDS: guaiFENesin ER TABLET 600 MG TAB PO SCH (23:11)
[2024-01-13] VITALS (11 sets, daily range): BP systolic 112–154; BP diastolic 56–65; TEMP 97.5–98.1; O2SAT 88–97
[2024-01-13 06:43] LABS: HEMATOCRIT 33.2 % (36.0-47.0); HEMOGLOBIN 11.2 g/dl (12.0-15.5); MEAN CORPUSCULAR HEMOGLOBIN 32.3 pg (27.0-33.0); MEAN CORPUSCULAR HGB CONC 33.7 g/dl (32.0-36.5); MEAN CORPUSCULAR VOLUME 95.7 fl (80.0-96.0); PLATELET COUNT, AUTOMATED 286 10^3/uL (150-450); RED BLOOD COUNT 3.47 10^6/uL (4.00-5.40); WHITE BLOOD COUNT 9.5 10^3/uL (4.0-10.0)
[2024-01-13 07:14] LABS: BLOOD UREA NITROGEN 30 MG/DL (9-23); CALCIUM LEVEL 8.7 MG/DL (8.3-10.6); CARBON DIOXIDE LEVEL > 40.0 MMOL/L (20-31); CHLORIDE LEVEL 92 MMOL/L (98-107); CREATININE FOR GFR 0.84 MG/DL (0.55-1.30); GLOMERULAR FILTRATION RATE > 60.0 (>39); GLUCOSE, FASTING 119 MG/DL (74-106); MAGNESIUM LEVEL 2.2 MG/DL (1.8-2.4); POTASSIUM SERUM 3.2 MMOL/L (3.5-5.1); SODIUM LEVEL 137 MMOL/L (136-145)
[2024-01-13] MEDS ORDERED: LORazepam 2 MG/ML 1ML VIAL IV PRN (10:25)
[2024-01-13] MEDS ORDERED: MORPHINE 2 MG/ML 1ML VIAL IV PRN (10:25)
[2024-01-13] MEDS: LORazepam 1 MG TAB PO PRN (10:58)
[2024-01-13] MEDS: LEVALBUTEROL 1.25MG 0.5ML CONCENTRATE NEB INH SCH (13:12)
[2024-01-13] MEDS ORDERED: LEVALBUTEROL 1.25MG 0.5ML CONCENTRATE NEB INH PRN (14:00)
[2024-01-14] MEDS: MORPHINE 10MG/0.5ML ORAL CONCENTRATE SOLUTION U/D SL PRN (22:34)
[2024-01-15] MEDS: MORPHINE 10MG/0.5ML ORAL CONCENTRATE SOLUTION U/D SL PRN (11:55)
[2024-01-15] MEDS ORDERED: MORPHINE 2 MG/ML 1ML VIAL IV PRN (12:25)
[2024-01-15] MEDS: SCOPOLAMINE 1MG TRANSDERMAL PATCH TOP PRN (21:00)
[2024-01-15] MEDS ORDERED: AZITHROMYCIN 250MG TABLET PO SCH (21:00)
[2024-01-17] MEDS ORDERED: HYOS125TA PO (18:23)
[2024-01-17] MEDS ORDERED: MORP1SOL5 PO (18:23)
[2024-01-17] MEDS ORDERED: ATIV1TAB10 PO (18:23)
== END 2024-01-18 08:58 | disposition hospice, home (50) | DRG 193 ==
LOC: M ED 04:19 → M ED INP 08:20 → M PCU 18:58 → M ICU 01-11 10:29 → M PCU 01-12 15:32 → M MSPAV 01-13 19:24
PROVIDERS: ADMIT Internal Medicine; ATTEND Student in an Organized Health Care Education/Training Program
DX: J12.2 Parainfluenza virus pneumonia (principal); J96.22 Acute and chronic respiratory failure with hypercapnia; G93.41 Metabolic encephalopathy; J96.21 Acute and chronic respiratory failure with hypoxia; E87.4 Mixed disorder of acid-base balance; E87.1 Hypo-osmolality and hyponatremia; J44.1 Chronic obstructive pulmonary disease with (acute) exacerbation; J44.0 Chronic obstructive pulmonary disease with (acute) lower respiratory infection; J47.0 Bronchiectasis with acute lower respiratory infection; I50.30 Unspecified diastolic (congestive) heart failure; I48.91 Unspecified atrial fibrillation; I11.0 Hypertensive heart disease with heart failure; A31.0 Pulmonary mycobacterial infection; B96.1 Klebsiella pneumoniae [K. pneumoniae] as the cause of diseases classified elsewhere; K21.9 Gastro-esophageal reflux disease without esophagitis; E03.9 Hypothyroidism, unspecified; Z86.79 Personal history of other diseases of the circulatory system; Z79.01 Long term (current) use of anticoagulants; Z79.52 Long term (current) use of systemic steroids; Z79.2 Long term (current) use of antibiotics; Z79.890 Hormone replacement therapy; Z79.83 Long term (current) use of bisphosphonates; Z79.899 Other long term (current) drug therapy; Z99.81 Dependence on supplemental oxygen; Z87.891 Personal history of nicotine dependence; Z11.52 Encounter for screening for COVID-19; Z66 Do not resuscitate